=== PATIENT | male | born 1970 | race Caucasian/White ===

== ENCOUNTER 2017-01-29 12:45 | Inpatient (IN) | payer BC, OTHER ==
[~2017-01-29] VITALS: Ht 182.9 cm; Wt 101.3 kg
[2017-01-29] VITALS (8 sets, daily range): BP systolic 118–157; BP diastolic 76–97; PULSE 124–136; RESP 16–33; TEMP 97.3–98.6; O2SAT 96–100
[~2017-01-29 12:45] MED LIST: AMLO2.5T PO; BUPR150T3 PO; CITA-48 PO; CLON1TAB PO; METO50TA PO; ROSU40 PO; ST JTAB PO; TAB-TAB PO; VALS1TAB49 PO
[2017-01-29] MEDS ORDERED: SODIUM CHLOR 0.9% 1000 ML INJ 1,000 ML IV ONE ×2 (12:52→15:00)
--- NOTE | 2017-01-29 12:58 | PD ---
HPI Chief Complaint: OD/ Ingestion Time Seen by Provider: 12:52 Travel History International Travel<30 days: No Contact w/Intl Traveler<30days: No History of Present Illness HPI 46-year-old male patient presents to the ER today brought in by EMS, apparently his mother is in the hospital and they had not heard from him since yesterday afternoon, he was found on the ground unresponsive. EMS states that they were able to get him to wake up, but he is quite disoriented, was found with a sleep medication bottle which is empty. They do not know what the name of the sleep medication was, but it is over the counter medication. Patient admits he had taken his sleep medication and his other medications, but does not admit to intentional overdose. Patient apparently has had history of suicidal attempts. Modifying Factors: None Associated Signs & Symptoms: Altered mental status, suspected overdose Risk Factors: Previous suicidal attempts PFSH Past Medical History Anxiety: Yes Depression: Yes High Cholesterol: Yes Hypertension: Yes Social History Alcohol Use: Yes Tobacco Use: No Substance Use: Yes (6 TO 8 BEERS/ OCCASIONAL) Allergies-Medications (Allergen,Severity, Reaction): Coded Allergies: No Known Allergies (Unverified , 07/07/15) Reported Meds & Prescriptions Reported Meds & Active Scripts Active Reported Multivitamin (Multivitamins) 1 Tab Tab 1 Tab PO DAILY Aspirin Ec Low Dose (Aspirin) 81 Mg Tab 81 Mg PO DAILY Crestor (Rosuvastatin Calcium) 40 Mg Tab 40 Mg PO HS Valsartan 320 Mg Tab 1 Tab PO Clonazepam 1 Mg Tab 1 Mg PO DAILY Citalopram Hydrobromide 40 Mg Tab 40 Mg PO DAILY Amlodipine Besylate 2.5 mg (Amlodipine Besylate) 2.5 Mg Tab 1 Tab PO DAILY Metoprolol Tartrate 50 mg (Metoprolol Tartrate) 50 Mg Tab 50 Mg PO BID Bupropion Hcl Xl (Bupropion HCl) 150 Mg Tab 150 Mg PO DAILY Review of Systems ROS Limitations: Altered Mental Status Physical Exam Narrative GENERAL: Well-developed middle age white male patient currently in moderate distress. Awake, disoriented. Backboard and c-collar in place. SKIN: Focused skin assessment warm/dry. Notable for abrasions to both knees and left elbow area. HEAD: Atraumatic. Normocephalic. EYES: Pupils are large, round, equal and reactive to light bilaterally. No scleral icterus. No injection or drainage. ENT: No nasal bleeding or discharge. Mucous membranes pink and moist. NECK: Trachea midline. No JVD. C-collar in place. CARDIOVASCULAR: Regular rate and rhythm. No murmur appreciated. RESPIRATORY: No accessory muscle use. Clear to auscultation. Breath sounds equal bilaterally. GASTROINTESTINAL: Abdomen soft, non-tender, nondistended. Hepatic and splenic margins not palpable. MUSCULOSKELETAL: No obvious deformities. No clubbing. No cyanosis. No edema. BACK: No CVA tenderness. No rash. No point tenderness on palpation of the spine. No deformities identified. NEUROLOGICAL: Awake and lethargic and disoriented. No obvious cranial nerve deficits. Motor grossly within normal limits. Normal speech. PSYCHIATRIC: Appropriate mood and affect; insight and judgment poor. Data Data Last Documented VS Vital Signs Date Time Temp Pulse Resp B/P (MAP) Pulse Ox O2 Delivery O2 Flow Rate FiO2 01/29/17 12:52 97.3 136 29 118/76 (90) Orders Orders Electrocardiogram (01/29/17 12:52) Complete Blood Count With Diff (01/29/17 12:52) Comprehensive Metabolic Panel (01/29/17 12:52) Urinalysis - C+S If Indicated (01/29/17 12:52) Chest, Single Ap (01/29/17 12:52) Ct Brain W/O Iv Contrast(Rout) (01/29/17 12:52) Iv Access Insert/Monitor (01/29/17 12:52) Cath For Specimen (01/29/17 12:52) Ecg Monitoring (01/29/17 12:52) Oximetry (01/29/17 12:52) Sodium Chloride 0.9% Flush (Ns Flush) (01/29/17 13:00) Sodium Chlor 0.9% 1000 Ml Inj (Ns 1000 M (01/29/17 12:52) Drug Screen, Random Urine (01/29/17 12:52) Alcohol (Ethanol) (01/29/17 12:52) Salicylates (Aspirin) (01/29/17 12:52) Tylenol (Acetaminophen) (01/29/17 12:52) Ct Cerv Spine W/O Contrast (01/29/17 12:53) Piperacil-Tazo 4.5 Gm Premix (Zosyn 4.5 (10/25/17 14:54) Sodium Chlor 0.9% 1000 Ml Inj (Ns 1000 M (01/29/17 15:00) Lactic Acid Sepsis Protocol (01/29/17 14:54) Blood Culture (01/29/17 14:54) Creatine Kinase (Cpk) (01/29/17 14:56) Arterial Blood Gas (Abg) (01/29/17 ) Amylase (01/29/17 15:00) Ammonia (01/29/17 15:00) Act Partial Throm Time (Ptt) (01/29/17 15:00) Thyroid Stimulating Hormone (01/29/17 15:00) Prothrombin Time / Inr (Pt) (01/29/17 15:00) Magnesium (Mg) (01/29/17 15:00) Lipase (01/29/17 15:00) Lactic Acid (01/29/17 15:00) Phosphorus (Po4) (01/29/17 15:00) Fibrinogen (01/29/17 15:00) Creatinine, Random Urine (01/29/17 15:00) Sodium, Random Urine (01/29/17 15:00) Urine For Eosinophils (01/29/17 15:00) Troponin I (01/29/17 15:00) Labs Laboratory Tests Test 01/29/17 13:00 White Blood Count 24.2 TH/MM3 Red Blood Count 4.92 MIL/MM3 Hemoglobin 16.5 GM/DL Hematocrit 48.3 % Mean Corpuscular Volume 98.1 FL Mean Corpuscular Hemoglobin 33.5 PG Mean Corpuscular Hemoglobin Concent 34.1 % Red Cell Distribution Width 12.6 % Platelet Count 312 TH/MM3 Mean Platelet Volume 7.1 FL CBC Comment AUTO DIFF Differential Total Cells Counted 100 Neutrophils % (Manual) 56 % Band Neutrophils % 33 % Lymphocytes % 1 % Monocytes % 8 % Neutrophils # (Manual) 22.0 TH/MM3 Metamyelocytes 2 % Differential Comment FINAL DIFF MANUAL Toxic Granulation 2+ Platelet Estimate NORMAL Platelet Morphology Comment NORMAL Blood Urea Nitrogen 19 MG/DL Creatinine 2.89 MG/DL Random Glucose 129 MG/DL Total Protein 7.8 GM/DL Albumin 4.0 GM/DL Calcium Level 8.6 MG/DL Alkaline Phosphatase 83 U/L Aspartate Amino Transf (AST/SGOT) 1350 U/L Alanine Aminotransferase (ALT/SGPT) 206 U/L Total Bilirubin 1.8 MG/DL Sodium Level 133 MEQ/L Potassium Level 4.9 MEQ/L Chloride Level 96 MEQ/L Carbon Dioxide Level 14.6 MEQ/L Anion Gap 22 MEQ/L Estimat Glomerular Filtration Rate 24 ML/MIN Salicylates Level LESS THAN 1.7 MG/DL Acetaminophen Level LESS THAN 2.0 MCG/ML Ethyl Alcohol Level LESS THAN 3 MG/DL MDM Medical Decision Making Medical Screen Exam Complete: Yes Emergency Medical Condition: Yes Medical Record Reviewed: Yes Interpretation(s) Laboratory Tests Test 01/29/17 13:00 White Blood Count 24.2 TH/MM3 (4.0-11.0) Band Neutrophils % 33 % (0-6) Lymphocytes % 1 % (9-44) Neutrophils # (Manual) 22.0 TH/MM3 (1.8-7.7) Metamyelocytes 2 % (0-1) Toxic Granulation 2+ (NORMAL) Blood Urea Nitrogen 19 MG/DL (7-18) Creatinine 2.89 MG/DL (0.60-1.30) Random Glucose 129 MG/DL (74-106) Aspartate Amino Transf (AST/SGOT) 1350 U/L (15-37) Alanine Aminotransferase (ALT/SGPT) 206 U/L (12-78) Total Bilirubin 1.8 MG/DL (0.2-1.0) Sodium Level 133 MEQ/L (136-145) Chloride Level 96 MEQ/L (98-107) Carbon Dioxide Level 14.6 MEQ/L (21.0-32.0) Anion Gap 22 MEQ/L (5-15) Estimat Glomerular Filtration Rate 24 ML/MIN (>89) Salicylates Level LESS THAN 1.7 MG/DL Acetaminophen Level LESS THAN 2.0 MCG/ML Last 24 hours Impressions Cervical Spine CT 01/29/17 1253 Signed Impressions: Service Date/Time: Sunday, January 29, 2017 13:23 - CONCLUSION: No acute findings. Note is compression of cord or spondylolisthesis. Straightening of the cervical lordosis and nonbridging degenerative paravertebral ossification lower cervical spine. Nghia Fraire MD Head CT 01/29/17 1252 Signed Impressions: Service Date/Time: Sunday, January 29, 2017 13:23 - CONCLUSION: Negative noncontrast CT brain. Nghia Fraire MD Chest X-Ray 01/29/17 1790 Signed Impressions: Service Date/Time: Sunday, January 29, 2017 13:15 - CONCLUSION: 1. No acute cardiopulmonary disease. Jos Lux MD Differential Diagnosis Altered mental status, suspected overdose: Rule out intoxication versus intracranial injuries versus coingestions Narrative Course Considering history, there is suspicion of Benadryl overdose concerning this is a medication used in many sleep aids. Unfortunately, EMS did not look at the medication to identify the exact medication bottle they found. IV fluids were initiated in the ER. Supportive care was initiated. Lab work returns showing significant leukocytosis and sepsis workup was also initiated with cultures done and IV antibiotics given. Lab work shows significant worsening in renal function and liver function of uncertain etiology. Tylenol and salicylate levels are negligible. He is not on alcohol. CT of the brain did not show any signs of intracranial injuries. At this point, my plan would be to admit him to ICU for further treatment. Case is discussed with automotive general sales manager Dr. Bloom for admission. Aggregate critical care time was 35 minutes. Time to perform other separately billable procedures was not included in the critical care time. My time did not include minutes spent treating any other patients simultaneously or on activities that did not directly contribute to the patient's treatment. The services I provided to this patient were to treat and/or prevent clinically significant deterioration that could result in: Worsening respiratory status, dysrhythmias, intracranial bleed, I provided critical care services requiring my management, as noted below: Chart data review, documentation time, medication orders and management, vital sign assessments/reviewing monitor data, ordering and reviewing lab tests, ordering and interpreting/reviewing x-rays and diagnostic studies, care of the patient and discussion of the patient with the admitting physicians. Diagnosis Primary Impression: Altered mental status Additional Impressions: Medication overdose Acute renal failure (ARF) Admitting Information Admitting Physician Requests: Admit Karthik Mccormick MD Jan 29, 2017 12:58
[2017-01-29] MEDS ORDERED: SODIUM CHLORIDE 0.9% FLUSH 10 ML FLUSH IVF PRN (13:00)
--- NOTE | 2017-01-29 13:28 | RADRPT ---
EXAM DATE/TIME: 01/29/2017 13:15 [facility] COMPARISON: No previous studies available for comparison. INDICATIONS : Syncope. MEDICAL HISTORY : None. SURGICAL HISTORY : None. ENCOUNTER: Initial ACUITY: 1 day PAIN SCORE: 0/10 LOCATION: Bilateral chest FINDINGS: A single view of the chest demonstrates the lungs to be symmetrically aerated without evidence of mas s, infiltrate or effusion. The cardiomediastinal contours are unremarkable. Osseous structures are intact. CONCLUSION: 1. No acute cardiopulmonary disease. Jos Lux MD on January 29, 2017 at 13:26 Board Certified Radiologist. This report was verified electronically.
--- NOTE | 2017-01-29 13:58 | RADRPT ---
EXAM DATE/TIME: 01/29/2017 13:23 [facility] COMPARISON: No previous studies available for comparison. INDICATIONS : Altered mental status, found unresponsive on floor today RADIATION DOSE: 38.20 CTDIvol (mGy) MEDICAL HISTORY : Non-responsive. SURGICAL HISTORY : Non-responsive. ENCOUNTER: Initial ACUITY: 1 day PAIN SCALE: Non-responsive LOCATION: cranial TECHNIQUE: Multiple contiguous axial images were obtained of the head. Using automated exposure control and adj ustment of the mA and/or kV according to patient size, radiation dose was kept as low as reasonably a chievable to obtain optimal diagnostic quality images. DICOM format image data is available electro nically for review and comparison. FINDINGS: CEREBRUM: The ventricles are normal for age. No evidence of midline shift, mass lesion, hemorrhage or acute in farction. No extra-axial fluid collections are seen. POSTERIOR FOSSA: The cerebellum and brainstem are intact. The 4th ventricle is midline. The cerebellopontine angle i s unremarkable. EXTRACRANIAL: The visualized portion of the orbits is intact. SKULL: The calvaria is intact. No evidence of skull fracture. CONCLUSION: Negative noncontrast CT brain. Nghia Fraire MD on January 29, 2017 at 13:56 Board Certified Radiologist. This report was verified electronically.
--- NOTE | 2017-01-29 14:05 | RADRPT ---
EXAM DATE/TIME: 01/29/2017 13:23 [facility] COMPARISON: No previous studies available for comparison. INDICATIONS : Possible neck injury, found unresponsive today RADIATION DOSE: 38.20 CTDIvol (mGy) MEDICAL HISTORY : Non-responsive. SURGICAL HISTORY : Non-responsive. ENCOUNTER: Initial ACUITY: 1 day PAIN SCALE: Non-responsive LOCATION: neck TECHNIQUE: Volumetric scanning of the cervical spine was performed. Multiplanar reconstructions in the sagittal, coronal and oblique axial planes were performed. Using automated exposure control and adjustment o f the mA and/or kV according to patient size, radiation dose was kept as low as reasonably achievable to obtain optimal diagnostic quality images. DICOM format image data is available electronically f or review and comparison. FINDINGS: There is straightening of the upper cervical lordosis down to C5. Vertebral body height is maintaine d. No fracture is seen. Non-bridging anterior paravertebral ossification is present C4-5 and C5-6. The posterior elements are in normal alignment without evidence of locked or perched facets. Spinou s processes are intact. The atlantoaxial articulation is intact. C2-C3: No fracture seen. The bony neural foramina are patent. C3-C4: No fracture seen. The bony neural foramina are patent. C4-C5: No fracture seen. The bony neural foramina are patent. C5-C6: No fracture seen. The bony neural foramina are patent. C6-C7: No fracture seen. The bony neural foramina are patent. C7-T1: No fracture seen. The bony neural foramina are patent. CONCLUSION: No acute findings. Note is compression of cord or spondylolisthesis. Straightening of the cervical lordosis and nonbridging degenerative paravertebral ossification lower cervical spine. Nghia Fraire MD on January 29, 2017 at 14:01 Board Certified Radiologist. This report was verified electronically.
[2017-01-29 14:10] LABS: HEMATOCRIT 48.3 % (39.0-51.0); HEMOGLOBIN 16.5 GM/DL (13.0-17.0); MEAN CELL VOLUME 98.1 FL (80.0-100.0); MEAN CORPUSCULAR HEMOGLOBIN 33.5 PG (27.0-34.0); MEAN CORPUSCULAR HGB CONC 34.1 % (32.0-36.0); MEAN PLATELET VOLUME 7.1 FL (7.0-11.0); PLATELET COUNT 312 TH/MM3 (150-450); RED BLOOD COUNT 4.92 MIL/MM3 (4.50-5.90); RED CELL DISTRIBUTION WIDTH 12.6 % (11.6-17.2); WHITE BLOOD COUNT 24.2 TH/MM3 (4.0-11.0)
[2017-01-29 14:30] LABS: ALT (GPT) 206 U/L (12-78)
[2017-01-29 14:42] LABS: BANDS 33 % (0-6); LYMPHOCYTES 1 % (9-44); METAMYELOCYTES 2 % (0-1); MONOCYTES 8 % (0-8); POLYS (SEG NEUTROPHILS) 56 % (16-70); TOXIC GRANULATION 2+ (NORMAL)
[2017-01-29 14:44] LABS: ALKALINE PHOSPHATASE 83 U/L (45-117); AST (GOT) 1350 U/L (15-37); BICARBONATE 14.6 MEQ/L (21.0-32.0); BLOOD UREA NITROGEN 19 MG/DL (7-18); CALCIUM 8.6 MG/DL (8.5-10.1); CHLORIDE 96 MEQ/L (98-107); CREATININE 2.89 MG/DL (0.60-1.30); GLOMERULAR FILTRATION RATE 24 ML/MIN (>89); GLUCOSE,RANDOM 129 MG/DL (74-106); SODIUM (NA) 133 MEQ/L (136-145); TOTAL BILIRUBIN ADULT 1.8 MG/DL (0.2-1.0); TOTAL PROTEIN 7.8 GM/DL (6.4-8.2)
[2017-01-29 14:48] LABS: ACETAMINOPHEN LESS THAN 2.0 MCG/ML (10.0-30.0)
[2017-01-29] MEDS ORDERED: PIPERACIL-TAZO 4.5 GM PREMIX 100 ML IV STA (14:54)
[2017-01-29] MEDS ORDERED: CHLORHEXIDINE GLUCONATE 2 % 1 PACK (2 CLOTHS) TOP PRN (15:30)
[2017-01-29] MEDS ORDERED: FOLIC ACID 1 MG TAB PO ONE (15:30)
[2017-01-29] MEDS ORDERED: MISCELLANEOUS NURSING INFORMATION XX SCH (15:30)
[2017-01-29] MEDS: RESP: ALBUTEROL 2.5 MG/IPRATROPIUM 0.5 MG NEB (SCH) INH ×2 (15:42→21:53)
[2017-01-29] MEDS ORDERED: MAGNESIUM HYDROXIDE SUSP 30 ML CUP PO PRN (16:00)
[2017-01-29] MEDS ORDERED: ONDANSETRON HCL 4 MG/2 ML VIAL IV PUSH PRN (16:00)
[2017-01-29] MEDS ORDERED: SODIUM CHLOR 0.9% 1000 ML INJ 1,000 ML IV SCH (16:00)
[2017-01-29] MEDS ORDERED: LACTULOSE SYRUP 20 GM/30 ML CUP PO PRN (16:00)
[2017-01-29] MEDS ORDERED: RESP: ALBUTEROL 2.5 MG/3 ML NEB (PRN) INH (16:00)
[2017-01-29] MEDS ORDERED: BISACODYL 10 MG SUPP RECTAL PRN (16:00)
[2017-01-29] MEDS ORDERED: SENNOSIDES 8.6 MG TAB PO PRN (16:00)
--- NOTE | 2017-01-29 16:09 | HHI.HP ---
[facility] Service Critical Care Medicine Primary Care Physician No Primary Care Physician Admission Diagnosis acute renal failure/suspected overdose/altered mental status Diagnosis: (1) Altered mental status Diagnosis: Principal (2) Chronically on benzodiazepine therapy Diagnosis: Principal (3) Dyslipidemia Diagnosis: Principal (4) Hypertension Diagnosis: Principal (5) Elevated transaminase level Diagnosis: Principal (6) Depression Diagnosis: Principal (7) Medication overdose Diagnosis: Principal (8) Alcohol-induced mood disorder Diagnosis: Principal (9) Acute renal failure (ARF) Diagnosis: Principal (10) Leukocytosis Diagnosis: Principal (11) SIRS (systemic inflammatory response syndrome) Diagnosis: Principal (12) Metabolic acidosis, increased anion gap Diagnosis: Principal Chief Complaint: Overdose on sleeping pills Travel History International Travel<30 Days: No Contact w/Intl Traveler <30 Da: No Traveled to Known Affected Are: No Sepsis Criteria SIRS Criteria (2 or more): Heart rate over 90, WBC > 58027, < 4000 or > 10% bands History of Present Illness This is a 46 year old male. Date of admission 01/29/2017. Past medical history includes hypertension, dyslipidemia and depression. He is on chronic clonazepam. He presents to [facility] after being found on the ground for an unknown duration of time after taking "[id number] sleeping pills". He's been Beltran acted. Symptomatology includes tachycardia, mydriasis and appears dehydrated. Patient is afebrile. Lab workup included negative urine toxicology screen. Negative acetaminophen and EtOH. Patient has a leukocytosis of 24,000. Patient is in acute kidney injury creatinine 2.9.. Transaminases are elevated. Patient has a metabolic acidosis/Hyalgan With acetone and lactic currently pending. CT brain and C-spine negative. Chest x-ray negative. Patient is currently awake and oriented to person and place but not time. Review of Systems Constitutional: COMPLAINS OF: Fatigue, DENIES: Fever Endocrine: DENIES: Polyuria, Polyphagia Eyes: COMPLAINS OF: Blurred vision, DENIES: Double Vision Ears, nose, mouth, throat: DENIES: Tinnitus, Hearing loss Respiratory: DENIES: Cough Cardiovascular: COMPLAINS OF: Palpitations, DENIES: Chest pain Gastrointestinal: DENIES: Abdominal pain, Nausea, Vomiting Genitourinary: DENIES: Urinary incontinence, Hematuria Musculoskeletal: DENIES: Joint pain Integumentary: DENIES: Abnormal pigmentation Hematologic/lymphatic: DENIES: Bruising Immunologic/allergic: DENIES: Eczema Neurologic: DENIES: Headache Psychiatric: COMPLAINS OF: Anxiety, Confusion, Depression, DENIES: Hallucinations Past Family Social History Allergies: Coded Allergies: No Known Allergies (Unverified , 07/07/15) Past Medical History Hypertension Dyslipidemia Depression Past Surgical History Left foot Reported Medications Multivitamin (Multivitamins) 1 Tab Tab 1 Tab PO DAILY Aspirin Ec Low Dose (Aspirin) 81 Mg Tab 81 Mg PO DAILY Crestor (Rosuvastatin Calcium) 40 Mg Tab 40 Mg PO HS Valsartan 320 Mg Tab 1 Tab PO Clonazepam 1 Mg Tab 1 Mg PO DAILY Citalopram Hydrobromide 40 Mg Tab 40 Mg PO DAILY Amlodipine Besylate 2.5 mg (Amlodipine Besylate) 2.5 Mg Tab 1 Tab PO DAILY Metoprolol Tartrate 50 mg (Metoprolol Tartrate) 50 Mg Tab 50 Mg PO BID Bupropion Hcl Xl (Bupropion HCl) 150 Mg Tab 150 Mg PO DAILY Active Ordered Medications Reviewed in EMR Family History Mother is currently hospitalized. Positive for hypertension Social History 6-8 beers drinking.. Denies tobacco or illicit drug use. Physical Exam Vital Signs Vital Signs Date Time Temp Pulse Resp B/P (MAP) Pulse Ox O2 Delivery O2 Flow Rate FiO2 01/29/17 15:46 96 Nasal Cannula 3.00 01/29/17 15:00 124 16 134/94 (107) 98 Room Air 01/29/17 13:41 126 20 122/79 (93) 97 Room Air 01/29/17 12:55 Room Air 01/29/17 12:52 97.3 136 29 118/76 (90) Physical Exam GENERAL: 46-year-old male, resting in bed in c-collar in no acute distress SKIN: Warm and dry. No rash HEAD: Atraumatic. Normocephalic. EYES: Pupils equal and round about 5 mm bilaterally and reactive. No scleral icterus. No injection or drainage. ENT: No nasal bleeding or discharge. Mucous membranes pink and moist. NECK: Trachea midline. No JVD. CARDIOVASCULAR: Tachycardia, RR. S1, S2. No S4. RESPIRATORY: No accessory muscle use. Clear to auscultation. Breath sounds equal bilaterally. GASTROINTESTINAL: Abdomen soft, non-tender, nondistended. Bowel sounds appreciated. MUSCULOSKELETAL: Extremities without significant peripheral edema. No obvious deformities. NEUROLOGICAL: Awake and alert. No obvious cranial nerve deficits. Motor grossly within normal limits. Five out of 5 muscle strength in the arms and legs. Normal speech. Laboratory Laboratory Tests Test 01/29/17 13:00 01/29/17 15:00 01/29/17 15:23 01/29/17 15:54 White Blood Count 24.2 Red Blood Count 4.92 Hemoglobin 16.5 Hematocrit 48.3 Mean Corpuscular Volume 98.1 Mean Corpuscular Hemoglobin 33.5 Mean Corpuscular Hemoglobin Concent 34.1 Red Cell Distribution Width 12.6 Platelet Count 312 Mean Platelet Volume 7.1 CBC Comment AUTO DIFF Differential Total Cells Counted 100 Neutrophils % (Manual) 56 Band Neutrophils % 33 Lymphocytes % 1 Monocytes % 8 Neutrophils # (Manual) 22.0 Metamyelocytes 2 Differential Comment FINAL DIFF MANUAL Toxic Granulation 2+ Platelet Estimate NORMAL Platelet Morphology Comment NORMAL Blood Urea Nitrogen 19 Creatinine 2.89 Random Glucose 129 Total Protein 7.8 Albumin 4.0 Calcium Level 8.6 Alkaline Phosphatase 83 Aspartate Amino Transf (AST/SGOT) 1350 Alanine Aminotransferase (ALT/SGPT) 206 Total Bilirubin 1.8 Sodium Level 133 Potassium Level 4.9 Chloride Level 96 Carbon Dioxide Level 14.6 Anion Gap 22 Estimat Glomerular Filtration Rate 24 Salicylates Level LESS THAN 1.7 Acetaminophen Level LESS THAN 2.0 Ethyl Alcohol Level LESS THAN 3 Blood Gas Puncture Site RT RADIAL Blood Gas Patient Temperature 98.6 Blood Gas HCO3 15 Blood Gas Base Excess -9.4 Blood Gas Oxygen Saturation 97 Arterial Blood pH 7.35 Arterial Blood Partial Pressure CO2 28 Arterial Blood Partial Pressure O2 138 Arterial Blood Oxygen Content 21.1 Arterial Blood Carboxyhemoglobin 1.0 Arterial Blood Methemoglobin 1.0 Blood Gas Hemoglobin 15.4 Oxygen Delivery Device NASAL CANNULA Blood Gas Liter Flow 3 Date/Time Source Procedure Growth Status 01/29/17 13:15 Blood Peripheral Aerobic Blood Culture Pending Received 01/29/17 13:15 Blood Peripheral Anaerobic Blood Culture Pending Received Result Diagram: 01/29/17 1300 01/29/17 1300 Imaging Last Impressions Cervical Spine CT 01/29/17 1253 Signed Impressions: Service Date/Time: Sunday, January 29, 2017 13:23 - CONCLUSION: No acute findings. Note is compression of cord or spondylolisthesis. Straightening of the cervical lordosis and nonbridging degenerative paravertebral ossification lower cervical spine. Nghia Fraire MD Head CT 01/29/171251 Signed Impressions: Service Date/Time: Sunday, January 29, 2017 13:23 - CONCLUSION: Negative noncontrast CT brain. Nghia Fraire MD Chest X-Ray 01/29/171251 Signed Impressions: Service Date/Time: Sunday, January 29, 2017 13:15 - CONCLUSION: 1. No acute cardiopulmonary disease. Jos Lux MD Caprinapril VTE Risk Assessment Caprini VTE Risk Assessment: Mod/High Risk (score >= 2) Caprini Risk Assessment Model Point Value = 1 Point Value = 2 Point Value = 3 Point Value = 5 Age 41-60 Minor surgery BMI > 25 kg/m2 Swollen legs Varicose veins or History of unexplained or recurrent spontaneous Oral contraceptives or hormone replacement Sepsis (< 1 month) Serious lung disease, including pneumonia (< 1 month) Abnormal pulmonary function Acute myocardial infarction Congestive heart failure (< 1 month) History of inflammatory bowel disease Medical patient at bed rest Age 61-74 Arthroscopic surgery Major open surgery (> 45 min) Laparoscopic surgery (> 45 min) Malignancy Confined to bed (> 72 hours) Immobilizing plaster cast Central venous access Age >= 75 History of VTE Family history of VTE Factor V Leiden Prothrombin [id number] Lupus anticoagulant Anticardiolipin antibodies Elevated serum homocysteine Heparin-induced thrombocytopenia Other congenital or acquired thrombophilia Stroke (< 1 month) Elective arthroplasty Hip, pelvis, or leg fracture Acute spinal cord injury (< 1 month) Prophylaxis Regimen Total Risk Factor Score Risk Level Prophylaxis Regimen 0-1 Low Early ambulation 2 Moderate Order ONE of the following: *Sequential Compression Device (SCD) *Heparin 5000 units SQ BID 3-4 Higher Order ONE of the following medications: *Heparin 5000 units SQ TID *Enoxaparin/Lovenox 40 mg SQ daily (WT < 150 kg, CrCl > 30 mL/min) *Enoxaparin/Lovenox 30 mg SQ daily (WT < 150 kg, CrCl > 10-29 mL/min) *Enoxaparin/Lovenox 30 mg SQ BID (WT < 150 kg, CrCl > 30 mL/min) AND/OR *Sequential Compression Device (SCD) 5 or more Highest Order ONE of the following medications: *Heparin 5000 units SQ TID (Preferred with Epidurals) *Enoxaparin/Lovenox 40 mg SQ daily (WT < 150 kg, CrCl > 30 mL/min) *Enoxaparin/Lovenox 30 mg SQ daily (WT < 150 kg, CrCl > 10-29 mL/min) *Enoxaparin/Lovenox 30 mg SQ BID (WT < 150 kg, CrCl > 30 mL/min) AND *Sequential Compression Device (SCD) Assessment and Plan Assessment and Plan Neuro/Psych: Intentional overdose on sleeping pills". Possible diphenhydramine Depression EtOH use Monitor for anticholinergic side effects. Currently not requiring physostigmine Acetaminophen secondary to elevated transaminases Patient has been Beltran acted. Psych evaluation when clinically stable Holding citalopram 40 mg daily and bupropion 150 mill grams daily light of altered mental status Holding clonazepam 1 mg daily light of altered mental status Thiamine, folate and multivitamin daily. Monitor for DTs CT brain 01/29 revealed no acute intracranial findings CT C-spine 01/29 negative for acute findings. Straightened lordosis. CV: Sinus tachycardia History of hypertension History dyslipidemia Holding home medications of rosuvastatin 40 mg daily in light of elevated liver function tests Holding home medication valsartan 320 mg daily light of acute kidney injury. Resume metoprolol 50 mg twice a day. Holding amlodipine 2.5 mill grams by mouth daily. Resume when clinically indicated Okay to resume aspirin 81 mg daily Resp: Nasal cannula to maintain saturations greater than or equal to 92% Incentive spirometry while awake Follow-up on chest x-ray in ED GI: Elevated transaminases Check abdominal ultrasound. CPK pending Avoid hepatotoxic drugs. Statin will be held. Abdominal ultrasound pending Clear liquid diet okay. Pantoprazole for GI prophylaxis Docusate sodium/senna for bowel regimen Will check hepatitis panel as well : No indication for Barros catheter Endo: Sliding-scale insulin if indicated to maintain euglycemia Renal: Acute kidney injury Anion gap metabolic acidosis/respiratory alkalosis compensation Renal ultrasound/urine electrolytes and eosinophils pending Avoid nephrotoxic medications Currently on sterile water with 3 ampules of sodium bicarbonate 150 cc an hour Acetone/lactate pending Heme: Leukocytosis Likely stress reaction. Follow-up on coags Repeat CBC in a.m. ID: Monitor for infection. No indication for antibiotics at this point MSK: PT evaluate and treat FEN: Replace electrolytes as clinically indicated Access -Utilize peripheral IV. Central line if indicated Prophylaxis - GI - pantoprazole - DVT - SCD/heparin subcutaneous Critical Care: The total critical care time was 35 minutes. Time to perform other separately billable procedures was not included in the critical care time. Code Status Full code Discussed Condition With Patient. Beltran acted. Care plan discussed and all questions answered. Problem Qualifiers (1) Altered mental status: Qualified Codes: R41.0 - Disorientation, unspecified (2) Hypertension: Qualified Codes: I10 - Essential (primary) hypertension (3) Depression: Qualified Codes: F33.40 - Major depressive disorder, recurrent, in remission, unspecified (4) Medication overdose: (5) Acute renal failure (ARF): Qualified Codes: N17.9 - Acute kidney failure, unspecified (6) Leukocytosis: Qualified Codes: D72.829 - Elevated white blood cell count, unspecified Ricardo Bloom MD Jan 29, 2017 16:09
[2017-01-29 16:20] LABS: PROTHROMBIN TIME - PATIENT 10.7 SEC (9.8-11.6)
[2017-01-29 16:30] LABS: AMORPHOUS SEDIMENT, URINE RARE; BACTERIA, URINE RARE /hpf; BILIRUBIN, URINE NEG (NEG); BLOOD, URINE LARGE (NEG); GLUCOSE,URINE TRACE mg/dL (NEG); KETONE, URINE 10 mg/dL (NEG); NITRITE,URINE NEG (NEG); URINE LEUKOCYTE ESTERASE TRACE (NEG)
[2017-01-29 16:33] LABS: URINE COLOR RED (YELLW/STRAW)
--- NOTE | 2017-01-29 16:33 | RADRPT ---
EXAM DATE/TIME: 01/29/2017 15:30 [place] COMPARISON: CHEST SINGLE AP, January 29, 2017, 13:15. INDICATIONS : Increased labs. MEDICAL HISTORY : Hypercholesterolemia. Hypertension. Renal failure, acute. Depression. Anxiety. Previous suicide attem pt. ETOH abuse. SURGICAL HISTORY : Left foot surgery. ENCOUNTER: Initial ACUITY: 1 day PAIN SCORE: 2/10 LOCATION: Abdomen. MEASUREMENTS: LIVER: 14.8 cm length COMMON DUCT: 3 mm RIGHT KIDNEY: 12.7 x 7.0 x 6.8 cm LEFT KIDNEY: 12.2 x 5.5 x 7.0 cm SPLEEN: 9.6 cm length AORTA: 2.7cm maximal FINDINGS: LIVER: Mild heterogeneous diffuse increased echogenicity without evidence for significant volume loss or int rahepatic ductal dilatation or focal mass. COMMON DUCT: No intraluminal mass or stone visualized. GALLBLADDER: Contains no stones, demonstrates no wall thickening or pericholecystic fluid. PANCREAS: March the obscured by bowel gas. RIGHT KIDNEY: Somewhat lobulated renal contour. No hydronephrosis, stone or mass. LEFT KIDNEY: Somewhat lobulated renal contour. No hydronephrosis, stone or mass. SPLEEN: No focal lesion. AORTA: Non aneurysmal. IVC: Within normal limits. Incidental note of trace left pleural effusion. CONCLUSION: 1. Diffusely increased hepatic echogenicity without evidence for volume loss most consistent with hep atic steatosis versus medical liver disease. 2. Trace left pleural effusion. Jos Lux MD on January 29, 2017 at 16:27 Board Certified Radiologist. This report was verified electronically.
[2017-01-29 16:56] LABS: CREATININE, RANDOM URINE 101.6 MG/DL
[2017-01-29 16:57] LABS: MAGNESIUM 2.9 MG/DL (1.5-2.5)
[2017-01-29] MEDS ORDERED: THIAMINE INJ 100 MG in SODIUM CHLORIDE 0.9% INJ 100 ML IV ONE (17:00)
[2017-01-29 17:06] LABS: TROPONIN I 0.14 NG/ML (0.02-0.05)
[2017-01-29 17:27] LABS: PHOSPHORUS 7.5 MG/DL (2.5-4.9)
[2017-01-29] MEDS: SODIUM BICARBONATE 8.4% INJ 150 MEQ in WATER STERILE FOR INJ 850 ML IV SCH (17:31)
[2017-01-29] MEDS: HEPARIN SODIUM - SQ 10,000 UNITS/ML VIAL SQ SCH (17:31)
[2017-01-29] MEDS: ARTIFICIAL TEARS OPTH SOLN 15 ML BTL EACH EYE SCH (17:32)
[2017-01-29 17:43] LABS: AMORPHOUS SEDIMENT, URINE RARE; BACTERIA, URINE RARE /hpf; BILIRUBIN, URINE NEG (NEG); BLOOD, URINE LARGE (NEG); GLUCOSE,URINE NEG (NEG); KETONE, URINE TRACE mg/dL (NEG); NITRITE,URINE NEG (NEG); PH, URINE 5.5 (5.0-8.5); URINE COLOR YELLOW (YELLW/STRAW); URINE LEUKOCYTE ESTERASE NEG (NEG)
[2017-01-29 18:26] LABS: LACTIC ACID SEPSIS PROTOCOL 6.3 mmol/L (0.4-2.0)
[2017-01-29] MEDS: DOCUSATE SODIUM 50 MG/SENNA 8.6 MG TAB PO SCH (20:14)
[2017-01-29] MEDS: METOPROLOL TARTRATE 50 MG TAB PO SCH (20:14)
[2017-01-29] MEDS: SODIUM CHLORIDE 0.9% FLUSH 10 ML FLUSH IV FLUSH SCH (20:14)
[2017-01-29] MEDS: DEXMEDETOMIDINE INJ 200 MCG in SODIUM CHLORIDE 0.9% INJ 50 ML IV PRN (21:20)
[2017-01-30] VITALS (14 sets, daily range): BP systolic 123–144; BP diastolic 91–95; PULSE 80–109; RESP 20–35; TEMP 98.2–98.8; O2SAT 92–100
[2017-01-30] MEDS: SODIUM BICARBONATE 8.4% INJ 150 MEQ in WATER STERILE FOR INJ 850 ML IV SCH ×2 (00:39→08:48)
[2017-01-30] MEDS: DEXMEDETOMIDINE INJ 200 MCG in SODIUM CHLORIDE 0.9% INJ 50 ML IV PRN ×6 (03:42→22:37)
[2017-01-30] MEDS: CHLORHEXIDINE GLUCONATE 2 % 1 PACK (2 CLOTHS) TOP SCH (03:42)
[2017-01-30] MEDS: HEPARIN SODIUM - SQ 10,000 UNITS/ML VIAL SQ SCH ×2 (03:42→15:45)
[2017-01-30] MEDS: RESP: ALBUTEROL 2.5 MG/IPRATROPIUM 0.5 MG NEB (SCH) INH ×4 (03:52→19:59)
[2017-01-30 04:32] LABS: AUTOMATED NEUTROPHIL # 15.2 TH/MM3 (1.8-7.7); BASOPHIL % 0.3 % (0.0-2.0); HEMATOCRIT 40.7 % (39.0-51.0); HEMOGLOBIN 14.3 GM/DL (13.0-17.0); LYMPH % 6.3 % (9.0-44.0); LYMPHOCYTE # 1.1 TH/MM3 (1.0-4.8); MEAN CELL VOLUME 96.1 FL (80.0-100.0); MEAN CORPUSCULAR HEMOGLOBIN 33.8 PG (27.0-34.0); MEAN CORPUSCULAR HGB CONC 35.2 % (32.0-36.0); MEAN PLATELET VOLUME 7.4 FL (7.0-11.0); MONO % 6.1 % (0.0-8.0); MONOCYTE # 1.1 TH/MM3 (0-0.9); NEUT % 87.3 % (16.0-70.0); PLATELET COUNT 181 TH/MM3 (150-450); RED BLOOD COUNT 4.24 MIL/MM3 (4.50-5.90); RED CELL DISTRIBUTION WIDTH 12.8 % (11.6-17.2); WHITE BLOOD COUNT 17.4 TH/MM3 (4.0-11.0)
[2017-01-30 05:25] LABS: ALBUMIN 2.9 GM/DL (3.4-5.0); ALKALINE PHOSPHATASE 59 U/L (45-117); ALT (GPT) 287 U/L (12-78); AST (GOT) 1753 U/L (15-37); BICARBONATE 22.7 MEQ/L (21.0-32.0); BLOOD UREA NITROGEN 31 MG/DL (7-18); CALCIUM 7.8 MG/DL (8.5-10.1); CHLORIDE 98 MEQ/L (98-107); CREATININE 4.11 MG/DL (0.60-1.30); GLOMERULAR FILTRATION RATE 16 ML/MIN (>89); GLUCOSE,RANDOM 108 MG/DL (74-106); SODIUM (NA) 133 MEQ/L (136-145); TOTAL BILIRUBIN ADULT 1.1 MG/DL (0.2-1.0); TOTAL PROTEIN 5.9 GM/DL (6.4-8.2)
[2017-01-30] MEDS ORDERED: LORazepam 2 MG/ML VIAL IV PUSH PRN ×3 (08:15)
[2017-01-30] MEDS ORDERED: LORazepam 2 MG TAB PO PRN (08:15)
[2017-01-30] MEDS ORDERED: FLUMAZENIL 0.5 MG/5 ML VIAL IV PUSH PRN (08:15)
[2017-01-30] MEDS ORDERED: LORazepam 1 MG TAB PO PRN (08:15)
[2017-01-30] MEDS ORDERED: SODIUM CHLOR 0.9% 1000 ML INJ 1,000 ML IV ONE ×3 (08:30→14:15)
[2017-01-30] MEDS: THIAMINE INJ 100 MG in SODIUM CHLORIDE 0.9% INJ 100 ML IV SCH (08:47)
[2017-01-30] MEDS: DOCUSATE SODIUM 50 MG/SENNA 8.6 MG TAB PO SCH ×2 (08:47→19:43)
[2017-01-30] MEDS: MULTIVITAMIN TAB PO SCH (08:47)
[2017-01-30] MEDS: PANTOPRAZOLE SODIUM 40 MG VIAL IV PUSH SCH (08:47)
[2017-01-30] MEDS: FOLIC ACID 1 MG TAB PO SCH (08:47)
[2017-01-30] MEDS: METOPROLOL TARTRATE 50 MG TAB PO SCH ×2 (08:47→19:43)
[2017-01-30] MEDS: ASPIRIN EC 81 MG TABEC PO SCH (08:48)
[2017-01-30] MEDS: SODIUM CHLORIDE 0.9% FLUSH 10 ML FLUSH IV FLUSH SCH ×2 (08:48→19:44)
[2017-01-30] MEDS: ARTIFICIAL TEARS OPTH SOLN 15 ML BTL EACH EYE SCH ×2 (09:00→13:00)
[2017-01-30 12:06] LABS: HEPATITIS A AB IGM NEGATIVE (NEGATIVE); HEPATITIS B SURFACE ANTIGEN NEGATIVE (NEGATIVE); HEPATITIS C AB IgG NEGATIVE (NEGATIVE)
--- NOTE | 2017-01-30 13:20 | PD.PSY.CON ---
Provisional Diagnosis Admission Date Jan 29, 2017 at 15:14 [place]. Major depressive disorder, recurrent, severe, without psychosis, delirium History of Present Illness Service Psychiatry Consult Requested By Critical care team Reason for Consult Suicidal attempt Primary Care Physician No Primary Care Physician HPI The patient is a 46 year old man, domiciled in [place] , , employed, with reported psychiatric history of depression and anxiety, 1 previous psychiatric hospitalization in the past, one suicidal attempt by hanging, alcohol and cannabis use disorder, Past medical history includes hypertension and dyslipidemia . He presents to [facility] after being found on the ground for an unknown duration of time after taking "over-the- counter sleeping pills". He's been Beltran acted. Symptomatology includes tachycardia, mydriasis and appears dehydrated. Lab workup included negative urine toxicology screen. Negative acetaminophen and EtOH. Patient has a leukocytosis of 24,000. Patient is in acute kidney injury creatinine 2.9.. Transaminases are elevated. Patient has a metabolic acidosis/Hyalgan With acetone and lactic currently pending.CT brain and C-spine negative. Chest x- ray negative. On psychiatric evaluation today patient is evidently confused, at the beginning he did not know what he was, and what was the reason of his hospitalization, but with redirection he remembered that he is at [place], but he continues to say that we are in [place] 1969. 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 After stated multiple times that he doesn't remember what is the reason he is here, he finally says with tears in his eyes he has screw up his relationship with his girlfriend, she has left him, and he has been feeling useless, helpless, hopeless, and finally tried to commit suicide by overdosing. Patient stated that his intention was to . He says that life doesn't have any purpose anymore. As patient is talking his is to be internally preoccupied and having visual hallucinations. He actually states that "I don't know what this robin here behind you is doing to me, why does he have to be here"when is not really nobody there. Patient reports that he has been drinking too much. He reports anyway from 8-16 beers per day. Also reports occasional use of marijuana. Denies use of cocaine, heroine, and other illicit drugs. Patient is sweaty and tremulous, even though he denies inner sensation of anxiety, pain, nausea. Review of Systems Constitutional: COMPLAINS OF: Diaphoretic episodes, Night Sweats Neurologic: COMPLAINS OF: Tremor Psychiatric: COMPLAINS OF: Anxiety, Depression, Suicidal Ideation Except as stated in HPI: all other systems reviewed are Neg Past Family Social History Coded Allergies: No Known Allergies (Unverified , 07/07/15) Reported Medications Multiple Vitamin (Multivitamin) 1 Tab Tab, 1 TAB PO DAILY, TAB 07/07/15 Aspirin (Aspirin Ec Low Strength) 81 Mg Tab, 81 MG PO DAILY, TAB 07/07/15 Rosuvastatin Calcium (Crestor) 40 Mg Tab, 40 MG PO HS, #30 TAB 07/07/15 Valsartan (Valsartan) 320 Mg Tab, 1 TAB PO 07/07/15 Clonazepam (Clonazepam) 1 Mg Tab, 1 MG PO DAILY, TAB 07/07/15 Citalopram Hydrobromide (Citalopram Hydrobromide) 40 Mg Tab, 40 MG PO DAILY, TAB 07/07/15 Amlodipine Besylate 2.5 mg (Amlodipine Besylate 2.5 mg) 2.5 Mg Tab, 1 TAB PO DAILY, TAB 07/07/15 Metoprolol Tartrate 50 mg (Metoprolol Tartrate 50 mg) 50 Mg Tab, 50 MG PO BID, TAB 07/07/15 Bupropion Hcl (Bupropion Hcl Xl) 150 Mg Tab, 150 MG PO DAILY, TAB 07/07/15 Current Medications Medications (Trade) Dose Ordered Sig/Dinesh Route Start Time Stop Time Status Last Admin (NS Flush) 2 ml UNSCH PRN IVF 01/29/17 13:00 01/29/17 14:01 (NS Flush) 2 ml UNSCH PRN IV FLUSH 01/29/17 16:00 (NS Flush) 2 ml BID IV FLUSH 01/29/17 21:00 01/30/17 08:48 (Protonix Inj) 40 mg DAILY IV PUSH 01/30/17 09:00 01/30/17 08:47 (Tears Naturale Opth Soln) 1 drop TID EACH EYE 01/29/17 18:00 (Zofran Inj) 4 mg Q6H PRN IV PUSH 01/29/17 16:00 (Duoneb Neb) 1 ampule Q6HR NEB INH 01/29/17 16:00 01/30/17 09:26 (Albuterol Neb) 2.5 mg Q2HR NEB PRN INH 01/29/17 16:00 (Heparin Inj) 5,000 units Q12H SQ 01/29/17 16:00 01/30/17 03:42 Miscellaneous Information 1 Q361D XX 01/29/17 15:30 (Chlorhexidine 2% Cloth) 3 pack Taper DAILY@04 TOP 01/30/17 04:00 01/26/18 03:59 01/30/17 03:42 (Chlorhexidine 2% Cloth) 3 pack UNSCH PRN TOP 01/29/17 15:30 (Nakia-Colace) 1 tab BID PO 01/29/17 21:00 01/30/17 08:47 (Milk Of Magnesia Liq) 30 ml Q12H PRN PO 01/29/17 16:00 (Senokot) 17.2 mg Q12H PRN PO 01/29/17 16:00 (Dulcolax Supp) 10 mg DAILY PRN RECTAL 01/29/17 16:00 (Lactulose Liq) 30 ml DAILY PRN PO 01/29/17 16:00 Sodium Bicarbonate 150 meq/Sterile Water 1,000 ml @ 150 mls/hr Q6H40M IV 01/29/17 17:00 01/30/17 08:48 Thiamine HCl 100 mg/Sodium Chloride 101 ml @ 101 mls/hr DAILY IV 01/30/17 09:00 01/30/17 08:47 (Folate) 1 mg DAILY PO 01/30/17 09:00 01/30/17 08:47 (Theragran) 1 tab DAILY PO 01/30/17 09:00 01/30/17 08:47 (Lopressor) 50 mg BID PO 01/29/17 21:00 01/30/17 08:47 (Ecotrin Ec) 81 mg DAILY PO 01/30/17 09:00 01/30/17 08:48 Dexmedetomidine HCl 200 mcg/ Sodium Chloride 52 ml @ 4.75 mls/hr TITRATE PRN IV 01/29/17 21:00 01/30/17 11:43 (Romazicon Inj) 0.2 mg Q1M PRN IV PUSH 01/30/17 08:15 (Ativan) 1 mg Q4H PRN PO 01/30/17 08:15 (Ativan Inj) 1 mg Q4H PRN IV PUSH 01/30/17 08:15 (Ativan) 2 mg Q2H PRN PO 01/30/17 08:15 (Ativan Inj) 2 mg Q2H PRN IV PUSH 01/30/17 08:15 01/30/17 08:47 (Ativan Inj) 2 mg Q1H PRN IV PUSH 01/30/17 08:15 (Ativan Inj) 2 mg Q15M PRN IV PUSH 01/30/17 08:15 Family Psych History He denies family psychiatric history Social History Patient was born and raised in [place], he says that he lives in [facility] , he is , he says that he has a job, Physical Exam Vital Signs Vital Signs Date Time Temp Pulse Resp B/P (MAP) Pulse Ox O2 Delivery O2 Flow Rate FiO2 01/30/17 10:00 87 01/30/17 09:27 100 Nasal Cannula 1.00 01/30/17 08:00 98.6 22 135/95 (108) I/O 01/30/17 01/30/17 01/31/17 08:00 16:00 00:00 Intake Total 240 ml 1101 ml Output Total 150 ml Balance 90 ml 1101 ml Lab Results Test 01/29/17 15:00 01/29/17 15:23 01/29/17 15:54 01/29/17 17:20 Urine Color RED YELLOW Urine Turbidity HAZY CLEAR Urine pH 6.0 5.5 Urine Specific [place] 1.014 1.008 Urine Protein 100 mg/dL 30 mg/dL Urine Glucose (UA) TRACE mg/dL NEG mg/dL Urine Ketones 10 mg/dL TRACE mg/dL Urine Occult Blood LARGE LARGE Urine Nitrite NEG NEG Urine Bilirubin NEG NEG Urine Urobilinogen LESS THAN 2.0 MG/DL LESS THAN 2.0 MG/DL Urine Leukocyte Esterase TRACE NEG Urine RBC 1 /hpf LESS THAN 1 /hpf Urine WBC 2 /hpf LESS THAN 1 /hpf Urine Amorphous Sediment RARE RARE Urine Bacteria RARE /hpf RARE /hpf Microscopic Urinalysis Comment CULT NOT INDICATED CATH-CULTURE IND Urine Eosinophils NONE SEEN /HPF Urine Random Creatinine 101.6 MG/DL Urine Random Sodium 46 MEQ/L Urine Opiates Screen NEG Urine Barbiturates Screen NEG Urine Amphetamines Screen NEG Urine Benzodiazepines Screen NEG Urine Cocaine Screen NEG Urine Cannabinoids Screen NEG Blood Gas Puncture Site RT RADIAL Blood Gas Patient Temperature 98.6 Blood Gas HCO3 15 mmol/L Blood Gas Base Excess -9.4 mmol/L Blood Gas Oxygen Saturation 97 % Arterial Blood pH 7.35 Arterial Blood Partial Pressure CO2 28 mmHg Arterial Blood Partial Pressure O2 138 mmHg Arterial Blood Oxygen Content 21.1 Vol % Arterial Blood Carboxyhemoglobin 1.0 % Arterial Blood Methemoglobin 1.0 % Blood Gas Hemoglobin 15.4 G/DL Oxygen Delivery Device NASAL CANNULA Blood Gas Liter Flow 3 L/M Lactic Acid Level 6.3 mmol/L Ammonia 35 MCMOL/L Test 01/29/17 18:00 01/29/17 18:57 01/30/17 04:08 Nasal Screen MRSA (PCR) MRSA NOT DETECTED Lactic Acid Level 5.9 mmol/L 2.2 mmol/L White Blood Count 17.4 TH/MM3 Red Blood Count 4.24 MIL/MM3 Hemoglobin 14.3 GM/DL Hematocrit 40.7 % Mean Corpuscular Volume 96.1 FL Mean Corpuscular Hemoglobin 33.8 PG Mean Corpuscular Hemoglobin Concent 35.2 % Red Cell Distribution Width 12.8 % Platelet Count 181 TH/MM3 Mean Platelet Volume 7.4 FL Neutrophils (%) (Auto) 87.3 % Lymphocytes (%) (Auto) 6.3 % Monocytes (%) (Auto) 6.1 % Eosinophils (%) (Auto) 0.0 % Basophils (%) (Auto) 0.3 % Neutrophils # (Auto) 15.2 TH/MM3 Lymphocytes # (Auto) 1.1 TH/MM3 Monocytes # (Auto) 1.1 TH/MM3 Eosinophils # (Auto) 0.0 TH/MM3 Basophils # (Auto) 0.0 TH/MM3 CBC Comment DIFF FINAL Differential Comment Blood Urea Nitrogen 31 MG/DL Creatinine 4.11 MG/DL Random Glucose 108 MG/DL Total Protein 5.9 GM/DL Albumin 2.9 GM/DL Calcium Level 7.8 MG/DL Phosphorus Level 5.0 MG/DL Magnesium Level 2.0 MG/DL Alkaline Phosphatase 59 U/L Aspartate Amino Transf (AST/SGOT) 1753 U/L Alanine Aminotransferase (ALT/SGPT) 287 U/L Total Bilirubin 1.1 MG/DL Sodium Level 133 MEQ/L Potassium Level 4.3 MEQ/L Chloride Level 98 MEQ/L Carbon Dioxide Level 22.7 MEQ/L Anion Gap 12 MEQ/L Estimat Glomerular Filtration Rate 16 ML/MIN Total Creatine Kinase 494479 U/L Creatine Kinase MB 177.4 NG/ML Creatine Kinase MB % 0.2 % Hepatitis A IgM Antibody NEGATIVE Hepatitis B Surface Antigen NEGATIVE Hepatitis B Core IgM Antibody NEGATIVE Hepatitis C Antibody NEGATIVE Date/Time Source Procedure Growth Status 01/29/17 13:15 Blood Peripheral Aerobic Blood Culture - Preliminary NO GROWTH IN 1 DAY Resulted 01/29/17 13:15 Blood Peripheral Anaerobic Blood Culture - Preliminary NO GROWTH IN 1 DAY Resulted 01/29/17 17:20 Urine Catheterized Urine Urine Culture Pending Received Mental Status Examination Appearance: Appropriate Consciousness: Alert Orientation: Person Motor Activity: Normal gait Speech: Unremarkable Language: Adequate Fund of Knowledge: Adequate Attention and Concentration: Adequate Memory: Unremarkable Mood: Sad Affect: Sad Thought Process & Associations: Intact Thought Content: Appropriate Hallucination Type: None Delusion Type: None Suicidal Ideation: No Suicidal Plan: No Suicidal Intention: No Homicidal Ideation: No Homicidal Plan: No Homicidal Intention: No Insight: Poor Judgment: Poor Assessment & Plan Problem List: (1) Depression ICD Codes: F32.9 - Major depressive disorder, single episode, unspecified Assessment & Plan: On psychiatric evaluation patient admits the recent suicidal attempt by overdosing was consciously with suicidal intentions. Patient reports ongoing symptomatology of depression later with increased alcohol use and recent rupture with girlfriend. She reports hopelessness, helplessness, worthlessness, guiltiness, and frequent suicidal thoughts. At the moment of the evaluation patient seems to be confused, with fluctuation of consciousness, internally preoccupied, paranoid and with active visual hallucinations, which is to be is consistent with delirium that could be secondary to alcohol withdrawal. Patient definitely meets criteria for involuntary psychiatric admission for stabilization. Patient can be transferred to med psych unit to continue medical care as psychiatric stabilization. Continue CIAK protocol. Vitamin B12/Folate. Brief supportive psychotherapy provided. Consult appreciated. Assessment & Plan Estimated LOS: days Problem Qualifiers (1) Depression: Qualified Codes: F33.40 - Major depressive disorder, recurrent, in remission, unspecified Danny Trinh MD Jan 30, 2017 13:20
--- NOTE | 2017-01-30 14:18 | HHI.CCPN ---
Subjective Remarks/Hospital Course This is a 46 year old male. Date of admission 01/29/2017. Past medical history includes hypertension, dyslipidemia and depression. He is on chronic clonazepam. He presents to [facility] after being found on the ground for an unknown duration of time after taking "[id number] sleeping pills". He's been Beltran acted. Symptomatology includes tachycardia, mydriasis and appears dehydrated. Patient is afebrile. Lab workup included negative urine toxicology screen. Negative acetaminophen and EtOH. Patient has a leukocytosis of 24,000. Patient is in acute kidney injury creatinine 2.9.. Transaminases are elevated. Patient has a metabolic acidosis/Hyalgan With acetone and lactic currently pending. CT brain and C-spine negative. Chest x-ray negative. Patient is currently awake and oriented to person and place but not time. Subjective 01/30: Patient started on dexmedetomidine drip overnight and is currently on CIWA protocol receiving lorazepam going through DTs. Drinks approximately 12 beers daily. Thiamine, multivitamin and folate started. Objective Vital Signs Date Time Temp Pulse Resp B/P (MAP) Pulse Ox O2 Delivery O2 Flow Rate FiO2 01/30/17 14:00 80 01/30/17 12:00 98.2 21 123/92 (102) 98 01/30/17 09:27 Nasal Cannula 1.00 Intake and Output 01/30/17 01/30/17 01/31/17 08:00 16:00 00:00 Intake Total 240 ml 1101 ml Output Total 150 ml Balance 90 ml 1101 ml Result Diagram: 01/30/17 0408 01/30/17 0408 Other Results Microbiology Date/Time Source Procedure Growth Status 01/29/17 13:15 Blood Peripheral Aerobic Blood Culture - Preliminary NO GROWTH IN 1 DAY Resulted 01/29/17 13:15 Blood Peripheral Anaerobic Blood Culture - Preliminary NO GROWTH IN 1 DAY Resulted 01/29/17 17:20 Urine Catheterized Urine Urine Culture - Preliminary NO GROWTH IN 24 HOURS. Resulted Imaging Last Impressions Cervical Spine CT 01/29/17 1252 Signed Impressions: Service Date/Time: Friday, January 29, 2017 13:23 - CONCLUSION: No acute findings. Note is compression of cord or spondylolisthesis. Straightening of the cervical lordosis and nonbridging degenerative paravertebral ossification lower cervical spine. Nghia Fraire MD Head CT 01/29/17 1252 Signed Impressions: Service Date/Time: Sunday, January 29, 2017 13:23 - CONCLUSION: Negative noncontrast CT brain. Nghia Fraire MD Chest X-Ray 01/29/17 1252 Signed Impressions: Service Date/Time: Sunday, January 29, 2017 13:15 - CONCLUSION: 1. No acute cardiopulmonary disease. Jos Lux MD Abdomen Ultrasound 01/29/17 0000 Signed Impressions: Service Date/Time: Sunday, January 29, 2017 15:30 - CONCLUSION: 1. Diffusely increased hepatic echogenicity without evidence for volume loss most consistent with hepatic steatosis versus medical liver disease. 2. Trace left pleural effusion. Jos Lux MD Objective Remarks GENERAL: 46-year-old male, resting in bed in no acute distress SKIN: Warm and dry. No rash HEAD: Atraumatic. Normocephalic. EYES: Pupils equal and round about 5 mm bilaterally and reactive. No scleral icterus. No injection or drainage. ENT: No nasal bleeding or discharge. Mucous membranes pink and moist. NECK: Trachea midline. No JVD. CARDIOVASCULAR: RRR. S1, S2. No S4. Without murmur RESPIRATORY: No accessory muscle use. Clear to auscultation. Breath sounds equal bilaterally. GASTROINTESTINAL: Abdomen soft, non-tender, nondistended. Hepatomegaly is appreciated 4 cm below the costal margin. Bowel sounds appreciated. MUSCULOSKELETAL: Extremities without significant peripheral edema. No obvious deformities. NEUROLOGICAL: Awake and alert. No obvious cranial nerve deficits. Motor grossly within normal limits. Five out of 5 muscle strength in the arms and legs. Slurred speech. A/P Assessment and Plan Neuro/Psych: Intentional overdose on sleeping pills". Possible diphenhydramine Depression EtOH use Monitor for anticholinergic side effects. Currently not requiring physostigmine Check ammonia level secondary to elevated transaminases. 35 Patient has been Beltran acted. Psych evaluation Dr. Elias recommends inpatient once cleared medically Holding citalopram 40 mg daily and bupropion 150 mill grams daily light of altered mental status Holding clonazepam 1 mg daily light of altered mental status Thiamine, folate and multivitamin daily. Monitor for DTs Dexmedetomidine drip CIWA protocol initiated with resume home as needed CT brain 01/29 revealed no acute intracranial findings CT C-spine 01/29 negative for acute findings. Straightened lordosis. CV: Sinus tachycardia currently normal sinus rhythm History of hypertension History dyslipidemia Holding home medications of rosuvastatin 40 mg daily in light of elevated liver function tests Holding home medication valsartan 320 mg daily light of acute kidney injury. Resume metoprolol 50 mg twice a day. Holding amlodipine 2.5 mill grams by mouth daily. Resume when clinically indicated Okay to resume aspirin 81 mg daily Resp: Nasal cannula to maintain saturations greater than or equal to 92% Incentive spirometry while awake Follow-up on chest x-ray in ED GI: Elevated transaminases Rhabdomyolysis Hepatic steatosis Check abdominal ultrasound. CPK greater than 100,000. Currently bicarbonate drip and fluids Avoid hepatotoxic drugs. Statin will be held. Abdominal ultrasound revealed hepatomegaly likely hepatic steatosis Clear liquid diet okay. Pantoprazole for GI prophylaxis Docusate sodium/senna for bowel regimen Will check hepatitis panel. Results pending : Placed Barros catheter for accurate I's and O's in critically ill patient. Add urinary retention yesterday likely secondary to medication overdose Endo: Sliding-scale insulin if indicated to maintain euglycemia Renal: Acute kidney injury Anion gap metabolic acidosis/respiratory alkalosis compensation Renal ultrasound/revealed no hydronephrosis urine electrolytes and eosinophils negative Avoid nephrotoxic medications Currently on sterile water with 3 ampules of sodium bicarbonate 150 cc an hour Lactate is clear Nephrology has been consulted Monitor urine pH Heme: Leukocytosis Likely stress reaction. Follow-up on coags Repeat CBC in a.m. ID: Monitor for infection. No indication for antibiotics at this point MSK: PT evaluate and treat FEN: Hyponatremia Hyperphosphatemia Replace electrolytes as clinically indicated Access -Utilize peripheral IV. Central line if indicated Prophylaxis - GI - pantoprazole - DVT - SCD/heparin subcutaneous Critical Care: The total critical care time was 35 minutes. Time to perform other separately billable procedures was not included in the critical care time. Ricardo Bloom MD Jan 30, 2017 14:18
--- NOTE | 2017-01-30 14:48 | EKG ---
Date Performed: 01/29/2017 Time Performed: 12:54:56 PTAGE: 46 years EKG: SINUS TACHYCARDIA WITH SHORT [place] INTERVAL ABNORMAL RHYTHM ECG NO PREVIOUS TRACING DOCTOR: Shira Robbins Interpretating Date/Time 01/30/2017 14:45:00
--- NOTE | 2017-01-30 14:48 | EKG ---
Date Performed: 01/29/2017 Time Performed: 12:54:56 PTAGE: 46 years EKG: SINUS TACHYCARDIA WITH SHORT [place] INTERVAL ABNORMAL RHYTHM ECG NO PREVIOUS TRACING DOCTOR: Shira Robbins Interpretating Date/Time 01/30/2017 14:45:00
--- NOTE | 2017-01-30 16:07 | PD.CONS ---
HPI History of Present Illness This is a 46 year old admitted after being found down. He had taken a bottle of OTC meds, mostly benadryl. He left a suicide note. Now he is confused, has rhabdomyolitis, ARF, and is withdrawing from benzodiazepines. He is confused. He does not have any specific complaints. LFTs are elevated as well as CPK, GI is consulted. Tylenol level was performed and not elevated. Alcohol negative. CT scan has shown fatty liver. CPK is over 100K. AST over 1000, ALT over 300. Hepatitis panel pending. ROS: not possible due to confusion but no apparent discomfort. PFSH Past Medical History Pt cannot give history. Past Surgical History None known Coded Allergies: No Known Allergies (Unverified , 07/07/15) Medications Current Medications Medications (Trade) Dose Ordered Sig/Dinesh Route Start Time Stop Time Status Last Admin (NS Flush) 2 ml UNSCH PRN IVF 01/29/17 13:00 01/29/17 14:01 (NS Flush) 2 ml UNSCH PRN IV FLUSH 01/29/17 16:00 (NS Flush) 2 ml BID IV FLUSH 01/29/17 21:00 01/30/17 08:48 (Protonix Inj) 40 mg DAILY IV PUSH 01/30/17 09:00 01/30/17 08:47 (Tears Naturale Opth Soln) 1 drop TID EACH EYE 01/29/17 18:00 (Zofran Inj) 4 mg Q6H PRN IV PUSH 01/29/17 16:00 (Duoneb Neb) 1 ampule Q6HR NEB INH 01/29/17 16:00 01/30/17 15:46 (Albuterol Neb) 2.5 mg Q2HR NEB PRN INH 01/29/17 16:00 (Heparin Inj) 5,000 units Q12H SQ 01/29/17 16:00 01/30/17 15:45 Miscellaneous Information 1 Q361D XX 01/29/17 15:30 (Chlorhexidine 2% Cloth) 3 pack Taper DAILY@04 TOP 01/30/17 04:00 01/26/18 03:59 01/30/17 03:42 (Chlorhexidine 2% Cloth) 3 pack UNSCH PRN TOP 01/29/17 15:30 (Nakia-Colace) 1 tab BID PO 01/29/17 21:00 01/30/17 08:47 (Milk Of Magnesia Liq) 30 ml Q12H PRN PO 01/29/17 16:00 (Senokot) 17.2 mg Q12H PRN PO 01/29/17 16:00 (Dulcolax Supp) 10 mg DAILY PRN RECTAL 01/29/17 16:00 (Lactulose Liq) 30 ml DAILY PRN PO 01/29/17 16:00 Sodium Bicarbonate 150 meq/Sterile Water 1,000 ml @ 150 mls/hr Q6H40M IV 01/29/17 17:00 01/30/17 08:48 Thiamine HCl 100 mg/Sodium Chloride 101 ml @ 101 mls/hr DAILY IV 01/30/17 09:00 01/30/17 08:47 (Folate) 1 mg DAILY PO 01/30/17 09:00 01/30/17 08:47 (Theragran) 1 tab DAILY PO 01/30/17 09:00 01/30/17 08:47 (Lopressor) 50 mg BID PO 01/29/17 21:00 01/30/17 08:47 (Ecotrin Ec) 81 mg DAILY PO 01/30/17 09:00 01/30/17 08:48 Dexmedetomidine HCl 200 mcg/ Sodium Chloride 52 ml @ 4.75 mls/hr TITRATE PRN IV 01/29/17 21:00 01/30/17 14:51 (Romazicon Inj) 0.2 mg Q1M PRN IV PUSH 01/30/17 08:15 (Ativan) 1 mg Q4H PRN PO 01/30/17 08:15 (Ativan Inj) 1 mg Q4H PRN IV PUSH 01/30/17 08:15 01/30/17 15:44 (Ativan) 2 mg Q2H PRN PO 01/30/17 08:15 (Ativan Inj) 2 mg Q2H PRN IV PUSH 01/30/17 08:15 01/30/17 08:47 (Ativan Inj) 2 mg Q1H PRN IV PUSH 01/30/17 08:15 (Ativan Inj) 2 mg Q15M PRN IV PUSH 01/30/17 08:15 Family History Cannot give history Social History He is a drinker, but cannot say how much. GI Exam Vitals I&O Vital Signs Date Time Temp Pulse Resp B/P (MAP) Pulse Ox O2 Delivery O2 Flow Rate FiO2 01/30/17 14:00 80 01/30/17 12:00 80 01/30/17 12:00 98.2 80 21 123/92 (102) 98 01/30/17 10:00 87 01/30/17 09:27 100 Nasal Cannula 1.00 01/30/17 08:00 98.6 88 22 135/95 (108) 99 01/30/17 08:00 88 01/30/17 06:00 82 01/30/17 04:00 98.4 80 30 126/91 (103) 100 01/30/17 04:00 82 01/30/17 02:00 98 01/30/17 00:00 98.5 109 30 144/93 (110) 100 01/30/17 00:00 106 01/29/17 22:47 100 Nasal Cannula 2.00 01/29/17 22:00 124 01/29/17 20:00 133 01/29/17 20:00 98.6 133 33 157/95 (115) 99 01/29/17 18:00 98.3 128 20 143/97 (112) 99 01/29/17 18:00 128 01/29/17 16:36 126 16 95 I/O 01/29/17 01/29/17 01/29/17 01/30/17 01/30/17 01/30/17 07:00 15:00 23:00 07:00 15:00 23:00 Intake Total 1000 ml 100 ml 240 ml 1101 ml Output Total 1100 ml 150 ml Balance 1000 ml -1000 ml 90 ml 1101 ml Intake Oral 240 ml IV Total 1000 ml 100 ml 1101 ml Output Urine Total 1100 ml 150 ml # Voids 1 # Bowel Movements 0 Laboratory Test 01/29/17 17:20 01/29/17 18:00 01/29/17 18:57 01/30/17 04:08 Urine Color YELLOW Urine Turbidity CLEAR Urine pH 5.5 Urine Specific [place] 1.008 Urine Protein 30 mg/dL Urine Glucose (UA) NEG mg/dL Urine Ketones TRACE mg/dL Urine Occult Blood LARGE Urine Nitrite NEG Urine Bilirubin NEG Urine Urobilinogen LESS THAN 2.0 MG/DL Urine Leukocyte Esterase NEG Urine RBC LESS THAN 1 /hpf Urine WBC LESS THAN 1 /hpf Urine Amorphous Sediment RARE Urine Bacteria RARE /hpf Microscopic Urinalysis Comment CATH-CULTURE IND Nasal Screen MRSA (PCR) MRSA NOT DETECTED Lactic Acid Level 5.9 mmol/L 2.2 mmol/L White Blood Count 17.4 TH/MM3 Red Blood Count 4.24 MIL/MM3 Hemoglobin 14.3 GM/DL Hematocrit 40.7 % Mean Corpuscular Volume 96.1 FL Mean Corpuscular Hemoglobin 33.8 PG Mean Corpuscular Hemoglobin Concent 35.2 % Red Cell Distribution Width 12.8 % Platelet Count 181 TH/MM3 Mean Platelet Volume 7.4 FL Neutrophils (%) (Auto) 87.3 % Lymphocytes (%) (Auto) 6.3 % Monocytes (%) (Auto) 6.1 % Eosinophils (%) (Auto) 0.0 % Basophils (%) (Auto) 0.3 % Neutrophils # (Auto) 15.2 TH/MM3 Lymphocytes # (Auto) 1.1 TH/MM3 Monocytes # (Auto) 1.1 TH/MM3 Eosinophils # (Auto) 0.0 TH/MM3 Basophils # (Auto) 0.0 TH/MM3 CBC Comment DIFF FINAL Differential Comment Blood Urea Nitrogen 31 MG/DL Creatinine 4.11 MG/DL Random Glucose 108 MG/DL Total Protein 5.9 GM/DL Albumin 2.9 GM/DL Calcium Level 7.8 MG/DL Phosphorus Level 5.0 MG/DL Magnesium Level 2.0 MG/DL Alkaline Phosphatase 59 U/L Aspartate Amino Transf (AST/SGOT) 1753 U/L Alanine Aminotransferase (ALT/SGPT) 287 U/L Total Bilirubin 1.1 MG/DL Sodium Level 133 MEQ/L Potassium Level 4.3 MEQ/L Chloride Level 98 MEQ/L Carbon Dioxide Level 22.7 MEQ/L Anion Gap 12 MEQ/L Estimat Glomerular Filtration Rate 16 ML/MIN Total Creatine Kinase 453235 U/L Creatine Kinase MB 177.4 NG/ML Creatine Kinase MB % 0.2 % Hepatitis A IgM Antibody NEGATIVE Hepatitis B Surface Antigen NEGATIVE Hepatitis B Core IgM Antibody NEGATIVE Hepatitis C Antibody NEGATIVE Date/Time Source Procedure Growth Status 01/29/17 13:15 Blood Peripheral Aerobic Blood Culture - Preliminary NO GROWTH IN 1 DAY Resulted 01/29/17 13:15 Blood Peripheral Anaerobic Blood Culture - Preliminary NO GROWTH IN 1 DAY Resulted 01/29/17 17:20 Urine Catheterized Urine Urine Culture - Preliminary NO GROWTH IN 24 HOURS. Resulted Physical Examination HEENT: Pupils round and reactive to light; normocephalic; atraumatic; no jaundice. Throat is clear. NECK: Neck is supple, no JVD, no lymphadenopathy. CHEST: Chest is clear to auscultation and percussion. CARDIAC: Regular rate and rhythm with no murmur gallop or rubs. ABDOMEN: Soft, nondistended, nontender; no hepatosplenomegaly; bowel sounds are present in all four quadrants. EXTREMITIES: No clubbing, cyanosis, or edema. SKIN: Normal; no rash; no jaundice. ARCHITECTURE INTERN: Confused, not delerious, NAD. Assessment and Plan Plan Imp: Fatty liver, Elevated LFTs in part due to rhabdomyolysis which can raise AST as well as the CPK. Rule out hepatitis, labs pending. Depression with suicide attempt. REc: Avoid hepatotoxins. Follow LFTs Await labs. Cb Cheng MD Jan 30, 2017 16:07
--- NOTE | 2017-01-30 17:45 | PD.CONS ---
HPI Service Nephrology Consult Requested By Dr. Bloom Reason for Consult VEENA, rhabdomyolysis Primary Care Physician No Primary Care Physician History of Present Illness The patient is a 46yo [place] male who was brought in 01/29 via EMS after mother became concerned that she hadn't heard from him. He was found at his house laying on floor for uncertain amount of time with a bottle of OTC sleeping pills beside him. He apparently has has suicide attempts in the past and is currently under [employer]. He is not a very reliable historian at time of interview, but says the intentionally took sleeping pills and then mentions 81mg aspirin as well. His PMHx is positive for HTN, HLD, depression, EtOH abuse and suicidal ideation. Admitting SCr was 2.89 with eGFR at 24 that deteriorated overnight to SCr 4.11 and eGFR 16. CPK level is markedly elevated at >100,000 Denies any previous kidney issues. Only other SCr available from 07/07/15 that was 0.88 He is seen in ICU setting (Radha Velazquez) Review of Systems ROS Limitations: Altered Mental Status (Radha Velazquez) Past Family Social History Allergies: Coded Allergies: No Known Allergies (Unverified , 07/07/15) Past Medical History Per charts: HTN HLD Depression/ Anxiety Previous suicide attempt EtOH abuse Past Surgical History Unable to obtain Reported Medications Multivitamin (Multivitamins) 1 Tab Tab 1 Tab PO DAILY Aspirin Ec Low Strength (Aspirin) 81 Mg Tab 81 Mg PO DAILY Crestor (Rosuvastatin Calcium) 40 Mg Tab 40 Mg PO HS Valsartan 320 Mg Tab 1 Tab PO Clonazepam 1 Mg Tab 1 Mg PO DAILY Citalopram Hydrobromide 40 Mg Tab 40 Mg PO DAILY Amlodipine Besylate 2.5 mg (Amlodipine Besylate) 2.5 Mg Tab 1 Tab PO DAILY Metoprolol Tartrate 50 mg (Metoprolol Tartrate) 50 Mg Tab 50 Mg PO BID Bupropion Hcl Xl (Bupropion HCl) 150 Mg Tab 150 Mg PO DAILY Active Ordered Medications Current Medications Medications (Trade) Dose Ordered Sig/Dinesh Route Start Time Stop Time Status Last Admin (NS Flush) 2 ml UNSCH PRN IVF 01/29/17 13:00 01/29/17 14:01 (NS Flush) 2 ml UNSCH PRN IV FLUSH 01/29/17 16:00 (NS Flush) 2 ml BID IV FLUSH 01/29/17 21:00 01/30/17 08:48 (Protonix Inj) 40 mg DAILY IV PUSH 01/30/17 09:00 01/30/17 08:47 (Tears Naturale Opth Soln) 1 drop TID EACH EYE 01/29/17 18:00 (Zofran Inj) 4 mg Q6H PRN IV PUSH 01/29/17 16:00 (Duoneb Neb) 1 ampule Q6HR NEB INH 01/29/17 16:00 01/30/17 15:46 (Albuterol Neb) 2.5 mg Q2HR NEB PRN INH 01/29/17 16:00 (Heparin Inj) 5,000 units Q12H SQ 01/29/17 16:00 01/30/17 15:45 Miscellaneous Information 1 Q361D XX 01/29/17 15:30 (Chlorhexidine 2% Cloth) 3 pack Taper DAILY@04 TOP 01/30/17 04:00 01/26/18 03:59 01/30/17 03:42 (Chlorhexidine 2% Cloth) 3 pack UNSCH PRN TOP 01/29/17 15:30 (Nakia-Colace) 1 tab BID PO 01/29/17 21:00 01/30/17 08:47 (Milk Of Magnesia Liq) 30 ml Q12H PRN PO 01/29/17 16:00 (Senokot) 17.2 mg Q12H PRN PO 01/29/17 16:00 (Dulcolax Supp) 10 mg DAILY PRN RECTAL 01/29/17 16:00 (Lactulose Liq) 30 ml DAILY PRN PO 01/29/17 16:00 Sodium Bicarbonate 150 meq/Sterile Water 1,000 ml @ 150 mls/hr Q6H40M IV 01/29/17 17:00 01/30/17 08:48 Thiamine HCl 100 mg/Sodium Chloride 101 ml @ 101 mls/hr DAILY IV 01/30/17 09:00 01/30/17 08:47 (Folate) 1 mg DAILY PO 01/30/17 09:00 01/30/17 08:47 (Theragran) 1 tab DAILY PO 01/30/17 09:00 01/30/17 08:47 (Lopressor) 50 mg BID PO 01/29/17 21:00 01/30/17 08:47 (Ecotrin Ec) 81 mg DAILY PO 01/30/17 09:00 01/30/17 08:48 Dexmedetomidine HCl 200 mcg/ Sodium Chloride 52 ml @ 4.75 mls/hr TITRATE PRN IV 01/29/17 21:00 01/30/17 14:51 (Romazicon Inj) 0.2 mg Q1M PRN IV PUSH 01/30/17 08:15 (Ativan) 1 mg Q4H PRN PO 01/30/17 08:15 (Ativan Inj) 1 mg Q4H PRN IV PUSH 01/30/17 08:15 01/30/17 15:44 (Ativan) 2 mg Q2H PRN PO 01/30/17 08:15 (Ativan Inj) 2 mg Q2H PRN IV PUSH 01/30/17 08:15 01/30/17 08:47 (Ativan Inj) 2 mg Q1H PRN IV PUSH 01/30/17 08:15 (Ativan Inj) 2 mg Q15M PRN IV PUSH 01/30/17 08:15 Family History NC Social History 12 beers daily Uncertain about tobacco or illcits (Radha Velazquez) Physical Exam Vital Signs Vital Signs Date Time Temp Pulse Resp B/P (MAP) Pulse Ox O2 Delivery O2 Flow Rate FiO2 01/30/17 16:00 92 01/30/17 16:00 98.8 91 20 130/94 (106) 96 01/30/17 14:00 80 01/30/17 12:00 80 01/30/17 12:00 98.2 80 21 123/92 (102) 98 01/30/17 10:00 87 01/30/17 09:27 100 Nasal Cannula 1.00 01/30/17 08:00 98.6 88 22 135/95 (108) 99 01/30/17 08:00 88 01/30/17 06:00 82 01/30/17 04:00 98.4 80 30 126/91 (103) 100 01/30/17 04:00 82 01/30/17 02:00 98 01/30/17 00:00 98.5 109 30 144/93 (110) 100 01/30/17 00:00 106 01/29/17 22:47 100 Nasal Cannula 2.00 01/29/17 22:00 124 01/29/17 20:00 133 01/29/17 20:00 98.6 133 33 157/95 (115) 99 01/29/17 18:00 98.3 128 20 143/97 (112) 99 01/29/17 18:00 128 Physical Exam GENERAL: Laying in bed. Is awake and answers questions, but inappropriately SKIN: Warm and dry. Multiple abrasions on bilat knees and bruising. HEAD: Atraumatic. Normocephalic. EYES: Pupils dilated bilat. Eyes wandering ENT: No nasal bleeding or discharge. Mucous membranes pink and moist. NECK: Trachea midline. No JVD. CARDIOVASCULAR: Regular rate and rhythm. RESPIRATORY: No accessory muscle use. Clear to auscultation. Breath sounds equal bilaterally. GASTROINTESTINAL: Abdomen soft, non-tender, nondistended. Hepatic and splenic margins not palpable. MUSCULOSKELETAL: Extremities without clubbing, cyanosis. Trace edema BUE NEUROLOGICAL: Awake but drowsy. Speech slurred PSYCHIATRIC: Restrained. Cooperative however not reliable Laboratory Laboratory Tests Test 01/29/17 17:20 01/29/17 18:00 01/29/17 18:57 01/30/17 04:08 Urine Color YELLOW Urine Turbidity CLEAR Urine pH 5.5 Urine Specific [place] 1.008 Urine Protein 30 Urine Glucose (UA) NEG Urine Ketones TRACE Urine Occult Blood LARGE Urine Nitrite NEG Urine Bilirubin NEG Urine Urobilinogen LESS THAN 2.0 Urine Leukocyte Esterase NEG Urine RBC LESS THAN 1 Urine WBC LESS THAN 1 Urine Amorphous Sediment RARE Urine Bacteria RARE Microscopic Urinalysis Comment CATH-CULTURE IND Nasal Screen MRSA (PCR) MRSA NOT DETECTED Lactic Acid Level 5.9 2.2 White Blood Count 17.4 Red Blood Count 4.24 Hemoglobin 14.3 Hematocrit 40.7 Mean Corpuscular Volume 96.1 Mean Corpuscular Hemoglobin 33.8 Mean Corpuscular Hemoglobin Concent 35.2 Red Cell Distribution Width 12.8 Platelet Count 181 Mean Platelet Volume 7.4 Neutrophils (%) (Auto) 87.3 Lymphocytes (%) (Auto) 6.3 Monocytes (%) (Auto) 6.1 Eosinophils (%) (Auto) 0.0 Basophils (%) (Auto) 0.3 Neutrophils # (Auto) 15.2 Lymphocytes # (Auto) 1.1 Monocytes # (Auto) 1.1 Eosinophils # (Auto) 0.0 Basophils # (Auto) 0.0 CBC Comment DIFF FINAL Differential Comment Blood Urea Nitrogen 31 Creatinine 4.11 Random Glucose 108 Total Protein 5.9 Albumin 2.9 Calcium Level 7.8 Phosphorus Level 5.0 Magnesium Level 2.0 Alkaline Phosphatase 59 Aspartate Amino Transf (AST/SGOT) 1753 Alanine Aminotransferase (ALT/SGPT) 287 Total Bilirubin 1.1 Sodium Level 133 Potassium Level 4.3 Chloride Level 98 Carbon Dioxide Level 22.7 Anion Gap 12 Estimat Glomerular Filtration Rate 16 Total Creatine Kinase 211529 Creatine Kinase MB 177.4 Creatine Kinase MB % 0.2 Hepatitis A IgM Antibody NEGATIVE Hepatitis B Surface Antigen NEGATIVE Hepatitis B Core IgM Antibody NEGATIVE Hepatitis C Antibody NEGATIVE Date/Time Source Procedure Growth Status 01/29/17 13:15 Blood Peripheral Aerobic Blood Culture - Preliminary NO GROWTH IN 1 DAY Resulted 01/29/17 13:15 Blood Peripheral Anaerobic Blood Culture - Preliminary NO GROWTH IN 1 DAY Resulted 01/29/17 17:20 Urine Catheterized Urine Urine Culture - Preliminary NO GROWTH IN 24 HOURS. Resulted (Radha Velazquez) Result Diagram: 01/30/178 01/30/17 0408 Imaging Last Impressions Cervical Spine CT 01/29/17 1253 Signed Impressions: Service Date/Time: Sunday, January 29, 2017 13:23 - CONCLUSION: No acute findings. Note is compression of cord or spondylolisthesis. Straightening of the cervical lordosis and nonbridging degenerative paravertebral ossification lower cervical spine. Nghia Fraire MD Head CT 01/29/17 1252 Signed Impressions: Service Date/Time: Sunday, January 29, 2017 13:23 - CONCLUSION: Negative noncontrast CT brain. Nghia Fraire MD Chest X-Ray 01/29/17 1252 Signed Impressions: Service Date/Time: Sunday, January 29, 2017 13:15 - CONCLUSION: 1. No acute cardiopulmonary disease. Jos Lux MD Abdomen Ultrasound 01/29/17 0000 Signed Impressions: Service Date/Time: Sunday, January 29, 2017 15:30 - CONCLUSION: 1. Diffusely increased hepatic echogenicity without evidence for volume loss most consistent with hepatic steatosis versus medical liver disease. 2. Trace left pleural effusion. Jos Lux MD (Radha Velazquez) Assessment and Plan Problem List: (1) Acute renal failure (ARF) ICD Codes: N17.9 - Acute kidney failure, unspecified Status: Acute Plan: Appears ARF secondary to rhabdomyolysis. It is not entirely clear what medication(s) he took prior to his admission but from what is gathered it appears a generic OTC sleeping agent likely diphenhydramine. He also mentions 81mg aspirin to me, but he is not very reliable at time of interview. UDS negative. Change IVF to 1/2NS with bicarb additive as acidemia improved. Increase rate to 200mL/hr. It remains uncertain if dialysis will be able to be held during this admission given his azotemia and significantly elevated CPK. We will continue to follow Medications should be adjusted for renal decline. Avoid gadolinium. (2) Drug overdose, intentional ICD Codes: T50.902A - Poisoning by unspecified drugs, medicaments and biological substances, intentional self-harm, initial encounter (3) Rhabdomyolysis ICD Codes: M62.82 - Rhabdomyolysis (Radha Velazquez) Assessment and Plan The exam, history, and the medical decision-making described in the above note were completed with the assistance of the PA-C. I reviewed and agree with the findings presented. (Beth Adams MD) Problem Qualifiers (1) Acute renal failure (ARF): Qualified Codes: N17.9 - Acute kidney failure, unspecified Radha Velazquez Jan 30, 2017 17:45 Beth Adams MD Jan 31, 2017 09:41
[2017-01-30 18:23] LABS: TROPONIN I 0.47 NG/ML (0.02-0.05)
[2017-01-30 18:25] LABS: BICARBONATE 24.1 MEQ/L (21.0-32.0); CALCIUM 7.2 MG/DL (8.5-10.1); CREATININE 5.23 MG/DL (0.60-1.30)
[2017-01-30 18:52] LABS: TOTAL PROTEIN 5.6 GM/DL (6.4-8.2)
[2017-01-30] MEDS: SODIUM BICARBONATE 8.4% INJ 50 MEQ in SODIUM CHLOR 0.45% 1000 ML INJ 1,000 ML IV SCH (20:36)
[2017-01-30] MEDS: LORazepam 2 MG/ML VIAL IV PUSH PRN ×5 (20:59→23:36)
[2017-01-31] VITALS (15 sets, daily range): BP systolic 92–145; BP diastolic 53–103; PULSE 88–100; RESP 14–33; TEMP 98.4–99.1; O2SAT 90–100
[2017-01-31] MEDS: DEXMEDETOMIDINE INJ 200 MCG in SODIUM CHLORIDE 0.9% INJ 50 ML IV PRN (01:30)
[2017-01-31] MEDS: SODIUM BICARBONATE 8.4% INJ 50 MEQ in SODIUM CHLOR 0.45% 1000 ML INJ 1,000 ML IV SCH ×3 (01:41→13:24)
[2017-01-31] MEDS: CHLORHEXIDINE GLUCONATE 2 % 1 PACK (2 CLOTHS) TOP SCH (04:00)
[2017-01-31] MEDS ORDERED: DEXMEDETOMIDINE INJ 1,000 MCG in SODIUM CHLOR 0.9% 250 ML INJ 240 ML IV PRN ×2 (04:00→17:45)
[2017-01-31] MEDS: RESP: ALBUTEROL 2.5 MG/IPRATROPIUM 0.5 MG NEB (SCH) INH ×4 (04:00→15:55)
[2017-01-31] MEDS: HEPARIN SODIUM - SQ 10,000 UNITS/ML VIAL SQ SCH ×2 (04:06→15:32)
[2017-01-31 04:59] LABS: AUTOMATED NEUTROPHIL # 11.3 TH/MM3 (1.8-7.7); BASOPHIL # 0.1 TH/MM3 (0-0.2); BASOPHIL % 0.5 % (0.0-2.0); EOSINOPHIL % 0.1 % (0.0-4.0); HEMATOCRIT 32.9 % (39.0-51.0); HEMOGLOBIN 11.7 GM/DL (13.0-17.0); LYMPH % 7.6 % (9.0-44.0); MEAN CELL VOLUME 94.8 FL (80.0-100.0); MEAN CORPUSCULAR HEMOGLOBIN 33.6 PG (27.0-34.0); MEAN CORPUSCULAR HGB CONC 35.4 % (32.0-36.0); MEAN PLATELET VOLUME 6.9 FL (7.0-11.0); MONO % 4.9 % (0.0-8.0); MONOCYTE # 0.6 TH/MM3 (0-0.9); NEUT % 86.9 % (16.0-70.0); PLATELET COUNT 118 TH/MM3 (150-450); RED BLOOD COUNT 3.47 MIL/MM3 (4.50-5.90); RED CELL DISTRIBUTION WIDTH 12.7 % (11.6-17.2)
[2017-01-31 05:06] LABS: INTERNATIONAL NORMALIZED RATIO 0.9 RATIO; PROTHROMBIN TIME - PATIENT 9.9 SEC (9.8-11.6)
[2017-01-31] MEDS ORDERED: FUROSEMIDE 40 MG/4 ML VIAL IV PUSH SCH (05:45)
[2017-01-31 06:03] LABS: ALBUMIN 2.4 GM/DL (3.4-5.0); BICARBONATE 24.7 MEQ/L (21.0-32.0); CALCIUM 6.8 MG/DL (8.5-10.1); CALCIUM-PROTEIN CORRECTED 7.7 MG/DL (8.5-10.1); CREATININE 6.36 MG/DL (0.60-1.30); MAGNESIUM 2.1 MG/DL (1.5-2.5); PHOSPHORUS 7.1 MG/DL (2.5-4.9); TOTAL BILIRUBIN ADULT 0.6 MG/DL (0.2-1.0); TOTAL PROTEIN 5.4 GM/DL (6.4-8.2)
--- NOTE | 2017-01-31 06:21 | RADRPT ---
EXAM DATE/TIME: 01/31/2017 05:45 [facility] COMPARISON: CHEST SINGLE AP, January 29, 2017, 13:15. INDICATIONS : Shortness of breath. MEDICAL HISTORY : None. SURGICAL HISTORY : None. ENCOUNTER: Subsequent ACUITY: 3 days PAIN SCORE: Non-responsive. LOCATION: chest FINDINGS: Focal consolidations seen medially at the right lung base, probably in the middle lobe. There is trac e atelectasis at the left base. No pleural effusion demonstrated. No pneumothorax. Heart size stable, upper limits of normal. CONCLUSION: Right middle lobe atelectasis/infiltrate. Trace left base atelectasis. Garfield Weber MD on January 31, 2017 at 6:19 Board Certified Radiologist. This report was verified electronically.
[2017-01-31] MEDS ORDERED: MIDAZOLAM HCL 5 MG/ML VIAL (1 ML) ONE ×2 (08:33→09:56)
--- NOTE | 2017-01-31 09:45 | RADRPT ---
EXAM DATE/TIME: 01/31/2017 09:15 [facility] COMPARISON: CHEST SINGLE AP, January 31, 2017, 5:45. INDICATIONS : Vas cath placement. MEDICAL HISTORY : Hypercholesterolemia. Hypertension. SURGICAL HISTORY : None. ENCOUNTER: Initial ACUITY: 1 day PAIN SCORE: Non-responsive. LOCATION: Bilateral chest FINDINGS: Increasing opacity in the right lower lung, now with loss of delineation of the entire right hemidiap hragm and a portion of the inferior right heart border. There also some patchy non-consolidative inf iltrates in the left lower lung. Interval placement of right internal jugular catheter with tip proj ecting at the cavoatrial junction. No evidence of pneumothorax. The heart is normal size. CONCLUSION: 1. Vas-Cath in good position. No evidence of pneumothorax. 2. Increasing consolidation right lower lung and patchy infiltrates in the left lower lung. Nghia Fraire MD on January 31, 2017 at 9:42 Board Certified Radiologist. This report was verified electronically.
[2017-01-31] MEDS ORDERED: SODIUM CHLOR 0.9% 1000 ML INJ 1,000 ML IV PRN (09:58)
[2017-01-31] MEDS ORDERED: SODIUM CHLOR 0.9% 1000 ML INJ 1,000 ML OTHER PRN (09:58)
[2017-01-31] MEDS ORDERED: PROPOFOL 500 MG/50 ML INJ 50 ML ONE (09:59)
[2017-01-31] MEDS ORDERED: GELATIN 12 MM/7 MM FOAM TOP PRN (10:00)
[2017-01-31] MEDS ORDERED: SODIUM CHLORIDE 0.9% FLUSH 10 ML FLUSH IV FLUSH PRN (10:00)
[2017-01-31] MEDS ORDERED: HEPARIN SODIUM - IV 10,000 UNITS/10 ML VIAL IV FLUSH PRN (10:00)
[2017-01-31] MEDS ORDERED: diphenhydrAMINE HCL 25 MG CAP PO PRN (10:00)
[2017-01-31] MEDS ORDERED: NITROGLYCERIN 0.4 MG SL 25 TABS/BTL SL PRN (10:00)
[2017-01-31] MEDS ORDERED: MANNITOL 12.5 GM/50 ML VIAL IV PRN (10:00)
[2017-01-31] MEDS ORDERED: ACETAMINOPHEN 325 MG TAB PO PRN (10:00)
[2017-01-31] MEDS ORDERED: ONDANSETRON HCL 4 MG/2 ML VIAL IV PUSH PRN (10:00)
[2017-01-31] MEDS ORDERED: ALBUMIN 25% INJ 100 ML IV PRN (10:00)
[2017-01-31] MEDS ORDERED: cloNIDine HCL 0.1 MG TAB PO PRN (10:00)
--- NOTE | 2017-01-31 10:50 | HHI.NPPN ---
Subjective Renal Failure: Acute History of Present Illness The patient is a 46yo [place] male who was brought in 01/29 via EMS after mother became concerned that she hadn't heard from him. He was found at his house laying on floor for uncertain amount of time with a bottle of OTC sleeping pills beside him. He apparently has has suicide attempts in the past and is currently under Beltran Act. He was not a very reliable historian at time of initial consultation, but says the intentionally took sleeping pills and then mentions 81mg aspirin as well. His PMHx is positive for HTN, HLD, depression, EtOH abuse and suicidal ideation. Admitting SCr was 2.89 with eGFR at 24 that deteriorated overnight to SCr 4.11 and eGFR 16. CPK level is markedly elevated at >100,000 Denies any previous kidney issues. Only other SCr available from 07/07/15 that was 0.88 He is seen in ICU setting Interval History I was contacted this morning by the IC nurse indicating a Vas-Cath was placed by critical care with a question of dialysis. When the patient was seen he was lethargic and appeared to have stridor . In view of change her critical status I discussed situation with critical care and the patient was subsequently intubated. Review of Systems General General Remarks Unobtainable secondary to patient's condition Objective Data Data Vital Signs Date Time Temp Pulse Resp B/P (MAP) Pulse Ox O2 Delivery O2 Flow Rate FiO2 01/31/17 10:00 97 100 01/31/17 06:00 100 01/31/17 05:21 99 Non-Rebreather 15.00 01/31/17 04:00 98.4 92 19 141/103 (116) 92 01/31/17 04:00 92 01/31/17 02:00 94 01/31/17 00:00 98.4 98 24 145/80 (101) 90 01/31/17 00:00 98 01/30/17 22:00 99 01/30/17 20:00 98.5 96 35 141/94 (110) 92 01/30/17 20:00 96 01/30/17 19:59 92 Nasal Cannula 1.00 01/30/17 18:00 92 01/30/17 16:00 92 01/30/17 16:00 98.8 91 20 130/94 (106) 96 01/30/17 14:00 80 01/30/17 12:00 80 01/30/17 12:00 98.2 80 21 123/92 (829) 98 -: 01/31/17 0444 01/31/17 0444 Imaging Last 48 hours Impressions Chest X-Ray 01/31/17 0537 Signed Impressions: Service Date/Time: Tuesday, January 31, 2017 05:45 - CONCLUSION: Right middle lobe atelectasis/infiltrate. Trace left base atelectasis. Garfield Weber MD Chest X-Ray 01/31/17 0000 Signed Impressions: Service Date/Time: Tuesday, January 31, 2017 09:15 - CONCLUSION: 1. Vas-Cath in good position. No evidence of pneumothorax. 2. Increasing consolidation right lower lung and patchy infiltrates in the left lower lung. Nghia Fraire MD Cervical Spine CT 01/29/17 1253 Signed Impressions: Service Date/Time: Sunday, January 29, 2017 13:23 - CONCLUSION: No acute findings. Note is compression of cord or spondylolisthesis. Straightening of the cervical lordosis and nonbridging degenerative paravertebral ossification lower cervical spine. Nghia Fraire MD Head CT 01/29/17 1252 Signed Impressions: Service Date/Time: Sunday, January 29, 2017 13:23 - CONCLUSION: Negative noncontrast CT brain. Nghia Fraire MD Chest X-Ray 01/29/17 1252 Signed Impressions: Service Date/Time: Sunday, January 29, 2017 13:15 - CONCLUSION: 1. No acute cardiopulmonary disease. Jos Lux MD Tubes & Lines: Vas-Cath Physical Exam General Appearance: Well Nourished Eyes Eye Exam: Sclera White Throat Throat Exam: Oral Mucosa [place] & Moist Neck Neck Exam: Trachea Midline Pulmonary Resp Exam: Clear Bilaterally, Breath Sounds Equal, Labored Resp Remarks Upper airway stridor audible prior to his intubation. Gastrointestinal/Abdomen GI Exam: Non-Tender, Distended Integumentary Skin Exam: Clear, Warm, Normal Turgor Extremeties Extremities Exam: Trace Edema (ankles.) Neurologic Neuro Exam: Obtunded Assessment/Plan Discussed Condition With: Son Problem List: (1) Acute renal failure (ARF) ICD Codes: N17.9 - Acute kidney failure, unspecified Status: Acute Plan: Appears ARF secondary to rhabdomyolysis. It is not entirely clear what medication(s) he took prior to his admission but from what is gathered it appears a generic OTC sleeping agent likely diphenhydramine. Despite aggressive hydration with bicarbonate-containing solutions also the patient has developed oliguria and progressive azotemia. Patient has established acute kidney injury secondary to rhabdomyolysis and I do not anticipate any improvement in his kidney function in the next 72 hours or longer. In view of the severity of the azotemia with oliguria and a declining mental status as discussed with critical care will proceed with dialytic support. I spoke to the patient's brother by telephone who indicated that his mother was having health issues of her own and was only discharged from the hospital yesterday and that the mother was leading the patient's brother make adequate decisions at this time. I discussed with the brother etiology of the acute renal failure as well as prognosis for recovery. I also indicated to him that in my opinion dialysis was indicated at this time because of progressive severe azotemia with oliguria. Benefits, alternatives and risks associated with dialysis including but not limited to arrhythmia, infection, hypotension and were reviewed with the patient's brother. Patient's brother agreed to proceed with dialytic support at this time. Dialysis orders have been entered and a dialysis nurse was contacted. Dialysis will be initiated today with a repeat treatment tomorrow and then subsequently dialysis as clinically indicated. Patient is critically ill. Ultrafiltration as indicated as there is some evidence of fluid retention but not clair pulmonary edema. Total time spent in direct patient care 40 minutes. Medications should be adjusted for patient on dialysis when required. Avoid gadolinium. (2) Drug overdose, intentional ICD Codes: T50.902A - Poisoning by unspecified drugs, medicaments and biological substances, intentional self-harm, initial encounter Status: Acute (3) Rhabdomyolysis ICD Codes: M62.82 - Rhabdomyolysis Status: Acute Problem Qualifiers (1) Acute renal failure (ARF): Qualified Codes: N17.9 - Acute kidney failure, unspecified Beth Adams MD Jan 31, 2017 10:50
--- NOTE | 2017-01-31 11:08 | RADRPT ---
EXAM DATE/TIME: 01/31/2017 10:30 [facility] COMPARISON: CHEST SINGLE AP, January 31, 2017, 9:15. INDICATIONS : ETT placement. MEDICAL HISTORY : Hypercholesterolemia. Hypertension. SURGICAL HISTORY : Vas cath. ENCOUNTER: Subsequent ACUITY: 2 days PAIN SCORE: Non-responsive. LOCATION: Bilateral chest FINDINGS: Interval placement of endotracheal tube which is well above the rubia. Gastric tube tip projects wi thin the stomach. Right internal jugular catheter tip projects at the caval atrial junction. There is some patchy infiltrates in the medial lower lungs bilaterally, slightly increased from prior. The heart is normal size. CONCLUSION: ET tube in good position. Slight increase in bilateral lower lung infiltrates. Nghia Fraire MD on January 31, 2017 at 11:00 Board Certified Radiologist. This report was verified electronically.
--- NOTE | 2017-01-31 11:08 | RADRPT ---
EXAM DATE/TIME: 01/31/2017 10:30 [facility] COMPARISON: CHEST SINGLE AP, January 31, 2017, 9:15. INDICATIONS : ETT placement. MEDICAL HISTORY : Hypercholesterolemia. Hypertension. SURGICAL HISTORY : Vas cath. ENCOUNTER: Subsequent ACUITY: 2 days PAIN SCORE: Non-responsive. LOCATION: Bilateral chest FINDINGS: Interval placement of endotracheal tube which is well above the rubia. Gastric tube tip projects wi thin the stomach. Right internal jugular catheter tip projects at the caval atrial junction. There is some patchy infiltrates in the medial lower lungs bilaterally, slightly increased from prior. The heart is normal size. CONCLUSION: ET tube in good position. Slight increase in bilateral lower lung infiltrates. Nghia rFaire MD on January 31, 2017 at 11:00 Board Certified Radiologist. This report was verified electronically.
[2017-01-31] MEDS: PROPOFOL 1000 MG/100 ML IV PRN ×3 (11:40→21:20)
[2017-01-31] MEDS: THIAMINE INJ 100 MG in SODIUM CHLORIDE 0.9% INJ 100 ML IV SCH (11:41)
[2017-01-31] MEDS: ASPIRIN EC 81 MG TABEC PO SCH (11:41)
[2017-01-31] MEDS: MULTIVITAMIN TAB PO SCH (11:41)
[2017-01-31] MEDS: PANTOPRAZOLE SODIUM 40 MG VIAL IV PUSH SCH (11:41)
[2017-01-31] MEDS: DOCUSATE SODIUM 50 MG/SENNA 8.6 MG TAB PO SCH ×2 (11:41→21:37)
[2017-01-31] MEDS: METOPROLOL TARTRATE 50 MG TAB PO SCH (11:41)
[2017-01-31] MEDS: FOLIC ACID 1 MG TAB PO SCH (11:42)
[2017-01-31] MEDS: SODIUM CHLORIDE 0.9% FLUSH 10 ML FLUSH IV FLUSH SCH ×2 (11:42→21:37)
[2017-01-31] MEDS: ARTIFICIAL TEARS OPTH SOLN 15 ML BTL EACH EYE SCH ×2 (15:32→17:16)
[2017-01-31] MEDS ORDERED: LORazepam 2 MG/ML VIAL IV PUSH PRN (17:45)
[2017-01-31] MEDS: cloNIDine HCL 0.3 MG TAB PO SCH (17:45)
[2017-01-31] MEDS ORDERED: HALOPERIDOL LACTATE 5 MG/ML AMP IV PRN (17:45)
--- NOTE | 2017-01-31 17:50 | HHI.CCPN ---
Subjective Remarks/Hospital Course This is a 46 year old male. Date of admission 01/29/2017. Past medical history includes hypertension, dyslipidemia and depression. He is on chronic clonazepam. [facility] after being found on the ground for an unknown duration of time after taking "[id number] sleeping pills". He's been Beltran acted. Symptomatology includes tachycardia, mydriasis and appears dehydrated. Patient is afebrile. Lab workup included negative urine toxicology screen. Negative acetaminophen and EtOH. Patient has a leukocytosis of 24,000. Patient is in acute kidney injury creatinine 2.9.. Transaminases are elevated. Patient has a metabolic acidosis/Hyalgan With acetone and lactic currently pending. CT brain and C-spine negative. Chest x-ray negative. Patient is currently awake and oriented to person and place but not time. Subjective 01/30: Patient started on dexmedetomidine drip overnight and is currently on CIWA protocol receiving lorazepam going through DTs. Drinks approximately 12 beers daily. Thiamine, multivitamin and folate started. 01/31: Cr continues to worsen. now oligo-anuric. patient also now acutely delirious in etoh withdraw despite CIWA protocol. also now on NRB and clinically declining, hypoxic. initially evaluated and maintaining airway. placed dialysis catheter (see separate procedure note for details). however, patient continued to decline from a mental status standpoint as well as worsening hypoxia and was subsequently intubated (see separate procedure note for details). discussed care with nephrology- plan to initiate IHD. Objective Vital Signs Date Time Temp Pulse Resp B/P (MAP) Pulse Ox O2 Delivery O2 Flow Rate FiO2 01/31/17 16:00 98.8 88 14 92/53 (66) 99 01/31/17 16:00 40 01/31/17 10:00 Mechanical Ventilator 01/31/17 07:30 15.00 Intake and Output 01/31/17 01/31/17 02/01/17 08:00 16:00 00:00 Intake Total 1644 ml 151 ml Output Total 50 ml Balance 1594 ml 151 ml Result Diagram: 01/31/17 0444 01/31/17 0444 Other Results Microbiology Date/Time Source Procedure Growth Status 01/29/17 17:20 Urine Catheterized Urine Urine Culture - Final NO GROWTH IN 48 HOURS. Complete Laboratory Tests Test 01/31/17 10:59 Blood Gas Puncture Site RT RADIAL Blood Gas Patient Temperature 98.6 Blood Gas HCO3 22 mmol/L (22-26) Blood Gas Base Excess -2.2 mmol/L (-2-2) Blood Gas Oxygen Saturation 98 % (90-100) Arterial Blood pH 7.37 (7.380-7.420) Arterial Blood Partial Pressure CO2 40 mmHg (38-42) Arterial Blood Partial Pressure O2 328 mmHg (61-120) Arterial Blood Oxygen Content 17.5 Vol % (12.0-20.0) Arterial Blood Carboxyhemoglobin 0.5 % (0-4) Arterial Blood Methemoglobin 1.4 % (0-2) Blood Gas Hemoglobin 12.1 G/DL (12.0-16.0) Oxygen Delivery Device VENTILATOR Blood Gas Ventilator Setting CPAP:PS10/PEEP+5 Blood Gas Inspired Oxygen 100 % Imaging Last Impressions Cervical Spine CT 01/29/17 1253 Signed Impressions: Service Date/Time: Sunday, January 29, 2017 13:23 - CONCLUSION: No acute findings. Note is compression of cord or spondylolisthesis. Straightening of the cervical lordosis and nonbridging degenerative paravertebral ossification lower cervical spine. Nghia Fraire MD Head CT 01/29/17 125 Signed Impressions: Service Date/Time: Sunday, January 29, 2017 13:23 - CONCLUSION: Negative noncontrast CT brain. Nghia Fraire MD Chest X-Ray 01/29/17 125 Signed Impressions: Service Date/Time: Sunday, January 29, 2017 13:15 - CONCLUSION: 1. No acute cardiopulmonary disease. Jos Lux MD Abdomen Ultrasound 01/29/17 0000 Signed Impressions: Service Date/Time: Sunday, January 29, 2017 15:30 - CONCLUSION: 1. Diffusely increased hepatic echogenicity without evidence for volume loss most consistent with hepatic steatosis versus medical liver disease. 2. Trace left pleural effusion. Jos Lux MD Objective Remarks GENERAL: 46-year-old male, acute respiratory distress on NRB. also acutely agitated. SKIN: Warm and dry. No rash HEAD: Atraumatic. Normocephalic. EYES: Pupils equal and round about 5 mm bilaterally and reactive. No scleral icterus. No injection or drainage. ENT: No nasal bleeding or discharge. Mucous membranes pink and moist. NECK: Trachea midline. No JVD. CARDIOVASCULAR: tachycardic rate, regular rhythm. sinus tachycardia by tele. RESPIRATORY: +accessory muscle use. some inspiratory stridor. on NRB with spo2 92%. tachypneic. GASTROINTESTINAL: Abdomen soft, non-tender, nondistended. MUSCULOSKELETAL: Extremities without significant peripheral edema. No obvious deformities. NEUROLOGICAL: RASS +1. CAM +. follows commands intermittently. A/P Assessment and Plan Assessment: 46yM s/p intentional overdose of "sleeping pills" (unconfirmed specific kind), with severe rhabdomyolysis, oligo-anuric acute kidney injury, acute hypoxic respiratory failure requiring intubation and mechanical ventilation and acute agitated delirium secondary to alcohol withdraw. Critically ill and declining today. will proceed with intubation and urgent dialysis. Will need agitation control to get through withdraw symptoms. Neuro/Psych: Intentional overdose on sleeping pills". Possible diphenhydramine Depression EtOH use Agitated Delirium EtOH withdraw Check ammonia level secondary to elevated transaminases. 35 Patient has been Beltran acted. Psych evaluation Dr. Elias recommends inpatient once cleared medically Holding citalopram 40 mg daily and bupropion 150 mg daily in light of altered mental status Holding clonazepam 1 mg daily light of altered mental status Thiamine, folate and multivitamin daily. Dexmedetomidine drip add propofol drip. goal RASS -2. d/c CIWCA protocol scheduled valium 10mg po q8hr for withdraws ativan 2mg iv q15m for breakthrough withdraw symptoms seroquel 50mg po q8hr for agitated delirium haldol 5mg iv q4h prn for breakthrough agitation clonidine 0.3mg po q8hr for side-effects of withdraw. CT brain 01/29 revealed no acute intracranial findings CT C-spine 01/29 negative for acute findings. Straightened lordosis. CV: Sinus tachycardia History of hypertension History dyslipidemia Holding home medications of rosuvastatin 40 mg daily in light of elevated liver function tests Holding home medication valsartan 320 mg daily light of acute kidney injury. hold metoprolol 50 mg twice a day. Holding amlodipine 2.5 mill grams by mouth daily. Resume when clinically indicated Okay to resume aspirin 81 mg daily start clonidine 0.3mg po q8hr for symptomatic control of withdraw symptoms. Resp: Acute hypoxic and hypercarbic respiratory failure s/p intubation 01/31 for acute and worsening hypoxemia vent bundle hob at 30 degrees nebs no weaning until mental status improves and volume status improves with IHD. GI: Elevated transaminases Rhabdomyolysis - acute, severe, and worsening. Hepatic steatosis CPK greater than 100,000. Currently bicarbonate drip and fluids Avoid hepatotoxic drugs. Statin will be held. Abdominal ultrasound revealed hepatomegaly likely hepatic steatosis place OGT and start TF. Pantoprazole for GI prophylaxis Docusate sodium/senna for bowel regimen Hepatitis panel pending. : Placed Barros catheter for accurate I's and O's in critically ill patient. Add urinary retention yesterday likely secondary to medication overdose Endo: Sliding-scale insulin if indicated to maintain euglycemia Renal: Acute kidney injury - worsening. Anion gap metabolic acidosis/respiratory alkalosis compensation Renal ultrasound/revealed no hydronephrosis urine electrolytes and eosinophils negative Avoid nephrotoxic medications Currently on sterile water with 3 ampules of sodium bicarbonate 150 cc an hour Lactate is clear Nephrology has been consulted Monitor urine pH place dialysis catheter and start renal replacement therapy. Heme: Leukocytosis Likely stress reaction. daily CBC. ID: Monitor for infection. No indication for antibiotics at this point MSK: PT evaluate and treat FEN: Hyponatremia Hyperphosphatemia Replace electrolytes as clinically indicated Access -Utilize peripheral IV. Central line if indicated Prophylaxis - GI - pantoprazole - DVT - SCD/heparin subcutaneous Critical Care: The total critical care time was 40 minutes. Time to perform other separately billable procedures was not included in the critical care time. Benny Nieves MD Jan 31, 2017 17:50
--- NOTE | 2017-01-31 17:52 | PD.PROCEDR ---
Procedure Note Procedure Central Line Procedure Note Right IJ 14 Maltese 20 cm dialysis catheter Diagnosis: Acute kidney injury secondary to acute rhabdomyolysis Indications: And acute kidney injury secondary to acute rhabdomyolysis not responsive to conservative management Consent: Consent was obtained Anesthesia: Versed 2 mg IV, lidocaine locally Description of the Procedure: The patient was placed in the supine, mild- Trendelenburg position. The area was prepped and draped sterilely. A 19g needle was inserted under negative pressure aspiration and dark venous blood was obtained. A guidewire was inserted easily without resistance. A small incision was made using a #11 blade. Using a modified Seldinger technique, the dilator and 14 Maltese, 20 cm catheter were advanced over the guidewire without resistance. All ports were aspirated and flushed, and had brisk blood return. The line was secured at the skin using 2-0 silk interrupted sutures. A Biopatch and Transparent sterile dressing were applied. There were no immediate complications noted. There was minimal EBL. The patient tolerated the procedure well. Ultrasound Guidance: Ultrasound guidance was used to identify the right internal jugular vein. The vascular anatomy of the right anterior neck was normal. The vessel was cannulated under direct, real-time ultrasound visualization. After placement of the guidewire, confirmation of the guidewire in the lumen of the vessel was made using ultrasound visualization, before dilation of the tract. A Chest x-ray has been ordered. I personally performed the procedure. Benny Nieves MD Jan 31, 2017 17:52
--- NOTE | 2017-01-31 17:53 | PD.PROCEDR ---
Procedure Note Procedure Endotracheal Intubation Diagnosis: Acute hypoxic respiratory failure Indications: And hypoxic respiratory failure Consent: Emergent Anesthesia: none Description of the Procedure: The patient was positioned in the sniffing position. Pre-oxygenation was performed using a [id number]. Patient was obtunded and no anesthesia was needed. A Nation #2 was used for laryngoscopy and a Grade I view was obtained. A 8.5 cuffed endotracheal tube was inserted atraumatically through the vocal cords. Confirmation of correct endotracheal tube placement was made by equal and bilateral breath sounds and colorimetric CO2 detection. The endotracheal tube was secured at 24 cm at the teeth. There were no immediate complications noted. The patient remained hemodynamically stable throughout the procedure. A chest x-ray has been ordered. I personally performed the procedure. Benny Nieves MD Jan 31, 2017 17:53
--- NOTE | 2017-01-31 17:53 | PD.PROCEDR ---
Procedure Note Procedure Endotracheal Intubation Diagnosis: Acute hypoxic respiratory failure Indications: And hypoxic respiratory failure Consent: Emergent Anesthesia: none Description of the Procedure: The patient was positioned in the sniffing position. Pre-oxygenation was performed using a [id number]. Patient was obtunded and no anesthesia was needed. A Nation #2 was used for laryngoscopy and a Grade I view was obtained. A 8.5 cuffed endotracheal tube was inserted atraumatically through the vocal cords. Confirmation of correct endotracheal tube placement was made by equal and bilateral breath sounds and colorimetric CO2 detection. The endotracheal tube was secured at 24 cm at the teeth. There were no immediate complications noted. The patient remained hemodynamically stable throughout the procedure. A chest x-ray has been ordered. I personally performed the procedure. Bneny Nieves MD Jan 31, 2017 17:53
--- NOTE | 2017-01-31 17:53 | PD.PROCEDR ---
Procedure Note Procedure Endotracheal Intubation Diagnosis: Acute hypoxic respiratory failure Indications: And hypoxic respiratory failure Consent: Emergent Anesthesia: none Description of the Procedure: The patient was positioned in the sniffing position. Pre-oxygenation was performed using a [id number]. Patient was obtunded and no anesthesia was needed. A Nation #2 was used for laryngoscopy and a Grade I view was obtained. A 8.5 cuffed endotracheal tube was inserted atraumatically through the vocal cords. Confirmation of correct endotracheal tube placement was made by equal and bilateral breath sounds and colorimetric CO2 detection. The endotracheal tube was secured at 24 cm at the teeth. There were no immediate complications noted. The patient remained hemodynamically stable throughout the procedure. A chest x-ray has been ordered. I personally performed the procedure. Benny Nieves MD Jan 31, 2017 17:53
[2017-01-31] MEDS: DIAZEPAM 10 MG TAB PO SCH (18:57)
[2017-01-31] MEDS: QUEtiapine FUMARATE 25 MG TAB PO SCH ×2 (18:57→21:37)
[2017-02-01] VITALS (43 sets, daily range): BP systolic 90–127; BP diastolic 51–83; PULSE 101–128; RESP 7–22; TEMP 98.2–100; O2SAT 97–100
[2017-02-01] MEDS: PROPOFOL 1000 MG/100 ML IV PRN ×6 (00:02→21:12)
[2017-02-01] MEDS ORDERED: MIDAZOLAM 100 MG/100 ML INJ 100 ML IV PRN (01:00)
[2017-02-01] MEDS: fentaNYL DRIP 250 ML IV PRN ×2 (01:24→21:12)
[2017-02-01] MEDS: HEPARIN SODIUM - SQ 10,000 UNITS/ML VIAL SQ SCH ×2 (03:41→17:07)
[2017-02-01] MEDS: CHLORHEXIDINE GLUCONATE 2 % 1 PACK (2 CLOTHS) TOP SCH (03:41)
[2017-02-01] MEDS: RESP: ALBUTEROL 2.5 MG/IPRATROPIUM 0.5 MG NEB (SCH) INH ×5 (04:06→19:44)
[2017-02-01] MEDS: QUEtiapine FUMARATE 25 MG TAB PO SCH ×3 (05:37→21:12)
[2017-02-01] MEDS: DIAZEPAM 10 MG TAB PO SCH ×3 (05:37→21:12)
[2017-02-01] MEDS: cloNIDine HCL 0.3 MG TAB PO SCH ×3 (05:38→21:12)
[2017-02-01] MEDS: SODIUM CHLORIDE 0.9% FLUSH 10 ML FLUSH IV FLUSH SCH ×2 (09:00→21:11)
[2017-02-01] MEDS: FOLIC ACID 1 MG TAB PO SCH (09:00)
[2017-02-01 09:25] LABS: HEMATOCRIT 30.7 % (39.0-51.0); HEMOGLOBIN 10.8 GM/DL (13.0-17.0); MEAN CELL VOLUME 96.3 FL (80.0-100.0); MEAN CORPUSCULAR HEMOGLOBIN 33.9 PG (27.0-34.0); MEAN CORPUSCULAR HGB CONC 35.2 % (32.0-36.0); MEAN PLATELET VOLUME 7.3 FL (7.0-11.0); PLATELET COUNT 148 TH/MM3 (150-450); RED BLOOD COUNT 3.19 MIL/MM3 (4.50-5.90); RED CELL DISTRIBUTION WIDTH 12.8 % (11.6-17.2); WHITE BLOOD COUNT 8.5 TH/MM3 (4.0-11.0)
[2017-02-01 09:42] LABS: BICARBONATE 27.1 MEQ/L (21.0-32.0); BLOOD UREA NITROGEN 51 MG/DL (7-18); CALCIUM 7.1 MG/DL (8.5-10.1); CHLORIDE 95 MEQ/L (98-107); GLOMERULAR FILTRATION RATE 9 ML/MIN (>89); GLUCOSE,RANDOM 117 MG/DL (74-106); SODIUM (NA) 135 MEQ/L (136-145)
[2017-02-01 10:31] LABS: CALCIUM-PROTEIN CORRECTED 7.9 MG/DL (8.5-10.1); TOTAL PROTEIN 5.6 GM/DL (6.4-8.2)
[2017-02-01] MEDS: SODIUM BICARBONATE 8.4% INJ 50 MEQ in SODIUM CHLOR 0.45% 1000 ML INJ 1,000 ML IV SCH (11:29)
[2017-02-01] MEDS: HEPARIN SODIUM - IV 10,000 UNITS/10 ML VIAL PRN (11:40)
[2017-02-01] MEDS: SODIUM CHLOR 0.9% 1000 ML INJ 1,000 ML OTHER PRN (11:40)
[2017-02-01] MEDS: GENTAMICIN SULFATE (DIALYSIS USE ONLY) 20 MG/2 ML VIAL OTHER PRN (11:40)
[2017-02-01] MEDS: ARTIFICIAL TEARS OPTH SOLN 15 ML BTL EACH EYE SCH ×3 (12:39→17:06)
[2017-02-01] MEDS: DOCUSATE SODIUM 50 MG/SENNA 8.6 MG TAB PO SCH ×2 (12:39→21:11)
[2017-02-01] MEDS: MULTIVITAMIN TAB PO SCH (12:39)
[2017-02-01] MEDS: ASPIRIN EC 81 MG TABEC PO SCH (12:40)
[2017-02-01] MEDS: PANTOPRAZOLE SODIUM 40 MG VIAL IV PUSH SCH (12:40)
[2017-02-01] MEDS: THIAMINE INJ 100 MG in SODIUM CHLORIDE 0.9% INJ 100 ML IV SCH (12:40)
--- NOTE | 2017-02-01 12:47 | HHI.NPPN ---
Subjective Renal Failure: Acute History of Present Illness The patient is a 46yo [place] male who was brought in 01/29 via EMS after mother became concerned that she hadn't heard from him. He was found at his house laying on floor for uncertain amount of time with a bottle of OTC sleeping pills beside him. He apparently has has suicide attempts in the past and is currently under Beltran Act. He was not a very reliable historian at time of initial consultation, but says the intentionally took sleeping pills and then mentions 81mg aspirin as well. His PMHx is positive for HTN, HLD, depression, EtOH abuse and suicidal ideation. Admitting SCr was 2.89 with eGFR at 24 that deteriorated overnight to SCr 4.11 and eGFR 16. CPK level is markedly elevated at >100,000 Denies any previous kidney issues. Only other SCr available from 07/07/15 that was 0.88 He is seen in ICU setting Interval History Pt intubated and sedated. Seen during HD---2nd treatment Tolerating well, but access not working optimally. (Radha Velazquez) Review of Systems General General Remarks Unobtainable secondary to patient's condition (Radha Velazquez) Objective Data Data 02/01/17 02/02/17 19:00 07:00 Intake Total 1050 ml Balance 1050 ml IV Total 1050 ml Vital Signs Date Time Temp Pulse Resp B/P (MAP) Pulse Ox O2 Delivery O2 Flow Rate FiO2 02/01/17 12:05 100 40 02/01/17 12:00 114 02/01/17 12:00 45 02/01/17 12:00 114 17 100 02/01/17 12:00 98.6 02/01/17 11:15 119 13 96/51 (66) 97 02/01/17 11:15 119 02/01/17 11:00 118 13 104/59 (74) 98 02/01/17 11:00 118 02/01/17 10:45 120 02/01/17 10:45 120 12 103/67 (79) 100 02/01/17 10:30 127 15 106/68 (81) 97 02/01/17 10:30 127 02/01/17 10:15 125 02/01/17 10:15 125 22 109/74 (86) 99 02/01/17 10:00 117 15 107/74 (85) 98 02/01/17 10:00 117 02/01/17 09:45 118 14 108/73 (85) 100 02/01/17 09:30 112 18 115/83 (94) 100 02/01/17 09:15 109 13 127/81 (96) 100 02/01/17 09:00 109 15 99/76 (84) 100 02/01/17 08:30 107 16 94/63 (73) 97 02/01/17 08:00 98.6 02/01/17 08:00 45 02/01/17 08:00 101 02/01/17 08:00 101 17 90/54 (66) 98 02/01/17 07:57 98 45 02/01/17 07:00 100 Mechanical Ventilator 12.00 45 02/01/17 06:00 103 02/01/17 04:08 98 45 02/01/17 04:00 45 02/01/17 04:00 100.0 105 7 108/67 (81) 98 02/01/17 04:00 105 02/01/17 02:00 108 02/01/17 00:08 99 45 02/01/17 00:00 45 02/01/17 00:00 104 02/01/17 00:00 100.0 104 17 119/76 (90) 100 01/31/17 22:00 99 01/31/17 20:21 100 45 01/31/17 20:00 98.7 95 19 113/55 (74) 99 01/31/17 20:00 95 01/31/17 20:00 45 01/31/17 19:00 100 Mechanical Ventilator 45 01/31/17 18:00 93 01/31/17 16:00 98.8 88 14 92/53 (66) 99 01/31/17 16:00 40 01/31/17 16:00 89 01/31/17 15:58 98 45 01/31/17 14:00 90 (Radha Velazquez) -: 02/01/17 0900 02/01/17 0900 Imaging Last Impressions Chest X-Ray 01/31/17 0537 Signed Impressions: Service Date/Time: Tuesday, January 31, 2017 05:45 - CONCLUSION: Right middle lobe atelectasis/infiltrate. Trace left base atelectasis. Garfield Weber MD Cervical Spine CT 01/29/17 1253 Signed Impressions: Service Date/Time: Sunday, January 29, 2017 13:23 - CONCLUSION: No acute findings. Note is compression of cord or spondylolisthesis. Straightening of the cervical lordosis and nonbridging degenerative paravertebral ossification lower cervical spine. Nghia Fraire MD Head CT 01/29/17 1252 Signed Impressions: Service Date/Time: Sunday, January 29, 2017 13:23 - CONCLUSION: Negative noncontrast CT brain. Nghia Fraire MD Abdomen Ultrasound 01/29/17 0000 Signed Impressions: Service Date/Time: Sunday, January 29, 2017 15:30 - CONCLUSION: 1. Diffusely increased hepatic echogenicity without evidence for volume loss most consistent with hepatic steatosis versus medical liver disease. 2. Trace left pleural effusion. Jos Lux MD Tubes & Lines: Vas-Cath Medication Review Current Medications Medications (Trade) Dose Ordered Sig/Dinesh Route Start Time Stop Time Status Last Admin (NS Flush) 2 ml UNSCH PRN IVF 01/29/17 13:00 01/29/17 14:01 (NS Flush) 2 ml UNSCH PRN IV FLUSH 01/29/17 16:00 (NS Flush) 2 ml BID IV FLUSH 01/29/17 21:00 02/01/17 09:00 (Protonix Inj) 40 mg DAILY IV PUSH 01/30/17 09:00 02/01/17 12:40 (Tears Naturale Opth Soln) 1 drop TID EACH EYE 01/29/17 18:00 02/01/17 12:39 (Zofran Inj) 4 mg Q6H PRN IV PUSH 01/29/17 16:00 (Duoneb Neb) 1 ampule Q6HR NEB INH 01/29/17 16:00 02/01/17 07:55 (Albuterol Neb) 2.5 mg Q2HR NEB PRN INH 01/29/17 16:00 01/31/17 05:13 (Heparin Inj) 5,000 units Q12H SQ 01/29/17 16:00 02/01/17 03:41 Miscellaneous Information 1 Q361D XX 01/29/17 15:30 (Chlorhexidine 2% Cloth) 3 pack Taper DAILY@04 TOP 01/30/17 04:00 01/26/18 03:59 02/01/17 03:41 (Chlorhexidine 2% Cloth) 3 pack UNSCH PRN TOP 01/29/17 15:30 (Nakia-Colace) 1 tab BID PO 01/29/17 21:00 02/01/17 12:39 (Milk Of Magnesia Liq) 30 ml Q12H PRN PO 01/29/17 16:00 (Senokot) 17.2 mg Q12H PRN PO 01/29/17 16:00 (Dulcolax Supp) 10 mg DAILY PRN RECTAL 01/29/17 16:00 (Lactulose Liq) 30 ml DAILY PRN PO 01/29/17 16:00 Thiamine HCl 100 mg/Sodium Chloride 101 ml @ 101 mls/hr DAILY IV 01/30/17 09:00 02/01/17 12:40 (Folate) 1 mg DAILY PO 01/30/17 09:00 02/01/17 09:00 (Theragran) 1 tab DAILY PO 01/30/17 09:00 02/01/17 12:39 (Ecotrin Ec) 81 mg DAILY PO 01/30/17 09:00 02/01/17 12:40 Sodium Bicarbonate 50 meq/Sodium Chloride 1,050 ml @ 50 mls/hr Q21H IV 01/30/17 20:00 02/01/17 11:29 Sodium Chloride 1,000 ml @ 0 mls/hr Q0M PRN OTHER 01/31/17 09:58 (Heparin Inj) 8,000 units UNSCH PRN IV FLUSH 01/31/17 10:00 Sodium Chloride 1,000 ml @ 200 mls/hr Q5H PRN IV 01/31/17 09:58 Sodium Chloride 1,000 ml @ 0 mls/hr Q0M PRN OTHER 01/31/17 09:58 (Mannitol Inj) 12.5 gm UNSCH PRN IV 01/31/17 10:00 Albumin Human 100 ml @ 60 mls/hr UNSCH PRN IV 01/31/17 10:00 (NS Flush) 5 ml UNSCH PRN IV FLUSH 01/31/17 10:00 (Heparin Inj) UNSCH PRN .XX 01/31/17 10:00 (Gentamicin (Dialysis) Inj) 20 mg UNSCH PRN OTHER 01/31/17 10:00 (Zofran Inj) 4 mg UNSCH PRN IV PUSH 01/31/17 10:00 (Tylenol) 650 mg UNSCH PRN PO 01/31/17 10:00 (Benadryl) 25 mg UNSCH PRN PO 01/31/17 10:00 (Nitrostat Sl) 0.4 mg UNSCH PRN SL 01/31/17 10:00 (Catapres) 0.1 mg UNSCH PRN PO 01/31/17 10:00 (Gelfoam 12 Mm/7 Mm Top) 1 foam UNSCH PRN TOP 01/31/17 10:00 Propofol 100 ml @ 3 mls/hr TITRATE PRN IV 01/31/17 12:00 02/01/17 11:29 Dexmedetomidine HCl 1000 mcg/ Sodium Chloride 250 ml @ 4.57 mls/hr TITRATE PRN IV 01/31/17 17:45 (Valium) 10 mg Q8HR PO 01/31/17 17:45 02/01/17 05:37 (Ativan Inj) 2 mg Q15M PRN IV PUSH 01/31/17 17:45 (Haldol Inj) 5 mg Q4H PRN IV 01/31/17 17:45 (SEROquel) 50 mg Q8HR PO 01/31/17 17:45 02/01/17 05:37 (Catapres) 0.3 mg Q8HR PO 01/31/17 17:45 Midazolam HCl 100 ml @ 2 mls/hr TITRATE PRN IV 02/01/17 01:00 Fentanyl Citrate 250 ml @ 5 mls/hr TITRATE PRN IV 02/01/17 01:00 02/01/17 01:24 (Radha Velazquez) Physical Exam General Appearance: No Acute Distress (Radha Velazquez) Eyes Eye Exam: Sclera White (Radha Velazquez) Throat Throat Exam: Oral Mucosa [place] & Moist (Radha Velazquez) Neck Neck Exam: Trachea Midline (Radha Velazquez) Pulmonary Resp Exam: Clear Bilaterally, Breath Sounds Equal, Labored (Radha Velazquez) Gastrointestinal/Abdomen GI Exam: Non-Tender, Distended (Radha Velazquez) Integumentary Skin Exam: Clear, Warm, Normal Turgor (Radha Velazquez) Extremeties Extremities Exam: Trace Edema (ankles & hands) (Radha Velazquez) Neurologic Neuro Exam: Sedated (Radha Velazquez) Assessment/Plan Discussed Condition With: Son Problem List: (1) Acute renal failure (ARF) ICD Codes: N17.9 - Acute kidney failure, unspecified Status: Acute Plan: Appears ARF secondary to rhabdomyolysis. It is not entirely clear what medication(s) he took prior to his admission but from what is gathered it appears a generic OTC sleeping agent likely diphenhydramine. Despite aggressive hydration with bicarbonate-containing solutions also the patient has developed oliguria and progressive azotemia. Was seen during 2nd HD. UF 3L yesterday and set for 3L today. Will likely rest tomorrow and repeat iHD on Friday if no signs of renal recovery. Access does not seem to be working well. May need exchange on Friday. Remains critically ill Medications should be adjusted for patient on dialysis when required. Avoid gadolinium. (2) Drug overdose, intentional ICD Codes: T50.902A - Poisoning by unspecified drugs, medicaments and biological substances, intentional self-harm, initial encounter Status: Acute (3) Rhabdomyolysis ICD Codes: M62.82 - Rhabdomyolysis Status: Acute (Radha Velazquez) Plan The exam, history, and the medical decision-making described in the above note were completed with the assistance of the PAJose Enrique. I reviewed and agree with the findings presented. I attest that I had a [id number] encounter with the patient on the same day, and personally performed and documented my assessment and findings in the medical record. (Beth Adams MD) Problem Qualifiers (1) Acute renal failure (ARF): Qualified Codes: N17.9 - Acute kidney failure, unspecified Radha Velazquez Feb 01, 2017 12:47 Beth Adams MD Feb 01, 2017 15:24
--- NOTE | 2017-02-01 12:57 | HHI.GIFU ---
Subjective Remarks Patient is awake, still on the vent, tolerating TF okay. Objective Vitals I&O Vital Signs Date Time Temp Pulse Resp B/P (MAP) Pulse Ox O2 Delivery O2 Flow Rate FiO2 02/01/17 12:05 100 40 02/01/17 12:00 114 02/01/17 12:00 45 02/01/17 12:00 114 17 100 02/01/17 12:00 98.6 02/01/17 11:15 119 13 96/51 (66) 97 02/01/17 11:15 119 02/01/17 11:00 118 13 104/59 (74) 98 02/01/17 11:00 118 02/01/17 10:45 120 02/01/17 10:45 120 12 103/67 (79) 100 02/01/17 10:30 127 15 106/68 (81) 97 02/01/17 10:30 127 02/01/17 10:15 125 02/01/17 10:15 125 22 109/74 (86) 99 02/01/17 10:00 117 15 107/74 (85) 98 02/01/17 10:00 117 02/01/17 09:45 118 14 108/73 (85) 100 02/01/17 09:30 112 18 115/83 (94) 100 02/01/17 09:15 109 13 127/81 (96) 100 02/01/17 09:00 109 15 99/76 (84) 100 02/01/17 08:30 107 16 94/63 (73) 97 02/01/17 08:00 98.6 02/01/17 08:00 45 02/01/17 08:00 101 02/01/17 08:00 101 17 90/54 (66) 98 02/01/17 07:57 98 45 02/01/17 07:00 100 Mechanical Ventilator 12.00 45 02/01/17 06:00 103 02/01/17 04:08 98 45 02/01/17 04:00 45 02/01/17 04:00 100.0 105 7 108/67 (81) 98 02/01/17 04:00 105 02/01/17 02:00 108 02/01/17 00:08 99 45 02/01/17 00:00 45 02/01/17 00:00 104 02/01/17 00:00 100.0 104 17 119/76 (90) 100 01/31/17 22:00 99 01/31/17 20:21 100 45 01/31/17 20:00 98.7 95 19 113/55 (74) 99 01/31/17 20:00 95 01/31/17 20:00 45 01/31/17 19:00 100 Mechanical Ventilator 45 01/31/17 18:00 93 01/31/17 16:00 98.8 88 14 92/53 (66) 99 01/31/17 16:00 40 01/31/17 16:00 89 01/31/17 15:58 98 45 01/31/17 14:00 90 I/O 01/31/17 01/31/17 01/31/17 02/01/17 02/01/17 02/01/17 07:00 15:00 23:00 07:00 15:00 23:00 Intake Total 1644 ml 327 ml 220 ml 457 ml 1050 ml Output Total 50 ml 3225 ml 100 ml Balance 1594 ml 327 ml -3005 ml 357 ml 1050 ml Intake Oral 240 ml IV Total 1404 ml 327 ml 100 ml 200 ml 1050 ml Tube Feeding 257 ml Other 120 ml Output Urine Total 50 ml 25 ml 100 ml Gastric Drainage Total 200 ml Hemodialysis 3000 ml # Bowel Movements 0 0 Laboratory Laboratory Tests Test 02/01/17 09:00 White Blood Count 8.5 Red Blood Count 3.19 Hemoglobin 10.8 Hematocrit 30.7 Mean Corpuscular Volume 96.3 Mean Corpuscular Hemoglobin 33.9 Mean Corpuscular Hemoglobin Concent 35.2 Red Cell Distribution Width 12.8 Platelet Count 148 Mean Platelet Volume 7.3 Blood Urea Nitrogen 51 Creatinine 6.90 Random Glucose 117 Total Protein 5.6 Calcium Level 7.1 Sodium Level 135 Potassium Level 3.5 Chloride Level 95 Carbon Dioxide Level 27.1 Anion Gap 13 Estimat Glomerular Filtration Rate 9 Protein Corrected Calcium 7.9 Total Creatine Kinase 55094 Creatine Kinase MB 14.4 Creatine Kinase MB % 0.0 Date/Time Source Procedure Growth Status 01/29/17 13:15 Blood Peripheral Aerobic Blood Culture - Preliminary NO GROWTH IN 3 DAYS Resulted 01/29/17 13:15 Blood Peripheral Anaerobic Blood Culture - Preliminary NO GROWTH IN 3 DAYS Resulted 01/29/17 17:20 Urine Catheterized Urine Urine Culture - Final NO GROWTH IN 48 HOURS. Complete Imaging Last Impressions Chest X-Ray 01/31/17 0537 Signed Impressions: Service Date/Time: Tuesday, January 31, 2017 05:45 - CONCLUSION: Right middle lobe atelectasis/infiltrate. Trace left base atelectasis. Garfield Weber MD Cervical Spine CT 01/29/17 1253 Signed Impressions: Service Date/Time: Sunday, January 29, 2017 13:23 - CONCLUSION: No acute findings. Note is compression of cord or spondylolisthesis. Straightening of the cervical lordosis and nonbridging degenerative paravertebral ossification lower cervical spine. Nghia Fraire MD Head CT 01/29/17 1252 Signed Impressions: Service Date/Time: Sunday, January 29, 2017 13:23 - CONCLUSION: Negative noncontrast CT brain. Nghia Fraire MD Abdomen Ultrasound 01/29/17 0000 Signed Impressions: Service Date/Time: Sunday, January 29, 2017 15:30 - CONCLUSION: 1. Diffusely increased hepatic echogenicity without evidence for volume loss most consistent with hepatic steatosis versus medical liver disease. 2. Trace left pleural effusion. Jos Lux MD Physical Exam HEENT: normocephalic; atraumatic; no jaundice. CHEST: Chest is clear to auscultation and percussion. CARDIAC: tachy ABDOMEN: Soft, nondistended, nontender; no hepatosplenomegaly; bowel sounds are present in all four quadrants. EXTREMITIES: No clubbing, cyanosis, pedal edema. SKIN: Normal; no rash; no jaundice. [employer]: Awake, following commands, vented. Assessment and Plan Plan - Elevated LFTs- likely due to due to rhabdomyolysis Vs. shocked liver, he did have hypotension on presentation. Patient is intubated not able to obtain history. LFTs remain high but stable, PT/INR wnl US showed fatty liver, hepatitis panel negative, toxicology negative for EToh or Tylenol - Elevated lipase- not able to have contrasted CT due to VEENA, will repeat - Mild low plt- 148 - Rhabdomyolysis[place] [address], this is trending down. - VEENA- secondary to above- improving - Depression with suicide attempt. over dose on sleeping pills Backer acted Plan: - TF - Will order ALDA, ASMA, AMA - Ceruloplasmin, alpha antitrypsin - AFP - Iron and Fe - LFTs, lipase in am - Avoid hepatotoxins. - supportive care - Patient seen and examined by Dr. cho and myself and this note is written on his behalf. Emeterio Sams Feb 01, 2017 12:57
[2017-02-01 16:29] LABS: % SATURATION IRON PROFILE 15.8 % (20-50); IRON (FE) 30 MCG/DL (65-175); LIPASE 1115 U/L (73-393); TOTAL IRON BINDING CAPACITY 190 MCG/DL (250-450)
--- NOTE | 2017-02-01 16:39 | HHI.CCPN ---
Subjective Remarks/Hospital Course This is a 46 year old male. Date of admission 01/29/2017. Past medical history includes hypertension, dyslipidemia and depression. He is on chronic clonazepam. He presents to [facility] after being found on the ground for an unknown duration of time after taking "[id number] sleeping pills". He's been Beltran acted. Symptomatology includes tachycardia, mydriasis and appears dehydrated. Patient is afebrile. Lab workup included negative urine toxicology screen. Negative acetaminophen and EtOH. Patient has a leukocytosis of 24,000. Patient is in acute kidney injury creatinine 2.9.. Transaminases are elevated. Patient has a metabolic acidosis/Hyalgan With acetone and lactic currently pending. CT brain and C-spine negative. Chest x-ray negative. Patient is currently awake and oriented to person and place but not time. Subjective 01/30: Patient started on dexmedetomidine drip overnight and is currently on CIWA protocol receiving lorazepam going through DTs. Drinks approximately 12 beers daily. Thiamine, multivitamin and folate started. 01/31: Cr continues to worsen. now oligo-anuric. patient also now acutely delirious in etoh withdraw despite CIWA protocol. also now on NRB and clinically declining, hypoxic. initially evaluated and maintaining airway. placed dialysis catheter (see separate procedure note for details). however, patient continued to decline from a mental status standpoint as well as worsening hypoxia and was subsequently intubated (see separate procedure note for details). discussed care with nephrology- plan to initiate IHD. 02/01: [place] [address]. patient is arousable and follows commands. remains in multi-organ failure from rhabdomyolysis and intentional drug overdose. Objective Vital Signs Date Time Temp Pulse Resp B/P (MAP) Pulse Ox O2 Delivery O2 Flow Rate FiO2 02/01/17 16:02 98 40 02/01/17 12:00 114 02/01/17 12:00 17 02/01/17 12:00 98.6 02/01/17 11:15 96/51 (66) 02/01/17 07:00 Mechanical Ventilator 12.00 Intake and Output 02/01/17 02/01/17 02/02/17 08:00 16:00 00:00 Intake Total 557 ml 950 ml Output Total 100 ml 3000 ml Balance 457 ml -2050 ml Result Diagram: 02/01/17 0902/01/17 09 Other Results Microbiology Date/Time Source Procedure Growth Status 01/29/17 17:20 Urine Catheterized Urine Urine Culture - Final NO GROWTH IN 48 HOURS. Complete Imaging Last Impressions Cervical Spine CT 01/29/17 1253 Signed Impressions: Service Date/Time: Sunday, January 29, 2017 13:23 - CONCLUSION: No acute findings. Note is compression of cord or spondylolisthesis. Straightening of the cervical lordosis and nonbridging degenerative paravertebral ossification lower cervical spine. Nghia Fraire MD Head CT 01/29/17 1252 Signed Impressions: Service Date/Time: Sunday, January 29, 2017 13:23 - CONCLUSION: Negative noncontrast CT brain. Nghia Fraire MD Chest X-Ray 01/29/17 1252 Signed Impressions: Service Date/Time: Sunday, January 29, 2017 13:15 - CONCLUSION: 1. No acute cardiopulmonary disease. Jos Lux MD Abdomen Ultrasound 01/29/17 0000 Signed Impressions: Service Date/Time: Sunday, January 29, 2017 15:30 - CONCLUSION: 1. Diffusely increased hepatic echogenicity without evidence for volume loss most consistent with hepatic steatosis versus medical liver disease. 2. Trace left pleural effusion. Jos Lux MD Objective Remarks GENERAL: 46-year-old male, intubated, sedated, lying in bed. SKIN: Warm and dry. No rash HEAD: Atraumatic. Normocephalic. EYES: Pupils equal and round about 5 mm bilaterally and reactive. No scleral icterus. No injection or drainage. ENT: No nasal bleeding or discharge. Mucous membranes pink and moist. NECK: Trachea midline. No JVD. CARDIOVASCULAR: normal rate, regular rhythm. sinus by tele. RESPIRATORY: PRVC, 40% fio2. peep 5. equal chest rise. GASTROINTESTINAL: Abdomen soft, non-tender, nondistended. MUSCULOSKELETAL: Extremities without significant peripheral edema. No obvious deformities. NEUROLOGICAL: RASS -2. CAM -. follows commands intermittently. A/P Assessment and Plan Assessment: 46yM s/p intentional overdose of "sleeping pills" (unconfirmed specific kind), with severe rhabdomyolysis, oligo-anuric acute kidney injury requiring renal replacement therapy, acute hypoxic respiratory failure requiring intubation and mechanical ventilation and acute agitated delirium secondary to alcohol withdraw. Remains critically ill today and although somewhat more awake and less agitated, still very critically ill with multiple organs which are life-threatening including kidney injury, liver injury, and hypoxic respiratory failure. Neuro/Psych: Intentional overdose on sleeping pills". Possible diphenhydramine Depression EtOH use Agitated Delirium EtOH withdraw Checked ammonia level secondary to elevated transaminases. 35 Patient has been Beltran acted. Psych evaluation Dr. Elias recommends inpatient once cleared medically Holding citalopram 40 mg daily and bupropion 150 mg daily in light of altered mental status Holding clonazepam 1 mg daily light of altered mental status Thiamine, folate and multivitamin daily. propofol drip. goal RASS -2. scheduled valium 10mg po q8hr for withdraws ativan 2mg iv q15m for breakthrough withdraw symptoms seroquel 50mg po q8hr for agitated delirium haldol 5mg iv q4h prn for breakthrough agitation clonidine 0.3mg po q8hr for side-effects of withdraw. CT brain 01/29 revealed no acute intracranial findings CT C-spine 01/29 negative for acute findings. Straightened lordosis. daily sedation vacations. CV: Sinus tachycardia - improving. History of hypertension History dyslipidemia Holding home medications of rosuvastatin 40 mg daily in light of elevated liver function tests Holding home medication valsartan 320 mg daily light of acute kidney injury. hold metoprolol 50 mg twice a day. Holding amlodipine 2.5 mill grams by mouth daily. Resume when clinically indicated Okay to resume aspirin 81 mg daily clonidine 0.3mg po q8hr for symptomatic control of withdraw symptoms. Resp: Acute hypoxic and hypercarbic respiratory failure - persistent. s/p intubation 01/31 for acute and worsening hypoxemia vent bundle hob at 30 degrees nebs start SBTs. GI: Elevated transaminases Rhabdomyolysis - acute, severe, and persistent. Hepatic steatosis Elevated Lipase CPK greater than 100,000 on admission. Avoid hepatotoxic drugs. Statin will be held. Abdominal ultrasound revealed hepatomegaly likely hepatic steatosis continue TF Pantoprazole for GI prophylaxis Docusate sodium/senna for bowel regimen Hepatitis panel pending. GI consulted elevated lipase unclear if pancreatitis. trend : Continue Barros catheter given severe kidney injury Placed Barros catheter for accurate I's and O's in critically ill patient. Endo: Sliding-scale insulin if indicated to maintain euglycemia Renal: Acute kidney injury - persistent. Anion gap metabolic acidosis/respiratory alkalosis compensation - resolved. Renal ultrasound/revealed no hydronephrosis urine electrolytes and eosinophils negative Avoid nephrotoxic medications Lactate is clear Nephrology has been consulted Monitor urine pH renal replacement therapy again today. Heme: Leukocytosis - resolved. Likely stress reaction. daily CBC. ID: Monitor for infection. No indication for antibiotics at this point MSK: PT evaluate and treat FEN: Hyponatremia Hyperphosphatemia Replace electrolytes as clinically indicated Access -01/31 Right IJ Dialysis catheter Prophylaxis - GI - pantoprazole - DVT - SCD/heparin subcutaneous Critical Care: The total critical care time was 31 minutes. Time to perform other separately billable procedures was not included in the critical care time. Benny Nieves MD Feb 01, 2017 16:39
[2017-02-01 16:55] LABS: FERRITIN 3127 NG/ML (26-388)
[2017-02-02] VITALS (22 sets, daily range): BP systolic 78–121; BP diastolic 52–68; PULSE 97–127; RESP 14–25; TEMP 98.2–101.4; O2SAT 94–100
[2017-02-02] MEDS: RESP: ALBUTEROL 2.5 MG/IPRATROPIUM 0.5 MG NEB (SCH) INH ×4 (04:00→20:10)
[2017-02-02] MEDS: CHLORHEXIDINE GLUCONATE 2 % 1 PACK (2 CLOTHS) TOP SCH (04:00)
[2017-02-02 04:09] LABS: HEMATOCRIT 29.2 % (39.0-51.0); MEAN CELL VOLUME 97.8 FL (80.0-100.0); MEAN CORPUSCULAR HEMOGLOBIN 33.4 PG (27.0-34.0); MEAN CORPUSCULAR HGB CONC 34.2 % (32.0-36.0); MEAN PLATELET VOLUME 6.9 FL (7.0-11.0); PLATELET COUNT 174 TH/MM3 (150-450); RED BLOOD COUNT 2.99 MIL/MM3 (4.50-5.90); WHITE BLOOD COUNT 12.2 TH/MM3 (4.0-11.0)
[2017-02-02] MEDS: QUEtiapine FUMARATE 25 MG TAB PO SCH ×3 (04:32→20:56)
[2017-02-02] MEDS: DIAZEPAM 10 MG TAB PO SCH ×3 (04:32→20:56)
[2017-02-02] MEDS: cloNIDine HCL 0.3 MG TAB PO SCH ×2 (04:32→13:37)
[2017-02-02] MEDS: HEPARIN SODIUM - SQ 10,000 UNITS/ML VIAL SQ SCH ×2 (04:32→16:44)
[2017-02-02] MEDS: SODIUM BICARBONATE 8.4% INJ 50 MEQ in SODIUM CHLOR 0.45% 1000 ML INJ 1,000 ML IV SCH (05:50)
[2017-02-02 05:52] LABS: ALBUMIN 2.3 GM/DL (3.4-5.0); BICARBONATE 30.3 MEQ/L (21.0-32.0); CREATININE 7.1 MG/DL (0.60-1.30); DIRECT BILIRUBIN ADULT 0.3 MG/DL (0.0-0.2); INDIRECT BILIRUBIN 0.3 MG/DL (0.0-0.8); TOTAL BILIRUBIN ADULT 0.6 MG/DL (0.2-1.0); TOTAL PROTEIN 6.3 GM/DL (6.4-8.2)
[2017-02-02] MEDS ORDERED: ALBUMIN 5% INJ 500 ML IV ONE (06:15)
[2017-02-02] MEDS ORDERED: CALCIUM GLUCONATE INJ 2 GM in SODIUM CHLORIDE 0.9% INJ 100 ML IV ONE (06:30)
[2017-02-02] MEDS ORDERED: Vancomycin Consult Pharmacy 1 EA OTHER SCH (07:30)
[2017-02-02] MEDS ORDERED: PIPERACIL-TAZO 4.5 GM PREMIX 100 ML IV ONE (07:30)
[2017-02-02] MEDS: DOCUSATE SODIUM 50 MG/SENNA 8.6 MG TAB PO SCH ×2 (08:02→20:56)
[2017-02-02] MEDS: THIAMINE INJ 100 MG in SODIUM CHLORIDE 0.9% INJ 100 ML IV SCH (08:02)
[2017-02-02] MEDS: ASPIRIN EC 81 MG TABEC PO SCH (08:02)
[2017-02-02] MEDS: MULTIVITAMIN TAB PO SCH (08:02)
[2017-02-02] MEDS: FOLIC ACID 1 MG TAB PO SCH (08:02)
[2017-02-02] MEDS: SODIUM CHLORIDE 0.9% FLUSH 10 ML FLUSH IV FLUSH SCH ×2 (08:03→20:55)
[2017-02-02] MEDS: PANTOPRAZOLE SODIUM 40 MG VIAL IV PUSH SCH (08:03)
[2017-02-02] MEDS: ARTIFICIAL TEARS OPTH SOLN 15 ML BTL EACH EYE SCH ×3 (08:03→16:44)
[2017-02-02] MEDS ORDERED: VANCOMYCIN INJ 1,500 MG in SODIUM CHLORID 0.9% 500 ML INJ 500 ML IV ONE (09:00)
--- NOTE | 2017-02-02 09:56 | HHI.GIFU ---
Subjective Remarks Lying in bed in no apparent distress. Sedated on vent. Objective Vitals I&O Vital Signs Date Time Temp Pulse Resp B/P (MAP) Pulse Ox O2 Delivery O2 Flow Rate FiO2 02/02/17 09:07 40 02/02/17 07:32 97 40 02/02/17 06:00 127 02/02/17 04:11 95 40 02/02/17 04:00 40 02/02/17 04:00 123 02/02/17 04:00 101.4 123 19 91/53 (66) 95 02/02/17 02:00 127 02/02/17 00:01 97 40 02/02/17 00:00 124 02/02/17 00:00 40 02/02/17 00:00 100.2 124 20 78/52 (61) 97 02/01/17 22:00 124 02/01/17 20:00 128 02/01/17 20:00 40 02/01/17 20:00 99.9 128 20 105/59 (74) 97 02/01/17 19:44 98 40 02/01/17 19:00 97 Mechanical Ventilator 40 02/01/17 18:30 123 02/01/17 18:15 120 02/01/17 18:00 121 02/01/17 17:15 123 19 103/57 (72) 98 02/01/17 17:15 123 02/01/17 17:00 123 02/01/17 17:00 123 18 100/57 (71) 99 02/01/17 16:45 120 16 98/60 (73) 98 02/01/17 16:45 120 02/01/17 16:30 121 02/01/17 16:30 121 17 90/58 (69) 98 02/01/17 16:15 121 16 95/58 (70) 98 02/01/17 16:15 121 02/01/17 16:02 98 40 02/01/17 16:00 40 02/01/17 16:00 120 02/01/17 16:00 98.2 02/01/17 16:00 120 17 106/67 (80) 99 02/01/17 15:45 120 02/01/17 15:37 120 02/01/17 15:30 121 02/01/17 15:15 122 02/01/17 15:00 122 02/01/17 14:45 123 02/01/17 14:30 124 02/01/17 14:15 126 02/01/17 14:00 124 02/01/17 12:05 100 40 02/01/17 12:00 114 02/01/17 12:00 45 02/01/17 12:00 114 17 100 02/01/17 12:00 98.6 02/01/17 11:15 119 13 96/51 (66) 97 02/01/17 11:15 119 02/01/17 11:00 118 13 104/59 (74) 98 02/01/17 11:00 118 02/01/17 10:45 120 02/01/17 10:45 120 12 103/67 (79) 100 02/01/17 10:30 127 15 106/68 (81) 97 02/01/17 10:30 127 02/01/17 10:15 125 02/01/17 10:15 125 22 109/74 (86) 99 02/01/17 10:00 117 15 107/74 (85) 98 02/01/17 10:00 117 02/01/17 09:45 118 14 108/73 (85) 100 I/O 02/01/17 02/01/17 02/01/17 02/02/17 02/02/17 02/02/17 07:00 15:00 23:00 07:00 15:00 23:00 Intake Total 457 ml 1050 ml 1149 ml 1638 ml Output Total 100 ml 3000 ml 100 ml 0 ml Balance 357 ml -1950 ml 1049 ml 1638 ml Intake Oral 0 ml IV Total 200 ml 1050 ml 894 ml Tube Feeding 257 ml 909 ml 744 ml Other 240 ml Output Urine Total 100 ml 100 ml 0 ml Hemodialysis 3000 ml # Bowel Movements 0 0 0 Laboratory Laboratory Tests Test 02/02/17 03:46 White Blood Count 12.2 Red Blood Count 2.99 Hemoglobin 10.0 Hematocrit 29.2 Mean Corpuscular Volume 97.8 Mean Corpuscular Hemoglobin 33.4 Mean Corpuscular Hemoglobin Concent 34.2 Red Cell Distribution Width 13.0 Platelet Count 174 Mean Platelet Volume 6.9 Blood Urea Nitrogen 46 Creatinine 7.10 Random Glucose 117 Total Protein 6.3 Albumin 2.3 Calcium Level 8.0 Alkaline Phosphatase 93 Aspartate Amino Transf (AST/SGOT) 437 Alanine Aminotransferase (ALT/SGPT) 253 Total Bilirubin 0.6 Direct Bilirubin 0.3 Sodium Level 137 Potassium Level 4.1 Chloride Level 96 Carbon Dioxide Level 30.3 Anion Gap 11 Estimat Glomerular Filtration Rate 8 Indirect Bilirubin 0.3 Total Creatine Kinase 23564 Creatine Kinase MB 8.4 Creatine Kinase MB % 0.0 Tumor Marker Alpha Fetoprotein 2.4 Date/Time Source Procedure Growth Status 01/29/17 13:15 Blood Peripheral Aerobic Blood Culture - Preliminary NO GROWTH IN 3 DAYS Resulted 01/29/17 13:15 Blood Peripheral Anaerobic Blood Culture - Preliminary NO GROWTH IN 3 DAYS Resulted 02/02/17 07:59 Sputum Endotracheal Gram Stain Pending Received 02/02/17 07:59 Sputum Endotracheal Sputum Culture Pending Received 01/29/17 17:20 Urine Catheterized Urine Urine Culture - Final NO GROWTH IN 48 HOURS. Complete Imaging Last Impressions Chest X-Ray 01/31/17 0537 Signed Impressions: Service Date/Time: Tuesday, January 31, 2017 05:45 - CONCLUSION: Right middle lobe atelectasis/infiltrate. Trace left base atelectasis. Garfield Weber MD Cervical Spine CT 01/29/17 1253 Signed Impressions: Service Date/Time: Sunday, January 29, 2017 13:23 - CONCLUSION: No acute findings. Note is compression of cord or spondylolisthesis. Straightening of the cervical lordosis and nonbridging degenerative paravertebral ossification lower cervical spine. Nghia Fraire MD Head CT 01/29/17 1252 Signed Impressions: Service Date/Time: Sunday, January 29, 2017 13:23 - CONCLUSION: Negative noncontrast CT brain. Nghia Fraire MD Abdomen Ultrasound 01/29/17 0000 Signed Impressions: Service Date/Time: Sunday, January 29, 2017 15:30 - CONCLUSION: 1. Diffusely increased hepatic echogenicity without evidence for volume loss most consistent with hepatic steatosis versus medical liver disease. 2. Trace left pleural effusion. Jos Lux MD Physical Exam HEENT: Normocephalic CHEST: CTA CARDIAC: Tachycardic ABDOMEN: Soft, nondistended, nontender; no hepatosplenomegaly; bowel sounds are present x 4 quadrants. EXTREMITIES: No clubbing, cyanosis, pedal edema. SKIN: Normal; no rash; no jaundice. ANGIOGRAPHY NURSE: Awake, following commands, vented. Assessment and Plan Plan ASSESSMENT: - Elevated LFTs, likely due to rhabdomyolysis vs. shocked liver. LFTs improving , AST 437, ALT 253. PT/INR WNL. US showed fatty liver, hepatitis panel negative, toxicology negative for ETOH or Tylenol. ALDA, ASMA, AMA, Ceruloplasmin, alpha antitrypsin pending. AFP normal - Elevated lipase- not able to have contrasted CT due to VEENA. Lipase 02/01 1115. - Thrombocytopenia, resolved. Platelets 174 today. - [place] [address] [place], [place] [address] - VEENA- secondary to above. - Depression with suicide attempt. Over dose on sleeping pills. Beltran act. PLAN: - Await ALDA, ASMA, AMA, Ceruloplasmin, alpha antitrypsin - Monitor LFTs - Avoid hepatotoxins. - Supportive care - Further recommendations to follow based on results of above. Patient seen and examined by Dr. Avendaño and myself and this note is written on his behalf. Eleni Guzman Feb 02, 2017 09:56
--- NOTE | 2017-02-02 14:29 | HHI.CCPN ---
Subjective Remarks/Hospital Course This is a 46 year old male. Date of admission 01/29/2017. Past medical history includes hypertension, dyslipidemia and depression. He is on chronic clonazepam. He presents to [facility] after being found on the ground for an unknown duration of time after taking "[id number] sleeping pills". He's been Beltran acted. Symptomatology includes tachycardia, mydriasis and appears dehydrated. Patient is afebrile. Lab workup included negative urine toxicology screen. Negative acetaminophen and EtOH. Patient has a leukocytosis of 24,000. Patient is in acute kidney injury creatinine 2.9.. Transaminases are elevated. Patient has a metabolic acidosis/Hyalgan With acetone and lactic currently pending. CT brain and C-spine negative. Chest x-ray negative. Patient is currently awake and oriented to person and place but not time. Subjective 01/30: Patient started on dexmedetomidine drip overnight and is currently on CIWA protocol receiving lorazepam going through DTs. Drinks approximately 12 beers daily. Thiamine, multivitamin and folate started. 01/31: Cr continues to worsen. now oligo-anuric. patient also now acutely delirious in etoh withdraw despite CIWA protocol. also now on NRB and clinically declining, hypoxic. initially evaluated and maintaining airway. placed dialysis catheter (see separate procedure note for details). however, patient continued to decline from a mental status standpoint as well as worsening hypoxia and was subsequently intubated (see separate procedure note for details). discussed care with nephrology- plan to initiate IHD. 02/01: [place] [address]. patient is arousable and follows commands. remains in multi-organ failure from rhabdomyolysis and intentional drug overdose. 02/02: new fever, leukocytosis. likely source aspiration pneumonia from time of etoh withdraw/delirium before intubation. sputum cultures sent, started on vancomycin and zosyn. CK down to 20k. Cr continues to rise, but no reason for emergent dialysis today, will likely need again tomorrow. more hypotensive today and requiring ivf resuscitation. clinically declining today. Objective Vital Signs Date Time Temp Pulse Resp B/P (MAP) Pulse Ox O2 Delivery O2 Flow Rate FiO2 02/02/17 13:00 116 02/02/17 12:00 40 02/02/17 11:52 96 02/02/17 10:00 25 02/02/17 08:00 99.9 02/02/17 07:00 Mechanical Ventilator 12.00 02/02/17 04:00 91/53 (66) Intake and Output 02/02/17 02/02/17 02/03/17 08:00 16:00 00:00 Intake Total 2238 ml 600 ml Output Total 0 ml Balance 2238 ml 600 ml Result Diagram: 02/02/17 0346 02/02/17 0346 Imaging Last Impressions Cervical Spine CT 01/29/17 1253 Signed Impressions: Service Date/Time: Sunday, January 29, 2017 13:23 - CONCLUSION: No acute findings. Note is compression of cord or spondylolisthesis. Straightening of the cervical lordosis and nonbridging degenerative paravertebral ossification lower cervical spine. Nghia Fraire MD Head CT 01/29/17 1252 Signed Impressions: Service Date/Time: Sunday, January 29, 2017 13:23 - CONCLUSION: Negative noncontrast CT brain. Nghia Fraire MD Chest X-Ray 01/29/17 1252 Signed Impressions: Service Date/Time: Sunday, January 29, 2017 13:15 - CONCLUSION: 1. No acute cardiopulmonary disease. Jos Lux MD Abdomen Ultrasound 01/29/17 0000 Signed Impressions: Service Date/Time: Sunday, January 29, 2017 15:30 - CONCLUSION: 1. Diffusely increased hepatic echogenicity without evidence for volume loss most consistent with hepatic steatosis versus medical liver disease. 2. Trace left pleural effusion. Jos Lux MD Objective Remarks GENERAL: 46-year-old male, intubated, sedated, lying in bed. SKIN: Warm and dry. No rash HEAD: Atraumatic. Normocephalic. EYES: Pupils equal and round about 5 mm bilaterally and reactive. No scleral icterus. No injection or drainage. ENT: No nasal bleeding or discharge. Mucous membranes pink and moist. NECK: Trachea midline. No JVD. CARDIOVASCULAR: normal rate, regular rhythm. sinus by tele. RESPIRATORY: PRVC, 40% fio2. peep 5. equal chest rise. GASTROINTESTINAL: Abdomen soft, non-tender, nondistended. MUSCULOSKELETAL: Extremities without significant peripheral edema. No obvious deformities. NEUROLOGICAL: RASS -2. CAM -. follows commands intermittently. A/P Assessment and Plan Assessment: 46yM s/p intentional overdose of "sleeping pills" (unconfirmed specific kind), with severe rhabdomyolysis, oligo-anuric acute kidney injury requiring renal replacement therapy, acute hypoxic respiratory failure requiring intubation and mechanical ventilation and acute agitated delirium secondary to alcohol withdraw. Now with new Aspiration pneumonia before intubation, and clinically in severe sepsis. will volume resuscitate. start empiric abx, check sputum culture which is likely source of new severe sepsis. Remains critically ill and further declines in organ systems today from yesterday. Neuro/Psych: Intentional overdose on sleeping pills". Possible diphenhydramine Depression EtOH use Agitated Delirium EtOH withdraw Checked ammonia level secondary to elevated transaminases. 35 Patient has been Beltran acted. Psych evaluation Dr. Elias recommends inpatient once cleared medically Holding citalopram 40 mg daily and bupropion 150 mg daily in light of altered mental status Holding clonazepam 1 mg daily light of altered mental status Thiamine, folate and multivitamin daily. propofol drip. goal RASS -2. scheduled valium 10mg po q8hr for withdraws ativan 2mg iv q15m for breakthrough withdraw symptoms seroquel 50mg po q8hr for agitated delirium haldol 5mg iv q4h prn for breakthrough agitation clonidine 0.3mg po q8hr for side-effects of withdraw. CT brain 01/29 revealed no acute intracranial findings CT C-spine 01/29 negative for acute findings. Straightened lordosis. daily sedation vacations. CV: Sinus tachycardia Severe Sepsis History dyslipidemia Holding home medications of rosuvastatin 40 mg daily in light of elevated liver function tests Holding home medication valsartan 320 mg daily light of acute kidney injury. hold metoprolol 50 mg twice a day. Holding amlodipine 2.5 mill grams by mouth daily. Resume when clinically indicated Okay to resume aspirin 81 mg daily hold clonidine given new severe sepsis. mivf Resp: Acute hypoxic and hypercarbic respiratory failure - persistent. Aspiration Pneumonia s/p intubation 01/31 for acute and worsening hypoxemia vent bundle hob at 30 degrees nebs abx sputum culture aspiration event prior to intubation during etoh withdraw. GI: Elevated transaminases Rhabdomyolysis - acute, severe, and persistent. Hepatic steatosis Elevated Lipase CPK greater than 100,000 on admission. Avoid hepatotoxic drugs. Statin will be held. Abdominal ultrasound revealed hepatomegaly likely hepatic steatosis continue TF Pantoprazole for GI prophylaxis Docusate sodium/senna for bowel regimen Hepatitis panel negative. GI consulted elevated lipase unclear if pancreatitis. trend : Continue Barros catheter given severe kidney injury Placed Barros catheter for accurate I's and O's in critically ill patient. Endo: Sliding-scale insulin if indicated to maintain euglycemia Renal: Acute kidney injury - persistent. Anion gap metabolic acidosis/respiratory alkalosis compensation - resolved. Renal ultrasound/revealed no hydronephrosis urine electrolytes and eosinophils negative Avoid nephrotoxic medications Lactate is clear Nephrology has been consulted Monitor urine pH renal replacement therapy, hold today, likely will need tomorrow Heme: ID: Aspiration pneumonia Severe sepsis blood, urine, sputum cultures pneumonia likely source. start vancomycin and zosyn MSK: PT evaluate and treat FEN: Hyponatremia Hyperphosphatemia Replace electrolytes as clinically indicated Access -01/31 Right IJ Dialysis catheter Prophylaxis - GI - pantoprazole - DVT - SCD/heparin subcutaneous Critical Care: The total critical care time was 44 minutes. Time to perform other separately billable procedures was not included in the critical care time. Benny Nieves MD Feb 02, 2017 14:29
[2017-02-02] MEDS: LACTATED RINGER'S 1000 ML INJ 1,000 ML IV SCH (14:44)
--- NOTE | 2017-02-02 15:36 | HHI.NPPN ---
Subjective Renal Failure: Acute History of Present Illness The patient is a 46yo [place] male who was brought in 01/29 via EMS after mother became concerned that she hadn't heard from him. He was found at his house laying on floor for uncertain amount of time with a bottle of OTC sleeping pills beside him. He apparently has has suicide attempts in the past and is currently under Beltran Act. He was not a very reliable historian at time of initial consultation, but says the intentionally took sleeping pills and then mentions 81mg aspirin as well. His PMHx is positive for HTN, HLD, depression, EtOH abuse and suicidal ideation. Admitting SCr was 2.89 with eGFR at 24 that deteriorated overnight to SCr 4.11 and eGFR 16. CPK level is markedly elevated at >100,000 Denies any previous kidney issues. Only other SCr available from 07/07/15 that was 0.88 He is seen in ICU setting Interval History Patient with ET tube in place on ventilator however appears to be awake. Review of Systems General General Remarks Unobtainable secondary to patient's condition Objective Data Data 02/02/17 02/03/17 19:00 07:00 Intake Total 1200 ml Balance 1200 ml IV Total 1200 ml Vital Signs Date Time Temp Pulse Resp B/P (MAP) Pulse Ox O2 Delivery O2 Flow Rate FiO2 02/02/17 15:04 98 40 02/02/17 15:00 113 19 98 02/02/17 15:00 113 02/02/17 14:56 114 02/02/17 14:56 114 18 102/60 (74) 97 02/02/17 14:00 119 02/02/17 14:00 119 17 97 02/02/17 13:00 116 02/02/17 13:00 116 16 96 02/02/17 12:00 98.2 02/02/17 12:00 40 02/02/17 12:00 124 17 94 02/02/17 12:00 124 02/02/17 11:52 96 40 02/02/17 10:00 123 02/02/17 10:00 123 25 96 02/02/17 09:07 40 02/02/17 09:00 112 23 94 02/02/17 08:00 121 02/02/17 08:00 119 15 95 02/02/17 08:00 99.9 02/02/17 08:00 40 02/02/17 07:32 97 40 02/02/17 07:00 Mechanical Ventilator 12.00 40 02/02/17 06:00 127 02/02/17 04:11 95 40 02/02/17 04:00 40 02/02/17 04:00 123 02/02/17 04:00 101.4 123 19 91/53 (66) 95 02/02/17 02:00 127 02/02/17 00:01 97 40 02/02/17 00:00 124 02/02/17 00:00 40 02/02/17 00:00 100.2 124 20 78/52 (61) 97 02/01/17 22:00 124 02/01/17 20:00 128 02/01/17 20:00 40 02/01/17 20:00 99.9 128 20 105/59 (74) 97 02/01/17 19:44 98 40 02/01/17 19:00 97 Mechanical Ventilator 40 02/01/17 18:30 123 02/01/17 18:15 120 02/01/17 18:00 121 02/01/17 17:15 123 19 103/57 (72) 98 02/01/17 17:15 123 02/01/17 17:00 123 02/01/17 17:00 123 18 100/57 (71) 99 02/01/17 16:45 120 16 98/60 (73) 98 02/01/17 16:45 120 02/01/17 16:30 121 02/01/17 16:30 121 17 90/58 (69) 98 02/01/17 16:15 121 16 95/58 (70) 98 02/01/17 16:15 121 02/01/17 16:02 98 40 02/01/17 16:00 40 02/01/17 16:00 120 02/01/17 16:00 98.2 02/01/17 16:00 120 17 106/67 (80) 99 02/01/17 15:45 120 02/01/17 15:37 120 -: 02/02/17 0346 02/02/17 0346 Microbiology 02/02/17 Gram Stain - Final, Resulted 02/02/17 Sputum Culture, Resulted Pending Tubes & Lines: Vas-Cath Physical Exam General Appearance: No Acute Distress Eyes Eye Exam: Sclera White Throat Throat Exam: Oral Mucosa [place] & Moist Neck Neck Exam: Trachea Midline Pulmonary Resp Exam: Clear Bilaterally, Breath Sounds Equal, Labored Resp Remarks Upper airway stridor audible prior to his intubation. Gastrointestinal/Abdomen GI Exam: Non-Tender, Distended Integumentary Skin Exam: Clear, Warm, Normal Turgor Extremeties Extremities Exam: Trace Edema (ankles & hands) Neurologic Neuro Exam: Sedated Assessment/Plan Discussed Condition With: Son Problem List: (1) Acute renal failure (ARF) ICD Codes: N17.9 - Acute kidney failure, unspecified Status: Acute Plan: Appears ARF secondary to rhabdomyolysis. It is not entirely clear what medication(s) he took prior to his admission but from what is gathered it appears a generic OTC sleeping agent likely diphenhydramine. Sometimes of clinical improvement overall but still with established kidney failure and dialysis dependent. Next hemodialysis will be tomorrow. If Vas-Cath still with poor flow will need replacement. Remains critically ill Medications should be adjusted for patient on dialysis when required. Avoid gadolinium. (2) Drug overdose, intentional ICD Codes: T50.902A - Poisoning by unspecified drugs, medicaments and biological substances, intentional self-harm, initial encounter Status: Acute (3) Rhabdomyolysis ICD Codes: M62.82 - Rhabdomyolysis Status: Acute Plan The exam, history, and the medical decision-making described in the above note were completed with the assistance of the PAJose Enrique. I reviewed and agree with the findings presented. I attest that I had a [id number] encounter with the patient on the same day, and personally performed and documented my assessment and findings in the medical record. Problem Qualifiers (1) Acute renal failure (ARF): Qualified Codes: N17.9 - Acute kidney failure, unspecified Beth Adams MD Feb 02, 2017 15:36
[2017-02-02] MEDS: PIPERACIL-TAZO 2.25 GM PREMIX 50 ML IV SCH (16:43)
[2017-02-02 16:58] LABS: AMORPHOUS SEDIMENT, URINE RARE; BACTERIA, URINE FEW /hpf; BILIRUBIN, URINE NEG (NEG); BLOOD, URINE MOD (NEG); GLUCOSE,URINE 70 mg/dL (NEG); KETONE, URINE NEG (NEG); NITRITE,URINE NEG (NEG); PH, URINE 7.5 (5.0-8.5); URINE LEUKOCYTE ESTERASE LARGE (NEG)
[2017-02-02 16:59] LABS: URINE COLOR RED (YELLW/STRAW)
[2017-02-02] MEDS: fentaNYL DRIP 250 ML IV PRN (20:57)
[2017-02-02] MEDS: PROPOFOL 1000 MG/100 ML IV PRN (20:57)
[2017-02-03] VITALS (18 sets, daily range): BP systolic 119–133; BP diastolic 63–70; PULSE 93–133; RESP 11–19; TEMP 97.9–99.4; O2SAT 95–100
[2017-02-03] MEDS: PIPERACIL-TAZO 2.25 GM PREMIX 50 ML IV SCH ×3 (01:33→18:40)
[2017-02-03] MEDS: LACTATED RINGER'S 1000 ML INJ 1,000 ML IV SCH (01:33)
[2017-02-03] MEDS: CHLORHEXIDINE GLUCONATE 2 % 1 PACK (2 CLOTHS) TOP SCH (04:00)
[2017-02-03] MEDS: RESP: ALBUTEROL 2.5 MG/IPRATROPIUM 0.5 MG NEB (SCH) INH ×2 (04:07→07:35)
[2017-02-03] MEDS: DIAZEPAM 10 MG TAB PO SCH ×3 (04:39→22:50)
[2017-02-03] MEDS: HEPARIN SODIUM - SQ 10,000 UNITS/ML VIAL SQ SCH ×2 (04:39→18:41)
[2017-02-03] MEDS: QUEtiapine FUMARATE 25 MG TAB PO SCH ×3 (04:39→22:50)
[2017-02-03] MEDS: PROPOFOL 1000 MG/100 ML IV PRN (04:44)
[2017-02-03 05:47] LABS: HEMATOCRIT 29.8 % (39.0-51.0); HEMOGLOBIN 10.2 GM/DL (13.0-17.0); MEAN CELL VOLUME 99.4 FL (80.0-100.0); MEAN CORPUSCULAR HEMOGLOBIN 34.1 PG (27.0-34.0); MEAN CORPUSCULAR HGB CONC 34.3 % (32.0-36.0); MEAN PLATELET VOLUME 7.6 FL (7.0-11.0); PLATELET COUNT 144 TH/MM3 (150-450); RED CELL DISTRIBUTION WIDTH 12.5 % (11.6-17.2); WHITE BLOOD COUNT 8.8 TH/MM3 (4.0-11.0)
[2017-02-03] MEDS ORDERED: MIDAZOLAM 100 MG/100 ML INJ 100 ML IV PRN (08:45)
[2017-02-03] MEDS: DOCUSATE SODIUM 50 MG/SENNA 8.6 MG TAB PO SCH ×2 (09:00→22:50)
[2017-02-03] MEDS: PANTOPRAZOLE SODIUM 40 MG VIAL IV PUSH SCH (09:21)
[2017-02-03] MEDS: SODIUM CHLORIDE 0.9% FLUSH 10 ML FLUSH IV FLUSH SCH ×2 (09:21→20:15)
[2017-02-03] MEDS: ARTIFICIAL TEARS OPTH SOLN 15 ML BTL EACH EYE SCH ×3 (09:26→18:41)
[2017-02-03] MEDS: THIAMINE INJ 100 MG in SODIUM CHLORIDE 0.9% INJ 100 ML IV SCH (10:59)
--- NOTE | 2017-02-03 11:46 | HHI.NPPN ---
Subjective Renal Failure: Acute History of Present Illness The patient is a 46yo [place] male who was brought in 01/29 via EMS after mother became concerned that she hadn't heard from him. He was found at his house laying on floor for uncertain amount of time with a bottle of OTC sleeping pills beside him. He apparently has has suicide attempts in the past and is currently under Beltran Act. He was not a very reliable historian at time of initial consultation, but says the intentionally took sleeping pills and then mentions 81mg aspirin as well. His PMHx is positive for HTN, HLD, depression, EtOH abuse and suicidal ideation. Admitting SCr was 2.89 with eGFR at 24 that deteriorated overnight to SCr 4.11 and eGFR 16. CPK level is markedly elevated at >100,000 Denies any previous kidney issues. Only other SCr available from 07/07/15 that was 0.88 He is seen in ICU setting Interval History Patient still on ventilatory support however is quite alert and responding to questions by nodding his head. Apparently may be extubated today. Review of Systems General General Remarks Unobtainable secondary to patient's condition Objective Data Data Vital Signs Date Time Temp Pulse Resp B/P (MAP) Pulse Ox O2 Delivery O2 Flow Rate FiO2 02/03/17 10:07 100 35 02/03/17 10:00 122 02/03/17 08:00 35 02/03/17 08:00 99.4 131 14 119/64 (82) 97 02/03/17 08:00 99 Mechanical Ventilator 35 02/03/17 08:00 131 02/03/17 07:37 35 02/03/17 07:37 99 35 02/03/17 06:00 111 02/03/17 04:07 100 40 02/03/17 04:00 40 02/03/17 04:00 101 02/03/17 04:00 98.6 101 18 133/67 (89) 100 02/03/17 02:00 99 02/03/17 00:15 100 40 02/03/17 00:00 93 02/03/17 00:00 40 02/03/17 00:00 99.0 93 19 122/70 (87) 100 02/02/17 22:00 97 02/02/17 20:07 100 40 02/02/17 20:00 40 02/02/17 20:00 100 02/02/17 20:00 98.9 100 17 121/68 (85) 100 02/02/17 19:00 100 Mechanical Ventilator 40 02/02/17 18:00 109 02/02/17 16:00 40 02/02/17 16:00 121 02/02/17 16:00 98.4 02/02/17 16:00 121 14 99 02/02/17 15:04 98 40 02/02/17 15:00 113 19 98 02/02/17 15:00 113 02/02/17 14:56 114 02/02/17 14:56 114 18 102/60 (74) 97 02/02/17 14:00 119 02/02/17 14:00 119 17 97 02/02/17 13:00 116 02/02/17 13:00 116 16 96 02/02/17 12:00 98.2 02/02/17 12:00 40 02/02/17 12:00 124 17 94 02/02/17 12:00 124 02/02/17 11:52 96 40 -: 02/03/17 0355 02/02/17 0346 Microbiology 02/02/17 Aerobic Blood Culture - Preliminary, Resulted NO GROWTH IN 1 DAY 02/02/17 Anaerobic Blood Culture - Preliminary, Resulted NO GROWTH IN 1 DAY 02/02/17 Aerobic Blood Culture - Preliminary, Resulted NO GROWTH IN 1 DAY 02/02/17 Anaerobic Blood Culture - Preliminary, Resulted NO GROWTH IN 1 DAY 02/02/17 Urine Culture, Received Pending Tubes & Lines: Vas-Cath Physical Exam General Appearance: No Acute Distress, Comfortable Eyes Eye Exam: Sclera White Throat Throat Exam: Oral Mucosa [place] & Moist Neck Neck Exam: Trachea Midline Pulmonary Resp Exam: Clear Bilaterally, Breath Sounds Equal, Labored Resp Remarks Upper airway stridor audible prior to his intubation. Gastrointestinal/Abdomen GI Exam: Non-Tender, Distended Integumentary Skin Exam: Clear, Warm, Normal Turgor Extremeties Extremities Exam: Trace Edema (ankles & hands) Neurologic Neuro Exam: Alert, Awake, Sedated Assessment/Plan Discussed Condition With: Son Problem List: (1) Acute renal failure (ARF) ICD Codes: N17.9 - Acute kidney failure, unspecified Status: Acute Plan: Appears ARF secondary to rhabdomyolysis. It is not entirely clear what medication(s) he took prior to his admission but from what is gathered it appears a generic OTC sleeping agent likely diphenhydramine. Patient improving clinically however acute kidney injury from rhabdomyolysis is persisting with oliguria. Patient is still dialysis dependent. Hemodialysis today as ordered. Medications should be adjusted for patient on dialysis when required. Avoid gadolinium. (2) Drug overdose, intentional ICD Codes: T50.902A - Poisoning by unspecified drugs, medicaments and biological substances, intentional self-harm, initial encounter Status: Acute (3) Rhabdomyolysis ICD Codes: M62.82 - Rhabdomyolysis Status: Acute Plan The exam, history, and the medical decision-making described in the above note were completed with the assistance of the PAJose Enrique. I reviewed and agree with the findings presented. I attest that I had a [id number] encounter with the patient on the same day, and personally performed and documented my assessment and findings in the medical record. Problem Qualifiers (1) Acute renal failure (ARF): Qualified Codes: N17.9 - Acute kidney failure, unspecified Beth Adams MD Feb 03, 2017 11:46
[2017-02-03 13:34] LABS: BICARBONATE 28.7 MEQ/L (21.0-32.0); CALCIUM 7.7 MG/DL (8.5-10.1); CREATININE 8.89 MG/DL (0.60-1.30); RANDOM VANCOMYCIN 19.4 COMMENT
--- NOTE | 2017-02-03 14:49 | HHI.PYPN ---
Subjective Remarks Patient still with limited verbal expression due to recent extubation and some sedation. However, patient reports feeling much better, he says that he regrets his actions of overdosing, and he is motivated to pursue psychiatric treatment and counseling and get better. This moment the patient denies suicidal and homicidal ideation, he denies visual and auditory hallucinations. She is confused, but oriented in person and place, partially oriented in time. Mental Status Examination Appearance: Appropriate Consciousness: Alert Orientation: Person Motor Activity: Normal gait Speech: Unremarkable Language: Adequate Fund of Knowledge: Adequate Attention and Concentration: Adequate Memory: Unremarkable Mood: Sad Affect: Sad Thought Process & Associations: Intact Thought Content: Appropriate Hallucination Type: None Delusion Type: None Suicidal Ideation: No Suicidal Plan: No Suicidal Intention: No Homicidal Ideation: No Homicidal Plan: No Homicidal Intention: No Insight: Poor Judgment: Poor Results Labs Test 02/02/17 16:08 02/03/17 03:55 02/03/17 12:52 Urine Color RED Urine Turbidity CLOUDY Urine pH 7.5 Urine Specific [place] 1.027 Urine Protein 300 mg/dL Urine Glucose (UA) 70 mg/dL Urine Ketones NEG mg/dL Urine Occult Blood MOD Urine Nitrite NEG Urine Bilirubin NEG Urine Urobilinogen LESS THAN 2.0 MG/DL Urine Leukocyte Esterase LARGE Urine RBC /hpf Urine WBC /hpf Urine Amorphous Sediment RARE Urine Bacteria FEW /hpf Microscopic Urinalysis Comment CATH-CULTURE IND White Blood Count 8.8 TH/MM3 Red Blood Count 3.00 MIL/MM3 Hemoglobin 10.2 GM/DL Hematocrit 29.8 % Mean Corpuscular Volume 99.4 FL Mean Corpuscular Hemoglobin 34.1 PG Mean Corpuscular Hemoglobin Concent 34.3 % Red Cell Distribution Width 12.5 % Platelet Count 144 TH/MM3 Mean Platelet Volume 7.6 FL Blood Urea Nitrogen 65 MG/DL Creatinine 8.89 MG/DL Random Glucose 98 MG/DL Calcium Level 7.7 MG/DL Sodium Level 135 MEQ/L Potassium Level 4.8 MEQ/L Chloride Level 96 MEQ/L Carbon Dioxide Level 28.7 MEQ/L Anion Gap 10 MEQ/L Estimat Glomerular Filtration Rate 6 ML/MIN Random Vancomycin Level 19.4 COMMENT Date/Time Source Procedure Growth Status 02/02/17 16:32 Blood Peripheral Aerobic Blood Culture - Preliminary NO GROWTH IN 1 DAY Resulted 02/02/17 16:32 Blood Peripheral Anaerobic Blood Culture - Preliminary NO GROWTH IN 1 DAY Resulted 02/02/17 07:59 Sputum Endotracheal Gram Stain - Final Resulted 02/02/17 07:59 Sputum Culture - Preliminary Staphylococcus Aureus Resulted 02/02/17 16:08 Urine Catheterized Urine Urine Culture - Preliminary NO GROWTH IN 24 HOURS. Resulted Vitals/IOs Vital Signs Date Time Temp Pulse Resp B/P (MAP) Pulse Ox O2 Delivery O2 Flow Rate FiO2 02/03/17 12:20 94 Nasal Cannula 4.00 02/03/17 12:00 128 02/03/17 12:00 99.4 14 125/67 (86) 02/03/17 10:07 35 Intake and Output 02/03/17 02/03/17 02/04/17 08:00 16:00 00:00 Intake Total 2838 ml 1087 ml Output Total 30 ml Balance 2808 ml 1087 ml Assessment & Plan Problem List: (1) Depression ICD Codes: F32.9 - Major depressive disorder, single episode, unspecified Assessment & Plan: Patient endorses mild to moderate depressive symptoms, he denies SI. Due to limitation is communication, patient was recently extubated, no further exploration of recent suicidal attempt was done. Assessment & Plan Estimated LOS: days Justification for Cont. Inpt. Patient needs psychiatric hospitalization for appropriate assessments of depression, stabilization and safety Problem Qualifiers (1) Depression: Qualified Codes: F33.40 - Major depressive disorder, recurrent, in remission, unspecified Danny Trinh MD Feb 03, 2017 14:49
--- NOTE | 2017-02-03 14:50 | HHI.GIFU ---
Subjective Remarks Resting in bed. Extubated earlier today. No n/v. No abdominal pain. TF via NGT. (Cindy Fox) Objective Vitals I&O Vital Signs Date Time Temp Pulse Resp B/P (MAP) Pulse Ox O2 Delivery O2 Flow Rate FiO2 02/03/17 12:20 94 Nasal Cannula 4.00 02/03/17 12:14 96 Nasal Cannula 2 02/03/17 12:00 128 02/03/17 12:00 99.4 128 14 125/67 (86) 95 02/03/17 10:07 100 35 02/03/17 10:00 122 02/03/17 08:00 35 02/03/17 08:00 99.4 131 14 119/64 (82) 97 02/03/17 08:00 99 Mechanical Ventilator 35 02/03/17 08:00 131 02/03/17 07:37 35 02/03/17 07:37 99 35 02/03/17 06:00 111 02/03/17 04:07 100 40 02/03/17 04:00 40 02/03/17 04:00 101 02/03/17 04:00 98.6 101 18 133/67 (89) 100 02/03/17 02:00 99 02/03/17 00:15 100 40 02/03/17 00:00 93 02/03/17 00:00 40 02/03/17 00:00 99.0 93 19 122/70 (87) 100 02/02/17 22:00 97 02/02/17 20:07 100 40 02/02/17 20:00 40 02/02/17 20:00 100 02/02/17 20:00 98.9 100 17 121/68 (85) 100 02/02/17 19:00 100 Mechanical Ventilator 40 02/02/17 18:00 109 02/02/17 16:00 40 02/02/17 16:00 121 02/02/17 16:00 98.4 02/02/17 16:00 121 14 99 02/02/17 15:04 98 40 02/02/17 15:00 113 19 98 02/02/17 15:00 113 02/02/17 14:56 114 02/02/17 14:56 114 18 102/60 (74) 97 I/O 1002/02/17 02/02/17 02/03/17 02/03/17 02/03/17 07:00 15:00 23:00 07:00 15:00 23:00 Intake Total 1638 ml 1300 ml 1135 ml 2838 ml 1087 ml Output Total 0 ml 25 ml 30 ml Balance 1638 ml 1300 ml 1110 ml 2808 ml 1087 ml Intake Oral 0 ml 0 ml IV Total 894 ml 1300 ml 50 ml 2033 ml 1087 ml Tube Feeding 744 ml 905 ml 805 ml Other 180 ml Output Urine Total 0 ml 25 ml 30 ml # Bowel Movements 0 0 0 Laboratory Laboratory Tests Test 02/02/17 16:08 02/03/17 03:55 02/03/17 12:52 Urine Color RED Urine Turbidity CLOUDY Urine pH 7.5 Urine Specific [place] 1.027 Urine Protein 300 Urine Glucose (UA) 70 Urine Ketones NEG Urine Occult Blood MOD Urine Nitrite NEG Urine Bilirubin NEG Urine Urobilinogen LESS THAN 2.0 Urine Leukocyte Esterase LARGE Urine RBC Urine WBC Urine Amorphous Sediment RARE Urine Bacteria FEW Microscopic Urinalysis Comment CATH-CULTURE IND White Blood Count 8.8 Red Blood Count 3.00 Hemoglobin 10.2 Hematocrit 29.8 Mean Corpuscular Volume 99.4 Mean Corpuscular Hemoglobin 34.1 Mean Corpuscular Hemoglobin Concent 34.3 Red Cell Distribution Width 12.5 Platelet Count 144 Mean Platelet Volume 7.6 Blood Urea Nitrogen 65 Creatinine 8.89 Random Glucose 98 Calcium Level 7.7 Sodium Level 135 Potassium Level 4.8 Chloride Level 96 Carbon Dioxide Level 28.7 Anion Gap 10 Estimat Glomerular Filtration Rate 6 Random Vancomycin Level 19.4 Date/Time Source Procedure Growth Status 02/02/17 16:32 Blood Peripheral Aerobic Blood Culture - Preliminary NO GROWTH IN 1 DAY Resulted 02/02/17 16:32 Blood Peripheral Anaerobic Blood Culture - Preliminary NO GROWTH IN 1 DAY Resulted 02/02/17 07:59 Sputum Endotracheal Gram Stain - Final Resulted 02/02/17 07:59 Sputum Culture - Preliminary Staphylococcus Aureus Resulted 02/02/17 16:08 Urine Catheterized Urine Urine Culture - Preliminary NO GROWTH IN 24 HOURS. Resulted Imaging Last Impressions Chest X-Ray 01/31/17 0537 Signed Impressions: Service Date/Time: Tuesday, January 31, 2017 05:45 - CONCLUSION: Right middle lobe atelectasis/infiltrate. Trace left base atelectasis. Garfield Weber MD Cervical Spine CT 01/29/17 1253 Signed Impressions: Service Date/Time: Sunday, January 29, 2017 13:23 - CONCLUSION: No acute findings. Note is compression of cord or spondylolisthesis. Straightening of the cervical lordosis and nonbridging degenerative paravertebral ossification lower cervical spine. Ngiha Fraire MD Head CT 01/29/17 1252 Signed Impressions: Service Date/Time: Sunday, January 29, 2017 13:23 - CONCLUSION: Negative noncontrast CT brain. Nghia Fraire MD Abdomen Ultrasound 01/29/17 0000 Signed Impressions: Service Date/Time: Sunday, January 29, 2017 15:30 - CONCLUSION: 1. Diffusely increased hepatic echogenicity without evidence for volume loss most consistent with hepatic steatosis versus medical liver disease. 2. Trace left pleural effusion. Jos Lux MD Physical Exam HEENT: Normocephalic CHEST: CTA CARDIAC: Tachycardic ABDOMEN: Soft, nondistended, nontender; no hepatosplenomegaly; bowel sounds are present x 4 quadrants. EXTREMITIES: Generalized edema. SKIN: Normal; no rash; no jaundice. GLUE MOUNTER OPERATOR: Lethargic, generalized weakness (Cindy Fox) Assessment and Plan Plan ASSESSMENT: - Elevated LFTs, likely due to rhabdomyolysis vs. shocked liver. LFTs much improved. US (01/29/17)---> Diffusely increased hepatic echogenicity without evidence for volume loss most consistent with hepatic steatosis versus medical liver disease. Trace left pleural effusion. Hepatitis panel negative, toxicology negative for ETOH or Tylenol. AFP 2.4, Iron saturation 15.8, ALDA pending, AMA pending, ASMA pending, Celiac panel, Iron saturation 15.8%, Ceruloplasmin, alpha antitrypsin pending. LFTs much improved yesterday, recheck in am. - Elevated lipase. Worsening, 1115. Denies any nausea/vomiting/abdominal pain. Lipase 02/[address] scan abdomen and pelvis with po contrast. - Rhabdomyolysis, improving. CPK 42,765. Improved from 109,102 on 01/30. - ARF with electrolyte abnormalities. Creat 8.89. HD per renal. - Resp. Failure. S/P extubation today. - Depression with suicide attempt. Over dose on sleeping pills. Beltran act. PLAN: - Clear liquids - D/C TF - CT scan abdomen and pelvis with po contrast - CBC, CMP, Lipase in am - Avoid hepatotoxins. - Supportive care - Further recommendations to follow based on results of above. - Patient seen and examined by Dr. George and myself and this note is written on her behalf. (Cindy Fox) Cindy Fox Feb 03, 2017 14:50 Josette George MD Feb 03, 2017 18:42
[2017-02-03] MEDS: GENTAMICIN SULFATE (DIALYSIS USE ONLY) 20 MG/2 ML VIAL OTHER PRN (18:00)
[2017-02-03] MEDS: HEPARIN SODIUM - IV 10,000 UNITS/10 ML VIAL PRN (18:00)
[2017-02-03] MEDS: SODIUM CHLOR 0.9% 1000 ML INJ 1,000 ML OTHER PRN (18:00)
[2017-02-03] MEDS: FOLIC ACID 1 MG TAB PO SCH (18:40)
[2017-02-03] MEDS: ASPIRIN EC 81 MG TABEC PO SCH (18:40)
[2017-02-03] MEDS: MULTIVITAMIN TAB PO SCH (18:40)
[2017-02-03] MEDS ORDERED: DIATRIZOATE MEGLUM/DIATRIZOATE SOD 9 ML CUP PO SCH (20:15)
--- NOTE | 2017-02-03 20:36 | HHI.CCPN ---
Subjective Remarks/Hospital Course This is a 46 year old male. Date of admission 01/29/2017. Past medical history includes hypertension, dyslipidemia and depression. He is on chronic clonazepam. He presents to [facility] after being found on the ground for an unknown duration of time after taking "[id number] sleeping pills". He's been Beltran acted. Symptomatology includes tachycardia, mydriasis and appears dehydrated. Patient is afebrile. Lab workup included negative urine toxicology screen. Negative acetaminophen and EtOH. Patient has a leukocytosis of 24,000. Patient is in acute kidney injury creatinine 2.9.. Transaminases are elevated. Patient has a metabolic acidosis/Hyalgan With acetone and lactic currently pending. CT brain and C-spine negative. Chest x-ray negative. Patient is currently awake and oriented to person and place but not time. Subjective 01/30: Patient started on dexmedetomidine drip overnight and is currently on CIWA protocol receiving lorazepam going through DTs. Drinks approximately 12 beers daily. Thiamine, multivitamin and folate started. 01/31: Cr continues to worsen. now oligo-anuric. patient also now acutely delirious in etoh withdraw despite CIWA protocol. also now on NRB and clinically declining, hypoxic. initially evaluated and maintaining airway. placed dialysis catheter (see separate procedure note for details). however, patient continued to decline from a mental status standpoint as well as worsening hypoxia and was subsequently intubated (see separate procedure note for details). discussed care with nephrology- plan to initiate IHD. 02/01: [place] [address]. patient is arousable and follows commands. remains in multi-organ failure from rhabdomyolysis and intentional drug overdose. 02/02: new fever, leukocytosis. likely source aspiration pneumonia from time of etoh withdraw/delirium before intubation. sputum cultures sent, started on vancomycin and zosyn. CK down to 20k. Cr continues to rise, but no reason for emergent dialysis today, will likely need again tomorrow. more hypotensive today and requiring ivf resuscitation. clinically declining today. 02/03: initial evaluation around 11am. delayed note entry. passed SBT on my eval. met parameters and was extubated successfully. sputum growing staph, sensitivities to follow. clinically improving. now much less delirious and appears to be improving from etoh withdraw. Objective Vital Signs Date Time Temp Pulse Resp B/P (MAP) Pulse Ox O2 Delivery O2 Flow Rate FiO2 02/03/17 19:00 97 Nasal Cannula 4.00 02/03/17 18:00 133 02/03/17 16:00 97.9 11 130/70 (90) 02/03/17 10:07 35 Intake and Output 02/03/17 02/03/17 02/04/17 08:00 16:00 00:00 Intake Total 2838 ml 1087 ml 240 ml Output Total 30 ml 3020 ml Balance 2808 ml 1087 ml -2780 ml Result Diagram: 02/03/17 0355 02/03/17 1252 Imaging Last Impressions Cervical Spine CT 01/29/17 1253 Signed Impressions: Service Date/Time: Sunday, January 29, 2017 13:23 - CONCLUSION: No acute findings. Note is compression of cord or spondylolisthesis. Straightening of the cervical lordosis and nonbridging degenerative paravertebral ossification lower cervical spine. Nghia Fraire MD Head CT 01/29/17 1252 Signed Impressions: Service Date/Time: Sunday, January 29, 2017 13:23 - CONCLUSION: Negative noncontrast CT brain. Nghia Fraire MD Chest X-Ray 01/29/17 1252 Signed Impressions: Service Date/Time: Sunday, January 29, 2017 13:15 - CONCLUSION: 1. No acute cardiopulmonary disease. Jos Lux MD Abdomen Ultrasound 01/29/17 0000 Signed Impressions: Service Date/Time: Sunday, January 29, 2017 15:30 - CONCLUSION: 1. Diffusely increased hepatic echogenicity without evidence for volume loss most consistent with hepatic steatosis versus medical liver disease. 2. Trace left pleural effusion. Jos Lux MD Objective Remarks GENERAL: 46-year-old male, intubated, awake, lying in bed. SKIN: Warm and dry. No rash HEAD: Atraumatic. Normocephalic. EYES: Pupils equal and round and reactive. No scleral icterus. No injection or drainage. ENT: No nasal bleeding or discharge. Mucous membranes pink and moist. NECK: Trachea midline. No JVD. CARDIOVASCULAR: normal rate, regular rhythm. sinus by tele. RESPIRATORY: PSV 5/5/40%. equal chest rise. passed 5 second head lift. > 1.5L spontaneous breath tidal volume. GASTROINTESTINAL: Abdomen soft, non-tender, nondistended. MUSCULOSKELETAL: Extremities without significant peripheral edema. No obvious deformities. NEUROLOGICAL: RASS 0. CAM -. follows commands briskly. off sedation. A/P Assessment and Plan Assessment: 46yM s/p intentional overdose of "sleeping pills" (unconfirmed specific kind), with severe rhabdomyolysis, oligo-anuric acute kidney injury requiring renal replacement therapy, acute hypoxic respiratory failure requiring intubation and mechanical ventilation and acute agitated delirium secondary to alcohol withdraw. Clinically improving. extubated. Cr still rising and will need ongoing Renal replacement therapy. Neuro/Psych: Intentional overdose on sleeping pills". Possible diphenhydramine Depression EtOH use Agitated Delirium EtOH withdraw Checked ammonia level secondary to elevated transaminases. 35 Patient has been Beltran acted. Psych evaluation Dr. Elias recommends inpatient once cleared medically Holding citalopram 40 mg daily and bupropion 150 mg daily in light of altered mental status Holding clonazepam 1 mg daily light of altered mental status Thiamine, folate and multivitamin daily. scheduled valium 10mg po q8hr for withdraws ativan 2mg iv q15m for breakthrough withdraw symptoms seroquel 50mg po q8hr for agitated delirium haldol 5mg iv q4h prn for breakthrough agitation holding clonidine while borderline hypotensive. will plan to start weaning seroquel and valium tomorrow now that his etoh withdraw and delirium is improving. CT brain 01/29 revealed no acute intracranial findings CT C-spine 01/29 negative for acute findings. Straightened lordosis. CV: Sinus tachycardia Severe Sepsis History dyslipidemia Holding home medications of rosuvastatin 40 mg daily in light of elevated liver function tests Holding home medication valsartan 320 mg daily light of acute kidney injury. hold metoprolol 50 mg twice a day. Holding amlodipine 2.5 mill grams by mouth daily. Resume when clinically indicated Okay to resume aspirin 81 mg daily sepsis clinically improving today. Resp: Acute hypoxic and hypercarbic respiratory failure - improving. Aspiration Pneumonia s/p intubation 01/31 for acute and worsening hypoxemia nebs abx sputum culture growing staph. aspiration event prior to intubation during etoh withdraw. - aggressive pulmonary toilet. PT consult. OOB to chair. GI: Elevated transaminases Rhabdomyolysis - acute, severe, and persistent. Hepatic steatosis Elevated Lipase CPK greater than 100,000 on admission. Avoid hepatotoxic drugs. Statin will be held. Abdominal ultrasound revealed hepatomegaly likely hepatic steatosis advance diet as tolerated. Pantoprazole for GI prophylaxis Docusate sodium/senna for bowel regimen Hepatitis panel negative. GI consulted elevated lipase unclear if pancreatitis. trend : Continue Barros catheter today. can consider removal tomorrow: persistent oliguria. Placed Barros catheter for accurate I's and O's in critically ill patient. Endo: Sliding-scale insulin if indicated to maintain euglycemia Renal: Acute kidney injury - persistent. Anion gap metabolic acidosis/respiratory alkalosis compensation - resolved. Renal ultrasound/revealed no hydronephrosis urine electrolytes and eosinophils negative Avoid nephrotoxic medications Lactate is clear Nephrology has been consulted Monitor urine pH renal replacement therapy guided per nephrology. Heme: ID: Aspiration pneumonia Severe sepsis blood, urine, sputum cultures sputum growing staph, sensitivities to follow. pneumonia likely source. continue vancomycin and zosyn. narrow spectrum once sensitivities are back. MSK: PT evaluate and treat FEN: Hyponatremia Hyperphosphatemia Replace electrolytes as clinically indicated Access -01/31 Right IJ Dialysis catheter Prophylaxis - GI - pantoprazole - DVT - SCD/heparin subcutaneous dispo: transfer to hospitalist services. Benny Nieves MD Feb 03, 2017 20:36
[2017-02-03] MEDS ORDERED: VANCOMYCIN 1,500 MG/NS 500 ML IV ONE ×2 (21:00)
[2017-02-04] VITALS (22 sets, daily range): BP systolic 115–170; BP diastolic 67–91; PULSE 106–129; RESP 8–19; TEMP 97.5–99; O2SAT 90–99
[2017-02-04] MEDS: PIPERACIL-TAZO 2.25 GM PREMIX 50 ML IV SCH ×4 (01:48→23:22)
--- NOTE | 2017-02-04 01:52 | RADRPT ---
EXAM DATE/TIME: 02/04/2017 01:20 [facility] COMPARISON: No previous studies available for comparison. INDICATIONS : Elevated Lipase and LFT. ORAL CONTRAST: Partial prescribed oral contrast ingested. RADIATION DOSE: 9.76 CTDIvol (mGy) MEDICAL HISTORY : Hypertension. Renal failure. SURGICAL HISTORY : NG tube. ENCOUNTER: Initial ACUITY: 1 day PAIN SCALE: 4/10 LOCATION: Bilateral abdomen TECHNIQUE: Volumetric scanning of the abdomen and pelvis was performed. Using automated exposure control and ad justment of the mA and/or kV according to patient size, radiation dose was kept as low as reasonably achievable to obtain optimal diagnostic quality images. DICOM format image data is available electro nically for review and comparison. FINDINGS: LOWER LUNGS: Consolidative changes in the posterior lung bases bilaterally right worse than left. LIVER: Homogeneous density without lesion. There is no dilation of the biliary tree. No calcified [place] es. SPLEEN: Normal size without lesion. PANCREAS: Within normal limits. KIDNEYS: Normal in size and shape. There is no mass, stone, or hydronephrosis. ADRENAL GLANDS: Within normal limits. VASCULAR: There is no aortic aneurysm. Retroaortic left renal vein BOWEL/MESENTERY: A gastric tube in the stomach. No dilated bowel. No abnormal wall thickening or inflammatory changes. ABDOMINAL WALL: Within normal limits. RETROPERITONEUM: There is no lymphadenopathy. BLADDER: Decompressed with Barros catheter. REPRODUCTIVE: Within normal limits. INGUINAL: There is no lymphadenopathy or hernia. MUSCULOSKELETAL: Within normal limits for patient age. CONCLUSION: No acute CT findings in the abdomen or pelvis. Garfield Schulz MD on February 04, 2017 at 1:47 Board Certified Radiologist. This report was verified electronically.
[2017-02-04] MEDS: CHLORHEXIDINE GLUCONATE 2 % 1 PACK (2 CLOTHS) TOP SCH (04:00)
[2017-02-04] MEDS: HEPARIN SODIUM - SQ 10,000 UNITS/ML VIAL SQ SCH ×2 (05:03→15:36)
[2017-02-04] MEDS: QUEtiapine FUMARATE 25 MG TAB PO SCH ×3 (05:03→20:42)
[2017-02-04] MEDS: DIAZEPAM 10 MG TAB PO SCH ×3 (05:03→20:42)
[2017-02-04 05:08] LABS: AUTOMATED NEUTROPHIL # 8.3 TH/MM3 (1.8-7.7); BASOPHIL % 0.3 % (0.0-2.0); EOSINOPHIL # 0.2 TH/MM3 (0-0.4); EOSINOPHIL % 2.1 % (0.0-4.0); HEMATOCRIT 31.1 % (39.0-51.0); HEMOGLOBIN 10.7 GM/DL (13.0-17.0); LYMPH % 5.3 % (9.0-44.0); LYMPHOCYTE # 0.6 TH/MM3 (1.0-4.8); MEAN CELL VOLUME 97.2 FL (80.0-100.0); MEAN CORPUSCULAR HEMOGLOBIN 33.5 PG (27.0-34.0); MEAN CORPUSCULAR HGB CONC 34.5 % (32.0-36.0); MEAN PLATELET VOLUME 6.8 FL (7.0-11.0); MONO % 13.8 % (0.0-8.0); MONOCYTE # 1.5 TH/MM3 (0-0.9); NEUT % 78.5 % (16.0-70.0); PLATELET COUNT 179 TH/MM3 (150-450); RED CELL DISTRIBUTION WIDTH 12.6 % (11.6-17.2); WHITE BLOOD COUNT 10.5 TH/MM3 (4.0-11.0)
[2017-02-04 05:42] LABS: ALT (GPT) 137 U/L (12-78); AST (GOT) 171 U/L (15-37); BICARBONATE 30.2 MEQ/L (21.0-32.0); BLOOD UREA NITROGEN 48 MG/DL (7-18); CHLORIDE 95 MEQ/L (98-107); CREATININE 7.05 MG/DL (0.60-1.30); GLOMERULAR FILTRATION RATE 8 ML/MIN (>89); GLUCOSE,RANDOM 96 MG/DL (74-106); LIPASE 702 U/L (73-393); SODIUM (NA) 136 MEQ/L (136-145)
[2017-02-04 05:44] LABS: ALKALINE PHOSPHATASE 106 U/L (45-117); TOTAL BILIRUBIN ADULT 0.7 MG/DL (0.2-1.0); TOTAL PROTEIN 5.9 GM/DL (6.4-8.2)
--- NOTE | 2017-02-04 08:31 | HHI.GIFU ---
Subjective Remarks Resting in bed. Denies any nausea, vomiting, abdominal pain. States he was drinking liquids/water and tolerating this fine. Objective Vitals I&O Vital Signs Date Time Temp Pulse Resp B/P (MAP) Pulse Ox O2 Delivery O2 Flow Rate FiO2 02/04/17 06:00 109 02/04/17 04:00 106 02/04/17 04:00 97.8 106 16 155/80 (105) 97 02/04/17 03:31 98 Nasal Cannula 2.00 02/04/17 02:00 114 02/04/17 00:33 95 Nasal Cannula 2.00 02/04/17 00:00 98.4 120 18 163/89 (113) 96 02/04/17 00:00 120 02/03/17 22:00 118 02/03/17 21:01 96 Nasal Cannula 2.00 02/03/17 20:00 98.8 124 14 129/63 (85) 96 02/03/17 20:00 124 02/03/17 19:00 97 Nasal Cannula 4.00 02/03/17 18:00 133 02/03/17 16:00 97.9 126 11 130/70 (90) 96 02/03/17 16:00 126 02/03/17 14:00 128 02/03/17 12:20 94 Nasal Cannula 4.00 02/03/17 12:14 96 Nasal Cannula 2 02/03/17 12:00 128 02/03/17 12:00 99.4 128 14 125/67 (86) 95 02/03/17 10:07 100 35 02/03/17 10:00 122 I/O 02/03/17 02/03/17 02/03/17 02/04/17 02/04/17 02/04/17 07:00 15:00 23:00 07:00 15:00 23:00 Intake Total 2838 ml 1087 ml 820 ml 1010 ml Output Total 30 ml 3020 ml 110 ml Balance 2808 ml 1087 ml -2200 ml 900 ml Intake Oral 0 ml IV Total 2033 ml 1087 ml 580 ml 50 ml Tube Feeding 805 ml 180 ml Other 60 ml 960 ml Output Urine Total 30 ml 20 ml 10 ml Emesis 100 ml Hemodialysis 3000 ml # Bowel Movements 0 Laboratory Laboratory Tests Test 02/03/17 12:52 02/04/17 05:00 Blood Urea Nitrogen 65 48 Creatinine 8.89 7.05 Random Glucose 98 96 Calcium Level 7.7 8.0 Sodium Level 135 136 Potassium Level 4.8 5.3 Chloride Level 96 95 Carbon Dioxide Level 28.7 30.2 Anion Gap 10 11 Estimat Glomerular Filtration Rate 6 8 Random Vancomycin Level 19.4 White Blood Count 10.5 Red Blood Count 3.20 Hemoglobin 10.7 Hematocrit 31.1 Mean Corpuscular Volume 97.2 Mean Corpuscular Hemoglobin 33.5 Mean Corpuscular Hemoglobin Concent 34.5 Red Cell Distribution Width 12.6 Platelet Count 179 Mean Platelet Volume 6.8 Neutrophils (%) (Auto) 78.5 Lymphocytes (%) (Auto) 5.3 Monocytes (%) (Auto) 13.8 Eosinophils (%) (Auto) 2.1 Basophils (%) (Auto) 0.3 Neutrophils # (Auto) 8.3 Lymphocytes # (Auto) 0.6 Monocytes # (Auto) 1.5 Eosinophils # (Auto) 0.2 Basophils # (Auto) 0.0 CBC Comment AUTO DIFF Total Protein 5.9 Albumin 2.0 Alkaline Phosphatase 106 Aspartate Amino Transf (AST/SGOT) 171 Alanine Aminotransferase (ALT/SGPT) 137 Total Bilirubin 0.7 Lipase 702 Date/Time Source Procedure Growth Status 02/02/17 16:32 Blood Peripheral Aerobic Blood Culture - Preliminary NO GROWTH IN 1 DAY Resulted 02/02/17 16:32 Blood Peripheral Anaerobic Blood Culture - Preliminary NO GROWTH IN 1 DAY Resulted 02/02/17 07:59 Sputum Endotracheal Gram Stain - Final Resulted 02/02/17 07:59 Sputum Culture - Preliminary Staphylococcus Aureus Resulted 02/02/17 16:08 Urine Catheterized Urine Urine Culture - Preliminary NO GROWTH IN 24 HOURS. Resulted Imaging Last Impressions Abdomen/Pelvis CT 02/03/17 0000 Signed Impressions: Service Date/Time: Saturday, February 04, 2017 01:20 - CONCLUSION: No acute CT findings in the abdomen or pelvis. Garfield Schulz MD Chest X-Ray 01/31/17 0537 Signed Impressions: Service Date/Time: Tuesday, January 31, 2017 05:45 - CONCLUSION: Right middle lobe atelectasis/infiltrate. Trace left base atelectasis. Garfield Weber MD Cervical Spine CT 01/29/17 1253 Signed Impressions: Service Date/Time: Sunday, January 29, 2017 13:23 - CONCLUSION: No acute findings. Note is compression of cord or spondylolisthesis. Straightening of the cervical lordosis and nonbridging degenerative paravertebral ossification lower cervical spine. Nghia Fraire MD Head CT 01/29/17 1252 Signed Impressions: Service Date/Time: Sunday, January 29, 2017 13:23 - CONCLUSION: Negative noncontrast CT brain. Nghia Fraire MD Abdomen Ultrasound 01/29/17 0000 Signed Impressions: Service Date/Time: Sunday, January 29, 2017 15:30 - CONCLUSION: 1. Diffusely increased hepatic echogenicity without evidence for volume loss most consistent with hepatic steatosis versus medical liver disease. 2. Trace left pleural effusion. Jos Lux MD Physical Exam HEENT: Normocephalic CHEST: CTA CARDIAC: Tachycardic- 109 ABDOMEN: Soft, nondistended, nontender; no hepatosplenomegaly; bowel sounds are present x 4 quadrants. EXTREMITIES: Generalized edema. SKIN: Normal; no rash; no jaundice. MEDICAL INSURANCE CODING SPECIALIST: Lethargic, generalized weakness, flat affect Assessment and Plan Plan ASSESSMENT: - Elevated LFTs, likely due to rhabdomyolysis vs. shocked liver. LFTs much improved. US (01/29/17)---> Diffusely increased hepatic echogenicity without evidence for volume loss most consistent with hepatic steatosis versus medical liver disease. Trace left pleural effusion. Hepatitis panel negative, toxicology negative for ETOH or Tylenol. AFP 2.4, Iron saturation 15.8, ALDA pending, AMA pending, ASMA pending, Celiac panel, Iron saturation 15.8%, Ceruloplasmin, alpha antitrypsin pending. LFTs improving, T bili 0.7, AST 171, ALT 137, alkaline phosphatase 106 - Elevated lipase, unclear significance. CT scan abdomen and pelvis without IV contrast (02/04/17)---> No acute CT findings in the abdomen or pelvis. Lipase improved 702 today. He denies any nausea/vomiting or abdominal pain. Will advance diet to low fat and monitor. - Rhabdomyolysis, improving. CPK 21,672 (02/02). Improved from 109,102 on . - ARF with electrolyte abnormalities. Creat 7.05. HD per renal. - Resp. Failure. S/P extubation (02/03). - Depression with suicide attempt. Over dose on sleeping pills. Beltran act. PLAN: - Low fat diet - D/C NGT - CMP, Lipase in am - Avoid hepatotoxins. - Supportive care - Further recommendations to follow based on results of above. - Patient seen and examined by Dr. George and myself and this note is written on her behalf. Cindy Fox Feb 04, 2017 08:31
[2017-02-04 08:34] LABS: BANDS 14 % (0-6); LYMPHOCYTES 7 % (9-44); METAMYELOCYTES 1 % (0-1); MONOCYTES 11 % (0-8); MYELOCYTES 1 % (0-0); NEUTROPHIL # MANUAL DIFF 8.4 TH/MM3 (1.8-7.7); POLYS (SEG NEUTROPHILS) 64 % (16-70)
[2017-02-04] MEDS: MULTIVITAMIN TAB PO SCH (08:50)
[2017-02-04] MEDS: ASPIRIN EC 81 MG TABEC PO SCH (08:50)
[2017-02-04] MEDS: FOLIC ACID 1 MG TAB PO SCH (08:50)
[2017-02-04] MEDS: SODIUM CHLORIDE 0.9% FLUSH 10 ML FLUSH IV FLUSH SCH ×2 (08:50→20:41)
[2017-02-04] MEDS: PANTOPRAZOLE SODIUM 40 MG VIAL IV PUSH SCH (08:50)
[2017-02-04] MEDS: DOCUSATE SODIUM 50 MG/SENNA 8.6 MG TAB PO SCH ×2 (08:50→20:42)
[2017-02-04] MEDS: ARTIFICIAL TEARS OPTH SOLN 15 ML BTL EACH EYE SCH ×3 (09:00→18:00)
--- NOTE | 2017-02-04 10:07 | HHI.PR ---
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 Date of admission 01/29/2017. Past medical history includes hypertension, dyslipidemia and depression. He is on chronic clonazepam. He presents to [facility] after being found on the ground for an unknown duration of time after taking "[id number] sleeping pills". He's been Beltran acted. Symptomatology includes tachycardia, mydriasis and appears dehydrated. Patient is afebrile. Lab workup included negative urine toxicology screen. Negative acetaminophen and EtOH. Patient has a leukocytosis of 24,000. Patient is in acute kidney injury creatinine 2.9.. Transaminases are elevated. Patient has a metabolic acidosis/Hyalgan With acetone and lactic currently pending. CT brain and C-spine negative. Chest x-ray negative. 01/30: Patient started on dexmedetomidine drip overnight and is currently on CIWA protocol receiving lorazepam going through DTs. Drinks approximately 12 beers daily. Thiamine, multivitamin and folate started. 01/31: Cr continues to worsen. now oligo-anuric. patient also now acutely delirious in etoh withdraw despite CIWA protocol. also now on NRB and clinically declining, hypoxic. initially evaluated and maintaining airway. placed dialysis catheter (see separate procedure note for details). however, patient continued to decline from a mental status standpoint as well as worsening hypoxia and was subsequently intubated (see separate procedure note for details). discussed care with nephrology- plan to initiate IHD. 02/01: [place] [address]. patient is arousable and follows commands. remains in multi-organ failure from rhabdomyolysis and intentional drug overdose. 02/02: new fever, leukocytosis. likely source aspiration pneumonia from time of etoh withdraw/delirium before intubation. sputum cultures sent, started on vancomycin and zosyn. CK down to 20k. Cr continues to rise, but no reason for emergent dialysis today, will likely need again tomorrow. more hypotensive today and requiring ivf resuscitation. clinically declining today. 02/03: initial evaluation around 11am. delayed note entry. passed SBT on my eval. met parameters and was extubated successfully. sputum growing staph, sensitivities to follow. clinically improving. now much less delirious and appears to be improving from etoh withdraw. Hospitalist Notes: 02/04: Seen in his bedroom in the presence of nurse Miss Guaman, patient stable today recommended by Nephrology specialist for Hemodialysis due to Hyperkalemia and significant edema, likely acute renal failure secondary to Rhabdomyolysis not sure which kind of drug the patient took before this admission. no nausea, vomit or diarrhea, feeling better. Objective Vital Signs Date Time Temp Pulse Resp B/P (MAP) Pulse Ox O2 Delivery O2 Flow Rate FiO2 02/04/17 06:00 109 02/04/17 04:00 106 02/04/17 04:00 97.8 106 16 155/80 (105) 97 02/04/17 03:31 98 Nasal Cannula 2.00 02/04/17 02:00 114 02/04/17 00:33 95 Nasal Cannula 2.00 02/04/17 00:00 98.4 120 18 163/89 (113) 96 02/04/17 00:00 120 02/03/17 22:00 118 02/03/17 21:01 96 Nasal Cannula 2.00 02/03/17 20:00 98.8 124 14 129/63 (85) 96 02/03/17 20:00 124 02/03/17 19:00 97 Nasal Cannula 4.00 02/03/17 18:00 133 02/03/17 16:00 97.9 126 11 130/70 (90) 96 02/03/17 16:00 126 02/03/17 14:00 128 02/03/17 12:20 94 Nasal Cannula 4.00 02/03/17 12:14 96 Nasal Cannula 2 02/03/17 12:00 128 02/03/17 12:00 99.4 128 14 125/67 (86) 95 02/03/17 10:07 100 35 02/03/17 10:00 122 I/O 02/03/17 02/03/17 02/03/17 02/04/17 02/04/17 02/04/17 07:00 15:00 23:00 07:00 15:00 23:00 Intake Total 2838 ml 1087 ml 820 ml 1010 ml Output Total 30 ml 3020 ml 110 ml Balance 2808 ml 1087 ml -2200 ml 900 ml Intake Oral 0 ml IV Total 2033 ml 1087 ml 580 ml 50 ml Tube Feeding 805 ml 180 ml Other 60 ml 960 ml Output Urine Total 30 ml 20 ml 10 ml Emesis 100 ml Hemodialysis 3000 ml # Bowel Movements 0 Result Diagram: 02/04/17 0500 02/04/17 0500 Imaging Last Impressions Abdomen/Pelvis CT 02/03/17 0000 Signed Impressions: Service Date/Time: Saturday, February 04, 2017 01:20 - CONCLUSION: No acute CT findings in the abdomen or pelvis. Garifeld Schulz MD Chest X-Ray 01/31/17 0537 Signed Impressions: Service Date/Time: Tuesday, January 31, 2017 05:45 - CONCLUSION: Right middle lobe atelectasis/infiltrate. Trace left base atelectasis. Garfield Weber MD Cervical Spine CT 01/29/17 1253 Signed Impressions: Service Date/Time: Sunday, January 29, 2017 13:23 - CONCLUSION: No acute findings. Note is compression of cord or spondylolisthesis. Straightening of the cervical lordosis and nonbridging degenerative paravertebral ossification lower cervical spine. Nghia Fraire MD Head CT 01/29/17 1252 Signed Impressions: Service Date/Time: Sunday, January 29, 2017 13:23 - CONCLUSION: Negative noncontrast CT brain. Nghia Fraire MD Abdomen Ultrasound 01/29/17 0000 Signed Impressions: Service Date/Time: Sunday, January 29, 2017 15:30 - CONCLUSION: 1. Diffusely increased hepatic echogenicity without evidence for volume loss most consistent with hepatic steatosis versus medical liver disease. 2. Trace left pleural effusion. Jos Lux MD Procedures Endotracheal Intubation and Extubation Hemodialysis. Other Results Laboratory Tests Test 01/29/17 13:00 01/29/17 15:00 01/29/17 15:23 01/29/17 18:00 Toxic Granulation 2+ Fibrinogen 275 mg/dL Thyroid Stimulating Hormone 3rd Gen 3.590 uIU/ML Salicylates Level LESS THAN 1.7 MG/DL Acetaminophen Level LESS THAN 2.0 MCG/ML Ethyl Alcohol Level LESS THAN 3 MG/DL B-Hydroxybutyrate 0.29 MMOL/L Urine Eosinophils NONE SEEN /HPF Urine Random Creatinine 101.6 MG/DL Urine Random Sodium 46 MEQ/L Urine Opiates Screen NEG Urine Barbiturates Screen NEG Urine Amphetamines Screen NEG Urine Benzodiazepines Screen NEG Urine Cocaine Screen NEG Urine Cannabinoids Screen NEG Blood Gas Liter Flow 3 L/M Nasal Screen MRSA (PCR) MRSA NOT DETECTED Test 01/30/17 04:08 01/30/17 17:16 01/31/17 04:44 01/31/17 07:53 Hepatitis A IgM Antibody NEGATIVE Hepatitis B Surface Antigen NEGATIVE Hepatitis B Core IgM Antibody NEGATIVE Hepatitis C Antibody NEGATIVE Troponin I 0.47 NG/ML Prothrombin Time 9.9 SEC Prothromb Time International Ratio 0.9 RATIO Activated Partial Thromboplast Time 28.3 SEC Blood Urea Nitrogen 50 MG/DL Creatinine 6.36 MG/DL Random Glucose 94 MG/DL Total Protein 5.4 GM/DL Albumin 2.4 GM/DL Calcium Level 6.8 MG/DL Phosphorus Level 7.1 MG/DL Magnesium Level 2.1 MG/DL Alkaline Phosphatase 61 U/L Aspartate Amino Transf (AST/SGOT) 1710 U/L Alanine Aminotransferase (ALT/SGPT) 373 U/L Total Bilirubin 0.6 MG/DL Sodium Level 135 MEQ/L Potassium Level 4.3 MEQ/L Chloride Level 97 MEQ/L Carbon Dioxide Level 24.7 MEQ/L Ammonia 29 MCMOL/L Amylase Level 75 U/L Lactic Acid Level 1.2 mmol/L Test 01/31/17 10:59 02/01/17 09:00 02/02/17 03:46 02/02/17 16:08 Blood Gas Puncture Site RT RADIAL Blood Gas Patient Temperature 98.6 Blood Gas HCO3 22 mmol/L Blood Gas Base Excess -2.2 mmol/L Blood Gas Oxygen Saturation 98 % Arterial Blood pH 7.37 Arterial Blood Partial Pressure CO2 40 mmHg Arterial Blood Partial Pressure O2 328 mmHg Arterial Blood Oxygen Content 17.5 Vol % Arterial Blood Carboxyhemoglobin 0.5 % Arterial Blood Methemoglobin 1.4 % Blood Gas Hemoglobin 12.1 G/DL Oxygen Delivery Device VENTILATOR Blood Gas Ventilator Setting CPAP:PS10/PEEP+5 Blood Gas Inspired Oxygen 100 % Protein Corrected Calcium 7.9 MG/DL Iron Level 30 MCG/DL Total Iron Binding Capacity 190 MCG/DL Percent Iron Saturation 15.8 % Ferritin 3127 NG/ML Blood Urea Nitrogen 46 MG/DL Creatinine 7.10 MG/DL Random Glucose 117 MG/DL Total Protein 6.3 GM/DL Albumin 2.3 GM/DL Calcium Level 8.0 MG/DL Alkaline Phosphatase 93 U/L Aspartate Amino Transf (AST/SGOT) 437 U/L Alanine Aminotransferase (ALT/SGPT) 253 U/L Total Bilirubin 0.6 MG/DL Direct Bilirubin 0.3 MG/DL Sodium Level 137 MEQ/L Potassium Level 4.1 MEQ/L Chloride Level 96 MEQ/L Carbon Dioxide Level 30.3 MEQ/L Indirect Bilirubin 0.3 MG/DL Total Creatine Kinase 68962 U/L Creatine Kinase MB 8.4 NG/ML Creatine Kinase MB % 0.0 % Tumor Marker Alpha Fetoprotein 2.4 NG/ML Anti-Nuclear Antibody Screen NEG Urine Color RED Urine Turbidity CLOUDY Urine pH 7.5 Urine Specific [place] 1.027 Urine Protein 300 mg/dL Urine Glucose (UA) 70 mg/dL Urine Ketones NEG mg/dL Urine Occult Blood MOD Urine Nitrite NEG Urine Bilirubin NEG Urine Urobilinogen LESS THAN 2.0 MG/DL Urine Leukocyte Esterase LARGE Urine RBC /hpf Urine WBC /hpf Urine Amorphous Sediment RARE Urine Bacteria FEW /hpf Microscopic Urinalysis Comment CATH-CULTURE IND Test 02/03/17 12:52 02/04/17 05:00 Random Vancomycin Level 19.4 COMMENT White Blood Count 10.5 TH/MM3 Red Blood Count 3.20 MIL/MM3 Hemoglobin 10.7 GM/DL Hematocrit 31.1 % Mean Corpuscular Volume 97.2 FL Mean Corpuscular Hemoglobin 33.5 PG Mean Corpuscular Hemoglobin Concent 34.5 % Red Cell Distribution Width 12.6 % Platelet Count 179 TH/MM3 Mean Platelet Volume 6.8 FL Neutrophils (%) (Auto) 78.5 % Lymphocytes (%) (Auto) 5.3 % Monocytes (%) (Auto) 13.8 % Eosinophils (%) (Auto) 2.1 % Basophils (%) (Auto) 0.3 % Neutrophils # (Auto) 8.3 TH/MM3 Lymphocytes # (Auto) 0.6 TH/MM3 Monocytes # (Auto) 1.5 TH/MM3 Eosinophils # (Auto) 0.2 TH/MM3 Basophils # (Auto) 0.0 TH/MM3 CBC Comment AUTO DIFF Differential Total Cells Counted 100 Neutrophils % (Manual) 64 % Band Neutrophils % 14 % Lymphocytes % 7 % Monocytes % 11 % Eosinophils % 2 % Neutrophils # (Manual) 8.4 TH/MM3 Metamyelocytes 1 % Myelocytes 1 % Differential Comment FINAL DIFF MANUAL Platelet Estimate NORMAL Platelet Morphology Comment NORMAL Red Cell Morphology Comment NORMAL Blood Urea Nitrogen 48 MG/DL Creatinine 7.05 MG/DL Random Glucose 96 MG/DL Total Protein 5.9 GM/DL Albumin 2.0 GM/DL Calcium Level 8.0 MG/DL Alkaline Phosphatase 106 U/L Aspartate Amino Transf (AST/SGOT) 171 U/L Alanine Aminotransferase (ALT/SGPT) 137 U/L Total Bilirubin 0.7 MG/DL Sodium Level 136 MEQ/L Potassium Level 5.3 MEQ/L Chloride Level 95 MEQ/L Carbon Dioxide Level 30.2 MEQ/L Anion Gap 11 MEQ/L Estimat Glomerular Filtration Rate 8 ML/MIN Lipase 702 U/L Objective Remarks GENERAL: No acute distress. SKIN: Warm and dry. No rash HEAD: Atraumatic. Normocephalic. EYES: Pupils equal and round and reactive. No scleral icterus. No injection or drainage. ENT: No nasal bleeding or discharge. Mucous membranes pink and moist. NECK: Trachea midline. No JVD. CARDIOVASCULAR: normal rate, regular rhythm. sinus by tele. RESPIRATORY: Decreased breath sounds bilateral but no wheezing or crackles. GASTROINTESTINAL: Abdomen soft, non-tender, nondistended. MUSCULOSKELETAL: No clubbing cyanosis has Edema 2+ NEUROLOGICAL: RASS 0. CAM -. follows commands briskly. off sedation. Medications and IVs Current Medications Medications (Trade) Dose Ordered Sig/Dinesh Route Start Time Stop Time Status Last Admin (NS Flush) 2 ml UNSCH PRN IVF 01/29/17 13:00 01/29/17 14:01 (NS Flush) 2 ml UNSCH PRN IV FLUSH 01/29/17 16:00 (NS Flush) 2 ml BID IV FLUSH 01/29/17 21:00 02/04/17 08:50 (Protonix Inj) 40 mg DAILY IV PUSH 01/30/17 09:00 02/04/17 08:50 (Tears Naturale Opth Soln) 1 drop TID EACH EYE 01/29/17 18:00 02/03/17 18:41 (Zofran Inj) 4 mg Q6H PRN IV PUSH 01/29/17 16:00 02/03/17 23:07 (Albuterol Neb) 2.5 mg Q2HR NEB PRN INH 01/29/17 16:00 01/31/17 05:13 (Heparin Inj) 5,000 units Q12H SQ 01/29/17 16:00 02/04/17 05:03 Miscellaneous Information 1 Q361D XX 01/29/17 15:30 (Chlorhexidine 2% Cloth) Taper DAILY@04 TOP 01/30/17 04:00 01/26/18 03:59 02/03/17 04:00 (Chlorhexidine 2% Cloth) 3 pack UNSCH PRN TOP 01/29/17 15:30 (Nakia-Colace) 1 tab BID PO 01/29/17 21:00 02/04/17 08:50 (Milk Of Magnesia Liq) 30 ml Q12H PRN PO 01/29/17 16:00 02/02/17 20:56 (Senokot) 17.2 mg Q12H PRN PO 01/29/17 16:00 02/02/17 20:56 (Dulcolax Supp) 10 mg DAILY PRN RECTAL 01/29/17 16:00 (Lactulose Liq) 30 ml DAILY PRN PO 01/29/17 16:00 02/03/17 04:44 Thiamine HCl 100 mg/Sodium Chloride 101 ml @ 101 mls/hr DAILY IV 01/30/17 09:00 02/03/17 10:59 (Folate) 1 mg DAILY PO 01/30/17 09:00 02/04/17 08:50 (Theragran) 1 tab DAILY PO 01/30/17 09:00 02/04/17 08:50 (Ecotrin Ec) 81 mg DAILY PO 01/30/17 09:00 02/04/17 08:50 Sodium Chloride 1,000 ml @ 0 mls/hr Q0M PRN OTHER 01/31/17 09:58 02/03/17 18:00 (Heparin Inj) 8,000 units UNSCH PRN IV FLUSH 01/31/17 10:00 Sodium Chloride 1,000 ml @ 200 mls/hr Q5H PRN IV 01/31/17 09:58 Sodium Chloride 1,000 ml @ 0 mls/hr Q0M PRN OTHER 01/31/17 09:58 (Mannitol Inj) 12.5 gm UNSCH PRN IV 01/31/17 10:00 Albumin Human 100 ml @ 60 mls/hr UNSCH PRN IV 01/31/17 10:00 (NS Flush) 5 ml UNSCH PRN IV FLUSH 01/31/17 10:00 (Heparin Inj) UNSCH PRN .XX 01/31/17 10:00 10/30/17 18:00 (Gentamicin (Dialysis) Inj) 20 mg UNSCH PRN OTHER 01/31/17 10:00 02/03/17 18:00 (Zofran Inj) 4 mg UNSCH PRN IV PUSH 01/31/17 10:00 (Tylenol) 650 mg UNSCH PRN PO 01/31/17 10:00 02/02/17 05:50 (Benadryl) 25 mg UNSCH PRN PO 01/31/17 10:00 (Nitrostat Sl) 0.4 mg UNSCH PRN SL 01/31/17 10:00 (Gelfoam 12 Mm/7 Mm Top) 1 foam UNSCH PRN TOP 01/31/17 10:00 (Valium) 10 mg Q8HR PO 01/31/17 17:45 02/04/17 05:03 (Ativan Inj) 2 mg Q15M PRN IV PUSH 01/31/17 17:45 (Haldol Inj) 5 mg Q4H PRN IV 01/31/17 17:45 (SEROquel) 50 mg Q8HR PO 01/31/17 17:45 02/04/17 05:03 (Catapres) 0.3 mg Q8HR PO 01/31/17 17:45 Future Hold 02/01/17 21:12 Piperacillin Sod/ Tazobactam Sod 50 ml @ 100 mls/hr Q8H IV 02/02/17 16:00 02/04/17 08:49 Pharmacy Profile Note 0 ml @ 0 mls/hr UNSCH OTHER 02/02/17 07:30 A/P Assessment and Plan 1. Intentional Overdose on sleeping pills, Possible diphenhydramine, Depression , EtOH use, Agitated Delirium, EtOH withdrawal, Psychiatry specialist following, inpatient recommended once cleared, [facility] protocol. CT brain 01/29 revealed no acute intracranial findings CT C-spine 01/29 negative for acute findings. Straightened lordosis. 2. Sinus tachycardia severe Sepsis continue Zosyn and Vancomycin. no fever no Leukocytosis. sputum culture positive for Staph Aureus most probable contaminant. Dyslipidemia On hold home medicines on rosuvastatin due to slight elevation of liver function tests, held valsartan due to acute kidney injury held Metoprolol 50 mg BID, and Amlodipine, resumed Aspirin. 3. Acute Hypoxic and Hypercarbic Respiratory failure Improving, Aspiration Pneumonia status post VDRF Improved. continue antibiotics, PT following 4. Elevated transaminases, Rhabdomyolysis, Hepatic Steatosis. and elevated Lipase, CPK greater than 100,000 on admission. Abdominal ultrasound revealed hepatomegaly likely hepatic steatosis, continue PPIs, 5. Acute Kidney Injury, Nephrology specialist following. will have Hemodialysis today due to Hyperkalemia and significant edema. 6. Aspiration Pneumonia Sepsis, on Vancomycin and Zosyn. PT evaluated the patient.recommended PT at rehab. Discussed with patient and Nurse Miss Guaman, patient may be transferred out of ICU in am tomorrow. Prophylaxis - GI - pantoprazole - DVT - SCD/heparin subcutaneous Discharge Planning Not yet cleared for discharge by Nephrology specialist. will go to Inpatient Psychiatric unit. Dre Diaz MD Feb 04, 2017 10:07
[2017-02-04] MEDS: SODIUM CHLORIDE 0.9% FLUSH 10 ML FLUSH IV FLUSH PRN (10:10)
[2017-02-04] MEDS: THIAMINE INJ 100 MG in SODIUM CHLORIDE 0.9% INJ 100 ML IV SCH (10:10)
--- NOTE | 2017-02-04 10:26 | HHI.NPPN ---
Subjective Renal Failure: Acute History of Present Illness The patient is a 46yo [place] male who was brought in 01/29 via EMS after mother became concerned that she hadn't heard from him. He was found at his house laying on floor for uncertain amount of time with a bottle of OTC sleeping pills beside him. He apparently has has suicide attempts in the past and is currently under Beltran Act. He was not a very reliable historian at time of initial consultation, but says the intentionally took sleeping pills and then mentions 81mg aspirin as well. His PMHx is positive for HTN, HLD, depression, EtOH abuse and suicidal ideation. Admitting SCr was 2.89 with eGFR at 24 that deteriorated overnight to SCr 4.11 and eGFR 16. CPK level is markedly elevated at >100,000 Denies any previous kidney issues. Only other SCr available from 07/07/15 that was 0.88 He is seen in ICU setting Interval History Pt extubated. Says he is feeling OK. HD yesterday and tolerated well. Catheter working well as her HD nurse. (Radha Velazquez) Review of Systems General General Remarks No complaints (Radha Velazquez) Objective Data Data Vital Signs Date Time Temp Pulse Resp B/P (MAP) Pulse Ox O2 Delivery O2 Flow Rate FiO2 02/04/17 06:00 109 02/04/17 04:00 106 02/04/17 04:00 97.8 106 16 155/80 (105) 97 02/04/17 03:31 98 Nasal Cannula 2.00 02/04/17 02:00 114 02/04/17 00:33 95 Nasal Cannula 2.00 02/04/17 00:00 98.4 120 18 163/89 (113) 96 02/04/17 00:00 120 02/03/17 22:00 118 02/03/17 21:01 96 Nasal Cannula 2.00 02/03/17 20:00 98.8 124 14 129/63 (85) 96 02/03/17 20:00 124 02/03/17 19:00 97 Nasal Cannula 4.00 02/03/17 18:00 133 02/03/17 16:00 97.9 126 11 130/70 (90) 96 02/03/17 16:00 126 02/03/17 14:00 128 02/03/17 12:20 94 Nasal Cannula 4.00 02/03/17 12:14 96 Nasal Cannula 2 02/03/17 12:00 128 02/03/17 12:00 99.4 128 14 125/67 (86) 95 (Radha Velazquez) -: 02/04/17 0500 02/04/17 0500 Imaging Last Impressions Abdomen/Pelvis CT 02/03/17 0000 Signed Impressions: Service Date/Time: Saturday, February 04, 2017 01:20 - CONCLUSION: No acute CT findings in the abdomen or pelvis. Garfield Schulz MD Chest X-Ray 01/31/17 0537 Signed Impressions: Service Date/Time: Tuesday, January 31, 2017 05:45 - CONCLUSION: Right middle lobe atelectasis/infiltrate. Trace left base atelectasis. Garfield Weber MD Cervical Spine CT 01/29/17 1253 Signed Impressions: Service Date/Time: Sunday, January 29, 2017 13:23 - CONCLUSION: No acute findings. Note is compression of cord or spondylolisthesis. Straightening of the cervical lordosis and nonbridging degenerative paravertebral ossification lower cervical spine. Nghia Fraire MD Head CT 01/29/17 1252 Signed Impressions: Service Date/Time: Sunday, January 29, 2017 13:23 - CONCLUSION: Negative noncontrast CT brain. Nghia Fraire MD Abdomen Ultrasound 01/29/17 0000 Signed Impressions: Service Date/Time: Sunday, January 29, 2017 15:30 - CONCLUSION: 1. Diffusely increased hepatic echogenicity without evidence for volume loss most consistent with hepatic steatosis versus medical liver disease. 2. Trace left pleural effusion. Jos Lux MD Tubes & Lines: Vas-Cath Medication Review Current Medications Medications (Trade) Dose Ordered Sig/Dinesh Route Start Time Stop Time Status Last Admin (NS Flush) 2 ml UNSCH PRN IVF 01/29/17 13:00 01/29/17 14:01 (NS Flush) 2 ml UNSCH PRN IV FLUSH 01/29/17 16:00 02/04/17 10:10 (NS Flush) 2 ml BID IV FLUSH 01/29/17 21:00 02/04/17 08:50 (Protonix Inj) 40 mg DAILY IV PUSH 01/30/17 09:00 02/04/17 08:50 (Tears Naturale Opth Soln) 1 drop TID EACH EYE 01/29/17 18:00 02/03/17 18:41 (Zofran Inj) 4 mg Q6H PRN IV PUSH 01/29/17 16:00 02/03/17 23:07 (Albuterol Neb) 2.5 mg Q2HR NEB PRN INH 01/29/17 16:00 01/31/17 05:13 (Heparin Inj) 5,000 units Q12H SQ 01/29/17 16:00 02/04/17 05:03 Miscellaneous Information 1 Q361D XX 01/29/17 15:30 (Chlorhexidine 2% Cloth) Taper DAILY@04 TOP 01/30/17 04:00 01/26/18 03:59 02/03/17 04:00 (Chlorhexidine 2% Cloth) 3 pack UNSCH PRN TOP 01/29/17 15:30 (Nakia-Colace) 1 tab BID PO 01/29/17 21:00 02/04/17 08:50 (Milk Of Magnesia Liq) 30 ml Q12H PRN PO 01/29/17 16:00 02/02/17 20:56 (Senokot) 17.2 mg Q12H PRN PO 01/29/17 16:00 02/02/17 20:56 (Dulcolax Supp) 10 mg DAILY PRN RECTAL 01/29/17 16:00 (Lactulose Liq) 30 ml DAILY PRN PO 01/29/17 16:00 02/03/17 04:44 Thiamine HCl 100 mg/Sodium Chloride 101 ml @ 101 mls/hr DAILY IV 01/30/17 09:00 02/04/17 10:10 (Folate) 1 mg DAILY PO 01/30/17 09:00 02/04/17 08:50 (Theragran) 1 tab DAILY PO 01/30/17 09:00 02/04/17 08:50 (Ecotrin Ec) 81 mg DAILY PO 01/30/17 09:00 02/04/17 08:50 Sodium Chloride 1,000 ml @ 0 mls/hr Q0M PRN OTHER 01/31/17 09:58 02/03/17 18:00 (Heparin Inj) 8,000 units UNSCH PRN IV FLUSH 01/31/17 10:00 Sodium Chloride 1,000 ml @ 200 mls/hr Q5H PRN IV 01/31/17 09:58 Sodium Chloride 1,000 ml @ 0 mls/hr Q0M PRN OTHER 01/31/17 09:58 (Mannitol Inj) 12.5 gm UNSCH PRN IV 01/31/17 10:00 Albumin Human 100 ml @ 60 mls/hr UNSCH PRN IV 01/31/17 10:00 (NS Flush) 5 ml UNSCH PRN IV FLUSH 01/31/17 10:00 (Heparin Inj) UNSCH PRN .XX 01/31/17 10:00 02/03/17 18:00 (Gentamicin (Dialysis) Inj) 20 mg UNSCH PRN OTHER 01/31/17 10:00 02/03/17 18:00 (Zofran Inj) 4 mg UNSCH PRN IV PUSH 01/31/17 10:00 (Tylenol) 650 mg UNSCH PRN PO 01/31/17 10:00 02/02/17 05:50 (Benadryl) 25 mg UNSCH PRN PO 01/31/17 10:00 (Nitrostat Sl) 0.4 mg UNSCH PRN SL 01/31/17 10:00 (Gelfoam 12 Mm/7 Mm Top) 1 foam UNSCH PRN TOP 01/31/17 10:00 (Valium) 10 mg Q8HR PO 01/31/17 17:45 02/04/17 05:03 (Ativan Inj) 2 mg Q15M PRN IV PUSH 01/31/17 17:45 (Haldol Inj) 5 mg Q4H PRN IV 01/31/17 17:45 (SEROquel) 50 mg Q8HR PO 01/31/17 17:45 02/04/17 05:03 (Catapres) 0.3 mg Q8HR PO 01/31/17 17:45 Future Hold 02/01/17 21:12 Piperacillin Sod/ Tazobactam Sod 50 ml @ 100 mls/hr Q8H IV 02/02/17 16:00 02/04/17 08:49 Pharmacy Profile Note 0 ml @ 0 mls/hr UNSCH OTHER 02/02/17 07:30 (Radha Velazquez) Physical Exam General Appearance: No Acute Distress, Comfortable (Radha Velazquez) Eyes Eye Exam: Sclera White (Radha Velazquez) Throat Throat Exam: Oral Mucosa [place] & Moist (Radha Velazquez) Neck Neck Exam: Trachea Midline (Radha Velazquez) Pulmonary Resp Exam: Clear Bilaterally, Breath Sounds Equal, Labored (Radha Velazquez) Gastrointestinal/Abdomen GI Exam: Non-Tender, Distended (Radha Velazquez) Integumentary Skin Exam: Clear, Warm, Normal Turgor (Radha Velazquez) Extremeties Extremities Exam: Moderate Edema (1+ BUE and BLE) (Radha Velazquez) Neurologic Neuro Exam: Alert, Awake, Sedated (Radha Velazquez) Assessment/Plan Discussed Condition With: Son Problem List: (1) Acute renal failure (ARF) ICD Codes: N17.9 - Acute kidney failure, unspecified Status: Acute Plan: Appears ARF secondary to rhabdomyolysis. It is not entirely clear what medication(s) he took prior to his admission but from what is gathered it appears a generic OTC sleeping agent likely diphenhydramine. HD today as his K+ elevated and still with significant edema. Still oliguric Discussed with HD RN Medications should be adjusted for patient on dialysis when required. Avoid gadolinium. (2) Drug overdose, intentional ICD Codes: T50.902A - Poisoning by unspecified drugs, medicaments and biological substances, intentional self-harm, initial encounter Status: Acute (3) Rhabdomyolysis ICD Codes: M62.82 - Rhabdomyolysis Status: Acute (Radha Velazquez) Plan The exam, history, and the medical decision-making described in the above note were completed with the assistance of the PAJose Enrique. I reviewed and agree with the findings presented. (Beth Adams MD) Problem Qualifiers (1) Acute renal failure (ARF): Qualified Codes: N17.9 - Acute kidney failure, unspecified Radha Velazquez Feb 04, 2017 10:26 Beth Adams MD Feb 05, 2017 17:53
[2017-02-04 15:50] LABS: ALPHA-1-ANTITRYPSIN 353 mg/dL (100 - 190)
[2017-02-04] MEDS: GENTAMICIN SULFATE (DIALYSIS USE ONLY) 20 MG/2 ML VIAL OTHER PRN (16:59)
[2017-02-04] MEDS: HEPARIN SODIUM - IV 10,000 UNITS/10 ML VIAL PRN (16:59)
[2017-02-05] VITALS (20 sets, daily range): BP systolic 139–154; BP diastolic 72–93; PULSE 98–130; RESP 14–20; TEMP 97.9–99.3; O2SAT 92–100
[2017-02-05] MEDS: CHLORHEXIDINE GLUCONATE 2 % 1 PACK (2 CLOTHS) TOP SCH (04:00)
[2017-02-05] MEDS: QUEtiapine FUMARATE 25 MG TAB PO SCH ×3 (05:01→22:23)
[2017-02-05] MEDS: HEPARIN SODIUM - SQ 10,000 UNITS/ML VIAL SQ SCH ×2 (05:01→16:12)
[2017-02-05] MEDS: DIAZEPAM 10 MG TAB PO SCH ×3 (05:01→22:23)
[2017-02-05 06:54] LABS: HEMATOCRIT 27.3 % (39.0-51.0); HEMOGLOBIN 9.7 GM/DL (13.0-17.0); MEAN CELL VOLUME 96.4 FL (80.0-100.0); MEAN CORPUSCULAR HEMOGLOBIN 34.1 PG (27.0-34.0); MEAN CORPUSCULAR HGB CONC 35.4 % (32.0-36.0); MEAN PLATELET VOLUME 7.1 FL (7.0-11.0); PLATELET COUNT 209 TH/MM3 (150-450); RED BLOOD COUNT 2.83 MIL/MM3 (4.50-5.90); RED CELL DISTRIBUTION WIDTH 12.4 % (11.6-17.2); WHITE BLOOD COUNT 8.9 TH/MM3 (4.0-11.0)
[2017-02-05 07:22] LABS: ALBUMIN 1.9 GM/DL (3.4-5.0); ALKALINE PHOSPHATASE 86 U/L (45-117); ALT (GPT) 101 U/L (12-78); AST (GOT) 98 U/L (15-37); BICARBONATE 30.2 MEQ/L (21.0-32.0); BLOOD UREA NITROGEN 46 MG/DL (7-18); CALCIUM 8.6 MG/DL (8.5-10.1); CHLORIDE 95 MEQ/L (98-107); CREATININE 6.38 MG/DL (0.60-1.30); GLOMERULAR FILTRATION RATE 9 ML/MIN (>89); GLUCOSE,RANDOM 90 MG/DL (74-106); LIPASE 697 U/L (73-393); SODIUM (NA) 136 MEQ/L (136-145); TOTAL BILIRUBIN ADULT 0.6 MG/DL (0.2-1.0); TOTAL PROTEIN 5.5 GM/DL (6.4-8.2)
--- NOTE | 2017-02-05 08:12 | HHI.PR ---
Subjective Remarks [employer] Notes: This is a 46 year old male. Date of admission 01/29/2017. Past medical history includes hypertension, dyslipidemia and depression. He is on chronic clonazepam. He presents to [facility] after being found on the ground for an unknown duration of time after taking "[id number] sleeping pills". He's been Beltran acted. Symptomatology includes tachycardia, mydriasis and appears dehydrated. Patient is afebrile. Lab workup included negative urine toxicology screen. Negative acetaminophen and EtOH. Patient has a leukocytosis of 24,000. Patient is in acute kidney injury creatinine 2.9.. Transaminases are elevated. Patient has a metabolic acidosis/Hyalgan With acetone and lactic currently pending. CT brain and C-spine negative. Chest x-ray negative. 01/30: Patient started on dexmedetomidine drip overnight and is currently on CIWA protocol receiving lorazepam going through DTs. Drinks approximately 12 beers daily. Thiamine, multivitamin and folate started. 01/31: Cr continues to worsen. now oligo-anuric. patient also now acutely delirious in etoh withdraw despite CIWA protocol. also now on NRB and clinically declining, hypoxic. initially evaluated and maintaining airway. placed dialysis catheter (see separate procedure note for details). however, patient continued to decline from a mental status standpoint as well as worsening hypoxia and was subsequently intubated (see separate procedure note for details). discussed care with nephrology- plan to initiate IHD. 02/01: [place] [id number]. patient is arousable and follows commands. remains in multi-organ failure from rhabdomyolysis and intentional drug overdose. 02/02: new fever, leukocytosis. likely source aspiration pneumonia from time of etoh withdraw/delirium before intubation. sputum cultures sent, started on vancomycin and zosyn. CK down to 20k. Cr continues to rise, but no reason for emergent dialysis today, will likely need again tomorrow. more hypotensive today and requiring ivf resuscitation. clinically declining today. 02/03: initial evaluation around 11am. delayed note entry. passed SBT on my eval. met parameters and was extubated successfully. sputum growing staph, sensitivities to follow. clinically improving. now much less delirious and appears to be improving from etoh withdraw. Hospitalist Notes: 02/04: Seen in his bedroom in the presence of nurse Miss Guaman, patient stable today recommended by Nephrology specialist for Hemodialysis due to Hyperkalemia and significant edema, likely acute renal failure secondary to Rhabdomyolysis not sure which kind of drug the patient took before this admission. no nausea, vomit or diarrhea, feeling better. 02/05: Seen in his bedroom in the presence of Miss Yusuf, continue present care, okay to transfer to the general Floor will handle it with nephrology specialist to try to do that this afternoon Objective Vital Signs Date Time Temp Pulse Resp B/P (MAP) Pulse Ox O2 Delivery O2 Flow Rate FiO2 02/05/17 06:00 101 02/05/17 04:00 99 02/05/17 04:00 98.3 99 15 153/82 (105) 97 02/05/17 02:00 105 02/05/17 00:00 112 02/05/17 00:00 98.9 112 16 152/87 (108) 95 02/04/17 23:27 97 Nasal Cannula 2.00 02/04/17 22:00 113 02/04/17 20:00 121 02/04/17 20:00 99.0 121 18 160/91 (114) 96 02/04/17 19:00 96 Nasal Cannula 2.00 02/04/17 18:00 129 19 139/74 (95) 91 02/04/17 18:00 129 02/04/17 17:00 120 10 118/67 (84) 97 02/04/17 16:00 98.3 126 12 115/67 (83) 96 02/04/17 16:00 126 02/04/17 15:00 119 12 143/72 (95) 96 02/04/17 14:00 117 15 143/85 (104) 97 02/04/17 14:00 117 02/04/17 13:00 115 12 145/73 (97) 98 02/04/17 12:00 118 02/04/17 12:00 97.9 118 13 144/69 (94) 98 02/04/17 11:26 96 Nasal Cannula 2.00 02/04/17 11:00 120 13 155/81 (105) 97 02/04/17 10:00 115 15 160/84 (109) 99 02/04/17 10:00 115 02/04/17 09:00 115 15 170/91 (117) 98 I/O 02/04/17 02/04/17 02/04/17 02/05/17 02/05/17 02/05/17 07:00 15:00 23:00 07:00 15:00 23:00 Intake Total 1010 ml 150 ml 442 ml 230 ml Output Total 110 ml 2060 ml 25 ml Balance 900 ml 150 ml -1618 ml 205 ml Intake Oral 442 ml 180 ml IV Total 50 ml 150 ml 50 ml Other 960 ml Output Urine Total 10 ml 60 ml 25 ml Emesis 100 ml Hemodialysis 2000 ml # Bowel Movements 1 2 Result Diagram: 02/05/17 0520 02/05/17 0501 Imaging Last Impressions Abdomen/Pelvis CT 02/03/17 0000 Signed Impressions: Service Date/Time: Saturday, February 04, 2017 01:20 - CONCLUSION: No acute CT findings in the abdomen or pelvis. Garfield Schulz MD Chest X-Ray 01/31/17 0537 Signed Impressions: Service Date/Time: Tuesday, January 31, 2017 05:45 - CONCLUSION: Right middle lobe atelectasis/infiltrate. Trace left base atelectasis. Garfield Weber MD Cervical Spine CT 01/29/17 1253 Signed Impressions: Service Date/Time: Sunday, January 29, 2017 13:23 - CONCLUSION: No acute findings. Note is compression of cord or spondylolisthesis. Straightening of the cervical lordosis and nonbridging degenerative paravertebral ossification lower cervical spine. Nghia Fraire MD Head CT 01/29/17 1252 Signed Impressions: Service Date/Time: Sunday, January 29, 2017 13:23 - CONCLUSION: Negative noncontrast CT brain. Nghia Fraire MD Abdomen Ultrasound 01/29/17 0000 Signed Impressions: Service Date/Time: Sunday, January 29, 2017 15:30 - CONCLUSION: 1. Diffusely increased hepatic echogenicity without evidence for volume loss most consistent with hepatic steatosis versus medical liver disease. 2. Trace left pleural effusion. Jos Lux MD Procedures Endotracheal Intubation and Extubation Hemodialysis. Other Results Laboratory Tests Test 01/29/17 13:00 01/29/17 15:00 01/29/17 15:23 01/29/17 18:00 Toxic Granulation 2+ Fibrinogen 275 mg/dL Thyroid Stimulating Hormone 3rd Gen 3.590 uIU/ML Salicylates Level LESS THAN 1.7 MG/DL Acetaminophen Level LESS THAN 2.0 MCG/ML Ethyl Alcohol Level LESS THAN 3 MG/DL B-Hydroxybutyrate 0.29 MMOL/L Urine Eosinophils NONE SEEN /HPF Urine Random Creatinine 101.6 MG/DL Urine Random Sodium 46 MEQ/L Urine Opiates Screen NEG Urine Barbiturates Screen NEG Urine Amphetamines Screen NEG Urine Benzodiazepines Screen NEG Urine Cocaine Screen NEG Urine Cannabinoids Screen NEG Blood Gas Liter Flow 3 L/M Nasal Screen MRSA (PCR) MRSA NOT DETECTED Test 01/30/17 04:08 01/30/17 17:16 01/31/17 04:44 01/31/17 07:53 Hepatitis A IgM Antibody NEGATIVE Hepatitis B Surface Antigen NEGATIVE Hepatitis B Core IgM Antibody NEGATIVE Hepatitis C Antibody NEGATIVE Troponin I 0.47 NG/ML Prothrombin Time 9.9 SEC Prothromb Time International Ratio 0.9 RATIO Activated Partial Thromboplast Time 28.3 SEC Blood Urea Nitrogen 50 MG/DL Creatinine 6.36 MG/DL Random Glucose 94 MG/DL Total Protein 5.4 GM/DL Albumin 2.4 GM/DL Calcium Level 6.8 MG/DL Phosphorus Level 7.1 MG/DL Magnesium Level 2.1 MG/DL Alkaline Phosphatase 61 U/L Aspartate Amino Transf (AST/SGOT) 1710 U/L Alanine Aminotransferase (ALT/SGPT) 373 U/L Total Bilirubin 0.6 MG/DL Sodium Level 135 MEQ/L Potassium Level 4.3 MEQ/L Chloride Level 97 MEQ/L Carbon Dioxide Level 24.7 MEQ/L Ammonia 29 MCMOL/L Amylase Level 75 U/L Lactic Acid Level 1.2 mmol/L Test 01/31/17 10:59 02/01/17 09:00 02/02/17 03:46 02/02/17 16:08 Blood Gas Puncture Site RT RADIAL Blood Gas Patient Temperature 98.6 Blood Gas HCO3 22 mmol/L Blood Gas Base Excess -2.2 mmol/L Blood Gas Oxygen Saturation 98 % Arterial Blood pH 7.37 Arterial Blood Partial Pressure CO2 40 mmHg Arterial Blood Partial Pressure O2 328 mmHg Arterial Blood Oxygen Content 17.5 Vol % Arterial Blood Carboxyhemoglobin 0.5 % Arterial Blood Methemoglobin 1.4 % Blood Gas Hemoglobin 12.1 G/DL Oxygen Delivery Device VENTILATOR Blood Gas Ventilator Setting CPAP:PS10/PEEP+5 Blood Gas Inspired Oxygen 100 % Protein Corrected Calcium 7.9 MG/DL Iron Level 30 MCG/DL Total Iron Binding Capacity 190 MCG/DL Percent Iron Saturation 15.8 % Ferritin 3127 NG/ML Blood Urea Nitrogen 46 MG/DL Creatinine 7.10 MG/DL Random Glucose 117 MG/DL Total Protein 6.3 GM/DL Albumin 2.3 GM/DL Calcium Level 8.0 MG/DL Alkaline Phosphatase 93 U/L Aspartate Amino Transf (AST/SGOT) 437 U/L Alanine Aminotransferase (ALT/SGPT) 253 U/L Total Bilirubin 0.6 MG/DL Direct Bilirubin 0.3 MG/DL Sodium Level 137 MEQ/L Potassium Level 4.1 MEQ/L Chloride Level 96 MEQ/L Carbon Dioxide Level 30.3 MEQ/L Indirect Bilirubin 0.3 MG/DL Total Creatine Kinase 90870 U/L Creatine Kinase MB 8.4 NG/ML Creatine Kinase MB % 0.0 % [id number] 353 mg/dL Tumor Marker Alpha Fetoprotein 2.4 NG/ML Anti-Nuclear Antibody Screen NEG Urine Color RED Urine Turbidity CLOUDY Urine pH 7.5 Urine Specific [place] 1.027 Urine Protein 300 mg/dL Urine Glucose (UA) 70 mg/dL Urine Ketones NEG mg/dL Urine Occult Blood MOD Urine Nitrite NEG Urine Bilirubin NEG Urine Urobilinogen LESS THAN 2.0 MG/DL Urine Leukocyte Esterase LARGE Urine RBC /hpf Urine WBC /hpf Urine Amorphous Sediment RARE Urine Bacteria FEW /hpf Microscopic Urinalysis Comment CATH-CULTURE IND Test 02/04/17 05:00 02/05/17 05:01 02/05/17 05:20 Neutrophils (%) (Auto) 78.5 % Lymphocytes (%) (Auto) 5.3 % Monocytes (%) (Auto) 13.8 % Eosinophils (%) (Auto) 2.1 % Basophils (%) (Auto) 0.3 % Neutrophils # (Auto) 8.3 TH/MM3 Lymphocytes # (Auto) 0.6 TH/MM3 Monocytes # (Auto) 1.5 TH/MM3 Eosinophils # (Auto) 0.2 TH/MM3 Basophils # (Auto) 0.0 TH/MM3 CBC Comment AUTO DIFF Differential Total Cells Counted 100 Neutrophils % (Manual) 64 % Band Neutrophils % 14 % Lymphocytes % 7 % Monocytes % 11 % Eosinophils % 2 % Neutrophils # (Manual) 8.4 TH/MM3 Metamyelocytes 1 % Myelocytes 1 % Differential Comment FINAL DIFF MANUAL Platelet Estimate NORMAL Platelet Morphology Comment NORMAL Red Cell Morphology Comment NORMAL Blood Urea Nitrogen 46 MG/DL Creatinine 6.38 MG/DL Random Glucose 90 MG/DL Total Protein 5.5 GM/DL Albumin 1.9 GM/DL Calcium Level 8.6 MG/DL Alkaline Phosphatase 86 U/L Aspartate Amino Transf (AST/SGOT) 98 U/L Alanine Aminotransferase (ALT/SGPT) 101 U/L Total Bilirubin 0.6 MG/DL Sodium Level 136 MEQ/L Potassium Level 4.2 MEQ/L Chloride Level 95 MEQ/L Carbon Dioxide Level 30.2 MEQ/L Anion Gap 11 MEQ/L Estimat Glomerular Filtration Rate 9 ML/MIN Lipase 697 U/L Random Vancomycin Level 27.0 COMMENT White Blood Count 8.9 TH/MM3 Red Blood Count 2.83 MIL/MM3 Hemoglobin 9.7 GM/DL Hematocrit 27.3 % Mean Corpuscular Volume 96.4 FL Mean Corpuscular Hemoglobin 34.1 PG Mean Corpuscular Hemoglobin Concent 35.4 % Red Cell Distribution Width 12.4 % Platelet Count 209 TH/MM3 Mean Platelet Volume 7.1 FL Objective Remarks GENERAL: No acute distress. SKIN: Warm and dry. No rash HEAD: Atraumatic. Normocephalic. EYES: Pupils equal and round and reactive. No scleral icterus. No injection or drainage. ENT: No nasal bleeding or discharge. Mucous membranes pink and moist. NECK: Trachea midline. No JVD. CARDIOVASCULAR: normal rate, regular rhythm. sinus by tele. RESPIRATORY: Decreased breath sounds bilateral but no wheezing or crackles. GASTROINTESTINAL: Abdomen soft, non-tender, nondistended. MUSCULOSKELETAL: No clubbing cyanosis has Edema 2+ NEUROLOGICAL: RASS 0. CAM -. follows commands briskly. off sedation. Medications and IVs Current Medications Medications (Trade) Dose Ordered Sig/Dinesh Route Start Time Stop Time Status Last Admin (NS Flush) 2 ml UNSCH PRN IVF 01/29/17 13:00 01/29/17 14:01 (NS Flush) 2 ml UNSCH PRN IV FLUSH 01/29/17 16:00 02/04/17 10:10 (NS Flush) 2 ml BID IV FLUSH 01/29/17 21:00 02/04/17 20:41 (Protonix Inj) 40 mg DAILY IV PUSH 01/30/17 09:00 02/04/17 08:50 (Tears Naturale Opth Soln) 1 drop TID EACH EYE 01/29/17 18:00 02/03/17 18:41 (Zofran Inj) 4 mg Q6H PRN IV PUSH 01/29/17 16:00 02/03/17 23:07 (Albuterol Neb) 2.5 mg Q2HR NEB PRN INH 01/29/17 16:00 01/31/17 05:13 (Heparin Inj) 5,000 units Q12H SQ 01/29/17 16:00 02/05/17 05:01 Miscellaneous Information 1 Q361D XX 01/29/17 15:30 (Chlorhexidine 2% Cloth) Taper DAILY@04 TOP 01/30/17 04:00 01/26/18 03:59 02/03/17 04:00 (Chlorhexidine 2% Cloth) 3 pack UNSCH PRN TOP 01/29/17 15:30 (Nakia-Colace) 1 tab BID PO 01/29/17 21:00 02/04/17 08:50 (Milk Of Magnesia Liq) 30 ml Q12H PRN PO 01/29/17 16:00 02/02/17 20:56 (Senokot) 17.2 mg Q12H PRN PO 01/29/17 16:00 02/02/17 20:56 (Dulcolax Supp) 10 mg DAILY PRN RECTAL 01/29/17 16:00 (Lactulose Liq) 30 ml DAILY PRN PO 01/29/17 16:00 02/03/17 04:44 Thiamine HCl 100 mg/Sodium Chloride 101 ml @ 101 mls/hr DAILY IV 01/30/17 09:00 02/04/17 10:10 (Folate) 1 mg DAILY PO 01/30/17 09:00 02/04/17 08:50 (Theragran) 1 tab DAILY PO 01/30/17 09:00 02/04/17 08:50 (Ecotrin Ec) 81 mg DAILY PO 01/30/17 09:00 02/04/17 08:50 Sodium Chloride 1,000 ml @ 0 mls/hr Q0M PRN OTHER 01/31/17 09:58 02/03/17 18:00 (Heparin Inj) 8,000 units UNSCH PRN IV FLUSH 01/31/17 10:00 Sodium Chloride 1,000 ml @ 200 mls/hr Q5H PRN IV 01/31/17 09:58 Sodium Chloride 1,000 ml @ 0 mls/hr Q0M PRN OTHER 01/31/17 09:58 (Mannitol Inj) 12.5 gm UNSCH PRN IV 01/31/17 10:00 Albumin Human 100 ml @ 60 mls/hr UNSCH PRN IV 01/31/17 10:00 (NS Flush) 5 ml UNSCH PRN IV FLUSH 01/31/17 10:00 (Heparin Inj) UNSCH PRN .XX 01/31/17 10:00 02/04/17 16:59 (Gentamicin (Dialysis) Inj) 20 mg UNSCH PRN OTHER 01/31/17 10:00 02/04/17 16:59 (Zofran Inj) 4 mg UNSCH PRN IV PUSH 01/31/17 10:00 (Tylenol) 650 mg UNSCH PRN PO 01/31/17 10:00 02/02/17 05:50 (Benadryl) 25 mg UNSCH PRN PO 01/31/17 10:00 (Nitrostat Sl) 0.4 mg UNSCH PRN SL 01/31/17 10:00 (Gelfoam 12 Mm/7 Mm Top) 1 foam UNSCH PRN TOP 01/31/17 10:00 (Valium) 10 mg Q8HR PO 01/31/17 17:45 02/05/17 05:01 (Ativan Inj) 2 mg Q15M PRN IV PUSH 01/31/17 17:45 (Haldol Inj) 5 mg Q4H PRN IV 01/31/17 17:45 (SEROquel) 50 mg Q8HR PO 01/31/17 17:45 02/05/17 05:01 (Catapres) 0.3 mg Q8HR PO 01/31/17 17:45 Future Hold 02/01/17 21:12 Piperacillin Sod/ Tazobactam Sod 50 ml @ 100 mls/hr Q8H IV 02/02/17 16:00 02/04/17 23:22 Pharmacy Profile Note 0 ml @ 0 mls/hr UNSCH OTHER 02/02/17 07:30 A/P Assessment and Plan 1. Intentional Overdose on sleeping pills, Possible diphenhydramine, Depression , EtOH use, Agitated Delirium, EtOH withdrawal, Psychiatry specialist following, inpatient recommended once cleared, [facility] protocol. CT brain 01/29 revealed no acute intracranial findings CT C-spine 01/29 negative for acute findings. Straightened lordosis. 2. Sinus tachycardia severe Sepsis continue Zosyn and Vancomycin. no fever no Leukocytosis. sputum culture positive for Staph Aureus most probable contaminant. Dyslipidemia On hold home medicines on rosuvastatin due to slight elevation of liver function tests, held valsartan due to acute kidney injury held Metoprolol 50 mg BID, and Amlodipine, resumed Aspirin. 3. Acute Hypoxic and Hypercarbic Respiratory failure Improving, Aspiration Pneumonia status post VDRF Improved. continue antibiotics, PT following 4. Elevated transaminases, Rhabdomyolysis, Hepatic Steatosis. and elevated Lipase, CPK greater than 100,000 on admission. Abdominal ultrasound revealed hepatomegaly likely hepatic steatosis, continue PPIs, 5. Acute Kidney Injury, Nephrology specialist following. 6. Aspiration Pneumonia Sepsis, on Vancomycin and Zosyn. PT evaluated the patient.recommended PT at rehab. Discussed with patient and Nurse Miss Guaman, patient may be transferred out of ICU in am tomorrow. Prophylaxis - GI - pantoprazole - DVT - SCD/heparin subcutaneous Discharge Planning Not yet cleared for discharge by Nephrology specialist. will go to Inpatient Psychiatric unit. Dre Diaz MD Feb 05, 2017 08:12
[2017-02-05] MEDS: ASPIRIN EC 81 MG TABEC PO SCH (08:40)
[2017-02-05] MEDS: SODIUM CHLORIDE 0.9% FLUSH 10 ML FLUSH IV FLUSH SCH (08:40)
[2017-02-05] MEDS: FOLIC ACID 1 MG TAB PO SCH (08:40)
[2017-02-05] MEDS: PANTOPRAZOLE SODIUM 40 MG VIAL IV PUSH SCH (08:40)
[2017-02-05] MEDS: PIPERACIL-TAZO 2.25 GM PREMIX 50 ML IV SCH ×2 (08:40→16:12)
[2017-02-05] MEDS: SODIUM CHLORIDE 0.9% FLUSH 10 ML FLUSH IV FLUSH PRN (08:40)
[2017-02-05] MEDS: MULTIVITAMIN TAB PO SCH (08:40)
[2017-02-05] MEDS: DOCUSATE SODIUM 50 MG/SENNA 8.6 MG TAB PO SCH ×2 (09:00→22:23)
[2017-02-05] MEDS: ARTIFICIAL TEARS OPTH SOLN 15 ML BTL EACH EYE SCH ×3 (09:00→18:00)
[2017-02-05] MEDS: THIAMINE INJ 100 MG in SODIUM CHLORIDE 0.9% INJ 100 ML IV SCH (09:30)
[2017-02-05 14:28] LABS: SMOOTH MUSCLE TOTAL AUTOABS Negative (Negative); TRANSGLUTAMINASE IGA AB <1.2 U/mL; TRANSGLUTAMINASE IGG AB <1.2 U/mL
--- NOTE | 2017-02-05 17:52 | HHI.NPPN ---
Subjective Renal Failure: Acute History of Present Illness The patient is a 46yo [place] male who was brought in 01/29 via EMS after mother became concerned that she hadn't heard from him. He was found at his house laying on floor for uncertain amount of time with a bottle of OTC sleeping pills beside him. He apparently has has suicide attempts in the past and is currently under Beltran Act. He was not a very reliable historian at time of initial consultation, but says the intentionally took sleeping pills and then mentions 81mg aspirin as well. His PMHx is positive for HTN, HLD, depression, EtOH abuse and suicidal ideation. Admitting SCr was 2.89 with eGFR at 24 that deteriorated overnight to SCr 4.11 and eGFR 16. CPK level is markedly elevated at >100,000 Denies any previous kidney issues. Only other SCr available from 07/07/15 that was 0.88 He is seen in ICU setting Interval History Patient extubated. No verbal complaints. Review of Systems General General Remarks No complaints Objective Data Data 02/05/17 02/06/17 19:00 07:00 Intake Total 150 ml Balance 150 ml IV Total 150 ml Vital Signs Date Time Temp Pulse Resp B/P (MAP) Pulse Ox O2 Delivery O2 Flow Rate FiO2 02/05/17 16:00 108 02/05/17 16:00 98.7 108 15 139/81 (100) 100 02/05/17 15:00 111 16 141/75 (97) 93 02/05/17 14:00 113 02/05/17 14:00 113 14 142/80 (100) 92 02/05/17 13:00 98.1 121 15 150/89 (109) 100 02/05/17 12:00 123 02/05/17 12:00 123 17 149/86 (107) 100 02/05/17 11:00 130 19 154/93 (113) 97 02/05/17 10:00 111 20 142/72 (95) 97 02/05/17 10:00 111 02/05/17 09:23 99 Nasal Cannula 2.00 02/05/17 09:00 97.9 99 15 151/80 (103) 99 02/05/17 08:00 99 02/05/17 08:00 99 15 150/92 (111) 99 02/05/17 07:00 99 Nasal Cannula 2.00 02/05/17 07:00 98 15 152/79 (103) 99 02/05/17 06:00 101 02/05/17 04:00 99 02/05/17 04:00 98.3 99 15 153/82 (105) 97 02/05/17 02:00 105 02/05/17 00:00 112 02/05/17 00:00 98.9 112 16 152/87 (108) 95 02/04/17 23:27 97 Nasal Cannula 2.00 02/04/17 22:00 113 02/04/17 20:00 121 02/04/17 20:00 99.0 121 18 160/91 (114) 96 02/04/17 19:00 96 Nasal Cannula 2.00 02/04/17 18:00 129 19 139/74 (95) 91 02/04/17 18:00 129 -: 02/05/17 0520 02/05/17 0501 Tubes & Lines: Vas-Cath Physical Exam General Appearance: No Acute Distress, Comfortable Eyes Eye Exam: Sclera White Throat Throat Exam: Oral Mucosa [place] & Moist Neck Neck Exam: Trachea Midline Pulmonary Resp Exam: Clear Bilaterally, Breath Sounds Equal, Labored Resp Remarks Upper airway stridor audible prior to his intubation. Gastrointestinal/Abdomen GI Exam: Non-Tender, Distended Integumentary Skin Exam: Clear, Warm, Normal Turgor Extremeties Extremities Exam: Trace Edema (ankles.) Neurologic Neuro Exam: Alert, Awake, Sedated Assessment/Plan Discussed Condition With: Son Problem List: (1) Acute renal failure (ARF) ICD Codes: N17.9 - Acute kidney failure, unspecified Status: Acute Plan: Appears ARF secondary to rhabdomyolysis. It is not entirely clear what medication(s) he took prior to his admission but from what is gathered it appears a generic OTC sleeping agent likely diphenhydramine. Continue hemodialysis Friday as clinically indicated. Patient is still oliguric. Will monitor renal function over the weekend. If no significant improvement occurs I will consider hemodialysis PermCath placement Friday in preparation for possible discharge with outpatient dialysis. I discussed with the patient the severity of his acute kidney injury and his current dialysis dependence. He was advised that I am optimistic he will recover enough renal function to discontinue dialysis however there is no guarantee. He was counseled regarding the pathogenesis of his acute kidney injury and the role his overdose played in his pathogenesis and the need to avoid such activity in the future.. Medications should be adjusted for patient on dialysis when required. Avoid gadolinium. (2) Drug overdose, intentional ICD Codes: T50.902A - Poisoning by unspecified drugs, medicaments and biological substances, intentional self-harm, initial encounter Status: Acute (3) Rhabdomyolysis ICD Codes: M62.82 - Rhabdomyolysis Status: Acute Problem Qualifiers (1) Acute renal failure (ARF): Qualified Codes: N17.9 - Acute kidney failure, unspecified Beth Adams MD Feb 05, 2017 17:52
[2017-02-06] VITALS (11 sets, daily range): BP systolic 136–161; BP diastolic 84–96; PULSE 89–120; RESP 14–20; TEMP 98.1–99; O2SAT 97–100
[2017-02-06] MEDS: PIPERACIL-TAZO 2.25 GM PREMIX 50 ML IV SCH ×3 (00:42→17:55)
[2017-02-06] MEDS: CHLORHEXIDINE GLUCONATE 2 % 1 PACK (2 CLOTHS) TOP SCH (04:00)
[2017-02-06] MEDS: QUEtiapine FUMARATE 25 MG TAB PO SCH ×3 (06:03→21:44)
[2017-02-06] MEDS: DIAZEPAM 10 MG TAB PO SCH ×3 (06:04→21:44)
[2017-02-06] MEDS: HEPARIN SODIUM - SQ 10,000 UNITS/ML VIAL SQ SCH ×2 (06:04→17:55)
[2017-02-06] MEDS: SODIUM CHLORIDE 0.9% FLUSH 10 ML FLUSH IV FLUSH SCH ×3 (06:04→21:45)
[2017-02-06 06:54] LABS: HEMOGLOBIN 9.6 GM/DL (13.0-17.0); MEAN CELL VOLUME 95.2 FL (80.0-100.0); MEAN CORPUSCULAR HEMOGLOBIN 33.9 PG (27.0-34.0); MEAN CORPUSCULAR HGB CONC 35.6 % (32.0-36.0); PLATELET COUNT 213 TH/MM3 (150-450); RED BLOOD COUNT 2.84 MIL/MM3 (4.50-5.90); RED CELL DISTRIBUTION WIDTH 12.3 % (11.6-17.2); WHITE BLOOD COUNT 10.8 TH/MM3 (4.0-11.0)
[2017-02-06 07:23] LABS: BICARBONATE 29.3 MEQ/L (21.0-32.0); CALCIUM 8.4 MG/DL (8.5-10.1); CREATININE 8.53 MG/DL (0.60-1.30); RANDOM VANCOMYCIN 22.9 COMMENT
[2017-02-06] MEDS: ARTIFICIAL TEARS OPTH SOLN 15 ML BTL EACH EYE SCH ×3 (08:38→17:55)
[2017-02-06] MEDS: THIAMINE INJ 100 MG in SODIUM CHLORIDE 0.9% INJ 100 ML IV SCH (08:38)
[2017-02-06] MEDS: ASPIRIN EC 81 MG TABEC PO SCH (08:39)
[2017-02-06] MEDS: FOLIC ACID 1 MG TAB PO SCH (08:39)
[2017-02-06] MEDS: MULTIVITAMIN TAB PO SCH (08:39)
[2017-02-06] MEDS: SODIUM CHLORIDE 0.9% FLUSH 10 ML FLUSH IV FLUSH PRN (08:39)
[2017-02-06] MEDS: PANTOPRAZOLE SODIUM 40 MG VIAL IV PUSH SCH (08:39)
[2017-02-06] MEDS: DOCUSATE SODIUM 50 MG/SENNA 8.6 MG TAB PO SCH ×2 (09:00→21:44)
--- NOTE | 2017-02-06 09:09 | HHI.GIFU ---
Subjective Remarks Resting in bed. Tolerating diet. No n/v. Denies abdominal pain. (Cindy Fox) Objective Vitals I&O Vital Signs Date Time Temp Pulse Resp B/P (MAP) Pulse Ox O2 Delivery O2 Flow Rate FiO2 02/06/17 08:00 98.1 94 14 160/88 (112) 99 02/06/17 07:00 98 Nasal Cannula 2.00 02/06/17 06:00 92 02/06/17 04:00 98.1 98 16 152/84 (106) 100 02/06/17 04:00 98 02/06/17 02:00 89 02/06/17 00:00 98.3 108 20 158/92 (114) 97 02/06/17 00:00 89 02/05/17 22:00 110 02/05/17 21:33 96 Nasal Cannula 2.00 02/05/17 20:00 Nasal Cannula 2.00 35 02/05/17 20:00 99.3 119 20 150/83 (105) 98 02/05/17 20:00 112 02/05/17 18:00 123 02/05/17 18:00 123 16 150/90 (110) 96 02/05/17 17:00 112 16 143/77 (99) 98 02/05/17 16:00 108 02/05/17 16:00 98.7 108 15 139/81 (100) 100 02/05/17 15:00 111 16 141/75 (97) 93 02/05/17 14:00 113 02/05/17 14:00 113 14 142/80 (100) 92 02/05/17 13:00 98.1 121 15 150/89 (109) 100 02/05/17 12:00 123 02/05/17 12:00 123 17 149/86 (107) 100 02/05/17 11:00 130 19 154/93 (113) 97 02/05/17 10:00 111 20 142/72 (95) 97 02/05/17 10:00 111 02/05/17 09:23 99 Nasal Cannula 2.00 I/O 02/05/17 02/05/17 02/05/17 02/06/17 02/06/17 02/06/17 07:00 15:00 23:00 07:00 15:00 23:00 Intake Total 230 ml 150 ml 755 ml 265 ml 50 ml Output Total 25 ml 50 ml 0 ml Balance 205 ml 150 ml 705 ml 265 ml 50 ml Intake Oral 180 ml 705 ml 200 ml IV Total 50 ml 150 ml 50 ml 65 ml 50 ml Output Urine Total 25 ml 50 ml 0 ml # Bowel Movements 2 1 Laboratory Laboratory Tests Test 02/06/17 05:24 White Blood Count 10.8 Red Blood Count 2.84 Hemoglobin 9.6 Hematocrit 27.0 Mean Corpuscular Volume 95.2 Mean Corpuscular Hemoglobin 33.9 Mean Corpuscular Hemoglobin Concent 35.6 Red Cell Distribution Width 12.3 Platelet Count 213 Mean Platelet Volume 7.0 Blood Urea Nitrogen 67 Creatinine 8.53 Random Glucose 81 Calcium Level 8.4 Sodium Level 135 Potassium Level 3.8 Chloride Level 95 Carbon Dioxide Level 29.3 Anion Gap 11 Estimat Glomerular Filtration Rate 7 Random Vancomycin Level 22.9 Date/Time Source Procedure Growth Status 02/02/17 16:32 Blood Peripheral Aerobic Blood Culture - Preliminary NO GROWTH IN 3 DAYS Resulted 02/02/17 16:32 Blood Peripheral Anaerobic Blood Culture - Preliminary NO GROWTH IN 3 DAYS Resulted 02/02/17 07:59 Sputum Endotracheal Gram Stain - Final Complete 02/02/17 07:59 Sputum Culture - Final Staphylococcus Aureus Complete 02/02/17 16:08 Urine Catheterized Urine Urine Culture - Final NO GROWTH IN 48 HOURS. Complete Imaging Last Impressions Abdomen/Pelvis CT 02/03/17 0000 Signed Impressions: Service Date/Time: Saturday, February 04, 2017 01:20 - CONCLUSION: No acute CT findings in the abdomen or pelvis. Garfield Schulz MD Chest X-Ray 01/31/17 0537 Signed Impressions: Service Date/Time: Tuesday, January 31, 2017 05:45 - CONCLUSION: Right middle lobe atelectasis/infiltrate. Trace left base atelectasis. Garfield Weber MD Cervical Spine CT 01/29/17 1253 Signed Impressions: Service Date/Time: Sunday, January 29, 2017 13:23 - CONCLUSION: No acute findings. Note is compression of cord or spondylolisthesis. Straightening of the cervical lordosis and nonbridging degenerative paravertebral ossification lower cervical spine. Nghia Fraire MD Head CT 01/29/17 1252 Signed Impressions: Service Date/Time: Sunday, January 29, 2017 13:23 - CONCLUSION: Negative noncontrast CT brain. Nghia Fraire MD Abdomen Ultrasound 01/29/17 0000 Signed Impressions: Service Date/Time: Sunday, January 29, 2017 15:30 - CONCLUSION: 1. Diffusely increased hepatic echogenicity without evidence for volume loss most consistent with hepatic steatosis versus medical liver disease. 2. Trace left pleural effusion. Jos Lux MD Physical Exam HEENT: Normocephalic CHEST: CTA CARDIAC: Tachycardic, mild ABDOMEN: Soft, nondistended, nontender; no hepatosplenomegaly; bowel sounds are present x 4 quadrants. EXTREMITIES: Generalized edema. SKIN: Normal; no rash; no jaundice. T[employer] INS[employer] EXAMINER: Lethargic, generalized weakness (Cindy Fox) Assessment and Plan Plan ASSESSMENT: - Elevated LFTs, likely due to rhabdomyolysis vs. shocked liver. LFTs much improved. US (01/29/17)---> Diffusely increased hepatic echogenicity without evidence for volume loss most consistent with hepatic steatosis versus medical liver disease. Trace left pleural effusion. Hepatitis panel negative, toxicology negative for ETOH or Tylenol. AFP 2.4, Iron saturation 15.8, ALDA neg, AMA pending, ASMA neg, Celiac panel neg, Iron saturation 15.8%, Ceruloplasmin, alpha antitrypsin 353. LFTs improving, T bili 0.6, AST 98, ALT 101, alkaline phosphatase 86 - Elevated lipase, unclear significance. CT scan abdomen and pelvis without IV contrast (02/04/17)---> No acute CT findings in the abdomen or pelvis. Lipase improved 697 yesterday He denies any nausea/vomiting or abdominal pain. Tolerating diet. - Rhabdomyolysis, improving. CPK 21,672 (02/02). Improved from 109,102 on . - ARF with electrolyte abnormalities. Creat 8.53. HD per renal. - Resp. Failure. S/P extubation (02/03). - Depression with suicide attempt. Over dose on sleeping pills. Beltran act. PLAN: - Low fat diet - Monitor labs - Avoid hepatotoxins. - Supportive care - Further recommendations to follow based on results of above. - Patient seen and examined by Dr. Calderon and myself and this note is written on his behalf. (Cindy Fox) Physician Comments Patient seen and examined. Plan as above. Further recommendations to follow. (Scooter Calderon MD) Cindy Fox Feb 06, 2017 09:09 Scooter Calderon MD Feb 06, 2017 21:21
[2017-02-06] MEDS: GENTAMICIN SULFATE (DIALYSIS USE ONLY) 20 MG/2 ML VIAL OTHER PRN (13:17)
--- NOTE | 2017-02-06 13:49 | HHI.PR ---
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 Date of admission 01/29/2017. Past medical history includes hypertension, dyslipidemia and depression. He is on chronic clonazepam. He presents to [facility] after being found on the ground for an unknown duration of time after taking "[id number] sleeping pills". He's been [place] acted. Symptomatology includes tachycardia, mydriasis and appears dehydrated. Patient is afebrile. Lab workup included negative urine toxicology screen. Negative acetaminophen and EtOH. Patient has a leukocytosis of 24,000. Patient is in acute kidney injury creatinine 2.9.. Transaminases are elevated. Patient has a metabolic acidosis/Hyalgan With acetone and lactic currently pending. CT brain and C-spine negative. Chest x-ray negative. 01/30: Patient started on dexmedetomidine drip overnight and is currently on CIWA protocol receiving lorazepam going through DTs. Drinks approximately 12 beers daily. Thiamine, multivitamin and folate started. 01/31: Cr continues to worsen. now oligo-anuric. patient also now acutely delirious in etoh withdraw despite CIWA protocol. also now on NRB and clinically declining, hypoxic. initially evaluated and maintaining airway. placed dialysis catheter (see separate procedure note for details). however, patient continued to decline from a mental status standpoint as well as worsening hypoxia and was subsequently intubated (see separate procedure note for details). discussed care with nephrology- plan to initiate IHD. 02/01: [place] [id number]. patient is arousable and follows commands. remains in multi-organ failure from rhabdomyolysis and intentional drug overdose. 02/02: new fever, leukocytosis. likely source aspiration pneumonia from time of etoh withdraw/delirium before intubation. sputum cultures sent, started on vancomycin and zosyn. CK down to 20k. Cr continues to rise, but no reason for emergent dialysis today, will likely need again tomorrow. more hypotensive today and requiring ivf resuscitation. clinically declining today. 02/03: initial evaluation around 11am. delayed note entry. passed SBT on my eval. met parameters and was extubated successfully. sputum growing staph, sensitivities to follow. clinically improving. now much less delirious and appears to be improving from etoh withdraw. Hospitalist Notes: 02/04: Seen in his bedroom in the presence of nurse Rowena, patient stable today recommended by Nephrology specialist for Hemodialysis due to Hyperkalemia and significant edema, likely acute renal failure secondary to Rhabdomyolysis not sure which kind of drug the patient took before this admission. no nausea, vomit or diarrhea, feeling better. 02/05: Seen in his bedroom in the presence of Miss Yusuf, continue present care, okay to transfer to the general Floor will handle it with nephrology specialist to try to do that this afternoon 02/06: Stable okay to transfer to psych unit and continue management by Nephrology in Psych, no nausea, vomit or diarrhea. okay to transfer to Psych seen early in AM with nurse Miss ChaviraRowena Objective Vital Signs Date Time Temp Pulse Resp B/P (MAP) Pulse Ox O2 Delivery O2 Flow Rate FiO2 02/06/17 08:00 94 02/06/17 08:00 98.1 94 14 160/88 (112) 99 02/06/17 07:00 98 Nasal Cannula 2.00 02/06/17 06:00 92 02/06/17 04:00 98.1 98 16 152/84 (106) 100 02/06/17 04:00 98 02/06/17 02:00 89 02/06/17 00:00 98.3 108 20 158/92 (114) 97 02/06/17 00:00 89 02/05/17 22:00 110 02/05/17 21:33 96 Nasal Cannula 2.00 02/05/17 20:00 Nasal Cannula 2.00 35 02/05/17 20:00 99.3 119 20 150/83 (105) 98 02/05/17 20:00 112 02/05/17 18:00 123 02/05/17 18:00 123 16 150/90 (110) 96 02/05/17 17:00 112 16 143/77 (99) 98 02/05/17 16:00 108 02/05/17 16:00 98.7 108 15 139/81 (100) 100 02/05/17 15:00 111 16 141/75 (97) 93 02/05/17 14:00 113 02/05/17 14:00 113 14 142/80 (100) 92 I/O 02/05/17 02/05/17 02/05/17 02/06/17 02/06/17 02/06/17 07:00 15:00 23:00 07:00 15:00 23:00 Intake Total 230 ml 150 ml 755 ml 265 ml 151 ml Output Total 25 ml 50 ml 0 ml 2500 ml Balance 205 ml 150 ml 705 ml 265 ml -2349 ml Intake Oral 180 ml 705 ml 200 ml IV Total 50 ml 150 ml 50 ml 65 ml 151 ml Output Urine Total 25 ml 50 ml 0 ml Hemodialysis 2500 ml # Bowel Movements 2 1 Result Diagram: 02/06/1752302/06/1724 Imaging Last Impressions Abdomen/Pelvis CT 02/03/17 0000 Signed Impressions: Service Date/Time: Saturday, February 04, 2017 01:20 - CONCLUSION: No acute CT findings in the abdomen or pelvis. Garfield Schulz MD Chest X-Ray 01/31/17 0537 Signed Impressions: Service Date/Time: Tuesday, January 31, 2017 05:45 - CONCLUSION: Right middle lobe atelectasis/infiltrate. Trace left base atelectasis. Garfield Weber MD Cervical Spine CT 01/29/17 1253 Signed Impressions: Service Date/Time: Sunday, January 29, 2017 13:23 - CONCLUSION: No acute findings. Note is compression of cord or spondylolisthesis. Straightening of the cervical lordosis and nonbridging degenerative paravertebral ossification lower cervical spine. Nghia Fraire MD Head CT 01/29/17 1252 Signed Impressions: Service Date/Time: Sunday, January 29, 2017 13:23 - CONCLUSION: Negative noncontrast CT brain. Nghia Fraire MD Abdomen Ultrasound 01/29/17 0000 Signed Impressions: Service Date/Time: Sunday, January 29, 2017 15:30 - CONCLUSION: 1. Diffusely increased hepatic echogenicity without evidence for volume loss most consistent with hepatic steatosis versus medical liver disease. 2. Trace left pleural effusion. Jos Lux MD Procedures Endotracheal Intubation and Extubation Hemodialysis. Other Results Laboratory Tests Test 01/29/17 13:00 01/29/17 15:00 01/29/17 15:23 01/29/17 18:00 Toxic Granulation 2+ Fibrinogen 275 mg/dL Thyroid Stimulating Hormone 3rd Gen 3.590 uIU/ML Salicylates Level LESS THAN 1.7 MG/DL Acetaminophen Level LESS THAN 2.0 MCG/ML Ethyl Alcohol Level LESS THAN 3 MG/DL B-Hydroxybutyrate 0.29 MMOL/L Urine Eosinophils NONE SEEN /HPF Urine Random Creatinine 101.6 MG/DL Urine Random Sodium 46 MEQ/L Urine Opiates Screen NEG Urine Barbiturates Screen NEG Urine Amphetamines Screen NEG Urine Benzodiazepines Screen NEG Urine Cocaine Screen NEG Urine Cannabinoids Screen NEG Blood Gas Liter Flow 3 L/M Nasal Screen MRSA (PCR) MRSA NOT DETECTED Test 01/30/17 04:08 01/30/17 17:16 01/31/17 04:44 01/31/17 07:53 Hepatitis A IgM Antibody NEGATIVE Hepatitis B Surface Antigen NEGATIVE Hepatitis B Core IgM Antibody NEGATIVE Hepatitis C Antibody NEGATIVE Troponin I 0.47 NG/ML Prothrombin Time 9.9 SEC Prothromb Time International Ratio 0.9 RATIO Activated Partial Thromboplast Time 28.3 SEC Blood Urea Nitrogen 50 MG/DL Creatinine 6.36 MG/DL Random Glucose 94 MG/DL Total Protein 5.4 GM/DL Albumin 2.4 GM/DL Calcium Level 6.8 MG/DL Phosphorus Level 7.1 MG/DL Magnesium Level 2.1 MG/DL Alkaline Phosphatase 61 U/L Aspartate Amino Transf (AST/SGOT) 1710 U/L Alanine Aminotransferase (ALT/SGPT) 373 U/L Total Bilirubin 0.6 MG/DL Sodium Level 135 MEQ/L Potassium Level 4.3 MEQ/L Chloride Level 97 MEQ/L Carbon Dioxide Level 24.7 MEQ/L Ammonia 29 MCMOL/L Amylase Level 75 U/L Lactic Acid Level 1.2 mmol/L Test 01/31/17 10:59 02/01/17 09:00 02/02/17 03:46 02/02/17 16:08 Blood Gas Puncture Site RT RADIAL Blood Gas Patient Temperature 98.6 Blood Gas HCO3 22 mmol/L Blood Gas Base Excess -2.2 mmol/L Blood Gas Oxygen Saturation 98 % Arterial Blood pH 7.37 Arterial Blood Partial Pressure CO2 40 mmHg Arterial Blood Partial Pressure O2 328 mmHg Arterial Blood Oxygen Content 17.5 Vol % Arterial Blood Carboxyhemoglobin 0.5 % Arterial Blood Methemoglobin 1.4 % Blood Gas Hemoglobin 12.1 G/DL Oxygen Delivery Device VENTILATOR Blood Gas Ventilator Setting CPAP:PS10/PEEP+5 Blood Gas Inspired Oxygen 100 % Protein Corrected Calcium 7.9 MG/DL Iron Level 30 MCG/DL Total Iron Binding Capacity 190 MCG/DL Percent Iron Saturation 15.8 % Ferritin 3127 NG/ML Blood Urea Nitrogen 46 MG/DL Creatinine 7.10 MG/DL Random Glucose 117 MG/DL Total Protein 6.3 GM/DL Albumin 2.3 GM/DL Calcium Level 8.0 MG/DL Alkaline Phosphatase 93 U/L Aspartate Amino Transf (AST/SGOT) 437 U/L Alanine Aminotransferase (ALT/SGPT) 253 U/L Total Bilirubin 0.6 MG/DL Direct Bilirubin 0.3 MG/DL Sodium Level 137 MEQ/L Potassium Level 4.1 MEQ/L Chloride Level 96 MEQ/L Carbon Dioxide Level 30.3 MEQ/L Indirect Bilirubin 0.3 MG/DL Total Creatine Kinase 32718 U/L Creatine Kinase MB 8.4 NG/ML Creatine Kinase MB % 0.0 % [id number] 353 mg/dL Tumor Marker Alpha Fetoprotein 2.4 NG/ML Anti-Nuclear Antibody Screen NEG Anti-Smooth Muscle Antibody Negative Tissue Transglutaminase IgG Ab <1.2 U/mL Tissue Transglutaminase IgA Ab <1.2 U/mL Urine Color RED Urine Turbidity CLOUDY Urine pH 7.5 Urine Specific [place] 1.027 Urine Protein 300 mg/dL Urine Glucose (UA) 70 mg/dL Urine Ketones NEG mg/dL Urine Occult Blood MOD Urine Nitrite NEG Urine Bilirubin NEG Urine Urobilinogen LESS THAN 2.0 MG/DL Urine Leukocyte Esterase LARGE Urine RBC /hpf Urine WBC /hpf Urine Amorphous Sediment RARE Urine Bacteria FEW /hpf Microscopic Urinalysis Comment CATH-CULTURE IND Test 02/04/17 05:00 02/05/17 05:01 02/06/17 05:24 Neutrophils (%) (Auto) 78.5 % Lymphocytes (%) (Auto) 5.3 % Monocytes (%) (Auto) 13.8 % Eosinophils (%) (Auto) 2.1 % Basophils (%) (Auto) 0.3 % Neutrophils # (Auto) 8.3 TH/MM3 Lymphocytes # (Auto) 0.6 TH/MM3 Monocytes # (Auto) 1.5 TH/MM3 Eosinophils # (Auto) 0.2 TH/MM3 Basophils # (Auto) 0.0 TH/MM3 CBC Comment AUTO DIFF Differential Total Cells Counted 100 Neutrophils % (Manual) 64 % Band Neutrophils % 14 % Lymphocytes % 7 % Monocytes % 11 % Eosinophils % 2 % Neutrophils # (Manual) 8.4 TH/MM3 Metamyelocytes 1 % Myelocytes 1 % Differential Comment FINAL DIFF MANUAL Platelet Estimate NORMAL Platelet Morphology Comment NORMAL Red Cell Morphology Comment NORMAL Blood Urea Nitrogen 46 MG/DL 67 MG/DL Creatinine 6.38 MG/DL 8.53 MG/DL Random Glucose 90 MG/DL 81 MG/DL Total Protein 5.5 GM/DL Albumin 1.9 GM/DL Calcium Level 8.6 MG/DL 8.4 MG/DL Alkaline Phosphatase 86 U/L Aspartate Amino Transf (AST/SGOT) 98 U/L Alanine Aminotransferase (ALT/SGPT) 101 U/L Total Bilirubin 0.6 MG/DL Sodium Level 136 MEQ/L 135 MEQ/L Potassium Level 4.2 MEQ/L 3.8 MEQ/L Chloride Level 95 MEQ/L 95 MEQ/L Carbon Dioxide Level 30.2 MEQ/L 29.3 MEQ/L Lipase 697 U/L White Blood Count 10.8 TH/MM3 Red Blood Count 2.84 MIL/MM3 Hemoglobin 9.6 GM/DL Hematocrit 27.0 % Mean Corpuscular Volume 95.2 FL Mean Corpuscular Hemoglobin 33.9 PG Mean Corpuscular Hemoglobin Concent 35.6 % Red Cell Distribution Width 12.3 % Platelet Count 213 TH/MM3 Mean Platelet Volume 7.0 FL Anion Gap 11 MEQ/L Estimat Glomerular Filtration Rate 7 ML/MIN Random Vancomycin Level 22.9 COMMENT Objective Remarks GENERAL: No acute distress. SKIN: Warm and dry. No rash HEAD: Atraumatic. Normocephalic. EYES: Pupils equal and round and reactive. No scleral icterus. No injection or drainage. ENT: No nasal bleeding or discharge. Mucous membranes pink and moist. NECK: Trachea midline. No JVD. CARDIOVASCULAR: normal rate, regular rhythm. sinus by tele. RESPIRATORY: Decreased breath sounds bilateral but no wheezing or crackles. GASTROINTESTINAL: Abdomen soft, non-tender, nondistended. MUSCULOSKELETAL: No clubbing cyanosis has Edema 2+ NEUROLOGICAL: RASS 0. CAM -. follows commands briskly. off sedation. Medications and IVs Current Medications Medications (Trade) Dose Ordered Sig/Dinesh Route Start Time Stop Time Status Last Admin (NS Flush) 2 ml UNSCH PRN IVF 01/29/17 13:00 01/29/17 14:01 (NS Flush) 2 ml UNSCH PRN IV FLUSH 01/29/17 16:00 02/06/17 08:39 (NS Flush) 2 ml BID IV FLUSH 01/29/17 21:00 02/06/17 08:38 (Protonix Inj) 40 mg DAILY IV PUSH 01/30/17 09:00 02/06/17 08:39 (Tears Naturale Opth Soln) 1 drop TID EACH EYE 01/29/17 18:00 02/03/17 18:41 (Zofran Inj) 4 mg Q6H PRN IV PUSH 01/29/17 16:00 02/03/17 23:07 (Albuterol Neb) 2.5 mg Q2HR NEB PRN INH 01/29/17 16:00 01/31/17 05:13 (Heparin Inj) 5,000 units Q12H SQ 01/29/17 16:00 02/06/17 06:04 Miscellaneous Information 1 Q361D XX 01/29/17 15:30 (Chlorhexidine 2% Cloth) Taper DAILY@04 TOP 01/30/17 04:00 01/26/18 03:59 02/03/17 04:00 (Chlorhexidine 2% Cloth) 3 pack UNSCH PRN TOP 01/29/17 15:30 (Nakia-Colace) 1 tab BID PO 01/29/17 21:00 02/05/17 22:23 (Milk Of Magnesia Liq) 30 ml Q12H PRN PO 01/29/17 16:00 02/02/17 20:56 (Senokot) 17.2 mg Q12H PRN PO 01/29/17 16:00 02/02/17 20:56 (Dulcolax Supp) 10 mg DAILY PRN RECTAL 01/29/17 16:00 (Lactulose Liq) 30 ml DAILY PRN PO 01/29/17 16:00 02/03/17 04:44 Thiamine HCl 100 mg/Sodium Chloride 101 ml @ 101 mls/hr DAILY IV 01/30/17 09:00 02/06/17 08:38 (Folate) 1 mg DAILY PO 01/30/17 09:00 02/06/17 08:39 (Theragran) 1 tab DAILY PO 01/30/17 09:00 02/06/17 08:39 (Ecotrin Ec) 81 mg DAILY PO 01/30/17 09:00 02/06/17 08:39 Sodium Chloride 1,000 ml @ 0 mls/hr Q0M PRN OTHER 01/31/17 09:58 02/03/17 18:00 (Heparin Inj) 8,000 units UNSCH PRN IV FLUSH 01/31/17 10:00 Sodium Chloride 1,000 ml @ 200 mls/hr Q5H PRN IV 01/31/17 09:58 Sodium Chloride 1,000 ml @ 0 mls/hr Q0M PRN OTHER 01/31/17 09:58 (Mannitol Inj) 12.5 gm UNSCH PRN IV 01/31/17 10:00 Albumin Human 100 ml @ 60 mls/hr UNSCH PRN IV 01/31/17 10:00 (NS Flush) 5 ml UNSCH PRN IV FLUSH 01/31/17 10:00 (Heparin Inj) UNSCH PRN .XX 01/31/17 10:00 02/04/17 16:59 (Gentamicin (Dialysis) Inj) 20 mg UNSCH PRN OTHER 01/31/17 10:00 02/06/17 13:17 (Zofran Inj) 4 mg UNSCH PRN IV PUSH 01/31/17 10:00 (Tylenol) 650 mg UNSCH PRN PO 01/31/17 10:00 02/02/17 05:50 (Benadryl) 25 mg UNSCH PRN PO 01/31/17 10:00 (Nitrostat Sl) 0.4 mg UNSCH PRN SL 01/31/17 10:00 (Gelfoam 12 Mm/7 Mm Top) 1 foam UNSCH PRN TOP 01/31/17 10:00 (Valium) 10 mg Q8HR PO 01/31/17 17:45 02/06/17 06:04 (Ativan Inj) 2 mg Q15M PRN IV PUSH 01/31/17 17:45 (Haldol Inj) 5 mg Q4H PRN IV 01/31/17 17:45 (SEROquel) 50 mg Q8HR PO 01/31/17 17:45 02/06/17 06:03 (Catapres) 0.3 mg Q8HR PO 01/31/17 17:45 Future Hold 02/01/17 21:12 Piperacillin Sod/ Tazobactam Sod 50 ml @ 100 mls/hr Q8H IV 02/02/17 16:00 02/06/17 08:00 Pharmacy Profile Note 0 ml @ 0 mls/hr UNSCH OTHER 02/02/17 07:30 A/P Assessment and Plan 1. Intentional Overdose on sleeping pills, Possible diphenhydramine, Depression , EtOH use, Agitated Delirium, EtOH withdrawal, Psychiatry specialist following, inpatient recommended once cleared, [facility] protocol. CT brain 01/29 revealed no acute intracranial findings CT C-spine 01/29 negative for acute findings. Straightened lordosis. 2. Sinus tachycardia severe Sepsis continue Zosyn and Vancomycin. no fever no Leukocytosis. sputum culture positive for Staph Aureus most probable contaminant. Dyslipidemia On hold home medicines on rosuvastatin due to slight elevation of liver function tests, held valsartan due to acute kidney injury held Metoprolol 50 mg BID, and Amlodipine, resumed Aspirin. 3. Acute Hypoxic and Hypercarbic Respiratory failure Improving, Aspiration Pneumonia status post VDRF Improved. continue antibiotics, PT following 4. Elevated transaminases, Rhabdomyolysis, Hepatic Steatosis. and elevated Lipase, CPK greater than 100,000 on admission. Abdominal ultrasound revealed hepatomegaly likely hepatic steatosis, continue PPIs, 5. Acute Kidney Injury, Nephrology specialist following. 6. Aspiration Pneumonia Sepsis, on Vancomycin and Zosyn. Improved will follow off antibiotics. PT evaluated the patient.recommended PT at rehab. Seen in the presence of nurse Miss ChaviraRowena early in am today, okay to transfer to psych unit. medically clear for discharge to Inpatient Medical Psych unit and continue management by Nephrology specialist in psych may. Prophylaxis - GI - pantoprazole - DVT - SCD/heparin subcutaneous Discharge Planning Not yet cleared for discharge by Nephrology specialist. will go to Inpatient Psychiatric unit. Dre Diaz MD Feb 06, 2017 13:49
[2017-02-06 13:51] LABS: CERULOPLASMIN 26 mg/dL (18-36)
[2017-02-06] MEDS ORDERED: HYDR-3799 PO (13:58)
[2017-02-06] MEDS ORDERED: PROT40TA PO (13:58)
[2017-02-06] MEDS ORDERED: FOLI1TAB6 PO (13:58)
[2017-02-06] MEDS ORDERED: ALBU0.08 INH (13:58)
--- NOTE | 2017-02-06 14:00 | HHI.DS ---
Discharge Summary Admission Date Jan 29, 2017 at 15:14 Discharge Date: Feb 06, 2017 Admitting Diagnosis acute renal failure/suspected overdose/altered mental status (1) Altered mental status ICD Code: R41.82 - Altered mental status, unspecified Diagnosis: Principal Status: Acute (2) Chronically on benzodiazepine therapy ICD Code: Z79.899 - Other clinical engineer (current) drug therapy Diagnosis: Principal (3) Dyslipidemia ICD Code: E78.5 - Hyperlipidemia, unspecified Diagnosis: Principal (4) Hypertension ICD Code: I10 - Essential (primary) hypertension Diagnosis: Principal (5) Elevated transaminase level ICD Code: R74.0 - Nonspecific elevation of levels of transaminase and lactic acid dehydrogenase [LDH] Diagnosis: Principal (6) Depression ICD Code: F32.9 - Major depressive disorder, single episode, unspecified Diagnosis: Principal (7) Medication overdose ICD Code: T50.901A - Poisoning by unspecified drugs, medicaments and biological substances, accidental (unintentional), initial encounter Diagnosis: Principal Status: Acute (8) Alcohol-induced mood disorder ICD Code: F10.94 - Alcohol use, unspecified with alcohol-induced mood disorder Diagnosis: Principal Status: Acute (9) Acute renal failure (ARF) ICD Code: N17.9 - Acute kidney failure, unspecified Diagnosis: Principal Status: Acute (10) Leukocytosis ICD Code: D72.829 - Elevated white blood cell count, unspecified Diagnosis: Principal (11) SIRS (systemic inflammatory response syndrome) ICD Code: R65.10 - Systemic inflammatory response syndrome (SIRS) of non- infectious origin without acute organ dysfunction Diagnosis: Principal (12) Metabolic acidosis, increased anion gap ICD Code: E87.2 - Acidosis Diagnosis: Principal Procedures Endotracheal Intubation and Extubation Hemodialysis. Brief History - From Admission This is a 46 year old male. Date of admission 01/29/2017. Past medical history includes hypertension, dyslipidemia and depression. He is on chronic clonazepam. He presents to [facility] after being found on the ground for an unknown duration of time after taking "wgaw-ptx-nswyroe sleeping pills". He's been Beltran acted. Symptomatology includes tachycardia, mydriasis and appears dehydrated. Patient is afebrile. Lab workup included negative urine toxicology screen. Negative acetaminophen and EtOH. Patient has a leukocytosis of 24,000. Patient is in acute kidney injury creatinine 2.9.. Transaminases are elevated. Patient has a metabolic acidosis/Hyalgan With acetone and lactic currently pending. CT brain and C-spine negative. Chest x-ray negative. Patient is currently awake and oriented to person and place but not time. CBC/BMP: 02/06/1724 02/06/17523 Significant Findings Laboratory Tests Test 02/04/17 05:00 02/05/17 05:01 02/05/17 05:20 02/06/17 05:24 Red Blood Count 3.20 MIL/MM3 (4.50-5.90) 2.83 MIL/MM3 (4.50-5.90) 2.84 MIL/MM3 (4.50-5.90) Hemoglobin 10.7 GM/DL (13.0-17.0) 9.7 GM/DL (13.0-17.0) 9.6 GM/DL (13.0-17.0) Hematocrit 31.1 % (39.0-51.0) 27.3 % (39.0-51.0) 27.0 % (39.0-51.0) Mean Platelet Volume 6.8 FL (7.0-11.0) Neutrophils (%) (Auto) 78.5 % (16.0-70.0) Lymphocytes (%) (Auto) 5.3 % (9.0-44.0) Monocytes (%) (Auto) 13.8 % (0.0-8.0) Neutrophils # (Auto) 8.3 TH/MM3 (1.8-7.7) Lymphocytes # (Auto) 0.6 TH/MM3 (1.0-4.8) Monocytes # (Auto) 1.5 TH/MM3 (0-0.9) Band Neutrophils % 14 % (0-6) Lymphocytes % 7 % (9-44) Monocytes % 11 % (0-8) Neutrophils # (Manual) 8.4 TH/MM3 (1.8-7.7) Myelocytes 1 % (0-0) Blood Urea Nitrogen 48 MG/DL (7-18) 46 MG/DL (7-18) 67 MG/DL (7-18) Creatinine 7.05 MG/DL (0.60-1.30) 6.38 MG/DL (0.60-1.30) 8.53 MG/DL (0.60-1.30) Total Protein 5.9 GM/DL (6.4-8.2) 5.5 GM/DL (6.4-8.2) Albumin 2.0 GM/DL (3.4-5.0) 1.9 GM/DL (3.4-5.0) Calcium Level 8.0 MG/DL (8.5-10.1) 8.4 MG/DL (8.5-10.1) Aspartate Amino Transf (AST/SGOT) 171 U/L (15-37) 98 U/L (15-37) Alanine Aminotransferase (ALT/SGPT) 137 U/L (12-78) 101 U/L (12-78) Potassium Level 5.3 MEQ/L (3.5-5.1) Chloride Level 95 MEQ/L (98-107) 95 MEQ/L (98-107) 95 MEQ/L (98-107) Estimat Glomerular Filtration Rate 8 ML/MIN (>89) 9 ML/MIN (>89) 7 ML/MIN (>89) Lipase 702 U/L (73-393) 697 U/L (73-393) Mean Corpuscular Hemoglobin 34.1 PG (27.0-34.0) Sodium Level 135 MEQ/L (136-145) Imaging Last Impressions Abdomen/Pelvis CT 02/03/17 0000 Signed Impressions: Service Date/Time: Saturday, February 04, 2017 01:20 - CONCLUSION: No acute CT findings in the abdomen or pelvis. Garfield Schulz MD Chest X-Ray 01/31/17 0537 Signed Impressions: Service Date/Time: Tuesday, January 31, 2017 05:45 - CONCLUSION: Right middle lobe atelectasis/infiltrate. Trace left base atelectasis. Garfield Weber MD Cervical Spine CT 01/29/17 1254 Signed Impressions: Service Date/Time: Sunday, January 29, 2017 13:23 - CONCLUSION: No acute findings. Note is compression of cord or spondylolisthesis. Straightening of the cervical lordosis and nonbridging degenerative paravertebral ossification lower cervical spine. Nghia Fraire MD Head CT 01/29/17 1252 Signed Impressions: Service Date/Time: Sunday, January 29, 2017 13:23 - CONCLUSION: Negative noncontrast CT brain. Nghia Fraire MD Abdomen Ultrasound 01/29/17 0000 Signed Impressions: Service Date/Time: Sunday, January 29, 2017 15:30 - CONCLUSION: 1. Diffusely increased hepatic echogenicity without evidence for volume loss most consistent with hepatic steatosis versus medical liver disease. 2. Trace left pleural effusion. Jos Lux MD PE at Discharge GENERAL: No acute distress. SKIN: Warm and dry. No rash HEAD: Atraumatic. Normocephalic. EYES: Pupils equal and round and reactive. No scleral icterus. No injection or drainage. ENT: No nasal bleeding or discharge. Mucous membranes pink and moist. NECK: Trachea midline. No JVD. CARDIOVASCULAR: normal rate, regular rhythm. sinus by tele. RESPIRATORY: Decreased breath sounds bilateral but no wheezing or crackles. GASTROINTESTINAL: Abdomen soft, non-tender, nondistended. MUSCULOSKELETAL: No clubbing cyanosis has Edema 2+ NEUROLOGICAL: RASS 0. CAM -. follows commands briskly. off sedation. Hospital Course Environmental Auditor Notes: This is a 46 year old male. Date of admission 01/29/2017. Past medical history includes hypertension, dyslipidemia and depression. He is on chronic clonazepam. He presents to [facility] after being found on the ground for an unknown duration of time after taking "hyxv-fre-ghbdzaf sleeping pills". He's been Beltran acted. Symptomatology includes tachycardia, mydriasis and appears dehydrated. Patient is afebrile. Lab workup included negative urine toxicology screen. Negative acetaminophen and EtOH. Patient has a leukocytosis of 24,000. Patient is in acute kidney injury creatinine 2.9.. Transaminases are elevated. Patient has a metabolic acidosis/Hyalgan With acetone and lactic currently pending. CT brain and C-spine negative. Chest x-ray negative. 01/30: Patient started on dexmedetomidine drip overnight and is currently on CIIL protocol receiving lorazepam going through DTs. Drinks approximately 12 beers daily. Thiamine, multivitamin and folate started. 01/31: Cr continues to worsen. now oligo-anuric. patient also now acutely delirious in etoh withdraw despite CIWA protocol. also now on NRB and clinically declining, hypoxic. initially evaluated and maintaining airway. placed dialysis catheter (see separate procedure note for details). however, patient continued to decline from a mental status standpoint as well as worsening hypoxia and was subsequently intubated (see separate procedure note for details). discussed care with nephrology- plan to initiate IHD. 02/01: [place] [id number]. patient is arousable and follows commands. remains in multi-organ failure from rhabdomyolysis and intentional drug overdose. 02/02: new fever, leukocytosis. likely source aspiration pneumonia from time of etoh withdraw/delirium before intubation. sputum cultures sent, started on vancomycin and zosyn. CK down to 20k. Cr continues to rise, but no reason for emergent dialysis today, will likely need again tomorrow. more hypotensive today and requiring ivf resuscitation. clinically declining today. 02/03: initial evaluation around 11am. delayed note entry. passed SBT on my eval. met parameters and was extubated successfully. sputum growing staph, sensitivities to follow. clinically improving. now much less delirious and appears to be improving from etoh withdraw. Hospitalist Notes: 02/04: Seen in his bedroom in the presence of nurse Miss Guaman, patient stable today recommended by Nephrology specialist for Hemodialysis due to Hyperkalemia and significant edema, likely acute renal failure secondary to Rhabdomyolysis not sure which kind of drug the patient took before this admission. no nausea, vomit or diarrhea, feeling better. 02/05: Seen in his bedroom in the presence of Miss Yusuf, continue present care, okay to transfer to the general Floor will handle it with nephrology specialist to try to do that this afternoon 02/06: Stable okay to transfer to psych unit and continue management by Nephrology in Psych, no nausea, vomit or diarrhea. okay to transfer to Psych seen early in AM with nurse Miss Guaman Assessment and Plan 1. Intentional Overdose on sleeping pills, Possible diphenhydramine, Depression , EtOH use, Agitated Delirium, EtOH withdrawal, Psychiatry specialist following, inpatient recommended once cleared, CIWA protocol. CT brain 01/29 revealed no acute intracranial findings CT C-spine 01/29 negative for acute findings. Straightened lordosis. 2. Sinus tachycardia severe Sepsis continue Zosyn and Vancomycin. no fever no Leukocytosis. sputum culture positive for Staph Aureus most probable contaminant. Dyslipidemia On hold home medicines on rosuvastatin due to slight elevation of liver function tests, held valsartan due to acute kidney injury held Metoprolol 50 mg BID, and Amlodipine, resumed Aspirin. 3. Acute Hypoxic and Hypercarbic Respiratory failure Improving, Aspiration Pneumonia status post VDRF Improved. continue antibiotics, PT following 4. Elevated transaminases, Rhabdomyolysis, Hepatic Steatosis. and elevated Lipase, CPK greater than 100,000 on admission. Abdominal ultrasound revealed hepatomegaly likely hepatic steatosis, continue PPIs, 5. Acute Kidney Injury, Nephrology specialist following. 6. Aspiration Pneumonia Sepsis, on Vancomycin and Zosyn. Improved will follow off antibiotics. PT evaluated the patient.recommended PT at rehab. Seen in the presence of nurse Rowena early in am today, okay to transfer to psych unit. medically clear for discharge to Inpatient Medical Psych unit and continue management by Nephrology specialist in psych may. Prophylaxis - GI - pantoprazole - DVT - SCD/heparin subcutaneous Discharge Planning Medically clear for Inpatient medical Psychiatric unit will need to be followed in Unit by Nephrology specialist. Pt Condition on Discharge: Stable Discharge Disposition: Disc to Psych Care Fac Discharge Time: > 30 minutes Discharge Instructions DIET: Follow Instructions for: Renal Failure Diet Activities you can perform: Regular-No Restrictions Dre Diaz MD Feb 06, 2017 14:00
--- NOTE | 2017-02-06 17:06 | HHI.NPPN ---
Subjective Renal Failure: Acute History of Present Illness The patient is a 46yo [place] male who was brought in 01/29 via EMS after mother became concerned that she hadn't heard from him. He was found at his house laying on floor for uncertain amount of time with a bottle of OTC sleeping pills beside him. He apparently has has suicide attempts in the past and is currently under Beltran Act. He was not a very reliable historian at time of initial consultation, but says the intentionally took sleeping pills and then mentions 81mg aspirin as well. His PMHx is positive for HTN, HLD, depression, EtOH abuse and suicidal ideation. Admitting SCr was 2.89 with eGFR at 24 that deteriorated overnight to SCr 4.11 and eGFR 16. CPK level is markedly elevated at >100,000 Denies any previous kidney issues. Only other SCr available from 07/07/15 that was 0.88 He is seen in ICU setting Interval History s/p HD today. States he is starting to feel much better. Urinating some, but minimal. No complaints (Radha Velazquez) Review of Systems General General Remarks No complaints (Radha Velazquez) Objective Data Data 02/06/17 02/07/17 19:00 07:00 Intake Total 151 ml Output Total 2500 ml Balance -2349 ml IV Total 151 ml Hemodialysis 2500 ml Vital Signs Date Time Temp Pulse Resp B/P (MAP) Pulse Ox O2 Delivery O2 Flow Rate FiO2 02/06/17 13:59 98.2 106 16 161/96 (117) 98 02/06/17 08:00 94 02/06/17 08:00 98.1 94 14 160/88 (112) 99 02/06/17 07:00 98 Nasal Cannula 2.00 02/06/17 06:00 92 02/06/17 04:00 98.1 98 16 152/84 (106) 100 02/06/17 04:00 98 02/06/17 02:00 89 02/06/17 00:00 98.3 108 20 158/92 (114) 97 02/06/17 00:00 89 02/05/17 22:00 110 02/05/17 21:33 96 Nasal Cannula 2.00 02/05/17 20:00 Nasal Cannula 2.00 35 02/05/17 20:00 99.3 119 20 150/83 (105) 98 02/05/17 20:00 112 02/05/17 18:00 123 02/05/17 18:00 123 16 150/90 (110) 96 (Radha Velazquez) -: 02/06/17 0524 02/06/17 0524 Imaging Last Impressions Abdomen/Pelvis CT 02/03/17 0000 Signed Impressions: Service Date/Time: Saturday, February 04, 2017 01:20 - CONCLUSION: No acute CT findings in the abdomen or pelvis. Garfield Schulz MD Chest X-Ray 01/31/17 0537 Signed Impressions: Service Date/Time: Tuesday, January 31, 2017 05:45 - CONCLUSION: Right middle lobe atelectasis/infiltrate. Trace left base atelectasis. Garfield Weber MD Cervical Spine CT 01/29/17 1253 Signed Impressions: Service Date/Time: Sunday, January 29, 2017 13:23 - CONCLUSION: No acute findings. Note is compression of cord or spondylolisthesis. Straightening of the cervical lordosis and nonbridging degenerative paravertebral ossification lower cervical spine. Nghia Fraire MD Head CT 01/29/17 1252 Signed Impressions: Service Date/Time: Sunday, January 29, 2017 13:23 - CONCLUSION: Negative noncontrast CT brain. Nghia Fraire MD Abdomen Ultrasound 01/29/17 0000 Signed Impressions: Service Date/Time: Sunday, January 29, 2017 15:30 - CONCLUSION: 1. Diffusely increased hepatic echogenicity without evidence for volume loss most consistent with hepatic steatosis versus medical liver disease. 2. Trace left pleural effusion. Jos Lux MD Additional Information 02/06/17 02/06/17 02/07/17 15:00 23:00 07:00 Intake Total 151 ml Output Total 2500 ml Balance -2349 ml IV Total 151 ml Hemodialysis 2500 ml Tubes & Lines: Vas-Cath Medication Review Current Medications Medications (Trade) Dose Ordered Sig/Dinesh Route Start Time Stop Time Status Last Admin (NS Flush) 2 ml UNSCH PRN IVF 01/29/17 13:00 01/29/17 14:01 (NS Flush) 2 ml UNSCH PRN IV FLUSH 01/29/17 16:00 02/06/17 08:39 (NS Flush) 2 ml BID IV FLUSH 01/29/17 21:00 02/06/17 08:38 (Protonix Inj) 40 mg DAILY IV PUSH 01/30/17 09:00 02/06/17 08:39 (Tears Naturale Opth Soln) 1 drop TID EACH EYE 01/29/17 18:00 02/03/17 18:41 (Zofran Inj) 4 mg Q6H PRN IV PUSH 01/29/17 16:00 02/03/17 23:07 (Albuterol Neb) 2.5 mg Q2HR NEB PRN INH 01/29/17 16:00 01/31/17 05:13 (Heparin Inj) 5,000 units Q12H SQ 01/29/17 16:00 02/06/17 06:04 Miscellaneous Information 1 Q361D XX 01/29/17 15:30 (Chlorhexidine 2% Cloth) Taper DAILY@04 TOP 01/30/17 04:00 01/26/18 03:59 02/03/17 04:00 (Chlorhexidine 2% Cloth) 3 pack UNSCH PRN TOP 01/29/17 15:30 (Nakia-Colace) 1 tab BID PO 01/29/17 21:00 02/05/17 22:23 (Milk Of Magnesia Liq) 30 ml Q12H PRN PO 01/29/17 16:00 02/02/17 20:56 (Senokot) 17.2 mg Q12H PRN PO 01/29/17 16:00 02/02/17 20:56 (Dulcolax Supp) 10 mg DAILY PRN RECTAL 01/29/17 16:00 (Lactulose Liq) 30 ml DAILY PRN PO 01/29/17 16:00 02/03/17 04:44 Thiamine HCl 100 mg/Sodium Chloride 101 ml @ 101 mls/hr DAILY IV 01/30/17 09:00 02/06/17 08:38 (Folate) 1 mg DAILY PO 01/30/17 09:00 02/06/17 08:39 (Theragran) 1 tab DAILY PO 01/30/17 09:00 02/06/17 08:39 (Ecotrin Ec) 81 mg DAILY PO 01/30/17 09:00 02/06/17 08:39 Sodium Chloride 1,000 ml @ 0 mls/hr Q0M PRN OTHER 01/31/17 09:58 02/03/17 18:00 (Heparin Inj) 8,000 units UNSCH PRN IV FLUSH 01/31/17 10:00 Sodium Chloride 1,000 ml @ 200 mls/hr Q5H PRN IV 01/31/17 09:58 Sodium Chloride 1,000 ml @ 0 mls/hr Q0M PRN OTHER 01/31/17 09:58 (Mannitol Inj) 12.5 gm UNSCH PRN IV 01/31/17 10:00 Albumin Human 100 ml @ 60 mls/hr UNSCH PRN IV 01/31/17 10:00 (NS Flush) 5 ml UNSCH PRN IV FLUSH 01/31/17 10:00 (Heparin Inj) UNSCH PRN .XX 01/31/17 10:00 02/04/17 16:59 (Gentamicin (Dialysis) Inj) 20 mg UNSCH PRN OTHER 01/31/17 10:00 02/06/17 13:17 (Zofran Inj) 4 mg UNSCH PRN IV PUSH 01/31/17 10:00 (Tylenol) 650 mg UNSCH PRN PO 01/31/17 10:00 02/02/17 05:50 (Benadryl) 25 mg UNSCH PRN PO 01/31/17 10:00 (Nitrostat Sl) 0.4 mg UNSCH PRN SL 01/31/17 10:00 (Gelfoam 12 Mm/7 Mm Top) 1 foam UNSCH PRN TOP 01/31/17 10:00 (Valium) 10 mg Q8HR PO 01/31/17 17:45 02/06/17 14:26 (Ativan Inj) 2 mg Q15M PRN IV PUSH 01/31/17 17:45 (Haldol Inj) 5 mg Q4H PRN IV 01/31/17 17:45 (SEROquel) 50 mg Q8HR PO 01/31/17 17:45 02/06/17 14:26 (Catapres) 0.3 mg Q8HR PO 01/31/17 17:45 Future Hold 02/01/17 21:12 Piperacillin Sod/ Tazobactam Sod 50 ml @ 100 mls/hr Q8H IV 02/02/17 16:00 02/06/17 08:00 Pharmacy Profile Note 0 ml @ 0 mls/hr UNSCH OTHER 02/02/17 07:30 (Radha Velazquez) Physical Exam General Appearance: No Acute Distress, Comfortable (Radha Velazquez) Eyes Eye Exam: Sclera White (Radha Velazquez) Throat Throat Exam: Oral Mucosa [place] & Moist (Radha Velazquez) Neck Neck Exam: Trachea Midline (Radha Velazquez) Pulmonary Resp Exam: Clear Bilaterally, Breath Sounds Equal, Labored (Radha Velazquez) Gastrointestinal/Abdomen GI Exam: Non-Tender, Distended (Radha Velazquez) Integumentary Skin Exam: Clear, Warm, Normal Turgor (Radha Velazquez) Extremeties Extremities Exam: Moderate Edema (bilat hands and LEs) (Radha Velazquez) Neurologic Neuro Exam: Alert, Awake, Sedated (Radha Velazquez) Assessment/Plan Discussed Condition With: Son Problem List: (1) Acute renal failure (ARF) ICD Codes: N17.9 - Acute kidney failure, unspecified Status: Acute Plan: Appears ARF secondary to rhabdomyolysis. It is not entirely clear what medication(s) he took prior to his admission but from what is gathered it appears a generic OTC sleeping agent likely diphenhydramine. Continue hemodialysis TTS and as needed. Patient is still oliguric. Will monitor renal function over the weekend. If no significant improvement occurs I will consider hemodialysis PermCath placement Friday in preparation for possible discharge with outpatient dialysis. I discussed with the patient the severity of his acute kidney injury and his current dialysis dependence. He was advised that I am optimistic he will recover enough renal function to discontinue dialysis however there is no guarantee. He was counseled regarding the pathogenesis of his acute kidney injury and the role his overdose played in his pathogenesis and the need to avoid such activity in the future.. Medications should be adjusted for patient on dialysis when required. Avoid gadolinium. (2) Drug overdose, intentional ICD Codes: T50.902A - Poisoning by unspecified drugs, medicaments and biological substances, intentional self-harm, initial encounter Status: Acute (3) Rhabdomyolysis ICD Codes: M62.82 - Rhabdomyolysis Status: Acute (Radha Velazquez) Plan The exam, history, and the medical decision-making described in the above note were completed with the assistance of the PAJose Enrique. I reviewed and agree with the findings presented. (Beth Adams MD) Problem Qualifiers (1) Acute renal failure (ARF): Qualified Codes: N17.9 - Acute kidney failure, unspecified Radha Velazquez Feb 06, 2017 17:06 Beth Adams MD Feb 07, 2017 12:49
[2017-02-06 23:51] LABS: MITOCHONDRIAL ABS LESS THAN 20.0 U (<=20.0)
[2017-02-07] VITALS (7 sets, daily range): BP systolic 126–168; BP diastolic 84–93; PULSE 88–136; RESP 18–19; TEMP 97.4–98.2; O2SAT 94–99
[2017-02-07] MEDS: PIPERACIL-TAZO 2.25 GM PREMIX 50 ML IV SCH ×2 (00:30→09:11)
[2017-02-07] MEDS: CHLORHEXIDINE GLUCONATE 2 % 1 PACK (2 CLOTHS) TOP SCH (04:00)
[2017-02-07] MEDS: QUEtiapine FUMARATE 25 MG TAB PO SCH (05:19)
[2017-02-07] MEDS: DIAZEPAM 10 MG TAB PO SCH (05:19)
[2017-02-07] MEDS: HEPARIN SODIUM - SQ 10,000 UNITS/ML VIAL SQ SCH (05:22)
[2017-02-07 08:01] LABS: HEMATOCRIT 26.1 % (39.0-51.0); HEMOGLOBIN 9.2 GM/DL (13.0-17.0); MEAN CELL VOLUME 94.5 FL (80.0-100.0); MEAN CORPUSCULAR HEMOGLOBIN 33.4 PG (27.0-34.0); MEAN CORPUSCULAR HGB CONC 35.3 % (32.0-36.0); MEAN PLATELET VOLUME 7.3 FL (7.0-11.0); PLATELET COUNT 239 TH/MM3 (150-450); RED BLOOD COUNT 2.76 MIL/MM3 (4.50-5.90); RED CELL DISTRIBUTION WIDTH 12.7 % (11.6-17.2); WHITE BLOOD COUNT 10.8 TH/MM3 (4.0-11.0)
[2017-02-07 08:35] LABS: ALBUMIN 1.9 GM/DL (3.4-5.0); ALT (GPT) 63 U/L (12-78); AST (GOT) 54 U/L (15-37); BICARBONATE 26.1 MEQ/L (21.0-32.0); BLOOD UREA NITROGEN 57 MG/DL (7-18); CALCIUM 8.5 MG/DL (8.5-10.1); CHLORIDE 93 MEQ/L (98-107); CREATININE 7.25 MG/DL (0.60-1.30); GLOMERULAR FILTRATION RATE 8 ML/MIN (>89); GLUCOSE,RANDOM 89 MG/DL (74-106); SODIUM (NA) 132 MEQ/L (136-145)
[2017-02-07 08:36] LABS: ALKALINE PHOSPHATASE 69 U/L (45-117); RANDOM VANCOMYCIN 16.5 COMMENT; TOTAL BILIRUBIN ADULT 0.4 MG/DL (0.2-1.0); TOTAL PROTEIN 5.2 GM/DL (6.4-8.2)
[2017-02-07] MEDS: ARTIFICIAL TEARS OPTH SOLN 15 ML BTL EACH EYE SCH ×2 (09:00→12:09)
[2017-02-07] MEDS: DOCUSATE SODIUM 50 MG/SENNA 8.6 MG TAB PO SCH (09:10)
[2017-02-07] MEDS: ASPIRIN EC 81 MG TABEC PO SCH (09:10)
[2017-02-07] MEDS: FOLIC ACID 1 MG TAB PO SCH (09:10)
[2017-02-07] MEDS: PANTOPRAZOLE SODIUM 40 MG VIAL IV PUSH SCH (09:11)
[2017-02-07] MEDS: SODIUM CHLORIDE 0.9% FLUSH 10 ML FLUSH IV FLUSH SCH (09:11)
[2017-02-07] MEDS: MULTIVITAMIN TAB PO SCH (09:11)
[2017-02-07] MEDS: THIAMINE INJ 100 MG in SODIUM CHLORIDE 0.9% INJ 100 ML IV SCH (09:43)
--- NOTE | 2017-02-07 13:06 | HHI.NPPN ---
Subjective Renal Failure: Acute History of Present Illness The patient is a 46yo [place] male who was brought in 01/29 via EMS after mother became concerned that she hadn't heard from him. He was found at his house laying on floor for uncertain amount of time with a bottle of OTC sleeping pills beside him. He apparently has has suicide attempts in the past and is currently under Beltran Act. He was not a very reliable historian at time of initial consultation, but says the intentionally took sleeping pills and then mentions 81mg aspirin as well. His PMHx is positive for HTN, HLD, depression, EtOH abuse and suicidal ideation. Admitting SCr was 2.89 with eGFR at 24 that deteriorated overnight to SCr 4.11 and eGFR 16. CPK level is markedly elevated at >100,000 Denies any previous kidney issues. Only other SCr available from 07/07/15 that was 0.88 He is seen in ICU setting Interval History Patient being transferred to [facility]. No verbal complaints. Review of Systems General General Remarks No complaints Objective Data Data 02/07/17 02/08/17 19:00 07:00 Intake Total 151 ml Balance 151 ml IV Total 151 ml Vital Signs Date Time Temp Pulse Resp B/P (MAP) Pulse Ox O2 Delivery O2 Flow Rate FiO2 02/07/17 12:00 97.9 92 18 142/89 (106) 94 02/07/17 10:04 97 02/07/17 08:31 98.0 88 19 126/84 (98) 99 02/07/17 08:30 99 Nasal Cannula 1.00 02/07/17 08:01 92 02/07/17 04:54 97.4 98 18 168/93 (118) 98 02/07/17 01:40 136 02/07/17 00:41 98.2 97 18 154/91 (112) 98 02/06/17 20:12 99.0 119 20 146/85 (105) 97 02/06/17 19:00 97 Nasal Cannula 2.00 02/06/17 19:00 Nasal Cannula 2.00 02/06/17 18:51 120 02/06/17 17:21 98.7 113 18 136/86 (103) 99 02/06/17 14:20 Nasal Cannula 2.00 02/06/17 13:59 98.2 106 16 161/96 (117) 98 -: 02/07/1760402/07/17604 Tubes & Lines: Vas-Cath Physical Exam General Appearance: No Acute Distress, Comfortable Eyes Eye Exam: Sclera White Throat Throat Exam: Oral Mucosa [place] & Moist Neck Neck Exam: Trachea Midline Pulmonary Resp Exam: Clear Bilaterally, Breath Sounds Equal, Labored Resp Remarks Upper airway stridor audible prior to his intubation. Gastrointestinal/Abdomen GI Exam: Non-Tender, Distended Integumentary Skin Exam: Clear, Warm, Normal Turgor Extremeties Extremities Exam: Moderate Edema (bilat hands and LEs) Neurologic Neuro Exam: Alert, Awake, Sedated Assessment/Plan Discussed Condition With: Patient, Son Problem List: (1) Acute renal failure (ARF) ICD Codes: N17.9 - Acute kidney failure, unspecified Status: Acute Plan: Appears ARF secondary to rhabdomyolysis. It is not entirely clear what medication(s) he took prior to his admission but from what is gathered it appears a generic OTC sleeping agent likely diphenhydramine. Continue hemodialysis TTS and as needed. Patient is still oliguric. Will monitor renal function over the weekend. If no significant improvement occurs I will consider hemodialysis PermCath placement Friday in preparation for possible discharge with outpatient dialysis. Patient lives in [place] and will have to establish with another inbound ingredient logistics specialist if he requires dialysis outside of the facility. I discussed with the patient the severity of his acute kidney injury and his current dialysis dependence. He was advised that I am optimistic he will recover enough renal function to discontinue dialysis however there is no guarantee. He was counseled regarding the pathogenesis of his acute kidney injury and the role his overdose played in his pathogenesis and the need to avoid such activity in the future.. Medications should be adjusted for patient on dialysis when required. Avoid gadolinium. (2) Drug overdose, intentional ICD Codes: T50.902A - Poisoning by unspecified drugs, medicaments and biological substances, intentional self-harm, initial encounter Status: Acute (3) Rhabdomyolysis ICD Codes: M62.82 - Rhabdomyolysis Status: Acute Plan The exam, history, and the medical decision-making described in the above note were completed with the assistance of the JOHN. I reviewed and agree with the findings presented. Problem Qualifiers (1) Acute renal failure (ARF): Qualified Codes: N17.9 - Acute kidney failure, unspecified Beth Adams MD Feb 07, 2017 13:06
[2017-02-07] MEDS ORDERED: VANCOMYCIN 1,500 MG/NS 500 ML IV ONE ×2 (14:00)
== END 2017-02-07 13:02 | DRG 917 ==
LOC: NEPC 12:45 → NEDA 15:14 → HIMW 16:45 → N05A 02-06 13:52
PROVIDERS: ADMIT Hospitalist; ATTEND Hospitalist
PROC: 02HV33Z Insertion of Infusion Device into Superior Vena Cava, Percutaneous Approach (ICD-10-PCS; principal; 2017-01-31)
PROC: 5A1945Z Respiratory Ventilation, 24-96 Consecutive Hours (ICD-10-PCS; 2017-01-31)
PROC: 5A1D70Z Performance of Urinary Filtration, Intermittent, Less than 6 Hours Per Day (ICD-10-PCS; 2017-01-31)
PROC: 0BH17EZ Insertion of Endotracheal Airway into Trachea, Via Natural or Artificial Opening (ICD-10-PCS; 2017-01-31)
DX: T45.0X2A Poisoning by antiallergic and antiemetic drugs, intentional self-harm, initial encounter (principal); J96.01 Acute respiratory failure with hypoxia; R65.20 Severe sepsis without septic shock; J69.0 Pneumonitis due to inhalation of food and vomit; A41.9 Sepsis, unspecified organism; N17.9 Acute kidney failure, unspecified; M62.82 Rhabdomyolysis; E83.39 Other disorders of phosphorus metabolism; F10.231 Alcohol dependence with withdrawal delirium; E87.2 Acidosis; E87.1 Hypo-osmolality and hyponatremia; F13.239 Sedative, hypnotic or anxiolytic dependence with withdrawal, unspecified; F41.9 Anxiety disorder, unspecified; I10 Essential (primary) hypertension; F32.9 Major depressive disorder, single episode, unspecified; E86.0 Dehydration; K76.0 Fatty (change of) liver, not elsewhere classified; E78.5 Hyperlipidemia, unspecified; R33.9 Retention of urine, unspecified; Y92.009 Unspecified place in unspecified non-institutional (private) residence as the place of occurrence of the external cause; Z79.82 Long term (current) use of aspirin
CPT/HCPCS: 31500; 36556; 36600; 70450; 71010; 72125; 74176; 76700; 76937; 80048; 80053; 80074; 80076; 80202; 80307; 81001; 82010; 82103; 82105; 82140; 82150; 82390; 82550; 82552; 82570; 82728; 82805; 82948; 83516; 83520; 83540; 83550; 83605; 83690; 83735; 84100; 84155; 84300; 84443; 84484; 85007; 85025; 85027; 85384; 85610; 85730; 86038; 86255; 86403; 87040; 87070; 87086; 87147; 87186; 87205; 87641; 90935; 93005; 94002; 94003; 94150; 94640; 94664; 94667; 94668; 96360; 96374; C9113; J0610; J1580; J1644; J1940; J2060; J2250; J2405; J2543; J3010; J3370; J3411; J7030; J7040; J7050; J7120; J7613; P9045; Q9963

== ENCOUNTER 2017-02-07 10:52 | Inpatient (IN) | payer BC ==
[~2017-02-07] VITALS: Ht 182.9 cm; Wt 92.0 kg
[~2017-02-07 10:52] MED LIST changes: +ALBU0.08 INH; -AMLO2.5T PO; -BUPR150T3 PO; -CITA-48 PO; -CLON1TAB PO; +FOLI1TAB6 PO; +HYDR-3799 PO; -METO50TA PO; +PROT40TA PO; -ROSU40 PO; -VALS1TAB49 PO
[2017-02-07] MEDS ORDERED: LORazepam 0.5 MG TAB PO PRN (15:30)
[2017-02-07] MEDS ORDERED: ACETAMINOPHEN 325 MG TAB PO PRN (15:30)
[2017-02-07] MEDS ORDERED: LORazepam 1 MG TAB PO PRN (15:30)
[2017-02-07] MEDS ORDERED: LORazepam 2 MG/ML VIAL IM PRN ×2 (15:30)
[2017-02-07] MEDS ORDERED: ALUMINUM/MAGNESIUM/SIMETH 30 ML CUP PO PRN (15:30)
[2017-02-07] MEDS: NICOTINE 21 MG/24 HR PATCH T-DERMAL SCH (15:30)
[2017-02-07] MEDS ORDERED: MAGNESIUM HYDROXIDE SUSP 30 ML CUP PO PRN (15:30)
[2017-02-07] MEDS ORDERED: RESP: ALBUTEROL 2.5 MG/3 ML NEB (PRN) INH (15:30)
--- NOTE | 2017-02-07 15:35 | HHI.HP ---
Provisional Diagnosis Admission Date Feb 07, 2017 at 13:18 [place] I. Major depressive disorder, recurrent, severe without psychosis Certification of Person's Competence To Provide Express and Informed Consent I have personally examined Romario Woods , a person being served at [facility] on, Feb 07, 2017 15:35. Express and informed consent means consent voluntarily given in writing, by a competent person, after sufficient explanation and disclosure of the subject matter involved to enable the person to make a knowing and willful decision without any element of force, fraud, deceit, duress, or other form of constraint or coercion. This person is 18 years of age or older, is not now known to be incompetent to consent to treatment with a guardian advocate, and does not have a health care surrogate or proxy currently making medical treatment decisions. I have found this person to be one of the following: [x] Competent to provide express and informed consent, as defined above, for voluntary admission to this facility and is competent to provide express and informed consent for treatment. He/she has the consistent capacity to make well reasoned, willful, and knowing decisions concerning his or her medical or mental health treatment. The person fully and consistently understands the purpose of the admission for examination/placement and is fully capable of personally exercising all rights assured [place] Incompetent to provide express and informed consent to voluntary admission, and this is incompetent to provide express and informed consent to treatment. The person must be transferred to involuntary status and a petition for a guardian advocate filed with the Circuit Court. [] Refusing to provide express and informed consent to voluntary admission but is competent to provide express and informed consent for treatment. The person must be discharged or transferred to involuntary status. Form shall be completed within 24 hours of a person's arrival at the receiving facility and filed in the clinical record of each person: 1. Admitted on a voluntary basis 2. Permitted to provide express and informed consent to his/her own treatment 3. Allowed to transfer from involuntary to voluntary status 4. Prior to permitting a person to consent to his or her own treatment after having been previously found incompetent to consent to treatment. History of Present Illness Capacity: Has Capacity HPI The patient is a 46 year old man, domiciled in [place] , , employed, with reported psychiatric history of depression and anxiety, 1 previous psychiatric hospitalization in the past, one suicidal attempt by hanging, alcohol and cannabis use disorder, Past medical history includes hypertension and dyslipidemia . He presents to [facility] after being found on the ground for an unknown duration of time after taking "over-the- counter sleeping pills". He's been Beltran acted. Symptomatology includes tachycardia, mydriasis and appears dehydrated. Lab workup included negative urine toxicology screen. Negative acetaminophen and EtOH. Patient has a leukocytosis of 24,000. Patient is in acute kidney injury creatinine 2.9.. Transaminases are elevated. Patient has a metabolic acidosis/Hyalgan With acetone and lactic currently pending.CT brain and C-spine negative. Chest x- ray negative. On psychiatric evaluation today patient is evidently confused, at the beginning he did not know what he was, and what was the reason of his hospitalization, but with redirection he remembered that he is at [facility], but he continues to say that we are in [place] 1969. 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 After stated multiple times that he doesn't remember what is the reason he is here, he finally says with tears in his eyes he has screw up his relationship with his girlfriend, she has left him, and he has been feeling useless, helpless, hopeless, and finally tried to commit suicide by overdosing. Patient stated that his intention was to . He says that life doesn't have any purpose anymore. As patient is talking his is to be internally preoccupied and having visual hallucinations. He actually states that "I don't know what this robin here behind you is doing to me, why does he have to be here"when is not really nobody there. Patient reports that he has been drinking too much. He reports anyway from 8-16 beers per day. Also reports occasional use of marijuana. Denies use of cocaine, heroine, and other illicit drugs. Patient is sweaty and tremulous, even though he denies inner sensation of anxiety, pain, nausea. Patient was seen today for psychiatric reevaluation in the medical psychiatric unit. She is calm, cooperative, pleasant. Patient reports feeling much better , he says that he regrets his actions of overdosing, and he is motivated to pursue psychiatric treatment and counseling and get better. This moment the patient denies suicidal and homicidal ideation, he denies visual and auditory hallucinations. She is confused, but oriented in person and place, partially oriented in time Review of Systems Except as stated in HPI: all other systems reviewed are Neg Past Family Social History Coded Allergies: No Known Allergies (Unverified , 07/07/15) Active Scripts Hydralazine HCl (Hydralazine HCl) 25 Mg Tablet, 25 MG PO QID Y for SBP>160, DBP> 90, #120 TAB 0 Refills give one dose every six hour for systolic blood pressure over 160 mm Hg. Prov:Dre Diaz MD 02/06/17 Pantoprazole (Protonix) 40 Mg Tab, 40 MG PO DAILY for Reflux, #30 TAB 0 Refills Prov:Dre Diaz MD 02/06/17 Folic Acid (Folic Acid) 1 Mg Tablet, 1 MG PO DAILY for vit, #30 TAB 0 Refills Prov:Dre Diaz MD 02/06/17 Albuterol Neb (Albuterol Neb) 2.5 Mg/3 Ml Neb, 2.5 MG INH Q2HR NEB Y for SOB/ WHEEZING, #1 NEBULE 0 Refills Prov:Dre Diaz MD 02/06/17 Reported Medications Multiple Vitamin (Multivitamin) 1 Tab Tab, 1 TAB PO DAILY, TAB 07/07/15 Aspirin (Aspirin Ec Low Strength) 81 Mg Tab, 81 MG PO DAILY, TAB 07/07/15 Discontinued Reported Medications Rosuvastatin Calcium (Crestor) 40 Mg Tab, 40 MG PO HS, #30 TAB 07/07/15 Valsartan (Valsartan) 320 Mg Tab, 1 TAB PO 07/07/15 Clonazepam (Clonazepam) 1 Mg Tab, 1 MG PO DAILY, TAB 07/07/15 Citalopram Hydrobromide (Citalopram Hydrobromide) 40 Mg Tab, 40 MG PO DAILY, TAB 07/07/15 Amlodipine Besylate 2.5 mg (Amlodipine Besylate 2.5 mg) 2.5 Mg Tab, 1 TAB PO DAILY, TAB 07/07/15 Metoprolol Tartrate 50 mg (Metoprolol Tartrate 50 mg) 50 Mg Tab, 50 MG PO BID, TAB 07/07/15 Bupropion Hcl (Bupropion Hcl Xl) 150 Mg Tab, 150 MG PO DAILY, TAB 07/07/15 Current Medications Medications (Trade) Dose Ordered Sig/Dinesh Route Start Time Stop Time Status Last Admin (Albuterol Neb) 2.5 mg Q2HR NEB PRN INH 02/07/17 15:30 UNV (Apresoline) 25 mg QID PRN PO 02/07/17 15:30 UNV Non-Formulary Medication 81 mg DAILY PO 02/07/17 15:30 UNV (Ativan) 1 mg Q6H PRN PO 02/07/17 15:30 UNV (Ativan Inj) 1 mg Q6H PRN IM 02/07/17 15:30 UNV (Ativan) 0.5 mg Q12H PRN PO 02/07/17 15:30 UNV (Ativan Inj) 0.5 mg Q12H PRN IM 02/07/17 15:30 UNV (Tylenol) 650 mg Q4H PRN PO 02/07/17 15:30 UNV (Milk Of Magnesia Liq) 30 ml DAILY PRN PO 02/07/17 15:30 UNV (Mag-Al Plus Susp Liq) 30 ml Q6H PRN PO 02/07/17 15:30 UNV (Habitrol 21 Mg Patch.24 Hr) 1 patch DAILY T-DERMAL 02/07/17 15:30 UNV Family Psych History He denies family psychiatric history Social History Patient was born and raised in [place], he says that he lives in [facility] , he is , he says that he has a job, Patient's Strengths (min. 2) Family support Physical Exam Vital Signs I/O 02/07/17 02/07/17 02/08/17 08:00 16:00 00:00 Intake Total 120 ml Balance 120 ml Mental Status Examination Appearance: Appropriate Consciousness: Alert Orientation: x4 Motor Activity: Normal gait Speech: Unremarkable Language: Adequate Fund of Knowledge: Adequate Attention and Concentration: Adequate Memory: Unremarkable Mood: Appropriate Affect: Appropriate Thought Process & Associations: Intact Thought Content: Appropriate Hallucination Type: None Delusion Type: None Suicidal Ideation: No Suicidal Plan: No Suicidal Intention: No Homicidal Ideation: No Homicidal Plan: No Homicidal Intention: No Insight: Adequate Judgment: Adequate Assessment & Plan Problem List: (1) Depression ICD Codes: F32.9 - Major depressive disorder, single episode, unspecified Assessment & Plan: On psychiatric evaluation patient admits the recent suicidal attempt by overdosing with concisus and delivered suicidal intentions. Patient reports ongoing symptomatology of depression later with increased alcohol use and recent rupture with girlfriend. She reports hopelessness, helplessness, worthlessness, guiltiness, and frequent suicidal thoughts. At the moment of this evaluation patient denies suicidal ideation, she seems to be motivated to better and to participate in treatment and compliant with medications. We'll start Remeron 15 mg at bedtime to help with sleep and with depression. grommet worker intervention for psychosocial assessment, collateral information, individual and group therapies, to start to coordinate a safe discharge plan. Patient is willing to sign voluntary admission. Brief supportive psychotherapy provided. Assessment & Plan Estimated LOS: days Problem Qualifiers (1) Depression: Danny Trinh MD Feb 07, 2017 15:35
[2017-02-07] MEDS: ASPIRIN EC 81 MG TABEC PO SCH (15:45)
[2017-02-07 16:00] VITALS: BP 150/96; PULSE 107; RESP 20; TEMP 98; O2SAT 97
[2017-02-07 18:12] VITALS: PULSE 106; RESP 20; TEMP 98.1; O2SAT 97
[2017-02-07] MEDS: MIRTAZAPINE 15 MG TAB PO SCH (21:14)
[2017-02-08 06:46] VITALS: BP 151/91; PULSE 93; RESP 18; TEMP 97.5; O2SAT 95
--- NOTE | 2017-02-08 07:57 | HHI.PYPN ---
Subjective Remarks Patient seen for follow-up, chart review. Patient reports he is feeling "fine" , reports having slept well, no problem eating and drinking, no problem bowel movement. Patient states that he is started to urinate again which she is glad about. Patient states that he recalls "bits and pieces" of the events prior to his admission but was aware that he had drank more than he usually drinks and had decided to take "more sleeping pills". Patient reports that he had been drinking alcohol for years about 8-12 beers and is aware that this has been ongoing problem for him at this time is considering re-engaging in rehabilitation. He reports that his current stressors that had led to his recent overdose was difficulty with his work, relationship discord with his girlfriend and financial stress. Patient states that he now feels ashamed and guilty having put stress on his family also is feeling as if he let them down. At this time he denies any SI, HI, AVH or delusions. Review of Systems Except as stated in HPI: all other systems reviewed are Neg Mental Status Examination Appearance: Appropriate Consciousness: Alert Orientation: x4 Motor Activity: Normal gait Speech: Unremarkable Language: Adequate Fund of Knowledge: Adequate Attention and Concentration: Adequate Memory: Unremarkable Mood: Appropriate Affect: Sad Thought Process & Associations: Intact Thought Content: Appropriate Hallucination Type: None Delusion Type: None Suicidal Ideation: No Suicidal Plan: No Suicidal Intention: No Homicidal Ideation: No Homicidal Plan: No Homicidal Intention: No Insight: Adequate Judgment: Adequate Results Vitals/IOs Vital Signs Date Time Temp Pulse Resp B/P (MAP) Pulse Ox O2 Delivery O2 Flow Rate FiO2 02/08/17 06:46 97.5 93 18 151/91 (111) 95 Intake and Output 02/08/17 02/08/17 02/09/17 08:00 16:00 00:00 Intake Total 240 ml Balance 240 ml Assessment & Plan Problem List: (1) Depression ICD Codes: F32.9 - Major depressive disorder, single episode, unspecified Assessment & Plan Patient at this time feels depressed due to his current psychosocial stressors, denies any suicide ideations at this time. Supportive psychotherapy provided. Continue current treatment. Patient willing to reengage in rehabilitation which will be explored prior to discharge. Continue CIWA protocol. Discharge planning in progress. Justification for Cont. Inpt. At risk for further decompensation if at lower level of care Discharge Planning Patient's return back to his residence was psychiatrically and medically cleared Problem Qualifiers (1) Depression: Edward Melendez MD Feb 08, 2017 07:57
[2017-02-08] MEDS: NICOTINE 21 MG/24 HR PATCH T-DERMAL SCH (08:13)
[2017-02-08] MEDS: ASPIRIN EC 81 MG TABEC PO SCH (08:13)
--- NOTE | 2017-02-08 08:22 | PD.CONS ---
HPI Service [facility] Hospitalists Consult Requested By Doctor Danny Trinh Reason for Consult Medical Management Primary Care Physician No Primary Care Physician Diagnoses: History of Present Illness This is a pleasant 46 y/o male who was admitted on 01/29/17 to intensive Care Unit, he has hypertension, dyslipidemia and depression. He is on chronic clonazepam. He presents to [facility] after being found on the ground for an unknown duration of time, after taking "[id number] sleeping pills". He's been Beltran acted. Symptomatology includes tachycardia, Mydriasis, and dehydration, negative acetaminophen and EtOH, had Leukocytosis 91991, developed Acute kidney injury, transaminases elevated metabolic acidosis, CT brain and C-spine negative. Chest x-ray negative. 01/30: Patient started on dexmedetomidine drip overnight and is currently on CIWA protocol receiving lorazepam going through DTs. Drinks approximately 12 beers daily. Thiamine, multivitamin and folate started. 01/31: Cr continues to worsen. now oligo-anuric. patient also now acutely delirious in etoh withdraw despite CIWA protocol. also now on NRB and clinically declining, hypoxic. initially evaluated and maintaining airway. placed dialysis catheter (see separate procedure note for details). however, patient continued to decline from a mental status standpoint as well as worsening hypoxia and was subsequently intubated (see separate procedure note for details). discussed care with nephrology- plan to initiate IHD. 02/01: [place] [id number]. patient is arousable and follows commands. remains in multi-organ failure from rhabdomyolysis and intentional drug overdose. 02/02: new fever, leukocytosis. likely source aspiration pneumonia from time of etoh withdraw/delirium before intubation. sputum cultures sent, started on vancomycin and zosyn. CK down to 20k. Cr continues to rise, but no reason for emergent dialysis today, will likely need again tomorrow. more hypotensive today and requiring ivf resuscitation. clinically declining today. 02/03: initial evaluation around 11am. delayed note entry. passed SBT on my eval. met parameters and was extubated successfully. sputum growing staph, sensitivities to follow. clinically improving. now much less delirious and appears to be improving from etoh withdraw. 02/04: Nephrology specialist for Hemodialysis due to Hyperkalemia and significant edema, likely acute renal failure secondary to Rhabdomyolysis 02/05: Seen in his bedroom in the presence of Miss Yusuf, continue present care, okay to transfer to the general Floor will handle it with nephrology specialist to try to do that this afternoon 02/06: Stable okay to transfer to psych unit and continue management by Nephrology in Psych, no nausea, vomit or diarrhea. okay to transfer to Psych seen early in AM with nurse Miss Guaman 02/08: stable in his bedroom, no nausea, vomit or diarrhea asked for Nephrology specialist consult to continue his care in Psych unit. Patient stable no complaint. Review of Systems Constitutional: DENIES: Fever, Chills, Change in appetite Endocrine: DENIES: Heat/cold intolerance Eyes: DENIES: Blurred vision, Eye pain Except as stated in HPI: all other systems reviewed are Neg Past Family Social History Allergies: Coded Allergies: No Known Allergies (Unverified , 07/07/15) Past Medical History Hypertension Dyslipidemia Depression Past Surgical History Left foot Reported Medications Reported Meds & Active Scripts Active Hydralazine HCl 25 Mg Tablet 25 Mg PO QID PRN give one dose every six hour for systolic blood pressure over 160 mm Hg. Protonix (Pantoprazole Sodium) 40 Mg Tab 40 Mg PO DAILY Folic Acid 1 Mg Tablet 1 Mg PO DAILY Albuterol Neb (Albuterol Sulfate) 2.5 Mg/3 Ml Neb 2.5 Mg INH Q2HR NEB PRN Reported Multivitamin (Multivitamins) 1 Tab Tab 1 Tab PO DAILY Aspirin Ec Low Strength (Aspirin) 81 Mg Tab 81 Mg PO DAILY Active Ordered Medications Current Medications Medications (Trade) Dose Ordered Sig/Dinesh Route Start Time Stop Time Status Last Admin (Albuterol Neb) 2.5 mg Q2HR NEB PRN INH 02/07/17 15:30 (Apresoline) 25 mg QID PRN PO 02/07/17 15:30 (Ecotrin Ec) 81 mg DAILY PO 02/07/17 15:45 (Ativan) 1 mg Q6H PRN PO 02/07/17 15:30 (Ativan Inj) 1 mg Q6H PRN IM 02/07/17 15:30 (Tylenol) 650 mg Q4H PRN PO 02/07/17 15:30 (Milk Of Magnesia Liq) 30 ml DAILY PRN PO 02/07/17 15:30 (Mag-Al Plus Susp Liq) 30 ml Q6H PRN PO 02/07/17 15:30 (Habitrol 21 Mg Patch.24 Hr) 1 patch DAILY T-DERMAL 02/07/17 15:30 (Remeron) 15 mg HS PO 02/07/17 21:00 02/07/17 21:14 Family History Positive for hypertension Social History 6-8 beers drinking.. Denies tobacco or illicit drug use. Physical Exam Vital Signs Vital Signs Date Time Temp Pulse Resp B/P (MAP) Pulse Ox O2 Delivery O2 Flow Rate FiO2 02/08/17 06:46 97.5 93 18 151/91 (111) 95 02/07/17 18:12 98.1 106 20 97 02/07/17 16:00 98.0 107 20 150/96 (114) 97 Physical Exam GENERAL: No acute distress. SKIN: Warm and dry. No rash HEAD: Atraumatic. Normocephalic. EYES: Pupils equal and round and reactive. No scleral icterus. No injection or drainage. ENT: No nasal bleeding or discharge. Mucous membranes pink and moist. NECK: Trachea midline. No JVD. CARDIOVASCULAR: normal rate, regular rhythm. sinus by tele. RESPIRATORY: Decreased breath sounds bilateral but no wheezing or crackles. GASTROINTESTINAL: Abdomen soft, non-tender, nondistended. MUSCULOSKELETAL: No clubbing cyanosis or edema. NEUROLOGICAL: No focal deficits, alert and oriented x 3. Assessment and Plan Assessment and Plan 1. Intentional Overdose on sleeping pills, Possible diphenhydramine, Depression , EtOH use, Agitated Delirium, EtOH withdrawal, Psychiatry specialist following, inpatient at Psychiatric unit at this time. CT brain 01/29 revealed no acute intracranial findings CT C-spine 01/29 negative for acute findings. Straightened lordosis. 2. Sinus tachycardia Severe Sepsis managed on Vancomycin and Zosyn while in Intensive care unit his sputum culture was positive for Staph aureus, probable contaminant, at this time off antibiotics, following with laboratory, his home medicines, Rosuvastatin Valsartan were placed on Hold due to Acute kidney Injury also Metformin, held Metoprolol and Amlodipine, was resumed his Aspirin. 3. Acute Hypoxic and Hypercarbic Respiratory failure Improving, Aspiration Pneumonia status post VDRF Improved. PT to follow. 4. Elevated transaminases, Rhabdomyolysis, Hepatic Steatosis. and elevated Lipase, Now trending down. CPK greater than 100,000 on admission. Abdominal ultrasound revealed hepatomegaly likely hepatic steatosis, continue PPIs, 5. Acute Kidney Injury, Nephrology specialist consult, Creatinine stable. 6. Aspiration Pneumonia Sepsis, on Vancomycin and Zosyn. Improved will follow off antibiotics. PT evaluated the patient.recommended PT at rehab. Prophylaxis - GI - pantoprazole - DVT - SCD/heparin subcutaneous Code Status Full Code. Discussed Condition With patient and nurse Miss Caceres. Dre Diaz MD Feb 08, 2017 08:22
[2017-02-08] MEDS: PANTOPRAZOLE SOD 40 MG DELAYED RELEASE TAB PO SCH (09:00)
[2017-02-08] MEDS: FOLIC ACID 1 MG TAB PO SCH (09:00)
[2017-02-08] MEDS: MULTIVITAMIN TAB PO SCH (09:00)
[2017-02-08 10:34] LABS: BICARBONATE 25.8 MEQ/L (21.0-32.0); BLOOD UREA NITROGEN 73 MG/DL (7-18); CALCIUM 8.5 MG/DL (8.5-10.1); CHLORIDE 94 MEQ/L (98-107); CHOLESTEROL 244 MG/DL (120-200); GLOMERULAR FILTRATION RATE 6 ML/MIN (>89); GLUCOSE,RANDOM 107 MG/DL (74-106); SODIUM (NA) 133 MEQ/L (136-145); TRIGLYCERIDES 456 MG/DL (42-150)
[2017-02-08 10:35] LABS: HDL CHOLESTEROL 27.1 MG/DL (40.0-60.0)
[2017-02-08 13:29] LABS: AUTOMATED NEUTROPHIL # 9.8 TH/MM3 (1.8-7.7); BASOPHIL # 0.1 TH/MM3 (0-0.2); BASOPHIL % 0.9 % (0.0-2.0); EOSINOPHIL # 0.2 TH/MM3 (0-0.4); EOSINOPHIL % 1.5 % (0.0-4.0); HEMATOCRIT 29.2 % (39.0-51.0); HEMOGLOBIN 10.7 GM/DL (13.0-17.0); LYMPH % 12.9 % (9.0-44.0); LYMPHOCYTE # 1.8 TH/MM3 (1.0-4.8); MEAN CELL VOLUME 93.9 FL (80.0-100.0); MEAN CORPUSCULAR HEMOGLOBIN 34.3 PG (27.0-34.0); MEAN PLATELET VOLUME 7.3 FL (7.0-11.0); MONO % 14.3 % (0.0-8.0); NEUT % 70.4 % (16.0-70.0); PLATELET COUNT 292 TH/MM3 (150-450); RED BLOOD COUNT 3.11 MIL/MM3 (4.50-5.90); RED CELL DISTRIBUTION WIDTH 12.3 % (11.6-17.2); WHITE BLOOD COUNT 13.9 TH/MM3 (4.0-11.0)
[2017-02-08 13:32] LABS: MEAN CORPUSCULAR HGB CONC 36.5 % (32.0-36.0)
--- NOTE | 2017-02-08 13:35 | PD.CONS ---
HPI Consult Requested By Reason for Consult Acute renal failure with dialysis dependence. Primary Care Physician No Primary Care Physician History of Present Illness he patient is a 46yo [place] male who was brought in 01/29 via EMS after mother became concerned that she hadn't heard from him. He was found at his house laying on floor for uncertain amount of time with a bottle of OTC sleeping pills beside him. He apparently has has suicide attempts in the past and is currently under Beltran Act. He was not a very reliable historian at time of initial consultation, but says the intentionally took sleeping pills and then mentions 81mg aspirin as well. His PMHx is positive for HTN, HLD, depression, EtOH abuse and suicidal ideation. Admitting SCr was 2.89 with eGFR at 24 that deteriorated overnight to SCr 4.11 and eGFR 16. CPK level is markedly elevated at >100,000 Denies any previous kidney issues. Only other SCr available from 07/07/15 that was 0.88 Review of Systems Constitutional: DENIES: Diaphoretic episodes, Fatigue, Fever, Weight gain, Weight loss, Chills, Dizziness, Change in appetite, Night Sweats Endocrine: DENIES: Heat/cold intolerance, Polydipsia, Polyuria, Polyphagia Respiratory: DENIES: Apneas, Cough, Snoring, Wheezing, Hemoptysis, Sputum production, Shortness of breath Cardiovascular: DENIES: Chest pain, Palpitations, Syncope, Dyspnea on Exertion , PND, Lower Extremity Edema, Orthopnea, Claudication Gastrointestinal: DENIES: Abdominal pain, Black stools, Bloody stools, Constipation, Diarrhea, Nausea, Vomiting, Difficulty Swallowing, Anorexia Musculoskeletal: DENIES: Joint pain, Muscle aches, Stiffness, Joint Swelling, Back pain, Neck pain Past Family Social History Allergies: Coded Allergies: No Known Allergies (Unverified , 07/07/15) Past Medical History Hypertension Dyslipidemia Depression Past Surgical History Right IJ 14 [place] 20 cm dialysis catheter Reported Medications Current Medications Albuterol Sulfate (Albuterol Neb) 2.5 mg Q2HR NEB PRN INH SOB/WHEEZING; Start 02/07/17 at 15:30 Hydralazine HCl (Apresoline) 25 mg QID PRN PO SBP>160, DBP>90; Start 02/07/17 at 15:30 Aspirin (Ecotrin Ec) 81 mg DAILY PO Last administered on 02/08/17t 08:13; Start 02/07/17 at 15:45 Lorazepam (Ativan) 1 mg Q6H PRN PO MODERATE TO SEVERE ANXIETY; Start 02/07/17 at 15:30 Lorazepam (Ativan Inj) 1 mg Q6H PRN IM MODERATE TO SEVERE ANXIETY; Start at 15:30 Lorazepam (Ativan) 0.5 mg Q12H PRN PO MODERATE TO SEVERE ANXIETY; Start at 15:30; Status UNV Lorazepam (Ativan Inj) 0.5 mg Q12H PRN IM MODERATE TO SEVERE ANXIETY; Start at 15:30; Status UNV Acetaminophen (Tylenol) 650 mg Q4H PRN PO Pain 1-5 or Temp >101F; Start at 15:30 Magnesium Hydroxide (Milk Of Magnesia Liq) 30 ml DAILY PRN PO CONSTIPATION; Start 02/07/17 at 15:30 Al Hydrox/Mg Hydrox/Simethicone (Mag-Al Plus Susp Liq) 30 ml Q6H PRN PO DYSPEPSIA; Start 02/07/17 at 15:30 Nicotine (Habitrol 21 Mg Patch.24 Hr) 1 patch DAILY T-DERMAL ; Start 02/07/17 at 15:30 Mirtazapine (Remeron) 15 mg HS PO Last administered on 02/07/17t 21:14; Start 02/07/17 at 21:00 Folic Acid (Folate) 1 mg DAILY PO ; Start 02/08/17 at 09:00 Multivitamins (Theragran) 1 tab DAILY PO ; Start 02/08/17 at 09:00 Pantoprazole Sodium (Protonix) 40 mg DAILY PO ; Start 02/08/17 at 09:00 Family History Please see recent consultation. Social History Please see recent consultation Physical Exam Vital Signs Vital Signs Date Time Temp Pulse Resp B/P (MAP) Pulse Ox O2 Delivery O2 Flow Rate FiO2 02/08/17 06:46 97.5 93 18 151/91 (111) 95 02/07/17 18:12 98.1 106 20 97 02/07/17 16:00 98.0 107 20 150/96 (114) 97 Physical Exam GENERAL: Patient seen on dialysis today. Vas-Cath working well. SKIN: Warm and dry. HEAD: Normocephalic. EYES: No scleral icterus. No injection or drainage. NECK: Supple, trachea midline. No JVD or lymphadenopathy. CARDIOVASCULAR: Regular rate and rhythm without murmurs, gallops, or rubs. RESPIRATORY: Breath sounds equal bilaterally. No accessory muscle use. GASTROINTESTINAL: Abdomen soft, non-tender, nondistended. MUSCULOSKELETAL: No cyanosis, or edema. BACK: Nontender without obvious deformity. No CVA tenderness. Laboratory Laboratory Tests Test 02/08/17 09:28 02/08/17 12:52 Blood Urea Nitrogen 73 Creatinine 9.70 Random Glucose 107 Calcium Level 8.5 Sodium Level 133 Potassium Level 3.5 Chloride Level 94 Carbon Dioxide Level 25.8 Anion Gap 13 Estimat Glomerular Filtration Rate 6 Triglycerides Level 456 Cholesterol Level 244 LDL Cholesterol HDL Cholesterol 27.1 Cholesterol/HDL Ratio 9.00 White Blood Count 13.9 Red Blood Count 3.11 Hemoglobin 10.7 Hematocrit 29.2 Mean Corpuscular Volume 93.9 Mean Corpuscular Hemoglobin 34.3 Mean Corpuscular Hemoglobin Concent 36.5 Red Cell Distribution Width 12.3 Platelet Count 292 Mean Platelet Volume 7.3 Neutrophils (%) (Auto) 70.4 Lymphocytes (%) (Auto) 12.9 Monocytes (%) (Auto) 14.3 Eosinophils (%) (Auto) 1.5 Basophils (%) (Auto) 0.9 Neutrophils # (Auto) 9.8 Lymphocytes # (Auto) 1.8 Monocytes # (Auto) 2.0 Eosinophils # (Auto) 0.2 Basophils # (Auto) 0.1 CBC Comment AUTO DIFF Result Diagram: 02/08/17 1252 02/08/17 0950 Assessment and Plan Problem List: (1) Acute renal failure ICD Codes: N17.9 - Acute kidney failure, unspecified Status: Acute Plan: Patient seen on dialysis today. Vas-Cath appears to be working well. Goal of approximately 3500 mL filtration. Patient indicating improved urine output however renal indices still deteriorating after each dialysis session with dialysis dependence. Patient was counseled regarding severity of renal insufficiency and need for dialytic support until significant signs of renal recovery occur. I continue to be optimistic that renal function will improve but not guaranteed as discussed with the patient. If no significant improvement in renal function next week consideration will be given to placement of a hemodialysis PermCath in preparation for outpatient dialysis post discharge as discussed with the patient. Patient resides in [place] and if he does need outpatient dialysis wishes to go to a facility where his mother currently attends as a patient. (2) Rhabdomyolysis ICD Codes: M62.82 - Rhabdomyolysis Status: Acute (3) Anemia, chronic disease ICD Codes: D63.8 - Anemia in other chronic diseases classified elsewhere Problem Qualifiers (1) Acute renal failure: Qualified Codes: N17.8 - Other acute kidney failure Beth Adams MD Feb 08, 2017 13:35
[2017-02-08 14:35] LABS: BANDS 13 % (0-6); LYMPHOCYTES 7 % (9-44); MONOCYTES 8 % (0-8); NEUTROPHIL # MANUAL DIFF 11.4 TH/MM3 (1.8-7.7); POLYS (SEG NEUTROPHILS) 69 % (16-70); TOXIC GRANULATION 2+ (NORMAL)
[2017-02-08] MEDS ORDERED: SODIUM CHLORIDE 0.9% FLUSH 10 ML FLUSH IV FLUSH PRN (17:00)
[2017-02-08] MEDS ORDERED: MANNITOL 12.5 GM/50 ML VIAL IV PUSH PRN (17:00)
[2017-02-08] MEDS ORDERED: GELATIN 12 MM/7 MM FOAM TOPICAL PRN (17:00)
[2017-02-08] MEDS ORDERED: ACETAMINOPHEN 325 MG TAB PO PRN (17:00)
[2017-02-08] MEDS ORDERED: NS 250 ML IV PRN (17:00)
[2017-02-08] MEDS ORDERED: cloNIDine HCL 0.1 MG TAB PO PRN (17:00)
[2017-02-08] MEDS ORDERED: ALBUMIN 25% 25 GM/100 ML BAG IV PRN (17:00)
[2017-02-08] MEDS ORDERED: NITROGLYCERIN 0.4 MG SL 25 TABS/BTL SL PRN (17:00)
[2017-02-08] MEDS ORDERED: HEPARIN SODIUM - IV 10,000 UNITS/10 ML VIAL OTHER PRN (17:00)
[2017-02-08] MEDS ORDERED: diphenhydrAMINE HCL 25 MG CAP PO PRN (17:00)
[2017-02-08] MEDS ORDERED: HEPARIN SODIUM - IV 10,000 UNITS/10 ML VIAL IV FLUSH PRN (17:00)
[2017-02-08] MEDS ORDERED: SODIUM CHLOR 0.9% 1000 ML OTHER PRN ×2 (17:00)
[2017-02-08] MEDS ORDERED: ONDANSETRON HCL 4 MG/2 ML VIAL IV PUSH PRN (17:00)
[2017-02-08 18:00] VITALS: BP 175/86; PULSE 101; RESP 18; TEMP 98.1
[2017-02-08] MEDS: hydrALAZINE HCL 25 MG TAB PO PRN (18:32)
[2017-02-08] MEDS: MIRTAZAPINE 15 MG TAB PO SCH (22:07)
[2017-02-09 00:56] VITALS: O2SAT 95
[2017-02-09 06:29] VITALS: BP 159/83; PULSE 96; RESP 18; TEMP 97.7; O2SAT 95
--- NOTE | 2017-02-09 07:24 | HHI.PYPN ---
Subjective Remarks Patient seen for follow-up, chart review. Patient states that she has been feeling "good", reports to has been also has been good, denies feeling sad or depressed, reports having improve appetite and energy as well as concentration. Patient states that he had visited by his mother and brother which went well but also continues to want to have rehabilitation substance abuse program after discharge which is currently exploring options for. At this time he denies any SI, HI, AVH or delusions. Review of Systems Except as stated in HPI: all other systems reviewed are Neg Mental Status Examination Appearance: Appropriate Consciousness: Alert Orientation: x4 Motor Activity: Normal gait Speech: Unremarkable Language: Adequate Fund of Knowledge: Adequate Attention and Concentration: Adequate Memory: Unremarkable Mood: Appropriate Affect: Appropriate Thought Process & Associations: Intact Thought Content: Appropriate Hallucination Type: None Delusion Type: None Suicidal Ideation: No Suicidal Plan: No Suicidal Intention: No Homicidal Ideation: No Homicidal Plan: No Homicidal Intention: No Insight: Adequate Judgment: Adequate Results Labs Test 02/08/17 09:28 02/08/17 12:52 Blood Urea Nitrogen 73 MG/DL Creatinine 9.70 MG/DL Random Glucose 107 MG/DL Calcium Level 8.5 MG/DL Sodium Level 133 MEQ/L Potassium Level 3.5 MEQ/L Chloride Level 94 MEQ/L Carbon Dioxide Level 25.8 MEQ/L Anion Gap 13 MEQ/L Estimat Glomerular Filtration Rate 6 ML/MIN Triglycerides Level 456 MG/DL Cholesterol Level 244 MG/DL LDL Cholesterol MG/DL HDL Cholesterol 27.1 MG/DL Cholesterol/HDL Ratio 9.00 RATIO White Blood Count 13.9 TH/MM3 Red Blood Count 3.11 MIL/MM3 Hemoglobin 10.7 GM/DL Hematocrit 29.2 % Mean Corpuscular Volume 93.9 FL Mean Corpuscular Hemoglobin 34.3 PG Mean Corpuscular Hemoglobin Concent 36.5 % Red Cell Distribution Width 12.3 % Platelet Count 292 TH/MM3 Mean Platelet Volume 7.3 FL Neutrophils (%) (Auto) 70.4 % Lymphocytes (%) (Auto) 12.9 % Monocytes (%) (Auto) 14.3 % Eosinophils (%) (Auto) 1.5 % Basophils (%) (Auto) 0.9 % Neutrophils # (Auto) 9.8 TH/MM3 Lymphocytes # (Auto) 1.8 TH/MM3 Monocytes # (Auto) 2.0 TH/MM3 Eosinophils # (Auto) 0.2 TH/MM3 Basophils # (Auto) 0.1 TH/MM3 CBC Comment AUTO DIFF Differential Total Cells Counted 100 Neutrophils % (Manual) 69 % Band Neutrophils % 13 % Lymphocytes % 7 % Monocytes % 8 % Eosinophils % 3 % Neutrophils # (Manual) 11.4 TH/MM3 Differential Comment FINAL DIFF MANUAL Toxic Granulation 2+ Platelet Estimate NORMAL Platelet Morphology Comment NORMAL Red Cell Morphology Comment NORMAL Vitals/IOs Vital Signs Date Time Temp Pulse Resp B/P (MAP) Pulse Ox O2 Delivery O2 Flow Rate FiO2 02/09/17 06:29 97.7 96 18 159/83 (108) 95 02/09/17 00:56 21 Intake and Output 02/09/17 02/09/17 02/10/17 08:00 16:00 00:00 Intake Total 0 ml Balance 0 ml Assessment & Plan Problem List: (1) Depression ICD Codes: F32.9 - Major depressive disorder, single episode, unspecified Assessment & Plan Patient this time is noted to have improved mood, denies feeling sad or depressed, denies any suicidal ideations at this time. Continue current treatment. Possible discharge within 1-2 days as patient continues to show improvement of mood.. Continue to explore options for rehabilitation program for substance use upon discharge. Discharge planning in progress Justification for Cont. Inpt. At risk for further decompensation if at lower level of care Discharge Planning Patient return back to residence or referral to inpatient rehabilitation program if he agrees. Problem Qualifiers (1) Depression: Edward Melendez MD Feb 09, 2017 07:24
[2017-02-09] MEDS: NICOTINE 21 MG/24 HR PATCH T-DERMAL SCH (09:00)
[2017-02-09] MEDS: PANTOPRAZOLE SOD 40 MG DELAYED RELEASE TAB PO SCH (09:39)
[2017-02-09] MEDS: MULTIVITAMIN TAB PO SCH (09:39)
[2017-02-09] MEDS: FOLIC ACID 1 MG TAB PO SCH (09:39)
--- NOTE | 2017-02-09 13:26 | HHI.PR ---
Subjective Remarks History of Present Illness This is a pleasant 46 y/o male who was admitted on 01/29/17 to intensive Care Unit, he has hypertension, dyslipidemia and depression. He is on chronic clonazepam. He presents to [facility] after being found on the ground for an unknown duration of time, after taking "[id number] sleeping pills". He's been Beltran acted. Symptomatology includes tachycardia, Mydriasis, and dehydration, negative acetaminophen and EtOH, had Leukocytosis [id number], developed Acute kidney injury, transaminases elevated metabolic acidosis, CT brain and C-spine negative. Chest x-ray negative. 01/30: Patient started on dexmedetomidine drip overnight and is currently on CIWA protocol receiving lorazepam going through DTs. Drinks approximately 12 beers daily. Thiamine, multivitamin and folate started. 01/31: Cr continues to worsen. now oligo-anuric. patient also now acutely delirious in etoh withdraw despite CIWA protocol. also now on NRB and clinically declining, hypoxic. initially evaluated and maintaining airway. placed dialysis catheter (see separate procedure note for details). however, patient continued to decline from a mental status standpoint as well as worsening hypoxia and was subsequently intubated (see separate procedure note for details). discussed care with nephrology- plan to initiate IHD. 02/01: [place] [id number]. patient is arousable and follows commands. remains in multi-organ failure from rhabdomyolysis and intentional drug overdose. 02/02: new fever, leukocytosis. likely source aspiration pneumonia from time of etoh withdraw/delirium before intubation. sputum cultures sent, started on vancomycin and zosyn. CK down to 20k. Cr continues to rise, but no reason for emergent dialysis today, will likely need again tomorrow. more hypotensive today and requiring ivf resuscitation. clinically declining today. 02/03: initial evaluation around 11am. delayed note entry. passed SBT on my eval. met parameters and was extubated successfully. sputum growing staph, sensitivities to follow. clinically improving. now much less delirious and appears to be improving from etoh withdraw. 02/04: Nephrology specialist for Hemodialysis due to Hyperkalemia and significant edema, likely acute renal failure secondary to Rhabdomyolysis 02/05: Seen in his bedroom in the presence of Miss Yusuf, continue present care, okay to transfer to the general Floor will handle it with nephrology specialist to try to do that this afternoon 02/06: Stable okay to transfer to psych unit and continue management by Nephrology in Psych, no nausea, vomit or diarrhea. okay to transfer to Psych seen early in AM with nurse Miss Guaman 02/08: stable in his bedroom, asked for Nephrology specialist consult to continue his care in Psych unit. Patient stable no complaint. 02/09: stable in his bedroom discussed with nurse had Hemodialysis yesterday. Nephrology specialist following. No nausea, vomit or diarrhea, ambulating well no need for PT Objective Vital Signs Date Time Temp Pulse Resp B/P (MAP) Pulse Ox O2 Delivery O2 Flow Rate FiO2 02/09/17 06:29 97.7 96 18 159/83 (108) 95 02/09/17 00:56 95 21 02/08/17 18:00 98.1 101 18 175/86 (115) I/O 02/08/17 02/08/17 02/08/17 02/09/17 02/09/17 02/09/17 07:00 15:00 23:00 07:00 15:00 23:00 Intake Total 480 ml 720 ml 1540 ml 480 ml Output Total 3500 ml Balance 480 ml 720 ml -1960 ml 480 ml Intake Oral 480 ml 720 ml 1540 ml 480 ml Output Hemodialysis 3500 ml # Voids 3 2 # Bowel Movements 0 Result Diagram: 02/08/17 1252 02/08/17 0928 Imaging No new Imaging studies. Procedures None Other Results Laboratory Tests Test 02/08/17 09:28 02/08/17 12:52 Blood Urea Nitrogen 73 MG/DL Creatinine 9.70 MG/DL Random Glucose 107 MG/DL Calcium Level 8.5 MG/DL Sodium Level 133 MEQ/L Potassium Level 3.5 MEQ/L Chloride Level 94 MEQ/L Carbon Dioxide Level 25.8 MEQ/L Anion Gap 13 MEQ/L Estimat Glomerular Filtration Rate 6 ML/MIN Triglycerides Level 456 MG/DL Cholesterol Level 244 MG/DL LDL Cholesterol MG/DL HDL Cholesterol 27.1 MG/DL Cholesterol/HDL Ratio 9.00 RATIO White Blood Count 13.9 TH/MM3 Red Blood Count 3.11 MIL/MM3 Hemoglobin 10.7 GM/DL Hematocrit 29.2 % Mean Corpuscular Volume 93.9 FL Mean Corpuscular Hemoglobin 34.3 PG Mean Corpuscular Hemoglobin Concent 36.5 % Red Cell Distribution Width 12.3 % Platelet Count 292 TH/MM3 Mean Platelet Volume 7.3 FL Neutrophils (%) (Auto) 70.4 % Lymphocytes (%) (Auto) 12.9 % Monocytes (%) (Auto) 14.3 % Eosinophils (%) (Auto) 1.5 % Basophils (%) (Auto) 0.9 % Neutrophils # (Auto) 9.8 TH/MM3 Lymphocytes # (Auto) 1.8 TH/MM3 Monocytes # (Auto) 2.0 TH/MM3 Eosinophils # (Auto) 0.2 TH/MM3 Basophils # (Auto) 0.1 TH/MM3 CBC Comment AUTO DIFF Differential Total Cells Counted 100 Neutrophils % (Manual) 69 % Band Neutrophils % 13 % Lymphocytes % 7 % Monocytes % 8 % Eosinophils % 3 % Neutrophils # (Manual) 11.4 TH/MM3 Differential Comment FINAL DIFF MANUAL Toxic Granulation 2+ Platelet Estimate NORMAL Platelet Morphology Comment NORMAL Red Cell Morphology Comment NORMAL Objective Remarks GENERAL: No acute distress. SKIN: Warm and dry. No rash HEAD: Atraumatic. Normocephalic. EYES: Pupils equal and round and reactive. No scleral icterus. No injection or drainage. ENT: No nasal bleeding or discharge. Mucous membranes pink and moist. NECK: Trachea midline. No JVD. CARDIOVASCULAR: normal rate, regular rhythm. sinus by tele. RESPIRATORY: Decreased breath sounds bilateral but no wheezing or crackles. GASTROINTESTINAL: Abdomen soft, non-tender, nondistended. MUSCULOSKELETAL: No clubbing cyanosis or edema. NEUROLOGICAL: No focal deficits, alert and oriented x 3. Current Medications Medications (Trade) Dose Ordered Sig/Dinesh Route Start Time Stop Time Status Last Admin (Albuterol Neb) 2.5 mg Q2HR NEB PRN INH 02/07/17 15:30 (Apresoline) 25 mg QID PRN PO 02/07/17 15:30 02/08/17 18:32 (Ecotrin Ec) 81 mg DAILY PO 02/07/17 15:45 Future Hold 02/08/17 08:13 (Ativan) 1 mg Q6H PRN PO 02/07/17 15:30 (Ativan Inj) 1 mg Q6H PRN IM 02/07/17 15:30 (Tylenol) 650 mg Q4H PRN PO 02/07/17 15:30 (Milk Of Magnesia Liq) 30 ml DAILY PRN PO 02/07/17 15:30 (Mag-Al Plus Susp Liq) 30 ml Q6H PRN PO 02/07/17 15:30 (Habitrol 21 Mg Patch.24 Hr) 1 patch DAILY T-DERMAL 02/07/17 15:30 (Remeron) 15 mg HS PO 02/07/17 21:00 02/08/17 22:07 (Folate) 1 mg DAILY PO 02/08/17 09:00 02/09/17 09:39 (Theragran) 1 tab DAILY PO 02/08/17 09:00 02/09/17 09:39 (Protonix) 40 mg DAILY PO 02/08/17 09:00 02/09/17 09:39 Sodium Chloride 1,000 ml @ 0 mls/hr TITRATE PRN OTHER 02/08/17 17:00 (Heparin Inj) 8,000 units UNSCH PRN IV FLUSH 02/08/17 17:00 Sodium Chloride 1,000 ml @ 200 mls/hr Q5H PRN OTHER 02/08/17 17:00 Sodium Chloride 200 ml @ 0 mls/hr UNSCH PRN IV 02/08/17 17:00 (Mannitol Inj) 12.5 gm UNSCH PRN IV PUSH 02/08/17 17:00 Albumin Human 100 ml @ 60 mls/hr UNSCH PRN IV 02/08/17 17:00 (NS Flush) 5 ml UNSCH PRN IV FLUSH 02/08/17 17:00 (Heparin Inj) Dwell Heparin to f... UNSCH PRN OTHER 02/08/17 17:00 (Gentamicin (Dialysis) Inj) 10 mg UNSCH PRN OTHER 02/08/17 17:00 (Gelfoam 12 Mm/7 Mm Top) 1 foam UNSCH PRN TOPICAL 02/08/17 17:00 (Zofran Inj) 4 mg UNSCH PRN IV PUSH 02/08/17 17:00 (Tylenol) 650 mg UNSCH X1 PRN PO 02/08/17 17:00 03/10/17 16:59 (Benadryl) 25 mg UNSCH PRN PO 02/08/17 17:00 (Nitrostat Sl) 0.4 mg UNSCH PRN SL 02/08/17 17:00 (Catapres) 0.1 mg UNSCH PRN PO 02/08/17 17:00 Medications and IVs Current Medications Medications (Trade) Dose Ordered Sig/Dinesh Route Start Time Stop Time Status Last Admin (Albuterol Neb) 2.5 mg Q2HR NEB PRN INH 02/07/17 15:30 (Apresoline) 25 mg QID PRN PO 02/07/17 15:30 02/08/17 18:32 (Ecotrin Ec) 81 mg DAILY PO 02/07/17 15:45 Future Hold 02/08/17 08:13 (Ativan) 1 mg Q6H PRN PO 02/07/17 15:30 (Ativan Inj) 1 mg Q6H PRN IM 02/07/17 15:30 (Tylenol) 650 mg Q4H PRN PO 02/07/17 15:30 (Milk Of Magnesia Liq) 30 ml DAILY PRN PO 02/07/17 15:30 (Mag-Al Plus Susp Liq) 30 ml Q6H PRN PO 02/07/17 15:30 (Habitrol 21 Mg Patch.24 Hr) 1 patch DAILY T-DERMAL 02/07/17 15:30 (Remeron) 15 mg HS PO 02/07/17 21:00 02/08/17 22:07 (Folate) 1 mg DAILY PO 02/08/17 09:00 02/09/17 09:39 (Theragran) 1 tab DAILY PO 02/08/17 09:00 02/09/17 09:39 (Protonix) 40 mg DAILY PO 02/08/17 09:00 02/09/17 09:39 Sodium Chloride 1,000 ml @ 0 mls/hr TITRATE PRN OTHER 02/08/17 17:00 (Heparin Inj) 8,000 units UNSCH PRN IV FLUSH 02/08/17 17:00 Sodium Chloride 1,000 ml @ 200 mls/hr Q5H PRN OTHER 02/08/17 17:00 Sodium Chloride 200 ml @ 0 mls/hr UNSCH PRN IV 02/08/17 17:00 (Mannitol Inj) 12.5 gm UNSCH PRN IV PUSH 02/08/17 17:00 Albumin Human 100 ml @ 60 mls/hr UNSCH PRN IV 02/08/17 17:00 (NS Flush) 5 ml UNSCH PRN IV FLUSH 02/08/17 17:00 (Heparin Inj) Dwell Heparin to f... UNSCH PRN OTHER 02/08/17 17:00 (Gentamicin (Dialysis) Inj) 10 mg UNSCH PRN OTHER 02/08/17 17:00 (Gelfoam 12 Mm/7 Mm Top) 1 foam UNSCH PRN TOPICAL 02/08/17 17:00 (Zofran Inj) 4 mg UNSCH PRN IV PUSH 02/08/17 17:00 (Tylenol) 650 mg UNSCH X1 PRN PO 02/08/17 17:00 03/10/17 16:59 (Benadryl) 25 mg UNSCH PRN PO 02/08/17 17:00 (Nitrostat Sl) 0.4 mg UNSCH PRN SL 02/08/17 17:00 (Catapres) 0.1 mg UNSCH PRN PO 02/08/17 17:00 A/P Assessment and Plan 1. Intentional Overdose on sleeping pills, Possible diphenhydramine, Depression , EtOH use, Agitated Delirium, EtOH withdrawal, Psychiatry specialist following, inpatient at Psychiatric unit at this time. CT brain 01/29 revealed no acute intracranial findings CT C-spine 01/29 negative for acute findings. Straightened lordosis. 2. Sinus tachycardia Severe Sepsis managed on Vancomycin and Zosyn while in Intensive care unit his sputum culture was positive for Staph aureus, probable contaminant, at this time off antibiotics, following with laboratory, his home medicines, Rosuvastatin Valsartan were placed on Hold due to Acute kidney Injury also Metformin, held Metoprolol and Amlodipine, was resumed his Aspirin. 3. Acute Hypoxic and Hypercarbic Respiratory failure Improving, Aspiration Pneumonia status post VDRF Improved. PT to follow. 4. Elevated transaminases, Rhabdomyolysis, Hepatic Steatosis. and elevated Lipase, Now trending down. CPK greater than 100,000 on admission. Abdominal ultrasound revealed hepatomegaly likely hepatic steatosis, continue PPIs, 5. Acute Kidney Injury, Nephrology specialist consult, Creatinine worsening, status post Renal Replacement Therapy. 6. Aspiration Pneumonia Sepsis, on Vancomycin and Zosyn. Improved will follow off antibiotics. Good activity no need for PT. Prophylaxis - GI - pantoprazole - DVT - SCD/heparin subcutaneous Code Status Full Code. Discussed Condition With patient and nurse Discharge Planning per attending Physician Dre Diaz MD Feb 09, 2017 13:26
[2017-02-09 14:32] LABS: HEMOGLOBIN A1C 5.4 % (4.3-6.0)
[2017-02-09 18:34] VITALS: BP 167/90; PULSE 106; RESP 18; TEMP 98.5; O2SAT 98
[2017-02-09] MEDS: MIRTAZAPINE 15 MG TAB PO SCH ×2 (21:00→21:11)
[2017-02-10 05:52] VITALS: BP 165/85; PULSE 105; RESP 16; TEMP 98.1; O2SAT 95
[2017-02-10 06:11] LABS: INTERNATIONAL NORMALIZED RATIO 0.9 RATIO; PROTHROMBIN TIME - PATIENT 9.9 SEC (9.8-11.6)
[2017-02-10 06:26] LABS: ALBUMIN 2.3 GM/DL (3.4-5.0); BICARBONATE 25.3 MEQ/L (21.0-32.0); CALCIUM 8.7 MG/DL (8.5-10.1); PHOSPHORUS 6.1 MG/DL (2.5-4.9)
[2017-02-10 06:28] LABS: CREATININE 10.31 MG/DL (0.60-1.30)
[2017-02-10] MEDS: NICOTINE 21 MG/24 HR PATCH T-DERMAL SCH (09:00)
[2017-02-10] MEDS: FOLIC ACID 1 MG TAB PO SCH (09:19)
[2017-02-10] MEDS: PANTOPRAZOLE SOD 40 MG DELAYED RELEASE TAB PO SCH (09:19)
[2017-02-10] MEDS: MULTIVITAMIN TAB PO SCH (09:19)
--- NOTE | 2017-02-10 09:57 | PD.TTN ---
Patient Problems 1. Discharge planning 2. Medication compliance 3. Knowledge deficit 4. Lack of coping skills Progress Toward Goals Provider Present: Dr. Zari Melendez Provider Input: Per Dr. Trinh, patient requires medical stablization and will need 2 more days prior to dc Nurse(s) Input: Per nurse patient is currently receiving dialysis //Fri, and will need to continue with dc Psychiatric Counselors Present: LELE Mcfarland Psych Therapist Input: Per patient's mother she is ok with patient dc to her home, with follow appointment with dialysis. Per Saloni with [facility] [address] inpatient dialysis; the treating doctor for dialysis arranges outpatient dialysis facility treatment for patient, and it will be schedule and set prior to patient's hospital discharge. Group Spec/RT/OT/CHAU Present: Saul Ritter OT Group Spec/RT/OT/CHAU Input: Patient has not attended groups as of this date Documentation Scribe: LELE Mcfarland Sandra LMHC Feb 10, 2017 09:57
[2017-02-10] MEDS: VITAMIN B CMPLX/VITC/FOLIC AC CAP PO SCH (11:30)
[2017-02-10] MEDS: DILTIAZEM-CD 120 MG CAP ER PO SCH (11:30)
--- NOTE | 2017-02-10 11:31 | HHI.NPPN ---
Subjective History of Present Illness he patient is a 46yo [place] male who was brought in 01/29 via EMS after mother became concerned that she hadn't heard from him. He was found at his house laying on floor for uncertain amount of time with a bottle of OTC sleeping pills beside him. He apparently has has suicide attempts in the past and is currently under Beltran Act. He was not a very reliable historian at time of initial consultation, but says the intentionally took sleeping pills and then mentions 81mg aspirin as well. His PMHx is positive for HTN, HLD, depression, EtOH abuse and suicidal ideation. Admitting SCr was 2.89 with eGFR at 24 that deteriorated overnight to SCr 4.11 and eGFR 16. CPK level is markedly elevated at >100,000 Denies any previous kidney issues. Only other SCr available from 07/07/15 that was 0.88 Interval History Patient had no verbal complaints today. He admitted that he was drinking a large amount of fluid despite ordered fluid restriction. Review of Systems General General Remarks No complaints except for edema. Objective Data Data Vital Signs Date Time Temp Pulse Resp B/P (MAP) Pulse Ox O2 Delivery O2 Flow Rate FiO2 02/10/17 05:52 98.1 105 16 165/85 (111) 95 02/09/17 18:34 98.5 106 18 167/90 (115) 98 -: 02/08/17 1252 02/10/17 0459 Tubes & Lines: Vas-Cath Medication Review Current Medications Albuterol Sulfate (Albuterol Neb) 2.5 mg Q2HR NEB PRN INH SOB/WHEEZING; Start 02/07/17 at 15:30 Hydralazine HCl (Apresoline) 25 mg QID PRN PO SBP>160, DBP>90 Last administered on 02/08/17 18:32; Start 02/07/17 at 15:30 Aspirin (Ecotrin Ec) 81 mg DAILY PO Last administered on 02/08/17 08:13; Start 02/07/17 at 15:45; Status Future Hold Lorazepam (Ativan) 1 mg Q6H PRN PO MODERATE TO SEVERE ANXIETY; Start 02/07/17 at 15:30 Lorazepam (Ativan Inj) 1 mg Q6H PRN IM MODERATE TO SEVERE ANXIETY; Start at 15:30 Lorazepam (Ativan) 0.5 mg Q12H PRN PO MODERATE TO SEVERE ANXIETY; Start at 15:30; Status UNV Lorazepam (Ativan Inj) 0.5 mg Q12H PRN IM MODERATE TO SEVERE ANXIETY; Start at 15:30; Status UNV Acetaminophen (Tylenol) 650 mg Q4H PRN PO Pain 1-5 or Temp >101F; Start at 15:30 Magnesium Hydroxide (Milk Of Magnesia Liq) 30 ml DAILY PRN PO CONSTIPATION; Start 02/07/17 at 15:30 Al Hydrox/Mg Hydrox/Simethicone (Mag-Al Plus Susp Liq) 30 ml Q6H PRN PO DYSPEPSIA; Start 02/07/17 at 15:30 Nicotine (Habitrol 21 Mg Patch.24 Hr) 1 patch DAILY T-DERMAL ; Start 02/07/17 at 15:30 Mirtazapine (Remeron) 15 mg HS PO Last administered on 02/08/17 22:07; Start 02/07/17 at 21:00 Folic Acid (Folate) 1 mg DAILY PO Last administered on 02/10/17 09:19; Start 02/08/17 at 09:00 Multivitamins (Theragran) 1 tab DAILY PO Last administered on 02/10/17 09:19; Start 02/08/17 at 09:00 Pantoprazole Sodium (Protonix) 40 mg DAILY PO Last administered on 02/10/17 09 :19; Start 02/08/17 at 09:00 Sodium Chloride 1,000 ml @ 0 mls/hr TITRATE PRN OTHER WITH DIALYSIS; Start at 17:00 Heparin Sodium (Porcine) (Heparin Inj) 8,000 units UNSCH PRN IV FLUSH WITH DIALYSIS; Start 02/08/17 at 17:00 Sodium Chloride 1,000 ml @ 200 mls/hr Q5H PRN OTHER WITH DIALYSIS; Start at 17:00 Sodium Chloride 200 ml @ 0 mls/hr UNSCH PRN IV WITH DIALYSIS; Start 02/08/17 at 17:00 Mannitol (Mannitol Inj) 12.5 gm UNSCH PRN IV PUSH WITH DIALYSIS; Start at 17:00 Albumin Human 100 ml @ 60 mls/hr UNSCH PRN IV WITH DIALYSIS; Start 02/08/17 at 17:00 Sodium Chloride (NS Flush) 5 ml UNSCH PRN IV FLUSH WITH DIALYSIS; Start at 17:00 Heparin Sodium (Porcine) (Heparin Inj) Dwell Heparin to f... UNSCH PRN OTHER WITH DIALYSIS; Start 02/08/17 at 17:00 Gentamicin Sulfate (Gentamicin (Dialysis) Inj) 10 mg UNSCH PRN OTHER WITH DIALYSIS; Start 02/08/17 at 17:00 Gelatin (Gelfoam 12 Mm/7 Mm Top) 1 foam UNSCH PRN TOPICAL WITH DIALYSIS; Start 02/08/17 at 17:00 Ondansetron HCl (Zofran Inj) 4 mg UNSCH PRN IV PUSH NAUSEA OR VOMITING; Start 02/08/17 at 17:00 Acetaminophen (Tylenol) 650 mg UNSCH X1 PRN PO WITH DIALYSIS; Start 02/08/17 at 17:00; Stop 03/10/17 at 16:59 Diphenhydramine HCl (Benadryl) 25 mg UNSCH PRN PO WITH DIALYSIS; Start at 17:00 Nitroglycerin (Nitrostat Sl) 0.4 mg UNSCH PRN SL WITH DIALYSIS; Start 02/08/17 at 17:00 Clonidine (Catapres) 0.1 mg UNSCH PRN PO WITH DIALYSIS; Start 02/08/17 at 17:00 Physical Exam General Appearance: Well Developed, Well Nourished, No Acute Distress, Comfortable Eyes Eye Exam: Sclera White Neck Neck Exam: Trachea Midline Pulmonary Resp Exam: Clear Bilaterally, Breath Sounds Equal, No Distress Cardiology CV Exam: Regular, Normal Sinus Rhythm, Good Perfusion Gastrointestinal/Abdomen GI Exam: Soft, Non-Tender, Non-Distended Extremeties Extremities Exam: Moderate Edema (1+ pitting edema upper and lower extremities. ), Pitting Edema Assessment/Plan Discussed Condition With: Patient Problem List: (1) Acute renal failure ICD Codes: N17.9 - Acute kidney failure, unspecified Status: Acute Plan: Advised the patient the importance of following his fluid restriction. Unfortunately there is no evidence as yet that there has been any significant renal recovery. Patient still dialysis dependent. This was discussed with him. In view of significant fluid retention today will have dialysis today and tomorrow to improve his volume status. I will convert her Vas-Cath to hemodialysis PermCath tomorrow in preparation for dialysis. Patient cannot be certified as having end-stage renal disease in this setting. There is potential for renal recovery after rhabdomyolysis. Insurance company will have to agree to pay for dialysis for acute kidney failure prior to discharge. Recommend monitoring renal indices at least weekly post discharge for evidence of renal recovery. I will defer this to his outpatient peoplesoft business analyst as discussed with the patient. Patient will be going to an outpatient dialysis facility [place] . Patient made aware that I do not have privileges at such facilities and he will have to change his peoplesoft business analyst post discharge if this is the case and he agrees to this. Patient not clear for discharge until an outpatient dialysis facility accepts the patient. His mother attends a dialysis facility with care under Dr. Princess guzman [place]. I discussed the case with him on the phone today. (2) Rhabdomyolysis ICD Codes: M62.82 - Rhabdomyolysis Status: Acute (3) Anemia, chronic disease ICD Codes: D63.8 - Anemia in other chronic diseases classified elsewhere (4) Hyperphosphatemia ICD Codes: E83.39 - Other disorders of phosphorus metabolism Status: Acute Plan: PhosLo started. Problem Qualifiers (1) Acute renal failure: Qualified Codes: N17.8 - Other acute kidney failure Beth Adams MD Feb 10, 2017 11:31
[2017-02-10] MEDS ORDERED: VANCOMYCIN INJ 1,000 MG in SODIUM CHLOR 0.9% 250 ML INJ 250 ML IV SCH (11:45)
[2017-02-10] MEDS ORDERED: ceFAZolin 2 GM PREMIX 50 ML IV SCH (11:45)
[2017-02-10] MEDS: CALCIUM ACETATE 667 MG CAP PO SCH ×2 (13:00→18:00)
--- NOTE | 2017-02-10 15:18 | HHI.PYPN ---
Subjective Remarks Patient was seen today for psychiatric reevaluation, patient reports feeling much better, he says that he has been spending time reflecting about his recent suicidal attempt and he has concluded it was a huge mistake. Patient reports good mood, denies depressive symptoms, patient has been refusing antidepressant stating that he is not depressed. Patient says that be part of his recent suicidal attempt was the fat that he was intoxicated. However, patient seems to be superficial about the physical consequences of his overdose. He denies suicidal and homicidal ideation, visual and auditory hallucinations. No agitation, no delusions, no paranoia, no aggressive behavior reported. Review of Systems Except as stated in HPI: all other systems reviewed are Neg Mental Status Examination Appearance: Appropriate Consciousness: Alert Orientation: x4 Motor Activity: Normal gait Speech: Unremarkable Language: Adequate Fund of Knowledge: Adequate Attention and Concentration: Adequate Memory: Unremarkable Mood: Appropriate Affect: Appropriate Thought Process & Associations: Intact Thought Content: Appropriate Hallucination Type: None Delusion Type: None Suicidal Ideation: No Suicidal Plan: No Suicidal Intention: No Homicidal Ideation: No Homicidal Plan: No Homicidal Intention: No Insight: Adequate Judgment: Adequate Results Labs Test 02/10/17 04:59 Prothrombin Time 9.9 SEC Prothromb Time International Ratio 0.9 RATIO Blood Urea Nitrogen 67 MG/DL Creatinine 10.31 MG/DL Random Glucose 95 MG/DL Albumin 2.3 GM/DL Calcium Level 8.7 MG/DL Phosphorus Level 6.1 MG/DL Sodium Level 130 MEQ/L Potassium Level 3.6 MEQ/L Chloride Level 93 MEQ/L Carbon Dioxide Level 25.3 MEQ/L Anion Gap 12 MEQ/L Estimat Glomerular Filtration Rate 5 ML/MIN Vitals/IOs Vital Signs Date Time Temp Pulse Resp B/P (MAP) Pulse Ox O2 Delivery O2 Flow Rate FiO2 02/10/17 05:52 98.1 105 16 165/85 (111) 95 02/09/17 00:56 21 Intake and Output 02/10/17 02/10/17 02/11/17 08:00 16:00 00:00 Intake Total 0 ml 480 ml Balance 0 ml 480 ml Assessment & Plan Problem List: (1) Depression ICD Codes: F32.9 - Major depressive disorder, single episode, unspecified Assessment & Plan: Brief supportive psychotherapy. Extensive psychoeducation reported. Assessment & Plan Estimated LOS: days Justification for Cont. Inpt. We'll start the process of discharging the patient back to the medical floor to continue his medical treatment for renal failure. Problem Qualifiers (1) Depression: Danny Trinh MD Feb 10, 2017 15:18
[2017-02-10] MEDS: GENTAMICIN SULFATE (DIALYSIS USE ONLY) 20 MG/2 ML VIAL OTHER PRN (16:14)
--- NOTE | 2017-02-10 16:16 | HHI.PR ---
Subjective Remarks History of Present Illness This is a pleasant 46 y/o male who was admitted on 01/29/17 to intensive Care Unit, he has hypertension, dyslipidemia and depression. He is on chronic clonazepam. He presents to [facility] after being found on the ground for an unknown duration of time, after taking "zhim-tfa-[id number] sleeping pills". He's been Beltran acted. Symptomatology includes tachycardia, Mydriasis, and dehydration, negative acetaminophen and EtOH, had Leukocytosis [id number], developed Acute kidney injury, transaminases elevated metabolic acidosis, CT brain and C-spine negative. Chest x-ray negative. 01/30: Patient started on dexmedetomidine drip overnight and is currently on CIWA protocol receiving lorazepam going through DTs. Drinks approximately 12 beers daily. Thiamine, multivitamin and folate started. 01/31: Cr continues to worsen. now oligo-anuric. patient also now acutely delirious in etoh withdraw despite CIWA protocol. also now on NRB and clinically declining, hypoxic. initially evaluated and maintaining airway. placed dialysis catheter (see separate procedure note for details). however, patient continued to decline from a mental status standpoint as well as worsening hypoxia and was subsequently intubated (see separate procedure note for details). discussed care with nephrology- plan to initiate IHD. 02/01: [place] [id number]. patient is arousable and follows commands. remains in multi-organ failure from rhabdomyolysis and intentional drug overdose. 02/02: new fever, leukocytosis. likely source aspiration pneumonia from time of etoh withdraw/delirium before intubation. sputum cultures sent, started on vancomycin and zosyn. CK down to 20k. Cr continues to rise, but no reason for emergent dialysis today, will likely need again tomorrow. more hypotensive today and requiring ivf resuscitation. clinically declining today. 02/03: initial evaluation around 11am. delayed note entry. passed SBT on my eval. met parameters and was extubated successfully. sputum growing staph, sensitivities to follow. clinically improving. now much less delirious and appears to be improving from etoh withdraw. 02/04: Nephrology specialist for Hemodialysis due to Hyperkalemia and significant edema, likely acute renal failure secondary to Rhabdomyolysis 02/05: Seen in his bedroom in the presence of Miss Yusuf, continue present care, okay to transfer to the general Floor will handle it with nephrology specialist to try to do that this afternoon 02/06: Stable okay to transfer to psych unit and continue management by Nephrology in Psych, no nausea, vomit or diarrhea. okay to transfer to Psych seen early in AM with nurse Miss Guaman 02/08: stable in his bedroom, asked for Nephrology specialist consult to continue his care in Psych unit. Patient stable no complaint. 02/09: stable in his bedroom discussed with nurse had Hemodialysis yesterday. Nephrology specialist following. No nausea, vomit or diarrhea, ambulating well no need for PT 02/10: Seen in his bedroom and discussed with nurse and with nephrology specialist Doctor Bryan he states will take time to schedule the patient for acute hemodialysis as outpatient will need to placed a perm cath and arrangement has to be done. Objective Vital Signs Date Time Temp Pulse Resp B/P (MAP) Pulse Ox O2 Delivery O2 Flow Rate FiO2 02/10/17 05:52 98.1 105 16 165/85 (111) 95 02/09/17 18:34 98.5 106 18 167/90 (115) 98 I/O 02/09/17 02/09/17 02/09/17 02/10/17 02/10/17 02/10/17 07:00 15:00 23:00 07:00 15:00 23:00 Intake Total 480 ml 1920 ml 0 ml 480 ml Balance 480 ml 1920 ml 0 ml 480 ml Intake Oral 480 ml 1920 ml 0 ml 480 ml # Voids 2 4 2 1 Result Diagram: 02/08/17 1252 02/10/17 0459 Imaging No new imaging. Procedures None Other Results Laboratory Tests Test 02/08/17 09:28 02/08/17 12:52 02/10/17 04:59 Hemoglobin A1c 5.4 % Triglycerides Level 456 MG/DL Cholesterol Level 244 MG/DL LDL Cholesterol MG/DL HDL Cholesterol 27.1 MG/DL Cholesterol/HDL Ratio 9.00 RATIO White Blood Count 13.9 TH/MM3 Red Blood Count 3.11 MIL/MM3 Hemoglobin 10.7 GM/DL Hematocrit 29.2 % Mean Corpuscular Volume 93.9 FL Mean Corpuscular Hemoglobin 34.3 PG Mean Corpuscular Hemoglobin Concent 36.5 % Red Cell Distribution Width 12.3 % Platelet Count 292 TH/MM3 Mean Platelet Volume 7.3 FL Neutrophils (%) (Auto) 70.4 % Lymphocytes (%) (Auto) 12.9 % Monocytes (%) (Auto) 14.3 % Eosinophils (%) (Auto) 1.5 % Basophils (%) (Auto) 0.9 % Neutrophils # (Auto) 9.8 TH/MM3 Lymphocytes # (Auto) 1.8 TH/MM3 Monocytes # (Auto) 2.0 TH/MM3 Eosinophils # (Auto) 0.2 TH/MM3 Basophils # (Auto) 0.1 TH/MM3 CBC Comment AUTO DIFF Differential Total Cells Counted 100 Neutrophils % (Manual) 69 % Band Neutrophils % 13 % Lymphocytes % 7 % Monocytes % 8 % Eosinophils % 3 % Neutrophils # (Manual) 11.4 TH/MM3 Differential Comment FINAL DIFF MANUAL Toxic Granulation 2+ Platelet Estimate NORMAL Platelet Morphology Comment NORMAL Red Cell Morphology Comment NORMAL Prothrombin Time 9.9 SEC Prothromb Time International Ratio 0.9 RATIO Blood Urea Nitrogen 67 MG/DL Creatinine 10.31 MG/DL Random Glucose 95 MG/DL Albumin 2.3 GM/DL Calcium Level 8.7 MG/DL Phosphorus Level 6.1 MG/DL Sodium Level 130 MEQ/L Potassium Level 3.6 MEQ/L Chloride Level 93 MEQ/L Carbon Dioxide Level 25.3 MEQ/L Anion Gap 12 MEQ/L Estimat Glomerular Filtration Rate 5 ML/MIN Objective Remarks GENERAL: No acute distress. SKIN: Warm and dry. No rash HEAD: Atraumatic. Normocephalic. EYES: Pupils equal and round and reactive. No scleral icterus. No injection or drainage. ENT: No nasal bleeding or discharge. Mucous membranes pink and moist. NECK: Trachea midline. No JVD. CARDIOVASCULAR: normal rate, regular rhythm. sinus by tele. RESPIRATORY: Decreased breath sounds bilateral but no wheezing or crackles. GASTROINTESTINAL: Abdomen soft, non-tender, nondistended. MUSCULOSKELETAL: No clubbing cyanosis or edema. NEUROLOGICAL: No focal deficits, alert and oriented x 3. Current Medications Medications (Trade) Dose Ordered Sig/Dinesh Route Start Time Stop Time Status Last Admin (Albuterol Neb) 2.5 mg Q2HR NEB PRN INH 02/07/17 15:30 (Apresoline) 25 mg QID PRN PO 02/07/17 15:30 02/08/17 18:32 (Ecotrin Ec) 81 mg DAILY PO 02/07/17 15:45 Future Hold 02/08/17 08:13 (Ativan) 1 mg Q6H PRN PO 02/07/17 15:30 (Ativan Inj) 1 mg Q6H PRN IM 02/07/17 15:30 (Tylenol) 650 mg Q4H PRN PO 02/07/17 15:30 (Milk Of Magnesia Liq) 30 ml DAILY PRN PO 02/07/17 15:30 (Mag-Al Plus Susp Liq) 30 ml Q6H PRN PO 02/07/17 15:30 (Habitrol 21 Mg Patch.24 Hr) 1 patch DAILY T-DERMAL 02/07/17 15:30 (Remeron) 15 mg HS PO 02/07/17 21:00 02/08/17 22:07 (Folate) 1 mg DAILY PO 02/08/17 09:00 02/09/17 09:39 (Theragran) 1 tab DAILY PO 02/08/17 09:00 02/09/17 09:39 (Protonix) 40 mg DAILY PO 02/08/17 09:00 02/09/17 09:39 Sodium Chloride 1,000 ml @ 0 mls/hr TITRATE PRN OTHER 02/08/17 17:00 (Heparin Inj) 8,000 units UNSCH PRN IV FLUSH 02/08/17 17:00 Sodium Chloride 1,000 ml @ 200 mls/hr Q5H PRN OTHER 02/08/17 17:00 Sodium Chloride 200 ml @ 0 mls/hr UNSCH PRN IV 02/08/17 17:00 (Mannitol Inj) 12.5 gm UNSCH PRN IV PUSH 02/08/17 17:00 Albumin Human 100 ml @ 60 mls/hr UNSCH PRN IV 02/08/17 17:00 (NS Flush) 5 ml UNSCH PRN IV FLUSH 02/08/17 17:00 (Heparin Inj) Dwell Heparin to f... UNSCH PRN OTHER 02/08/17 17:00 (Gentamicin (Dialysis) Inj) 10 mg UNSCH PRN OTHER 02/08/17 17:00 (Gelfoam 12 Mm/7 Mm Top) 1 foam UNSCH PRN TOPICAL 02/08/17 17:00 (Zofran Inj) 4 mg UNSCH PRN IV PUSH 02/08/17 17:00 (Tylenol) 650 mg UNSCH X1 PRN PO 02/08/17 17:00 03/10/17 16:59 (Benadryl) 25 mg UNSCH PRN PO 02/08/17 17:00 (Nitrostat Sl) 0.4 mg UNSCH PRN SL 02/08/17 17:00 (Catapres) 0.1 mg UNSCH PRN PO 02/08/17 17:00 Medications and IVs Current Medications Medications (Trade) Dose Ordered Sig/Dinesh Route Start Time Stop Time Status Last Admin (Albuterol Neb) 2.5 mg Q2HR NEB PRN INH 02/07/17 15:30 (Apresoline) 25 mg QID PRN PO 02/07/17 15:30 02/08/17 18:32 (Ecotrin Ec) 81 mg DAILY PO 02/07/17 15:45 Future Hold 02/08/17 08:13 (Ativan) 1 mg Q6H PRN PO 02/07/17 15:30 (Ativan Inj) 1 mg Q6H PRN IM 02/07/17 15:30 (Tylenol) 650 mg Q4H PRN PO 02/07/17 15:30 (Milk Of Magnesia Liq) 30 ml DAILY PRN PO 02/07/17 15:30 (Mag-Al Plus Susp Liq) 30 ml Q6H PRN PO 02/07/17 15:30 (Habitrol 21 Mg Patch.24 Hr) 1 patch DAILY T-DERMAL 02/07/17 15:30 (Remeron) 15 mg HS PO 02/07/17 21:00 02/08/17 22:07 (Folate) 1 mg DAILY PO 02/08/17 09:00 02/10/17 09:19 (Theragran) 1 tab DAILY PO 02/08/17 09:00 02/10/17 09:19 (Protonix) 40 mg DAILY PO 02/08/17 09:00 02/10/17 09:19 Sodium Chloride 1,000 ml @ 0 mls/hr TITRATE PRN OTHER 02/08/17 17:00 (Heparin Inj) 8,000 units UNSCH PRN IV FLUSH 02/08/17 17:00 Sodium Chloride 1,000 ml @ 200 mls/hr Q5H PRN OTHER 02/08/17 17:00 Sodium Chloride 200 ml @ 0 mls/hr UNSCH PRN IV 02/08/17 17:00 (Mannitol Inj) 12.5 gm UNSCH PRN IV PUSH 02/08/17 17:00 Albumin Human 100 ml @ 60 mls/hr UNSCH PRN IV 02/08/17 17:00 (NS Flush) 5 ml UNSCH PRN IV FLUSH 02/08/17 17:00 (Heparin Inj) Dwell Heparin to f... UNSCH PRN OTHER 02/08/17 17:00 (Gentamicin (Dialysis) Inj) 10 mg UNSCH PRN OTHER 02/08/17 17:00 (Gelfoam 12 Mm/7 Mm Top) 1 foam UNSCH PRN TOPICAL 02/08/17 17:00 (Zofran Inj) 4 mg UNSCH PRN IV PUSH 02/08/17 17:00 (Tylenol) 650 mg UNSCH X1 PRN PO 02/08/17 17:00 03/10/17 16:59 (Benadryl) 25 mg UNSCH PRN PO 02/08/17 17:00 (Nitrostat Sl) 0.4 mg UNSCH PRN SL 02/08/17 17:00 (Catapres) 0.1 mg UNSCH PRN PO 02/08/17 17:00 (Cardizem Cd) 120 mg DAILY PO 02/10/17 11:30 (Phoslo) 667 mg TID PO 02/10/17 13:00 (Nephrocaps) 1 cap DAILY PO 02/10/17 11:30 Vancomycin HCl 1000 mg/Sodium Chloride 250 ml @ 250 mls/hr WINDOWS PHONE DEVELOPER IV 02/10/17 11:45 02/14/17 11:44 Cefazolin Sodium/ Dextrose 50 ml @ 100 mls/hr WINDOWS PHONE DEVELOPER IV 02/10/17 11:45 02/14/17 11:44 A/P Assessment and Plan 1. Intentional Overdose on sleeping pills, Possible diphenhydramine, Depression , EtOH use, Agitated Delirium, EtOH withdrawal, Psychiatry specialist following, inpatient at Psychiatric unit at this time. CT brain 01/29 revealed no acute intracranial findings CT C-spine 01/29 negative for acute findings. Straightened lordosis. 2. Sinus tachycardia Severe Sepsis managed on Vancomycin and Zosyn while in Intensive care unit his sputum culture was positive for Staph aureus, probable contaminant, at this time off antibiotics, following with laboratory, his home medicines, Rosuvastatin Valsartan were placed on Hold due to Acute kidney Injury also Metformin, held Metoprolol and Amlodipine, was resumed his Aspirin. 3. Acute Hypoxic and Hypercarbic Respiratory failure Improving, Aspiration Pneumonia status post VDRF Improved. PT to follow. 4. Elevated transaminases, Rhabdomyolysis, Hepatic Steatosis. and elevated Lipase,CPK greater than 100,000 on admission. Abdominal ultrasound revealed hepatomegaly likely hepatic steatosis 5. Acute Kidney Injury, Nephrology specialist consult, Creatinine worsening, receiving acute Hemodialysis. today worsening Creatinine. 6. Aspiration Pneumonia Sepsis, on Vancomycin and Zosyn. Improved will follow off antibiotics. Good activity no need for PT. Prophylaxis - GI - pantoprazole - DVT - SCD/heparin subcutaneous Code Status Full Code. Discussed Condition With patient and nurse Agree with doctor Danny melgar to receive him on Medical floor when ready from Psychiatry specialist to continue management, as per Doctor Adams the patient will need more days for arrangements of his Acute hemodialysis. Discharge Planning per attending Physician Dre Diaz MD Feb 10, 2017 16:16
[2017-02-10 20:15] VITALS: BP 160/96; PULSE 97; RESP 18; TEMP 97.9; O2SAT 98
[2017-02-10] MEDS: MIRTAZAPINE 15 MG TAB PO SCH (21:29)
[2017-02-11] VITALS (8 sets, daily range): BP systolic 166–223; BP diastolic 90–124; PULSE 100–106; RESP 16–18; TEMP 97.4–98.4; O2SAT 95–98
[2017-02-11] MEDS: MULTIVITAMIN TAB PO SCH ×2 (09:00→11:51)
[2017-02-11] MEDS: NICOTINE 21 MG/24 HR PATCH T-DERMAL SCH (09:00)
[2017-02-11] MEDS: PANTOPRAZOLE SOD 40 MG DELAYED RELEASE TAB PO SCH ×2 (09:00→11:50)
[2017-02-11] MEDS: VITAMIN B CMPLX/VITC/FOLIC AC CAP PO SCH ×2 (09:00→11:51)
[2017-02-11] MEDS: DILTIAZEM-CD 120 MG CAP ER PO SCH (09:00)
[2017-02-11] MEDS: FOLIC ACID 1 MG TAB PO SCH ×2 (09:00→11:51)
[2017-02-11] MEDS: CALCIUM ACETATE 667 MG CAP PO SCH ×3 (09:00→18:00)
[2017-02-11] MEDS ORDERED: MIDAZOLAM HCL 5 MG/5 ML VIAL ONE (09:23)
[2017-02-11] MEDS ORDERED: LIDOCAINE 1%/EPINEPHrine 1:100,000 SOLN 20 ML VIAL ONE (09:26)
[2017-02-11] MEDS ORDERED: HEPARIN SODIUM - IV 2,000 UNITS/2 ML VIAL IV FLUSH PRN (10:30)
[2017-02-11] MEDS ORDERED: SODIUM CHLORIDE 0.9% FLUSH 10 ML FLUSH IV FLUSH PRN (10:30)
--- NOTE | 2017-02-11 10:30 | PD.RAD ---
Post Procedure Progress Note Pre Procedure Diagnosis: (1) Acute renal failure Post Procedure Diagnosis: (1) Acute renal failure Procedure Date: Feb 11, 2017 Supervising Radiologist: Cheko Lutz Proceduralist/Assist: Jody Loyd, RT(R)(CV), RT Colette(R) Anesthesia: Local, Analgesia, Conscious Sedation Plan of Activity Patient to Unit: ROPU Patient Condition: Good See PACS Report for procedural detail/treatment Central Venous Access Device Procedure 1 Right Internal Jugular Hemodialysis Catheter Tunneled Placement dual lumen [place]: 14 PICC Line Length (cm): 27 Cheko Lutz MD Feb 11, 2017 10:30
[2017-02-11] MEDS: hydrALAZINE HCL 25 MG TAB PO PRN (10:55)
--- NOTE | 2017-02-11 11:40 | HHI.NPPN ---
Subjective History of Present Illness he patient is a 46yo [place] male who was brought in 01/29 via EMS after mother became concerned that she hadn't heard from him. He was found at his house laying on floor for uncertain amount of time with a bottle of OTC sleeping pills beside him. He apparently has has suicide attempts in the past and is currently under Beltran Act. He was not a very reliable historian at time of initial consultation, but says the intentionally took sleeping pills and then mentions 81mg aspirin as well. His PMHx is positive for HTN, HLD, depression, EtOH abuse and suicidal ideation. Admitting SCr was 2.89 with eGFR at 24 that deteriorated overnight to SCr 4.11 and eGFR 16. CPK level is markedly elevated at >100,000 Denies any previous kidney issues. Only other SCr available from 07/07/15 that was 0.88 Interval History s/p RIJ PC placement today. Feeling well Anxious to get home. Review of Systems General General Remarks No complaints except for edema. Objective Data Data Vital Signs Date Time Temp Pulse Resp B/P (MAP) Pulse Ox O2 Delivery O2 Flow Rate FiO2 02/11/17 11:30 98.2 102 16 177/102 (127) 96 02/11/17 11:13 101 18 197/90 (125) 97 02/11/17 10:43 100 17 223/124 (157) 98 02/11/17 10:28 98.2 104 18 210/114 (146) 97 02/11/17 06:04 97.6 104 18 169/94 (119) 95 02/10/17 20:15 97.9 97 18 160/96 (117) 98 -: 02/08/17 1252 02/10/17 0459 Tubes & Lines: Perma-Cath Medication Review Current Medications Medications (Trade) Dose Ordered Sig/Dinesh Route Start Time Stop Time Status Last Admin (Albuterol Neb) 2.5 mg Q2HR NEB PRN INH 02/07/17 15:30 (Apresoline) 25 mg QID PRN PO 02/07/17 15:30 02/11/17 10:55 (Ecotrin Ec) 81 mg DAILY PO 02/07/17 15:45 Future Hold 02/08/17 08:13 (Ativan) 1 mg Q6H PRN PO 02/07/17 15:30 (Ativan Inj) 1 mg Q6H PRN IM 02/07/17 15:30 (Tylenol) 650 mg Q4H PRN PO 02/07/17 15:30 (Milk Of Magnesia Liq) 30 ml DAILY PRN PO 02/07/17 15:30 (Mag-Al Plus Susp Liq) 30 ml Q6H PRN PO 02/07/17 15:30 (Habitrol 21 Mg Patch.24 Hr) 1 patch DAILY T-DERMAL 02/07/17 15:30 (Remeron) 15 mg HS PO 02/07/17 21:00 02/10/17 21:29 (Folate) 1 mg DAILY PO 02/08/17 09:00 02/10/17 09:19 (Theragran) 1 tab DAILY PO 02/08/17 09:00 02/10/17 09:19 (Protonix) 40 mg DAILY PO 02/08/17 09:00 02/10/17 09:19 Sodium Chloride 1,000 ml @ 0 mls/hr TITRATE PRN OTHER 02/08/17 17:00 (Heparin Inj) 8,000 units UNSCH PRN IV FLUSH 02/08/17 17:00 Sodium Chloride 1,000 ml @ 200 mls/hr Q5H PRN OTHER 02/08/17 17:00 Sodium Chloride 200 ml @ 0 mls/hr UNSCH PRN IV 02/08/17 17:00 (Mannitol Inj) 12.5 gm UNSCH PRN IV PUSH 02/08/17 17:00 Albumin Human 100 ml @ 60 mls/hr UNSCH PRN IV 02/08/17 17:00 (NS Flush) 5 ml UNSCH PRN IV FLUSH 02/08/17 17:00 (Heparin Inj) Dwell Heparin to f... UNSCH PRN OTHER 02/08/17 17:00 (Gentamicin (Dialysis) Inj) 10 mg UNSCH PRN OTHER 02/08/17 17:00 02/10/17 16:14 (Gelfoam 12 Mm/7 Mm Top) 1 foam UNSCH PRN TOPICAL 02/08/17 17:00 (Zofran Inj) 4 mg UNSCH PRN IV PUSH 02/08/17 17:00 (Tylenol) 650 mg UNSCH X1 PRN PO 02/08/17 17:00 03/10/17 16:59 (Benadryl) 25 mg UNSCH PRN PO 02/08/17 17:00 (Nitrostat Sl) 0.4 mg UNSCH PRN SL 02/08/17 17:00 (Catapres) 0.1 mg UNSCH PRN PO 02/08/17 17:00 02/10/17 16:45 (Cardizem Cd) 120 mg DAILY PO 02/10/17 11:30 (Phoslo) 667 mg TID PO 02/10/17 13:00 (Nephrocaps) 1 cap DAILY PO 02/10/17 11:30 Vancomycin HCl 1000 mg/Sodium Chloride 250 ml @ 250 mls/hr [employer] IV 02/10/17 11:45 02/14/17 11:44 02/11/17 08:18 Cefazolin Sodium/ Dextrose 50 ml @ 100 mls/hr [employer] IV 02/10/17 11:45 02/14/17 11:44 02/11/17 10:43 (NS Flush) UNSCH PRN IV FLUSH 02/11/17 10:30 (Heparin Inj) UNSCH PRN IV FLUSH 02/11/17 10:30 Physical Exam General Appearance: Well Developed, Well Nourished, No Acute Distress, Comfortable Eyes Eye Exam: Sclera White Neck Neck Exam: Trachea Midline Pulmonary Resp Exam: Clear Bilaterally, Breath Sounds Equal, No Distress Cardiology CV Exam: Regular, Normal Sinus Rhythm, Good Perfusion Gastrointestinal/Abdomen GI Exam: Soft, Non-Tender, Non-Distended Extremeties Extremities Exam: Moderate Edema (1+ pitting edema upper and lower extremities. ), Pitting Edema Neurologic Neuro Exam: Alert, Awake Psychiatric Psych Exam: Appropriate Responses Assessment/Plan Discussed Condition With: Patient Problem List: (1) Acute renal failure ICD Codes: N17.9 - Acute kidney failure, unspecified Status: Acute Plan: s/p Permacath placement 02/11/17 Pending HD today. To resume TTS schedule Discussed again about fluid restrictions. Patient cannot be certified as having end-stage renal disease in this setting. There is potential for renal recovery after rhabdomyolysis. Insurance company will have to agree to pay for dialysis for acute kidney failure prior to discharge. Recommend monitoring renal indices at least weekly post discharge for evidence of renal recovery. I will defer this to his outpatient artillery officer as discussed with the patient. Patient will be going to an outpatient dialysis facility [place] [facility] [place] . Patient made aware that I do not have privileges at such facilities and he will have to change his artillery officer post discharge if this is the case and he agrees to this. Patient not clear for discharge until an outpatient dialysis facility accepts the patient. His mother attends a dialysis facility with care under Dr. Princess guzman [facility]. Dr. Adams discussed with Dr. Sánchez 02/10 (2) Rhabdomyolysis ICD Codes: M62.82 - Rhabdomyolysis Status: Acute Plan: Resolving (3) Anemia, chronic disease ICD Codes: D63.8 - Anemia in other chronic diseases classified elsewhere Plan: Monitor. Likely related to kidney disease. Epogen if Hgb <10 (4) Hyperphosphatemia ICD Codes: E83.39 - Other disorders of phosphorus metabolism Status: Acute Plan: Continue PhosLo (5) Hypertension ICD Codes: I10 - Essential (primary) hypertension Plan: Increase Cardizem CD to 180mg QD. If BP not improving, add Hydralazine Problem Qualifiers (1) Acute renal failure: Qualified Codes: N17.8 - Other acute kidney failure Radha Velazquez Feb 11, 2017 11:40
--- NOTE | 2017-02-11 11:57 | RADRPT ---
EXAM DATE/TIME: 02/11/2017 00:00 [facility] COMPARISON: No previous studies available for comparison. INDICATIONS : Patient with acute renal failure in need of dialysis catheter removal. MEDICAL HISTORY : HTN, HLD, Depression SURGICAL HISTORY : Dialysis catheter placement ENCOUNTER: Initial ACUITY: 1 week PAIN SCORE: 0/10 IMAGE SERIES: 0 PROCEDURE : 1. Temporary central venous catheter removal. The prescribed catheter was removed intact and hemostasis was achieved with direct pressure. The sit e was dressed appropriately. The patient tolerated the procedure well. CONCLUSION: Uncomplicated catheter removal. Cheko Lutz MD on February 11, 2017 at 11:55 Board Certified Radiologist. This report was verified electronically.
--- NOTE | 2017-02-11 13:01 | RADRPT ---
EXAM DATE/TIME: 02/11/2017 11:25 [facility] COMPARISON: No previous studies available for comparison. INDICATIONS : Patient with acute renal failure in need of tunnelled dialysis catheter placement. MEDICAL HISTORY : HTN, HLD, Depression SURGICAL HISTORY : Dialysis catheter placement ENCOUNTER: Initial ACUITY: 1 week PAIN SCORE: 0/10 FLUORO TIME: 3.11 minutes IMAGE SERIES: 0 SEDATION TIME: 30 minutes ACCESS: Right internal jugular vein SEDATION: 1.) 4.5 mg midazolam (Versed) IV 2.) 200 mcg fentanyl (Sublimaze) IV Prophylactic antibiotics were administered with appropriate pre-procedure timing. Vancomycin within 2 hours of procedure, Ancef (or alternative) within 1 hour of procedure. DEVICE: 1. 15 [place]bourg[place] dual lumen 27 cm Kenny II Plus catheter PROCEDURE : 1. Ultrasound-guided venipuncture. 2. PermaCath placement. 3. Conscious sedation with continuous EKG and oximetry monitoring. The risks, benefits and alternatives to the procedure were explained and verbal and written consent w as obtained. The site was prepped in sterile fashion. Full sterile technique was used, including ca p, mask, sterile gloves and gown and a large sterile sheet. Hand hygiene and 2% chlorhexidine and/or betadine/alcohol prep was utilized per protocol for cutaneous antisepsis. Sterile gel and sterile p robe cover were utilized for ultrasound guidance. The skin and subcutaneous tissues were infiltrated with local anesthetic solution. With ultrasound and fluoroscopic guidance a dermatotomy was created over the prescribed vein. A micr opuncture set was used to access the targeted vein and serial dilatation was performed to accept the prescribed length catheter. A subcutaneous tunnel was created in a retrograde fashion the catheter w as pulled through the tunnel. The catheter was flushed and assembled and locked with heparin. The c atheter was sutured in place. Conscious sedation was performed with the prescribed dosages and duration as above in the presence of an independent trained radiology nurse to assist in the monitoring of the patient. EKG and oximetry remained stable throughout the procedure. The patient tolerated the procedure well and there were n o complications. The patient was sent to post anesthesia recovery in stable condition. CONCLUSION: Uncomplicated PermaCath placement as above. Cheko Lutz MD on February 11, 2017 at 12:59 Board Certified Radiologist. This report was verified electronically.
[2017-02-11] MEDS ORDERED: MIRTA15 PO (14:29)
--- NOTE | 2017-02-11 15:11 | HHI.PR ---
Subjective Remarks History of Present Illness This is a pleasant 46 y/o male who was admitted on 01/29/17 to intensive Care Unit, he has hypertension, dyslipidemia and depression. He is on chronic clonazepam. He presents to [place] [facility] after being found on the ground for an unknown duration of time, after taking "[id number] sleeping pills". He's been Beltran acted. Symptomatology includes tachycardia, Mydriasis, and dehydration, negative acetaminophen and EtOH, had Leukocytosis [id number], developed Acute kidney injury, transaminases elevated metabolic acidosis, CT brain and C-spine negative. Chest x-ray negative. 01/30: Patient started on dexmedetomidine drip overnight and is currently on CIWA protocol receiving lorazepam going through DTs. Drinks approximately 12 beers daily. Thiamine, multivitamin and folate started. 01/31: Cr continues to worsen. now oligo-anuric. patient also now acutely delirious in etoh withdraw despite CIWA protocol. also now on NRB and clinically declining, hypoxic. initially evaluated and maintaining airway. placed dialysis catheter (see separate procedure note for details). however, patient continued to decline from a mental status standpoint as well as worsening hypoxia and was subsequently intubated (see separate procedure note for details). discussed care with nephrology- plan to initiate IHD. 02/01: [place] [address]. patient is arousable and follows commands. remains in multi-organ failure from rhabdomyolysis and intentional drug overdose. 02/02: new fever, leukocytosis. likely source aspiration pneumonia from time of etoh withdraw/delirium before intubation. sputum cultures sent, started on vancomycin and zosyn. CK down to 20k. Cr continues to rise, but no reason for emergent dialysis today, will likely need again tomorrow. more hypotensive today and requiring ivf resuscitation. clinically declining today. 02/03: initial evaluation around 11am. delayed note entry. passed SBT on my eval. met parameters and was extubated successfully. sputum growing staph, sensitivities to follow. clinically improving. now much less delirious and appears to be improving from etoh withdraw. 02/04: Nephrology specialist for Hemodialysis due to Hyperkalemia and significant edema, likely acute renal failure secondary to Rhabdomyolysis 02/05: Seen in his bedroom in the presence of Miss Yusuf, continue present care, okay to transfer to the general Floor will handle it with nephrology specialist to try to do that this afternoon 02/06: Stable okay to transfer to psych unit and continue management by Nephrology in Psych, no nausea, vomit or diarrhea. okay to transfer to Psych seen early in AM with nurse Miss Guaman 02/08: stable in his bedroom, asked for Nephrology specialist consult to continue his care in Psych unit. Patient stable no complaint. 02/09: stable in his bedroom discussed with nurse had Hemodialysis yesterday. Nephrology specialist following. No nausea, vomit or diarrhea, ambulating well no need for PT 02/10: Seen in his bedroom and discussed with nurse and with nephrology specialist Doctor Adams he states will take time to schedule the patient for acute hemodialysis as outpatient will need to placed a perm cath and arrangement has to be done. 02/11: Stable in his bedroom, no nausea, vomit or diarrhea, was discussed with international trade manager awaiting for arrangements for discharge to Home with Acute Hemodialysis but if not possible will be admitted fo the floor with diagnosis of VEENA with acute Hemodialysis until arrangements performed. Objective Vital Signs Date Time Temp Pulse Resp B/P (MAP) Pulse Ox O2 Delivery O2 Flow Rate FiO2 02/11/17 13:00 98.4 106 16 166/94 (118) 96 02/11/17 12:30 97.4 104 16 181/106 (131) 97 02/11/17 12:00 98.2 102 16 170/98 (122) 96 02/11/17 11:30 98.2 102 16 177/102 (127) 96 02/11/17 11:13 101 18 197/90 (125) 97 02/11/17 10:43 100 17 223/124 (157) 98 02/11/17 10:28 98.2 104 18 210/114 (146) 97 02/11/17 06:04 97.6 104 18 169/94 (119) 95 02/10/17 20:15 97.9 97 18 160/96 (117) 98 I/O 02/10/17 02/10/17 02/10/17 02/11/17 02/11/17 02/11/17 07:00 15:00 23:00 07:00 15:00 23:00 Intake Total 0 ml 480 ml 480 ml 0 ml 360 ml Output Total 3000 ml Balance 0 ml 480 ml -2520 ml 0 ml 360 ml Intake Oral 0 ml 480 ml 480 ml 0 ml 360 ml Packed Cells 0 ml Output Hemodialysis 3000 ml # Voids 2 1 1 1 Result Diagram: 02/08/17 1252 02/10/17 0459 Imaging Last Impressions Central Venous Line 02/11/17 0000 Signed Impressions: Service Date/Time: Saturday, February 11, 2017 00:00 - CONCLUSION: Uncomplicated catheter removal. Cheko Lutz MD Catheter Placement X-Ray 02/11/17 0000 Signed Impressions: Service Date/Time: Saturday, February 11, 2017 11:25 - CONCLUSION: Uncomplicated PermaCath placement as above. Cheko Lutz MD Procedures None Other Results Laboratory Tests Test 02/08/17 09:28 02/08/17 12:52 02/10/17 04:59 Hemoglobin A1c 5.4 % Triglycerides Level 456 MG/DL Cholesterol Level 244 MG/DL LDL Cholesterol MG/DL HDL Cholesterol 27.1 MG/DL Cholesterol/HDL Ratio 9.00 RATIO White Blood Count 13.9 TH/MM3 Red Blood Count 3.11 MIL/MM3 Hemoglobin 10.7 GM/DL Hematocrit 29.2 % Mean Corpuscular Volume 93.9 FL Mean Corpuscular Hemoglobin 34.3 PG Mean Corpuscular Hemoglobin Concent 36.5 % Red Cell Distribution Width 12.3 % Platelet Count 292 TH/MM3 Mean Platelet Volume 7.3 FL Neutrophils (%) (Auto) 70.4 % Lymphocytes (%) (Auto) 12.9 % Monocytes (%) (Auto) 14.3 % Eosinophils (%) (Auto) 1.5 % Basophils (%) (Auto) 0.9 % Neutrophils # (Auto) 9.8 TH/MM3 Lymphocytes # (Auto) 1.8 TH/MM3 Monocytes # (Auto) 2.0 TH/MM3 Eosinophils # (Auto) 0.2 TH/MM3 Basophils # (Auto) 0.1 TH/MM3 CBC Comment AUTO DIFF Differential Total Cells Counted 100 Neutrophils % (Manual) 69 % Band Neutrophils % 13 % Lymphocytes % 7 % Monocytes % 8 % Eosinophils % 3 % Neutrophils # (Manual) 11.4 TH/MM3 Differential Comment FINAL DIFF MANUAL Toxic Granulation 2+ Platelet Estimate NORMAL Platelet Morphology Comment NORMAL Red Cell Morphology Comment NORMAL Prothrombin Time 9.9 SEC Prothromb Time International Ratio 0.9 RATIO Blood Urea Nitrogen 67 MG/DL Creatinine 10.31 MG/DL Random Glucose 95 MG/DL Albumin 2.3 GM/DL Calcium Level 8.7 MG/DL Phosphorus Level 6.1 MG/DL Sodium Level 130 MEQ/L Potassium Level 3.6 MEQ/L Chloride Level 93 MEQ/L Carbon Dioxide Level 25.3 MEQ/L Anion Gap 12 MEQ/L Estimat Glomerular Filtration Rate 5 ML/MIN Objective Remarks GENERAL: No acute distress. SKIN: Warm and dry. No rash HEAD: Atraumatic. Normocephalic. EYES: Pupils equal and round and reactive. No scleral icterus. No injection or drainage. ENT: No nasal bleeding or discharge. Mucous membranes pink and moist. NECK: Trachea midline. No JVD. CARDIOVASCULAR: normal rate, regular rhythm. sinus by tele. RESPIRATORY: Decreased breath sounds bilateral but no wheezing or crackles. GASTROINTESTINAL: Abdomen soft, non-tender, nondistended. MUSCULOSKELETAL: No clubbing cyanosis or edema. NEUROLOGICAL: No focal deficits, alert and oriented x 3. Current Medications Medications (Trade) Dose Ordered Sig/Dinesh Route Start Time Stop Time Status Last Admin (Albuterol Neb) 2.5 mg Q2HR NEB PRN INH 02/07/17 15:30 (Apresoline) 25 mg QID PRN PO 02/07/17 15:30 02/08/17 18:32 (Ecotrin Ec) 81 mg DAILY PO 02/07/17 15:45 Future Hold 02/08/17 08:13 (Ativan) 1 mg Q6H PRN PO 02/07/17 15:30 (Ativan Inj) 1 mg Q6H PRN IM 02/07/17 15:30 (Tylenol) 650 mg Q4H PRN PO 02/07/17 15:30 (Milk Of Magnesia Liq) 30 ml DAILY PRN PO 02/07/17 15:30 (Mag-Al Plus Susp Liq) 30 ml Q6H PRN PO 02/07/17 15:30 (Habitrol 21 Mg Patch.24 Hr) 1 patch DAILY T-DERMAL 02/07/17 15:30 (Remeron) 15 mg HS PO 02/07/17 21:00 02/08/17 22:07 (Folate) 1 mg DAILY PO 02/08/17 09:00 02/09/17 09:39 (Theragran) 1 tab DAILY PO 02/08/17 09:00 02/09/17 09:39 (Protonix) 40 mg DAILY PO 02/08/17 09:00 02/09/17 09:39 Sodium Chloride 1,000 ml @ 0 mls/hr TITRATE PRN OTHER 02/08/17 17:00 (Heparin Inj) 8,000 units UNSCH PRN IV FLUSH 02/08/17 17:00 Sodium Chloride 1,000 ml @ 200 mls/hr Q5H PRN OTHER 02/08/17 17:00 Sodium Chloride 200 ml @ 0 mls/hr UNSCH PRN IV 02/08/17 17:00 (Mannitol Inj) 12.5 gm UNSCH PRN IV PUSH 02/08/17 17:00 Albumin Human 100 ml @ 60 mls/hr UNSCH PRN IV 02/08/17 17:00 (NS Flush) 5 ml UNSCH PRN IV FLUSH 02/08/17 17:00 (Heparin Inj) Dwell Heparin to f... UNSCH PRN OTHER 02/08/17 17:00 (Gentamicin (Dialysis) Inj) 10 mg UNSCH PRN OTHER 02/08/17 17:00 (Gelfoam 12 Mm/7 Mm Top) 1 foam UNSCH PRN TOPICAL 02/08/17 17:00 (Zofran Inj) 4 mg UNSCH PRN IV PUSH 02/08/17 17:00 (Tylenol) 650 mg UNSCH X1 PRN PO 02/08/17 17:00 03/10/17 16:59 (Benadryl) 25 mg UNSCH PRN PO 02/08/17 17:00 (Nitrostat Sl) 0.4 mg UNSCH PRN SL 02/08/17 17:00 (Catapres) 0.1 mg UNSCH PRN PO 02/08/17 17:00 Medications and IVs Current Medications Medications (Trade) Dose Ordered Sig/Dinesh Route Start Time Stop Time Status Last Admin (Albuterol Neb) 2.5 mg Q2HR NEB PRN INH 02/07/17 15:30 (Apresoline) 25 mg QID PRN PO 02/07/17 15:30 02/11/17 10:55 (Ecotrin Ec) 81 mg DAILY PO 02/07/17 15:45 Future Hold 02/08/17 08:13 (Ativan) 1 mg Q6H PRN PO 02/07/17 15:30 (Ativan Inj) 1 mg Q6H PRN IM 02/07/17 15:30 (Tylenol) 650 mg Q4H PRN PO 02/07/17 15:30 (Milk Of Magnesia Liq) 30 ml DAILY PRN PO 02/07/17 15:30 (Mag-Al Plus Susp Liq) 30 ml Q6H PRN PO 02/07/17 15:30 (Habitrol 21 Mg Patch.24 Hr) 1 patch DAILY T-DERMAL 02/07/17 15:30 (Remeron) 15 mg HS PO 02/07/17 21:00 02/10/17 21:29 (Folate) 1 mg DAILY PO 02/08/17 09:00 02/11/17 11:51 (Theragran) 1 tab DAILY PO 02/08/17 09:00 02/11/17 11:51 (Protonix) 40 mg DAILY PO 02/08/17 09:00 02/11/17 11:50 Sodium Chloride 1,000 ml @ 0 mls/hr TITRATE PRN OTHER 02/08/17 17:00 (Heparin Inj) 8,000 units UNSCH PRN IV FLUSH 02/08/17 17:00 Sodium Chloride 1,000 ml @ 200 mls/hr Q5H PRN OTHER 02/08/17 17:00 Sodium Chloride 200 ml @ 0 mls/hr UNSCH PRN IV 02/08/17 17:00 (Mannitol Inj) 12.5 gm UNSCH PRN IV PUSH 02/08/17 17:00 Albumin Human 100 ml @ 60 mls/hr UNSCH PRN IV 02/08/17 17:00 (NS Flush) 5 ml UNSCH PRN IV FLUSH 02/08/17 17:00 (Heparin Inj) Dwell Heparin to f... UNSCH PRN OTHER 02/08/17 17:00 (Gentamicin (Dialysis) Inj) 10 mg UNSCH PRN OTHER 02/08/17 17:00 02/10/17 16:14 (Gelfoam 12 Mm/7 Mm Top) 1 foam UNSCH PRN TOPICAL 02/08/17 17:00 (Zofran Inj) 4 mg UNSCH PRN IV PUSH 02/08/17 17:00 (Tylenol) 650 mg UNSCH X1 PRN PO 02/08/17 17:00 03/10/17 16:59 (Benadryl) 25 mg UNSCH PRN PO 02/08/17 17:00 (Nitrostat Sl) 0.4 mg UNSCH PRN SL 02/08/17 17:00 (Catapres) 0.1 mg UNSCH PRN PO 02/08/17 17:00 02/10/17 16:45 (Phoslo) 667 mg TID PO 02/10/17 13:00 02/11/17 11:52 (Nephrocaps) 1 cap DAILY PO 02/10/17 11:30 02/11/17 11:51 Vancomycin HCl 1000 mg/Sodium Chloride 250 ml @ 250 mls/hr HEALTH SAFETY COORDINATOR IV 02/10/17 11:45 02/14/17 11:44 02/11/17 08:18 Cefazolin Sodium/ Dextrose 50 ml @ 100 mls/hr HEALTH SAFETY COORDINATOR IV 02/10/17 11:45 02/14/17 11:44 02/11/17 10:43 (NS Flush) UNSCH PRN IV FLUSH 02/11/17 10:30 (Heparin Inj) UNSCH PRN IV FLUSH 02/11/17 10:30 (Cardizem Cd) 180 mg DAILY PO 02/12/17 09:00 A/P Assessment and Plan 1. Intentional Overdose on sleeping pills, Possible diphenhydramine, Depression , EtOH use, Agitated Delirium, EtOH withdrawal, Psychiatry specialist following, inpatient at Psychiatric unit, Discharge Home by Doctor Edward Melendez. CT brain 01/29 revealed no acute intracranial findings CT C-spine 01/29 negative for acute findings. Straightened lordosis. 2. Sinus tachycardia Severe Sepsis managed on Vancomycin and Zosyn while in Intensive care unit his sputum culture was positive for Staph aureus, probable contaminant, at this time off antibiotics, following with laboratory, his home medicines, Rosuvastatin Valsartan were placed on Hold due to Acute kidney Injury also Metformin, held Metoprolol and Amlodipine, was resumed his Aspirin. 3. Acute Hypoxic and Hypercarbic Respiratory failure Improving, Aspiration Pneumonia status post VDRF Improved. 4. Elevated transaminases, Rhabdomyolysis, Hepatic Steatosis. and elevated Lipase,CPK greater than 100,000 on admission. Abdominal ultrasound revealed hepatomegaly likely hepatic steatosis 5. Acute Kidney Injury, Nephrology specialist consult, Creatinine worsening, receiving acute Hemodialysis. awaiting arrangements to continue HD as outpatient 6. Aspiration Pneumonia Sepsis, on Vancomycin and Zosyn. Improved will follow off antibiotics. Discussed with patient and nurse Miss Portillo,also with Hoisting Laborer will try to get Insurance authorization to continue his Hemodialysis as outpatient he had his Perm cath placed already for discharge to continue outpatient Acute Hemodialysis if not possible will be admitted to Medical Floor to continue Hemodialysis in house. Good activity no need for PT. Prophylaxis - GI - pantoprazole - DVT - SCD/heparin subcutaneous Code Status Full Code. Discussed Condition With patient and nurse and Psychiatry specialist Doctor Danny Trinh. Discharge Planning per attending Physician Dre Diaz MD Feb 11, 2017 15:10
--- NOTE | 2017-02-11 16:24 | HHI.DS ---
Psychiatry Discharge Summary Inpatient Psychiatric care?: Yes Advance Directive: Yes Mental Health AdvanceDirective: No Health Care Proxy: No Admission Admission Date Feb 07, 2017 at 13:18 Admission Diagnosis: (1) Depression ICD Code: F32.9 - Major depressive disorder, single episode, unspecified Brief History The patient is a 46 year old man, domiciled in [place] , , employed, with reported psychiatric history of depression and anxiety, 1 previous psychiatric hospitalization in the past, one suicidal attempt by hanging, alcohol and cannabis use disorder, Past medical history includes hypertension and dyslipidemia . He presents to [facility] after being found on the ground for an unknown duration of time after taking "over-the- counter sleeping pills". He's been Beltran acted. Symptomatology includes tachycardia, mydriasis and appears dehydrated. Lab workup included negative urine toxicology screen. Negative acetaminophen and EtOH. Patient has a leukocytosis of 24,000. Patient is in acute kidney injury creatinine 2.9.. Transaminases are elevated. Patient has a metabolic acidosis/Hyalgan With acetone and lactic currently pending.CT brain and C-spine negative. Chest x- ray negative. On psychiatric evaluation today patient is evidently confused, at the beginning he did not know what he was, and what was the reason of his hospitalization, but with redirection he remembered that he is at [place], but he continues to say that we are in November 1969. 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 After stated multiple times that he doesn't remember what is the reason he is here, he finally says with tears in his eyes he has screw up his relationship with his girlfriend, she has left him, and he has been feeling useless, helpless, hopeless, and finally tried to commit suicide by overdosing. Patient stated that his intention was to . He says that life doesn't have any purpose anymore. As patient is talking his is to be internally preoccupied and having visual hallucinations. He actually states that "I don't know what this robin here behind you is doing to me, why does he have to be here"when is not really nobody there. Patient reports that he has been drinking too much. He reports anyway from 8-16 beers per day. Also reports occasional use of marijuana. Denies use of cocaine, heroine, and other illicit drugs. Patient is sweaty and tremulous, even though he denies inner sensation of anxiety, pain, nausea. Patient was seen today for psychiatric reevaluation in the medical psychiatric unit. She is calm, cooperative, pleasant. Patient reports feeling much better , he says that he regrets his actions of overdosing, and he is motivated to pursue psychiatric treatment and counseling and get better. This moment the patient denies suicidal and homicidal ideation, he denies visual and auditory hallucinations. She is confused, but oriented in person and place, partially oriented in time Tobacco Use In Past 30 Days: No Tobacco Past 30 Days Alcohol Use: 4 or More Times Per Week Hospital Course The patient is a 46 year old man, domiciled in [place] , , employed, with reported psychiatric history of depression and anxiety, 1 previous psychiatric hospitalization in the past, one suicidal attempt by hanging, alcohol and cannabis use disorder, Past medical history includes hypertension and dyslipidemia who presented to [facility] after being found on the ground for an unknown duration of time after taking "[id number] sleeping pills" and placed under Beltran Act. Patient was transferred to the inpatient psychiatry unit for further evaluation and management. Patent was kept on CIWA protocol and did not show signs or symptoms of withdrawal. Patient was started on mirtazapine 15mg PO HS which he tolerated well and responded to. Patient was initially transferred from the medical floor after having been stabilized from acute hypoxic and hypercarbic respiratory failure with aspiration pneumonia. He was continually followed by primary medical team along with nephrology consult team for acute kidney injury secondary to rhabdomyolysis while on the medical/psychiatry unit. He was noted to be with stable mood, denied having suicidal ideations, and cooperative with staff. He denied any depressive symptoms and was noted to be future-oriented. Upon discharge form the psychiatry service, patient stated that his hospitalization provided him with introspection and insight into his alcohol abuse and felt that he should remain sobriety by engaging in rehab. He denied any SI, HI, AVH or delusions, agrees to comply with treatment and outpatient follow up for continuity of care. Patient was counseled on abstinence from alcohol use and agrees to engage in outpatient rehabilitation program for substance use. Supportive psychotherapy provided. Patient advised to call 911 or go nearest ED in case of emergency. Patient agrees with plan. Patient transferred to medical floor for continued medical management. Results Blood Pressure 166 / 94 Vital Signs Date Time Temp Pulse Resp B/P (MAP) Pulse Ox O2 Delivery O2 Flow Rate FiO2 02/11/17 13:00 98.4 106 16 166/94 (118) 96 02/09/17 00:56 21 Laboratory Tests Test 02/10/17 04:59 Blood Urea Nitrogen 67 MG/DL (7-18) Creatinine 10.31 MG/DL (0.60-1.30) Albumin 2.3 GM/DL (3.4-5.0) Phosphorus Level 6.1 MG/DL (2.5-4.9) Sodium Level 130 MEQ/L (136-145) Chloride Level 93 MEQ/L (98-107) Estimat Glomerular Filtration Rate 5 ML/MIN (>89) Laboratory Results Test 02/08/17 09:28 Cholesterol Level 244 MG/DL (120-200) HDL Cholesterol 27.1 MG/DL (40.0-60.0) Hemoglobin A1c 5.4 % (4.3-6.0) LDL Cholesterol MG/DL (0-99) Triglycerides Level 456 MG/DL (42-150) Summary of Procedures none Imaging Last Impressions Central Venous Line 02/11/17 0000 Signed Impressions: Service Date/Time: Saturday, February 11, 2017 00:00 - CONCLUSION: Uncomplicated catheter removal. Cheko Lutz MD Catheter Placement X-Ray 02/11/17 0000 Signed Impressions: Service Date/Time: Saturday, February 11, 2017 11:25 - CONCLUSION: Uncomplicated PermaCath placement as above. Cheko Lutz MD Pending results at discharge: No Medications # of Antipsychotic meds at D/C: 0 Approp Antipsych med options 1 - Minimum of three failed multiple trials of monotherapy. 2 - Documented plan to taper to monotherapy due to previous use of multiple meds OR cross-taper in progress at D/C. 3 - Documentation of augmentation of Clozapine. 4 - Justification other than those listed in allowable values 1-3, document here : Discharge Discharge Date: Feb 11, 2017 Discharge Diagnosis: (1) Depression ICD Code: F32.9 - Major depressive disorder, single episode, unspecified Pt Condition on Discharge: Stable Discharge Disposition: Discharge Home (transferred to the medical floor for further medical management) Discharge Instructions Diet Instructions: Renal Failure Diet Activities you can perform: Regular-No Restrictions Discharge Time > 30 minutes Mental Status Examination Appearance: Appropriate Consciousness: Alert Orientation: x4 Motor Activity: Normal gait Speech: Unremarkable Language: Adequate Fund of Knowledge: Adequate Attention and Concentration: Adequate Memory: Unremarkable Mood: Appropriate Affect: Appropriate Thought Process & Associations: Intact Thought Content: Appropriate Hallucination Type: None Delusion Type: None Suicidal Ideation: No Suicidal Plan: No Suicidal Intention: No Homicidal Ideation: No Homicidal Plan: No Homicidal Intention: No Insight: Adequate Judgment: Adequate Discharge/Advance Care Plan Health Problems: (1) Depression Goals to promote your health * To prevent worsening of your condition and complications * To maintain your health at the optimal level Directions to meet your goals Take your medications as prescribed Follow your dietary instruction Follow activity as directed Keep your appointments as scheduled Take your immunizations and boosters as scheduled If your symptoms worsen call your PCP, if no PCP go to Urgent Care Center or Emergency Room For 28/10 questions related to your inpatient stay or results of tests pending at discharge, please contact Dr. Edward Melendez at Smoking is Dangerous to Your Health. Avoid second hand smoking Problem Qualifiers (1) Depression: Edward Melendez MD Feb 11, 2017 16:24
[2017-02-11] MEDS: GENTAMICIN SULFATE (DIALYSIS USE ONLY) 20 MG/2 ML VIAL OTHER PRN (17:18)
[2017-02-12] MEDS ORDERED: DILTIAZEM-CD 180 MG CAP ER PO SCH (09:00)
== END 2017-02-11 18:26 | disposition short-term general hospital (02) | DRG 881 ==
LOC: H4EA 13:18
PROVIDERS: ADMIT Student in an Organized Health Care Education/Training Program; ATTEND Student in an Organized Health Care Education/Training Program
PROC: 5A1D70Z Performance of Urinary Filtration, Intermittent, Less than 6 Hours Per Day (ICD-10-PCS; 2017-02-07)
PROC: 02PYX3Z Removal of Infusion Device from Great Vessel, External Approach (ICD-10-PCS; principal; 2017-02-11)
PROC: 05HM33Z Insertion of Infusion Device into Right Internal Jugular Vein, Percutaneous Approach (ICD-10-PCS; 2017-02-11)
DX: F32.9 Major depressive disorder, single episode, unspecified (principal); N17.9 Acute kidney failure, unspecified; M62.82 Rhabdomyolysis; E83.39 Other disorders of phosphorus metabolism; K76.0 Fatty (change of) liver, not elsewhere classified; I10 Essential (primary) hypertension; E78.5 Hyperlipidemia, unspecified; F12.90 Cannabis use, unspecified, uncomplicated; F10.20 Alcohol dependence, uncomplicated; D63.8 Anemia in other chronic diseases classified elsewhere; F41.9 Anxiety disorder, unspecified; Z91.5 Personal history of self-harm; Z99.2 Dependence on renal dialysis
CPT/HCPCS: 36558; 76937; 77001; 80048; 80061; 80069; 83036; 85007; 85027; 85610; 90935; 96374; 99152; 99153; C1750; C1769; C1887; J0690; J1580; J1644; J2250; J3010; J3370; J7050

== ENCOUNTER 2017-02-11 13:29 | Observation (INO) | payer BC ==
[2017-02-11] MEDS ORDERED: MIRTA15 PO (14:29)
[2017-02-11 20:30] VITALS: BP 154/94; PULSE 112; RESP 17; TEMP 98.1; O2SAT 94
[2017-02-11 20:45] VITALS: BP 177/89; PULSE 105; RESP 17; TEMP 97.5; O2SAT 97
[2017-02-11] MEDS ORDERED: LACTULOSE SYRUP 20 GM/30 ML CUP PO PRN (21:00)
[2017-02-11] MEDS ORDERED: RESP: ALBUTEROL 2.5 MG/3 ML NEB (PRN) INH (21:00)
[2017-02-11] MEDS: HEPARIN SODIUM - SQ 10,000 UNITS/ML VIAL SQ SCH (21:00)
[2017-02-11] MEDS ORDERED: SENNOSIDES 8.6 MG TAB PO PRN (21:00)
[2017-02-11] MEDS ORDERED: NALOXONE HCL 0.4 MG/ML AMP IV PUSH PRN (21:00)
[2017-02-11] MEDS ORDERED: ONDANSETRON HCL 4 MG/2 ML VIAL IVP PRN (21:00)
[2017-02-11] MEDS ORDERED: ACETAMINOPHEN 325 MG TAB PO PRN (21:00)
[2017-02-11] MEDS ORDERED: MAGNESIUM HYDROXIDE SUSP 30 ML CUP PO PRN (21:00)
[2017-02-11] MEDS ORDERED: BISACODYL 10 MG SUPP RECTAL PRN (21:00)
[2017-02-11] MEDS ORDERED: SODIUM CHLORIDE 0.9% FLUSH 10 ML FLUSH IV FLUSH PRN (21:00)
[2017-02-11] MEDS: hydrALAZINE HCL 25 MG TAB PO PRN (21:58)
[2017-02-11] MEDS: MIRTAZAPINE 15 MG TAB PO SCH (21:59)
[2017-02-11] MEDS: DOCUSATE SODIUM 50 MG/SENNA 8.6 MG TAB PO SCH (21:59)
[2017-02-11] MEDS: SODIUM CHLORIDE 0.9% FLUSH 10 ML FLUSH IV FLUSH SCH (21:59)
[2017-02-12] VITALS (7 sets, daily range): BP systolic 153–189; BP diastolic 80–105; PULSE 105–113; RESP 16–19; TEMP 98.1–99.5; O2SAT 94–98
[2017-02-12] MEDS: DOCUSATE SODIUM 50 MG/SENNA 8.6 MG TAB PO SCH ×3 (09:00→20:46)
[2017-02-12] MEDS: HEPARIN SODIUM - SQ 10,000 UNITS/ML VIAL SQ SCH ×3 (09:00→20:46)
--- NOTE | 2017-02-12 09:35 | HHI.HP ---
[facility] Service [facility] Hospitalists Primary Care Physician Unknown Admission Diagnosis Diagnoses: Chief Complaint: My kidney's weren't working. Travel History International Travel<30 Days: No Contact w/Intl Traveler <30 Da: No Traveled to Known Affected Are: No History of Present Illness Written by Christopher Gaming PA-C acting as scribe for Dr. Michael. Lockhart on 02/12 at 09:27. Mr. Woods is 46 yo, with history of alcohol abuse, depression, hypertension, and acute renal failure. Mr. Woods was admitted to [facility] on January 29, 2017 being found unconscious with possible overdose of sleeping pills. Labs indicated the presence of acute renal failure. Pt was subsequently admitted to the ICU for treatment, then transitioned to the medical psychiatric service. He was discharged from psychiatry on 02/11/17 and admitted to the hospitalist service late on 02/11/17. At time of interview, pt reported he was feeling well and awaiting "them to come and draw my blood this morning." Pt stated he has been undergoing dialysis for the past two days. He stated he is now "peeing about normal and it's clear in color." He noted bowel movements are normal and his appetite is "almost back to normal." He denied fever, malaise, cough, shortness of breath, he is ambulating "up and down the halls", and denied abdominal/chest pain. A 10 point ROS was conducted and, except as noted above was negative. He is looking forward to going home and is simply waiting for dialysis arrangements to be made. Review of Systems Constitutional: COMPLAINS OF: Change in appetite, DENIES: Fatigue Endocrine: DENIES: Polyuria Eyes: DENIES: Vision loss Ears, nose, mouth, throat: DENIES: Tinnitus, Hearing loss Respiratory: DENIES: Cough, Shortness of breath Cardiovascular: DENIES: Chest pain, Dyspnea on Exertion Gastrointestinal: DENIES: Abdominal pain, Black stools, Bloody stools, Constipation, Diarrhea, Nausea, Vomiting Musculoskeletal: DENIES: Joint pain Hematologic/lymphatic: DENIES: Bruising Immunologic/allergic: DENIES: Urticaria Neurologic: DENIES: Abnormal gait Psychiatric: COMPLAINS OF: Depression Except as stated in HPI: all other systems reviewed are Neg Past Family Social History Past Medical History Depression Hypertension Hyperlipidemia Chronic clonazepam use Past Surgical History Bunionectomy (x2) Hernandez's neuroma Finger repair. Reported Medications Reported Meds & Active Scripts Active Mirtazapine 15 Mg Tab 15 Mg PO HS 30 Days Hydralazine HCl 25 Mg Tablet 25 Mg PO QID PRN give one dose every six hour for systolic blood pressure over 160 mm Hg. Protonix (Pantoprazole Sodium) 40 Mg Tab 40 Mg PO DAILY Folic Acid 1 Mg Tablet 1 Mg PO DAILY Albuterol Neb (Albuterol Sulfate) 2.5 Mg/3 Ml Neb 2.5 Mg INH Q2HR NEB PRN Reported Multivitamin (Multivitamins) 1 Tab Tab 1 Tab PO DAILY Aspirin Ec Low Strength (Aspirin) 81 Mg Tab 81 Mg PO DAILY Allergies: Coded Allergies: No Known Allergies (Unverified , 07/07/15) Active Ordered Medications Current Medications Medications (Trade) Dose Ordered Sig/Dinesh Route Start Time Stop Time Status Last Admin (NS Flush) 2 ml UNSCH PRN IV FLUSH 02/11/17 21:00 (NS Flush) 2 ml BID IV FLUSH 02/11/17 21:00 02/11/17 21:59 (Tylenol) 650 mg Q4H PRN PO 02/11/17 21:00 (Zofran Inj) 4 mg Q6H PRN IVP 02/11/17 21:00 (Heparin Inj) 5,000 units Q12H SQ 02/11/17 21:00 (Narcan Inj) 0.4 mg UNSCH PRN IV PUSH 02/11/17 21:00 (Nakia-Colace) 1 tab BID PO 02/11/17 21:00 02/11/17 21:59 (Milk Of Magnesia Liq) 30 ml Q12H PRN PO 02/11/17 21:00 (Senokot) 17.2 mg Q12H PRN PO 02/11/17 21:00 (Dulcolax Supp) 10 mg DAILY PRN RECTAL 02/11/17 21:00 (Lactulose Liq) 30 ml DAILY PRN PO 02/11/17 21:00 (Albuterol Neb) 2.5 mg Q2HR NEB PRN INH 02/11/17 21:00 (Folate) 1 mg DAILY PO 02/12/17 09:00 (Apresoline) 25 mg QID PRN PO 02/11/17 21:00 02/11/17 21:58 (Remeron) 15 mg HS PO 02/11/17 21:00 02/11/17 21:59 (Theragran) 1 tab DAILY PO 02/12/17 09:00 (Protonix) 40 mg DAILY PO 02/12/17 09:00 (Ecotrin Ec) 81 mg DAILY PO 02/12/17 09:00 Family History Father-reportedly at age 52 due to "a heart attack". Mother-reported to be living and has DM II Social History Pt reported drinking 8-12 beers a day, drinking history was reported to be 25 years. He denied smoking tobacco products but endorsed "occasional marijuana" usage. Pt denied illicit or recreational drug use. Medical records indicated pt has history of chronic Clonazepam use. Physical Exam Vital Signs Vital Signs Date Time Temp Pulse Resp B/P (MAP) Pulse Ox O2 Delivery O2 Flow Rate FiO2 02/12/17 05:45 99.2 110 18 159/80 (106) 96 02/12/17 00:50 98.1 112 17 154/94 (114) 94 02/11/17 20:45 97.5 105 17 177/89 (118) 97 02/11/17 20:30 98.1 112 17 154/94 (114) 94 Physical Exam GENERAL: This is a well-nourished, well-developed patient, reclining in chair at bedside, in no apparent distress. SKIN: No rashes, ecchymoses or lesions. Cool and dry. IV access site noted in left wrist and perma-cath access site noted in right subclavian. HEAD: Atraumatic. Normocephalic. EYES: Pupils equal round and reactive. Extraocular motions intact. No scleral icterus. No injection or drainage. ENT: Nose without bleeding or purulent drainage. Airway patent. NECK: Trachea midline. No JVD or lymphadenopathy. Supple and nontender. CARDIOVASCULAR: Tachycardic rate with regular rhythm without murmurs, gallops, or rubs. RESPIRATORY: Clear to auscultation. Breath sounds equal bilaterally. No wheezes , rales, or rhonchi. GASTROINTESTINAL: Abdomen soft, non-tender, nondistended. No hepato- splenomegaly or guarding. MUSCULOSKELETAL: Extremities without clubbing, cyanosis, yet upper and lower extremities evidenced trace edema. NEUROLOGICAL: Awake and alert. Cranial nerves II through XII intact. Motor and sensory grossly within normal limits. Five out of 5 muscle strength in all muscle groups. Speech was clear and fluent. PSYCHIATRIC: Pt was pleasant and cooperative. Pt had a tendency to minimize current health and past psychiatric history (as compared to medical records). Pt indicated his drinking history had been long "25 years". Pt stated he would "try" to continue his sobriety, which he stated is two weeks in duration. Laboratory 02/08/17 1252 02/10/17 0459 Imaging Last Impressions Central Venous Line 02/11/17 0000 Signed Impressions: Service Date/Time: Saturday, February 11, 2017 00:00 - CONCLUSION: Uncomplicated catheter removal. Cheko Lutz MD Catheter Placement X-Ray 02/11/17 0000 Signed Impressions: Service Date/Time: Saturday, February 11, 2017 11:25 - CONCLUSION: Uncomplicated PermaCath placement as above. Cheko Lutz MD Capgaylei VTE Risk Assessment Caprini VTE Risk Assessment: Mod/High Risk (score >= 2) Caprini Risk Assessment Model Point Value = 1 Point Value = 2 Point Value = 3 Point Value = 5 Age 41-60 Minor surgery BMI > 25 kg/m2 Swollen legs Varicose veins or History of unexplained or recurrent spontaneous Oral contraceptives or hormone replacement Sepsis (< 1 month) Serious lung disease, including pneumonia (< 1 month) Abnormal pulmonary function Acute myocardial infarction Congestive heart failure (< 1 month) History of inflammatory bowel disease Medical patient at bed rest Age 61-74 Arthroscopic surgery Major open surgery (> 45 min) Laparoscopic surgery (> 45 min) Malignancy Confined to bed (> 72 hours) Immobilizing plaster cast Central venous access Age >= 75 History of VTE Family history of VTE Factor V Leiden Prothrombin [id number] Lupus anticoagulant Anticardiolipin antibodies Elevated serum homocysteine Heparin-induced thrombocytopenia Other congenital or acquired thrombophilia Stroke (< 1 month) Elective arthroplasty Hip, pelvis, or leg fracture Acute spinal cord injury (< 1 month) Prophylaxis Regimen Total Risk Factor Score Risk Level Prophylaxis Regimen 0-1 Low Early ambulation 2 Moderate Order ONE of the following: *Sequential Compression Device (SCD) *Heparin 5000 units SQ BID 3-4 Higher Order ONE of the following medications: *Heparin 5000 units SQ TID *Enoxaparin/Lovenox 40 mg SQ daily (WT < 150 kg, CrCl > 30 mL/min) *Enoxaparin/Lovenox 30 mg SQ daily (WT < 150 kg, CrCl > 10-29 mL/min) *Enoxaparin/Lovenox 30 mg SQ BID (WT < 150 kg, CrCl > 30 mL/min) AND/OR *Sequential Compression Device (SCD) 5 or more Highest Order ONE of the following medications: *Heparin 5000 units SQ TID (Preferred with Epidurals) *Enoxaparin/Lovenox 40 mg SQ daily (WT < 150 kg, CrCl > 30 mL/min) *Enoxaparin/Lovenox 30 mg SQ daily (WT < 150 kg, CrCl > 10-29 mL/min) *Enoxaparin/Lovenox 30 mg SQ BID (WT < 150 kg, CrCl > 30 mL/min) AND *Sequential Compression Device (SCD) Assessment and Plan Problem List: (1) Acute renal failure ICD Code: N17.9 - Acute kidney failure, unspecified Status: Acute (2) Hyperglycemia ICD Code: R73.9 - Hyperglycemia, unspecified Status: Acute (3) Depression ICD Code: F32.9 - Major depressive disorder, single episode, unspecified Status: Chronic Assessment and Plan Mr. Woods is 46 yo, with history of alcohol abuse, depression, hypertension, and acute renal failure. Mr. Woods was admitted to [facility] on January 29, 2017 being found unconscious with possible overdose of sleeping pills. Labs indicated the presence of acute renal failure. Pt was subsequently admitted to the ICU for treatment, then transitioned to the medical psychiatric service. He was discharged from psychiatry on 02/11/17 and admitted to the hospitalist service late on 02/11/17. Acute renal failure Elevated creatinine/BUN -Nephrology consulted. -Dialysis per nephrology -Diet per nephrology -Avoid nephrotoxic agents. -Check labs in AM - will need dialysis set-up as outpt. CM assistance appreciated. Hyperglycemia -check Ha1c -sliding scale insulin (low dose). -Finger sticks q ac and hs -low dose Novolog scale History of alcohol abuse -Folic acid -multivitamin -Thiamine 100 po mg daily Depression -Remeron 15 mg q hs - outpt psychiatry follow-up. Diet: -renal DVT prophylaxis -SCD's -Heparin 5000 units sc q 12 hrs Code Status Full code Discussed Condition With Patient Physician Certification 2 Midnight Certification Type: Admission for Inpatient Services Order for Inpatient Services The services are ordered in accordance with Medicare regulations or non- Medicare payer requirements, as applicable. In the case of services not specified as inpatient-only, they are appropriately provided as inpatient services in accordance with the 2-midnight benchmark. Estimated LOS (days): 3 Three days is the estimated time the patient will need to remain in the hospital , assuming treatment plan goals are met and no additional complications. Post-Hospital Plan: Home Notes: This note was transcribed by amando Gaming. I, Dr. Richard Lockhart personally performed the history, physical exam, and medical decision making; and confirmed the accuracy of the information in the transcribed note. Authenticated by Dr. Richard Lockhart on 02/12/17 at 16:25. Problem Qualifiers (1) Depression: Qualified Codes: F32.9 - Major depressive disorder, single episode, unspecified Christopher Gaming Jr. Feb 12, 2017 09:35 Richard Lockhart DO Feb 12, 2017 16:25
[2017-02-12] MEDS: ASPIRIN EC 81 MG TABEC PO SCH (09:52)
[2017-02-12] MEDS: PANTOPRAZOLE SOD 40 MG DELAYED RELEASE TAB PO SCH (09:52)
[2017-02-12] MEDS: FOLIC ACID 1 MG TAB PO SCH (09:52)
[2017-02-12] MEDS: MULTIVITAMIN TAB PO SCH (09:52)
[2017-02-12] MEDS: SODIUM CHLORIDE 0.9% FLUSH 10 ML FLUSH IV FLUSH SCH ×2 (09:58→20:44)
[2017-02-12 12:04] LABS: AUTOMATED NEUTROPHIL # 8.2 TH/MM3 (1.8-7.7); BASOPHIL # 0.1 TH/MM3 (0-0.2); BASOPHIL % 1.3 % (0.0-2.0); EOSINOPHIL # 0.2 TH/MM3 (0-0.4); EOSINOPHIL % 1.4 % (0.0-4.0); HEMATOCRIT 24.8 % (39.0-51.0); HEMO FLAGS DIFF FINAL; LYMPH % 11.5 % (9.0-44.0); LYMPHOCYTE # 1.2 TH/MM3 (1.0-4.8); MEAN CELL VOLUME 95.7 FL (80.0-100.0); MEAN CORPUSCULAR HGB CONC 35.5 % (32.0-36.0); MONO % 10.2 % (0.0-8.0); NEUT % 75.6 % (16.0-70.0); PLATELET COUNT 351 TH/MM3 (150-450); RED BLOOD COUNT 2.59 MIL/MM3 (4.50-5.90); RED CELL DISTRIBUTION WIDTH 12.8 % (11.6-17.2); WHITE BLOOD COUNT 10.9 TH/MM3 (4.0-11.0)
[2017-02-12] MEDS: hydrALAZINE HCL 25 MG TAB PO PRN (12:40)
--- NOTE | 2017-02-12 13:16 | EKG ---
Date Performed: 02/12/2017 Time Performed: 12:14:30 PTAGE: 46 years EKG: SINUS TACHYCARDIA ABNORMAL RHYTHM ECG No significant change from prior electrocardiogram. PREVIOUS TRACING : 01/29/2017 12.54 DOCTOR: Hao Pemberton Interpretating Date/Time 02/12/2017 13:15:50
[2017-02-12 14:20] LABS: ALT (GPT) 37 U/L (12-78); ANION GAP 12 MEQ/L (5-15); AST (GOT) 30 U/L (15-37); BICARBONATE 28.5 MEQ/L (21.0-32.0); BLOOD UREA NITROGEN 34 MG/DL (7-18); CHLORIDE 96 MEQ/L (98-107); GLOMERULAR FILTRATION RATE 7 ML/MIN (>89); POTASSIUM 3.8 MEQ/L (3.5-5.1); SODIUM (NA) 136 MEQ/L (136-145)
[2017-02-12 14:24] LABS: ALKALINE PHOSPHATASE 72 U/L (45-117); TOTAL BILIRUBIN ADULT 0.4 MG/DL (0.2-1.0)
[2017-02-12] MEDS ORDERED: DEXTROSE 50% IN WATER 50 ML VIAL(D50) IV PUSH PRN (14:45)
[2017-02-12] MEDS ORDERED: GLUCAGON 1 MG/ML VIAL OTHER PRN (14:45)
[2017-02-12] MEDS: INSULIN ASPART SUPPLEMENTAL SCALE SQ SCH ×2 (17:00→21:00)
[2017-02-12] MEDS ORDERED: DILTIAZEM-CD 180 MG CAP ER PO SCH (17:30)
--- NOTE | 2017-02-12 17:57 | PD.CONS ---
HPI Service Nephrology Reason for Consult VEENA Primary Care Physician Unknown History of Present Illness The patient is a 46yo [place] male who was brought in 01/29 via EMS after mother became concerned that she hadn't heard from him. He was found at his house laying on floor for uncertain amount of time with a bottle of OTC sleeping pills beside him. He apparently has has suicide attempts in the past and is currently under Beltran Act. He was not a very reliable historian at time of initial consultation, but says the intentionally took sleeping pills and then mentions 81mg aspirin as well. His PMHx is positive for HTN, HLD, depression, EtOH abuse and suicidal ideation. Admitting SCr was 2.89 with eGFR at 24 that deteriorated overnight to SCr 4.11 and eGFR 16. CPK level is markedly elevated at >100,000 He was transferred to psych floor and now back to medical floor. Dialysis was initiated 01/31 and has been receiving iHD since as he has not yet made renal recovery. Denies any previous kidney issues. Only other SCr available from 07/07/15 that was 0.88 Review of Systems Constitutional: COMPLAINS OF: Fatigue Past Family Social History Allergies: Coded Allergies: No Known Allergies (Unverified , 07/07/15) Past Medical History Hypertension Dyslipidemia Depression Previous suicide attempt Rhabdomyolysis Past Surgical History Vas Cath placement converted to RIJ Perm Cath 02/11 Reported Medications Mirtazapine 15 Mg Tab 15 Mg PO HS 30 Days Hydralazine HCl 25 Mg Tablet 25 Mg PO QID PRN give one dose every six hour for systolic blood pressure over 160 mm Hg. Protonix (Pantoprazole Sodium) 40 Mg Tab 40 Mg PO DAILY Folic Acid 1 Mg Tablet 1 Mg PO DAILY Albuterol Neb (Albuterol Sulfate) 2.5 Mg/3 Ml Neb 2.5 Mg INH Q2HR NEB PRN Multivitamin (Multivitamins) 1 Tab Tab 1 Tab PO DAILY Aspirin Ec Low Strength (Aspirin) 81 Mg Tab 81 Mg PO DAILY Active Ordered Medications Current Medications Medications (Trade) Dose Ordered Sig/Dinesh Route Start Time Stop Time Status Last Admin (NS Flush) 2 ml UNSCH PRN IV FLUSH 02/11/17 21:00 (NS Flush) 2 ml BID IV FLUSH 02/11/17 21:00 02/12/17 09:58 (Tylenol) 650 mg Q4H PRN PO 02/11/17 21:00 (Zofran Inj) 4 mg Q6H PRN IVP 02/11/17 21:00 (Heparin Inj) 5,000 units Q12H SQ 02/11/17 21:00 (Narcan Inj) 0.4 mg UNSCH PRN IV PUSH 02/11/17 21:00 (Nakia-Colace) 1 tab BID PO 02/11/17 21:00 02/11/17 21:59 (Milk Of Magnesia Liq) 30 ml Q12H PRN PO 02/11/17 21:00 (Senokot) 17.2 mg Q12H PRN PO 02/11/17 21:00 (Dulcolax Supp) 10 mg DAILY PRN RECTAL 02/11/17 21:00 (Lactulose Liq) 30 ml DAILY PRN PO 02/11/17 21:00 (Albuterol Neb) 2.5 mg Q2HR NEB PRN INH 02/11/17 21:00 (Folate) 1 mg DAILY PO 02/12/17 09:00 02/12/17 09:52 (Apresoline) 25 mg QID PRN PO 02/11/17 21:00 02/12/17 12:40 (Remeron) 15 mg HS PO 02/11/17 21:00 02/11/17 21:59 (Theragran) 1 tab DAILY PO 02/12/17 09:00 02/12/17 09:52 (Protonix) 40 mg DAILY PO 02/12/17 09:00 02/12/17 09:52 (Ecotrin Ec) 81 mg DAILY PO 02/12/17 09:00 02/12/17 09:52 (D50w (Vial) Inj) 50 ml UNSCH PRN IV PUSH 02/12/17 14:45 (Glucagon Inj) 1 mg UNSCH PRN OTHER 02/12/17 14:45 (NovoLOG SUPPLEMENTAL SCALE) 1 ACHS SLIDING SCALE SQ 02/12/17 17:00 (Vitamin B1) 100 mg DAILY PO 02/12/17 16:15 (Cardizem Cd) 180 mg DAILY PO 02/12/17 17:30 Family History NC Social History Lives locally Previous EtOH abuser Denies any illicit drugs No tobacco Physical Exam Vital Signs Vital Signs Date Time Temp Pulse Resp B/P (MAP) Pulse Ox O2 Delivery O2 Flow Rate FiO2 02/12/17 17:39 99.4 105 19 179/102 (127) 98 02/12/17 12:53 99.5 112 16 175/102 (126) 98 02/12/17 09:49 98.6 109 18 153/94 (113) 94 02/12/17 05:45 99.2 110 18 159/80 (106) 96 02/12/17 00:50 98.1 112 17 154/94 (114) 94 02/11/17 20:45 97.5 105 17 177/89 (118) 97 02/11/17 20:30 98.1 112 17 154/94 (114) 94 Physical Exam GENERAL: Sitting up in chair watching TV. No acute distress SKIN: Warm and dry. HEAD: Atraumatic. Normocephalic. EYES: Pupils equal and round. No scleral icterus. No injection or drainage. ENT: No nasal bleeding or discharge. Mucous membranes pink and moist. NECK: Trachea midline. No JVD. CARDIOVASCULAR: Regular rate and rhythm. RESPIRATORY: No accessory muscle use. Clear to auscultation. Breath sounds equal bilaterally. GASTROINTESTINAL: Abdomen soft, non-tender, nondistended. Hepatic and splenic margins not palpable. MUSCULOSKELETAL: Extremities without clubbing, cyanosis. 1+ pitting edema BLE up to mid-aj. Trace edema bilat hands NEUROLOGICAL: Awake and alert. No obvious cranial nerve deficits.ms and legs. Normal speech. PSYCHIATRIC: Appropriate mood and affect; insight and judgment normal. Laboratory Laboratory Tests Test 02/12/17 11:09 White Blood Count 10.9 Red Blood Count 2.59 Hemoglobin 8.8 Hematocrit 24.8 Mean Corpuscular Volume 95.7 Mean Corpuscular Hemoglobin 34.0 Mean Corpuscular Hemoglobin Concent 35.5 Red Cell Distribution Width 12.8 Platelet Count 351 Mean Platelet Volume 7.1 Neutrophils (%) (Auto) 75.6 Lymphocytes (%) (Auto) 11.5 Monocytes (%) (Auto) 10.2 Eosinophils (%) (Auto) 1.4 Basophils (%) (Auto) 1.3 Neutrophils # (Auto) 8.2 Lymphocytes # (Auto) 1.2 Monocytes # (Auto) 1.1 Eosinophils # (Auto) 0.2 Basophils # (Auto) 0.1 CBC Comment DIFF FINAL Differential Comment Blood Urea Nitrogen 34 Creatinine 8.26 Random Glucose 133 Total Protein 6.1 Albumin 2.5 Calcium Level 8.9 Phosphorus Level 4.2 Magnesium Level 2.0 Alkaline Phosphatase 72 Aspartate Amino Transf (AST/SGOT) 30 Alanine Aminotransferase (ALT/SGPT) 37 Total Bilirubin 0.4 Sodium Level 136 Potassium Level 3.8 Chloride Level 96 Carbon Dioxide Level 28.5 Anion Gap 12 Estimat Glomerular Filtration Rate 7 Result Diagram: 02/12/17 11002/12/171108 Assessment and Plan Problem List: (1) Acute renal failure ICD Codes: N17.9 - Acute kidney failure, unspecified Status: Acute Plan: Related to previous drug overdose-induced rhabdomyolysis Continue iHD TTS Continue PhosLo Epogen if needed for anemia Continue on fluid restrictions of 1500mL daily Patient cannot be certified as having end-stage renal disease in this setting. There is potential for renal recovery after rhabdomyolysis. UOP said to be improving, but SCr rising significantly still in between HD sessions Discharge planning underway, but not cleared for discharge until outpatient dialysis has been set up with Dr. Sánchez in [place] Recommend monitoring renal indices at least weekly post discharge for evidence of renal recovery. I will defer this to his outpatient mail opener as discussed with the patient. (2) Rhabdomyolysis ICD Codes: M62.82 - Rhabdomyolysis Status: Acute Plan: Resolved (3) Anemia, chronic disease ICD Codes: D63.8 - Anemia in other chronic diseases classified elsewhere Plan: Epogen if needed with HD (4) Hyperphosphatemia ICD Codes: E83.39 - Other disorders of phosphorus metabolism Status: Acute Plan: Resume PhosLo (5) Hypertension ICD Codes: I10 - Essential (primary) hypertension Plan: Medications to be adjusted to achieve BP >140/90. Increase Cardizem to 240mg QD Increase Hydralazine to 50mg q8h Consider addition of BB if not improving. (6) Drug overdose, intentional ICD Codes: T50.902A - Poisoning by unspecified drugs, medicaments and biological substances, intentional self-harm, initial encounter Status: Acute Radha Velazquez Feb 12, 2017 17:57
[2017-02-12] MEDS ORDERED: SODIUM CHLOR 0.9% 1000 ML INJ 1,000 ML OTHER PRN ×2 (17:59)
[2017-02-12] MEDS ORDERED: SODIUM CHLOR 0.9% 1000 ML INJ 1,000 ML IV PRN (17:59)
[2017-02-12] MEDS ORDERED: diphenhydrAMINE HCL 25 MG CAP PO PRN (18:00)
[2017-02-12] MEDS ORDERED: HEPARIN SODIUM - IV 10,000 UNITS/10 ML VIAL PRN (18:00)
[2017-02-12] MEDS ORDERED: GENTAMICIN SULFATE (DIALYSIS USE ONLY) 20 MG/2 ML VIAL OTHER PRN (18:00)
[2017-02-12] MEDS ORDERED: cloNIDine HCL 0.1 MG TAB PO PRN (18:00)
[2017-02-12] MEDS ORDERED: ONDANSETRON HCL 4 MG/2 ML VIAL IV PUSH PRN (18:00)
[2017-02-12] MEDS ORDERED: ALBUMIN 25% INJ 100 ML IV PRN (18:00)
[2017-02-12] MEDS ORDERED: MANNITOL 12.5 GM/50 ML VIAL IV PRN (18:00)
[2017-02-12] MEDS ORDERED: HEPARIN SODIUM - IV 10,000 UNITS/10 ML VIAL IV FLUSH PRN (18:00)
[2017-02-12] MEDS ORDERED: NITROGLYCERIN 0.4 MG SL 25 TABS/BTL SL PRN (18:00)
[2017-02-12] MEDS ORDERED: GELATIN 12 MM/7 MM FOAM TOP PRN (18:00)
[2017-02-12] MEDS ORDERED: SODIUM CHLORIDE 0.9% FLUSH 10 ML FLUSH IV FLUSH PRN (18:00)
[2017-02-12] MEDS ORDERED: ACETAMINOPHEN 325 MG TAB PO PRN (18:00)
[2017-02-12] MEDS: THIAMINE HCL 100 MG TAB PO SCH (18:23)
[2017-02-12 20:16] LABS: HEMOGLOBIN A1a 1.2 %; HEMOGLOBIN A1b 0.8 %; HEMOGLOBIN F 0.6 %; HEMOGLOBIN LA1C 2.3 %
[2017-02-12 20:17] LABS: HEMOGLOBIN Ao 85.4 %; HEMOGLOBIN P3 3.9 %
[2017-02-12] MEDS: hydrALAZINE HCL 25 MG TAB PO SCH (20:42)
[2017-02-12] MEDS: MIRTAZAPINE 15 MG TAB PO SCH (20:43)
[2017-02-12] MEDS: CALCIUM ACETATE 667 MG CAP PO SCH (23:06)
[2017-02-13 00:16] VITALS: BP 153/81; PULSE 120; RESP 17; TEMP 99.8; O2SAT 94
[2017-02-13] MEDS: hydrALAZINE HCL 25 MG TAB PO SCH ×2 (05:12→12:44)
[2017-02-13 05:53] VITALS: BP 158/96; PULSE 117; RESP 17; TEMP 98.7; O2SAT 94
[2017-02-13] MEDS: INSULIN ASPART SUPPLEMENTAL SCALE SQ SCH ×2 (08:00→12:00)
[2017-02-13] MEDS ORDERED: DILTIAZEM-CD 240 MG CAP ER PO SCH (09:00)
[2017-02-13] MEDS: DOCUSATE SODIUM 50 MG/SENNA 8.6 MG TAB PO SCH (09:00)
[2017-02-13] MEDS: SODIUM CHLORIDE 0.9% FLUSH 10 ML FLUSH IV FLUSH SCH (09:00)
[2017-02-13 09:04] VITALS: BP 156/102; PULSE 120; RESP 18; TEMP 98.5; O2SAT 88; O2SAT 94
[2017-02-13] MEDS: CALCIUM ACETATE 667 MG CAP PO SCH ×2 (09:16→12:44)
[2017-02-13] MEDS: THIAMINE HCL 100 MG TAB PO SCH (09:16)
[2017-02-13] MEDS: MULTIVITAMIN TAB PO SCH (09:17)
[2017-02-13] MEDS: FOLIC ACID 1 MG TAB PO SCH (09:17)
[2017-02-13] MEDS: ASPIRIN EC 81 MG TABEC PO SCH (09:17)
[2017-02-13] MEDS: PANTOPRAZOLE SOD 40 MG DELAYED RELEASE TAB PO SCH (09:17)
[2017-02-13] MEDS: HEPARIN SODIUM - SQ 10,000 UNITS/ML VIAL SQ SCH (09:18)
[2017-02-13 09:37] VITALS: O2SAT 94
[2017-02-13 10:25] LABS: HEMATOCRIT 25.5 % (39.0-51.0); MEAN CELL VOLUME 95.7 FL (80.0-100.0); MEAN CORPUSCULAR HEMOGLOBIN 33.4 PG (27.0-34.0); MEAN CORPUSCULAR HGB CONC 34.9 % (32.0-36.0); PLATELET COUNT 371 TH/MM3 (150-450); RED BLOOD COUNT 2.67 MIL/MM3 (4.50-5.90); RED CELL DISTRIBUTION WIDTH 12.7 % (11.6-17.2); REVIEW FLAG FINAL; WHITE BLOOD COUNT 13.4 TH/MM3 (4.0-11.0)
[2017-02-13 10:47] LABS: BICARBONATE 27.1 MEQ/L (21.0-32.0); MAGNESIUM 2.1 MG/DL (1.5-2.5); POTASSIUM 3.8 MEQ/L (3.5-5.1)
[2017-02-13] MEDS ORDERED: HYDR-3799 PO (12:27)
[2017-02-13] MEDS ORDERED: CALC667C PO (12:27)
[2017-02-13] MEDS ORDERED: DILT240C44 PO (12:27)
[2017-02-13 12:44] VITALS: BP 178/104; PULSE 110; RESP 18; TEMP 99.1; O2SAT 93
--- NOTE | 2017-02-13 12:47 | HHI.DCPOC ---
Discharge Care Plan Diagnosis: (1) Drug overdose, intentional (2) Hypertension (3) Rhabdomyolysis (4) Acute renal failure (5) Depression Goals to Promote Your Health * To prevent worsening of your condition and complications * To maintain your health at the optimal level Directions to Meet Your Goals Take your medications as prescribed Follow your dietary instruction Follow activity as directed Keep your appointments as scheduled Take your immunizations and boosters as scheduled If your symptoms worsen call your PCP, if no PCP go to Urgent Care Center or Emergency Room Smoking is Dangerous to Your Health. Avoid second hand smoke Call the 24-hour hour crisis hotline for domestic abuse at Richard Lockhart DO Feb 13, 2017 12:47
--- NOTE | 2017-02-13 12:52 | HHI.PR ---
Subjective Remarks The patient was resting comfortably. He was excited to hear that he would be going home following dialysis. He said the blood pressure medications he is currently on have not been working. No other acute complaints. Discussed with nursing and case management. Objective Vitals Vital Signs Date Time Temp Pulse Resp B/P (MAP) Pulse Ox O2 Delivery O2 Flow Rate FiO2 02/13/17 09:04 98.5 120 18 156/102 (120) 94 02/13/17 05:53 98.7 117 17 158/96 (116) 94 02/13/17 00:16 99.8 120 17 153/81 (105) 94 02/12/17 21:48 113 171/105 (127) 02/12/17 20:30 99.5 107 17 189/99 (129) 97 02/12/17 17:39 99.4 105 19 179/102 (127) 98 02/12/17 12:53 99.5 112 16 175/102 (126) 98 I/O 02/12/17 02/12/17 02/12/17 02/13/17 02/13/17 02/13/17 07:00 15:00 23:00 07:00 15:00 23:00 Intake Total 300 ml 360 ml Balance 300 ml 360 ml Intake Oral 300 ml 360 ml # Voids 1 2 # Bowel Movements 0 Result Diagram: 02/13/1793402/13/17934 Objective Remarks GENERAL: This is a well-nourished, well-developed patient, in no apparent distress. SKIN: No rashes, ecchymoses or lesions. Cool and dry. HEAD: Atraumatic. Normocephalic. EYES: Pupils equal round and reactive. Extraocular motions intact. No scleral icterus. No injection or drainage. ENT: Nose without bleeding or purulent drainage. Airway patent. NECK: Trachea midline. No JVD or lymphadenopathy. Supple and nontender. CARDIOVASCULAR: Tachycardic rate with regular rhythm without murmurs, gallops, or rubs. RESPIRATORY: Clear to auscultation. Breath sounds equal bilaterally. No wheezes , rales, or rhonchi. GASTROINTESTINAL: Abdomen soft, non-tender, nondistended. No hepato- splenomegaly or guarding. MUSCULOSKELETAL: Extremities without clubbing, cyanosis, yet upper and lower extremities evidenced trace edema. NEUROLOGICAL: Awake and alert. Cranial nerves II through XII intact. Motor and sensory grossly within normal limits. Five out of 5 muscle strength in all muscle groups. Speech was clear and fluent. PSYCHIATRIC: Mood and affect appropriate. Medications and IVs Current Medications Medications (Trade) Dose Ordered Sig/Dinesh Route Start Time Stop Time Status Last Admin (NS Flush) 2 ml UNSCH PRN IV FLUSH 02/11/17 21:00 (NS Flush) 2 ml BID IV FLUSH 02/11/17 21:00 02/13/17 09:00 (Tylenol) 650 mg Q4H PRN PO 02/11/17 21:00 (Zofran Inj) 4 mg Q6H PRN IVP 02/11/17 21:00 (Heparin Inj) 5,000 units Q12H SQ 02/11/17 21:00 02/13/17 09:18 (Narcan Inj) 0.4 mg UNSCH PRN IV PUSH 02/11/17 21:00 (Nakia-Colace) 1 tab BID PO 02/11/17 21:00 02/11/17 21:59 (Milk Of Magnesia Liq) 30 ml Q12H PRN PO 02/11/17 21:00 (Senokot) 17.2 mg Q12H PRN PO 02/11/17 21:00 (Dulcolax Supp) 10 mg DAILY PRN RECTAL 02/11/17 21:00 (Lactulose Liq) 30 ml DAILY PRN PO 02/11/17 21:00 (Albuterol Neb) 2.5 mg Q2HR NEB PRN INH 02/11/17 21:00 (Folate) 1 mg DAILY PO 02/12/17 09:00 02/13/17 09:17 (Remeron) 15 mg HS PO 02/11/17 21:00 02/12/17 20:43 (Theragran) 1 tab DAILY PO 02/12/17 09:00 02/13/17 09:17 (Protonix) 40 mg DAILY PO 02/12/17 09:00 02/13/17 09:17 (Ecotrin Ec) 81 mg DAILY PO 02/12/17 09:00 02/13/17 09:17 (D50w (Vial) Inj) 50 ml UNSCH PRN IV PUSH 02/12/17 14:45 (Glucagon Inj) 1 mg UNSCH PRN OTHER 02/12/17 14:45 (NovoLOG SUPPLEMENTAL SCALE) 1 ACHS SLIDING SCALE SQ 02/12/17 17:00 (Vitamin B1) 100 mg DAILY PO 02/12/17 16:15 02/13/17 09:16 (Cardizem Cd) 240 mg DAILY PO 02/13/17 09:00 02/13/17 09:16 (Apresoline) 50 mg Q8H PO 02/12/17 20:00 02/13/17 12:44 (Phoslo) 667 mg TID PO 02/12/17 18:00 02/13/17 12:44 Sodium Chloride 1,000 ml @ 0 mls/hr Q0M PRN OTHER 02/12/17 17:59 (Heparin Inj) 8,000 units UNSCH PRN IV FLUSH 02/12/17 18:00 Sodium Chloride 1,000 ml @ 200 mls/hr Q5H PRN IV 02/12/17 17:59 Sodium Chloride 1,000 ml @ 0 mls/hr Q0M PRN OTHER 02/12/17 17:59 (Mannitol Inj) 12.5 gm UNSCH PRN IV 02/12/17 18:00 Albumin Human 100 ml @ 60 mls/hr UNSCH PRN IV 02/12/17 18:00 (NS Flush) 5 ml UNSCH PRN IV FLUSH 02/12/17 18:00 (Heparin Inj) UNSCH PRN .XX 02/12/17 18:00 (Gentamicin (Dialysis) Inj) 20 mg UNSCH PRN OTHER 02/12/17 18:00 (Zofran Inj) 4 mg UNSCH PRN IV PUSH 02/12/17 18:00 (Tylenol) 650 mg UNSCH PRN PO 02/12/17 18:00 (Benadryl) 25 mg UNSCH PRN PO 02/12/17 18:00 (Nitrostat Sl) 0.4 mg UNSCH PRN SL 02/12/17 18:00 (Catapres) 0.1 mg UNSCH PRN PO 02/12/17 18:00 (Gelfoam 12 Mm/7 Mm Top) 1 foam UNSCH PRN TOP 02/12/17 18:00 A/P Problem List: (1) Acute renal failure ICD Code: N17.9 - Acute kidney failure, unspecified Status: Acute (2) Hyperglycemia ICD Code: R73.9 - Hyperglycemia, unspecified Status: Acute (3) Depression ICD Code: F32.9 - Major depressive disorder, single episode, unspecified Status: Chronic Assessment and Plan Mr. Woods is 46 yo, with history of alcohol abuse, depression, hypertension, and acute renal failure. Mr. Woods was admitted to [facility] on January 29, 2017 being found unconscious with possible overdose of sleeping pills. Labs indicated the presence of acute renal failure. Pt was subsequently admitted to the ICU for treatment, then transitioned to the medical psychiatric service. He was discharged from psychiatry on 02/11/17 and admitted to the hospitalist service late on 02/11/17. Acute renal failure Elevated creatinine/BUN -Nephrology consulted. Outpt dialysis has been set-up. CM assistance appreciated. -Diet per nephrology -Avoid nephrotoxic agents. Hyperglycemia -check Ha1c. 5.2%. History of alcohol abuse -Folic acid -multivitamin -Thiamine 100 po mg daily Depression -Remeron 15 mg q hs - outpt psychiatry follow-up. Diet: -renal DVT prophylaxis -SCD's -Heparin 5000 units sc q 12 hrs Discharge Planning D/c home following dialysis Problem Qualifiers (1) Depression: Qualified Codes: F32.9 - Major depressive disorder, single episode, unspecified Richard Lockhart DO Feb 13, 2017 12:52
[2017-02-13] MEDS ORDERED: METOPROLOL TARTRATE 25 MG TAB PO SCH (13:00)
[2017-02-13 17:29] VITALS: BP 175/102; PULSE 107; RESP 17; TEMP 98.4; O2SAT 96
--- NOTE | 2017-02-13 17:34 | HHI.NPPN ---
Subjective History of Present Illness The patient is a 46yo [place] male who was brought in 01/29 via EMS after mother became concerned that she hadn't heard from him. He was found at his house laying on floor for uncertain amount of time with a bottle of OTC sleeping pills beside him. He apparently has has suicide attempts in the past and is currently under Beltran Act. He was not a very reliable historian at time of initial consultation, but says the intentionally took sleeping pills and then mentions 81mg aspirin as well. His PMHx is positive for HTN, HLD, depression, EtOH abuse and suicidal ideation. Admitting SCr was 2.89 with eGFR at 24 that deteriorated overnight to SCr 4.11 and eGFR 16. CPK level is markedly elevated at >100,000 He was transferred to psych floor and now back to medical floor. Dialysis was initiated 01/31 and has been receiving iHD since as he has not yet made renal recovery. Denies any previous kidney issues. Only other SCr available from 07/07/15 that was 0.88 Interval History Unfortunately no improvement in patient's renal indices today. Outpatient nephrology care will be provided by Dr. Sánchez and I will defer to him in regard to management of the patient's dialysis and follow-up. Indicated to the patient there is significant potential for recovery of renal function but this is not guaranteed. Defer to Dr. Sánchez in regard to follow-up of same. Objective Data Data Vital Signs Date Time Temp Pulse Resp B/P (MAP) Pulse Ox O2 Delivery O2 Flow Rate FiO2 02/13/17 12:44 99.1 110 18 178/104 (128) 93 02/13/17 09:37 94 21 02/13/17 09:04 98.5 120 18 156/102 (120) 94 02/13/17 05:53 98.7 117 17 158/96 (116) 94 02/13/17 00:16 99.8 120 17 153/81 (105) 94 02/12/17 21:48 113 171/105 (127) 02/12/17 20:30 99.5 107 17 189/99 (129) 97 02/12/17 17:39 99.4 105 19 179/102 (127) 98 -: 02/13/17 0935 02/13/17 0935 Tubes & Lines: Perma-Cath Physical Exam General Appearance: Well Developed, Well Nourished, No Acute Distress, Comfortable Eyes Eye Exam: Sclera White Throat Throat Exam: Oral Mucosa [place] & Moist Pulmonary Resp Exam: Clear Bilaterally, Breath Sounds Equal, No Distress Cardiology CV Exam: Regular, Normal Sinus Rhythm, Good Perfusion Gastrointestinal/Abdomen GI Exam: Soft, Non-Tender Integumentary Skin Exam: Clear, Warm, Dry, Intact Extremeties Extremities Exam: Trace Edema (pretibial.) Assessment/Plan Discussed Condition With: Patient Problem List: (1) Acute renal failure ICD Codes: N17.9 - Acute kidney failure, unspecified Status: Acute Plan: Related to previous drug overdose-induced rhabdomyolysis Continue iHD TTS Continue PhosLo Epogen if needed for anemia Continue on fluid restrictions of 1500mL daily Discussed with patient regarding need to keep hemodialysis PermCath dry and clean to minimize risk of infection which could be potentially serious. Patient cannot be certified as having end-stage renal disease in this setting. There is potential for renal recovery after rhabdomyolysis. UOP said to be improving, but SCr rising significantly still in between HD sessions Apparently outpatient dialysis has been arranged and patient will follow-up with Dr. Sánchez as an outpatient for nephrology services. (2) Rhabdomyolysis ICD Codes: M62.82 - Rhabdomyolysis Status: Acute Plan: Resolved (3) Anemia, chronic disease ICD Codes: D63.8 - Anemia in other chronic diseases classified elsewhere Plan: Outpatient management per Dr. Sánchez at the dialysis facility. (4) Hyperphosphatemia ICD Codes: E83.39 - Other disorders of phosphorus metabolism Status: Acute Plan: Resume PhosLo (5) Hypertension ICD Codes: I10 - Essential (primary) hypertension Plan: Medications to be adjusted to achieve BP >140/90. Continue current hypertensive regimen for present. (6) Drug overdose, intentional ICD Codes: T50.902A - Poisoning by unspecified drugs, medicaments and biological substances, intentional self-harm, initial encounter Status: Acute Beth Adams MD Feb 13, 2017 17:34
== END 2017-02-13 21:10 | disposition home or self-care (01) ==
LOC: N05B 18:41 → INTOOBSV 18:41
PROVIDERS: ADMIT Hospitalist; ATTEND Hospitalist
DX: T50.902A Poisoning by unspecified drugs, medicaments and biological substances, intentional self-harm, initial encounter (principal); N17.9 Acute kidney failure, unspecified; R73.9 Hyperglycemia, unspecified; F32.9 Major depressive disorder, single episode, unspecified; I10 Essential (primary) hypertension; M62.82 Rhabdomyolysis; F10.10 Alcohol abuse, uncomplicated; D63.8 Anemia in other chronic diseases classified elsewhere; E83.39 Other disorders of phosphorus metabolism; Z91.5 Personal history of self-harm
CPT/HCPCS: 80048; 80053; 82948; 83036; 83735; 84100; 85025; 85027; 90935; 93005; 96372; 96374; G0378; J1580; J1644; G0257